=== PATIENT | female | born 1990 | race Caucasian/White ===

== ENCOUNTER 2017-11-18 16:22 | Outpatient (CLI) | payer BC, SELFPAY ==
[2017-11-20 18:32] LABS: Dilute Russell Viper Venom 36.9 secs (27.2-36.9); LA Cascade Summary SEE COMMENTS; Silica Clotting Time 39.4 sec (30.2-48.4)
[2017-11-21 10:46] LABS: IgA 283 mg/dL (85-499); Interpretation SEE COMMENTS; Tissue Transglutaminase IgA <1.2 U/mL (<4.0)
== END 2017-11-18 16:42 ==
PROVIDERS: PCP Family Medicine; Visit Provider Family Medicine
DX: N96 Recurrent pregnancy loss (principal); R10.9 Unspecified abdominal pain
CPT/HCPCS: 82784; 83516; 86147; 87116

== ENCOUNTER 2018-02-04 08:52 | Outpatient (CLI) | payer BC, SELFPAY ==
[2018-02-04 09:44] LABS: HCG Quant, Pregnancy 22 mIU/mL (1-3)
== END 2018-02-04 09:12 ==
PROVIDERS: PCP Family Medicine; Visit Provider Obstetrics & Gynecology Gynecology
DX: Z87.59 Personal history of other complications of pregnancy, childbirth and the puerperium (principal)
CPT/HCPCS: 36415; 84702

== ENCOUNTER 2018-02-07 09:05 | Outpatient (CLI) | payer BC, SELFPAY ==
[2018-02-07 10:20] LABS: HCG Quant, Pregnancy 53 mIU/mL (1-3)
== END 2018-02-07 09:25 ==
PROVIDERS: PCP Family Medicine; Visit Provider Obstetrics & Gynecology Gynecology
DX: Z87.59 Personal history of other complications of pregnancy, childbirth and the puerperium (principal); Z32.01 Encounter for pregnancy test, result positive
CPT/HCPCS: 36415; 84702

== ENCOUNTER 2018-02-09 01:33 | Outpatient (CLI) | payer BC, SELFPAY ==
[2018-02-09 08:06] LABS: HCG Quant, Pregnancy 64 mIU/mL (1-3)
== END 2018-02-09 01:53 ==
PROVIDERS: Obstetrics & Gynecology Gynecology; PCP Family Medicine; Visit Provider Nurse Practitioner
DX: Z32.01 Encounter for pregnancy test, result positive (principal); Z87.59 Personal history of other complications of pregnancy, childbirth and the puerperium
CPT/HCPCS: 36415; 84702

== ENCOUNTER 2018-02-11 07:03 | Outpatient (CLI) | payer BC, SELFPAY | END 2018-02-11 07:23 | PROVIDERS: PCP Family Medicine; Visit Provider Obstetrics & Gynecology Reproductive Endocrinology | DX: N96 Recurrent pregnancy loss (principal) | CPT/HCPCS: 36415; 88230; 88262 ==

== ENCOUNTER 2018-02-12 15:40 | Outpatient (CLI) | payer BC, SELFPAY ==
[2018-02-12 16:26] LABS: HCG Quant, Pregnancy 107 mIU/mL (1-3)
== END 2018-02-12 16:00 ==
PROVIDERS: PCP Family Medicine; Visit Provider Obstetrics & Gynecology Gynecology
DX: Z87.59 Personal history of other complications of pregnancy, childbirth and the puerperium (principal)
CPT/HCPCS: 36415; 84702

== ENCOUNTER 2018-02-13 09:13 | Outpatient (CLI) | payer BC, SELFPAY ==
--- NOTE | 2018-02-13 11:34 | DI.US_ITS ---
Many abnormalities cannot be diagnosed. A normal exam does not exclude a congenital anomaly. Radiology No. LMP: Exam Date: 02/13/18 [facility] wks days on EDC ([facility]) Confirmed: HISTORY: ABNL HCG, CRAMPING, ? ECTOPIC,INEVITABLE , 003.9 ---- PREDICTED GESTATIONAL AGE NUMBER 6.0 weeks with a range of week to weeks. 1 2 3 Multiple Determined by___1STUS__X_LMP___HISTORY Info. pertaining to fetus # PLACENTA PRESENTATION Grade Cephalic___ Anterior___Posterior___ Breech____ Right Left Transverse(head right___ Fundal___Low-lying___Previa___ Transverse(head left___ Varying BIOMETRY AMNIOTIC FLUID BPD: mm weeks Normal HC: mm weeks Oligo Polyhydramnios AC: mm weeks FL: mm weeks AMNIOTIC FLUID INDEX >26 WK CRL: mm weeks Cisterna Magna: mm CI: RUQ: LUQ Cerebellum: cm EFW: grams Percentile RLQ: LLQ Total: cms Composite AGE= wks EDC by US BIOPHYSICAL PROFILE ANATOMY IDENTIFIED SCORE 0/2 Heart: 4-Chamber___Rate:BPM LVOT: RVOT: Amniotic Fluid(>2cms)____ Stomach: Kidneys: Respirations (>30 secs) Bladder: Post. Fossa: Body Flex/Extension 3 vessel cord: Ventricles: cord insertion: Lips:____ Extremity Flex/Extension spinal morphology: Nose: Total Score= Palate: NS=not seen Routine examination was performed. The uterus measures 8.7 cm. long by 4.4 cm. AP by 6.1 cm. transverse. There is a small amount of fluid seen in the endometrial canal. No findings to represent an intrauterine gestational sac are seen. The endometrial stripe is homogeneous and measures 1.2 cm. No myometrial mass is seen. The right ovary measures 2.3 by 1.3 by 1.9 cm. There are small follicular cysts present. There is normal blood flow to the right ovary. No evidence of torsion is seen. There is a small amount of free fluid adjacent to the right ovary. The left ovary measures 3.1 by 2.2 by 2.5 cm. There is a 2.1 by 2.1 by 2.3 cm. avascular simple cyst arising from the left ovary. There is normal blood flow to the left ovary. No evidence of torsion is seen. No free fluid is seen in the cul-de-sac. No adnexal mass is appreciated. There is no hydronephrosis. IMPRESSION: 1. No evidence of an intrauterine gestational sac. 2. No evidence of a pelvic or adnexal mass. 3. 2.3 cm. simple cyst on the left ovary. 4. Trace amount of free fluid adjacent to the right ovary. The examination was performed with Dr Anne Cooper present.
== END 2018-02-13 09:33 ==
PROVIDERS: PCP Family Medicine; Visit Provider Obstetrics & Gynecology Gynecology
DX: N83.292 Other ovarian cyst, left side (principal); O03.9 Complete or unspecified spontaneous abortion without complication; N83.01 Follicular cyst of right ovary
CPT/HCPCS: 76817

== ENCOUNTER 2018-02-16 13:30 | Outpatient (CLI) | payer BC, SELFPAY ==
[2018-02-16 14:13] LABS: HCG Quant, Pregnancy 77 mIU/mL (1-3)
== END 2018-02-16 13:50 ==
PROVIDERS: PCP Family Medicine; Visit Provider Obstetrics & Gynecology Gynecology
DX: R79.9 Abnormal finding of blood chemistry, unspecified (principal)
CPT/HCPCS: 84702

== ENCOUNTER 2018-04-13 18:24 | Outpatient (REF) | payer BC, SELFPAY ==
--- NOTE | 2018-04-13 16:00 | PAPFT_PTH ---
PATIENT: Sirisha De La Cruz [id number] AGE/SX: 27/F ROOM: RE04/13/[address]: Martell Rosado : 1990 BED: DIS: 04/13/2018 SPEC #: [id number] RECD: 04/14/18 13:01 STATUS: VIN RECasey #: [id number] CINTHIA: 04/13/18 16:[address]: Martell Rosado DEPT: [facility] Cytology RECD BY: Lori Hewitt Tissues: 1 - CX/ENDOCX FOR PAP SMEARS Procedures: PAP THIN PREP/UVM Screening Comments: [id number]
== END 2018-04-13 18:44 ==
LOC: NCHCN 18:24
PROVIDERS: PCP Family Medicine; Visit Provider Family Medicine
DX: Z12.4 Encounter for screening for malignant neoplasm of cervix (principal)
CPT/HCPCS: 88142

== ENCOUNTER 2019-02-09 12:36 | Outpatient (CLI) | payer BC, SELFPAY ==
[2019-02-09 13:26] LABS: HCG Quant, Pregnancy < 1 mIU/mL (1-3)
== END 2019-02-09 12:56 ==
PROVIDERS: PCP Family Medicine; Visit Provider Obstetrics & Gynecology Reproductive Endocrinology
DX: Z32.01 Encounter for pregnancy test, result positive (principal)
CPT/HCPCS: 36415; 84702

== ENCOUNTER 2019-05-17 08:47 | Outpatient (CLI) | payer BC, SELFPAY ==
[2019-05-17 10:17] LABS: HCG Quant, Pregnancy 112 mIU/mL (1-3)
[2019-05-17 17:33] LABS: Progesterone 18.9 ng/mL (See Table)
== END 2019-05-17 09:07 ==
PROVIDERS: PCP Family Medicine; Visit Provider Obstetrics & Gynecology Reproductive Endocrinology
DX: Z32.00 Encounter for pregnancy test, result unknown (principal)
CPT/HCPCS: 36415; 84144; 84702

== ENCOUNTER 2019-05-19 12:31 | Outpatient (CLI) | payer BC, SELFPAY ==
[2019-05-19 14:38] LABS: HCG Quant, Pregnancy 291 mIU/mL (1-3)
== END 2019-05-19 12:51 ==
PROVIDERS: PCP Family Medicine; Visit Provider Obstetrics & Gynecology Reproductive Endocrinology
DX: Z34.90 Encounter for supervision of normal pregnancy, unspecified, unspecified trimester (principal)
CPT/HCPCS: 36415; 84702

== ENCOUNTER 2019-07-08 14:42 | Outpatient (CLI) | payer BC, SELFPAY ==
[2019-07-08 16:58] LABS: Abs Immature Grans 0.06 k/cumm (0.0-0.09); Absolute Basophil Count 0.03 k/cumm (0.0-0.2); Absolute Eosinophil Count 0.07 k/cumm (0.0-0.7); Absolute Lymphocyte Count 2.45 k/cumm (1.2-3.4); Absolute Neutrophil Count 13.12 k/cumm (1.2-6.7); Basophils % 0.2; Eosinophils % 0.4; HCT 40.3 % (36.0-46.0); HGB 14.3 g/dL (12.0-15.5); Immature Grans % 0.4 %; Lymphocytes % 14.6; Mean Corp. HGB Concentration 35.5 g/dL (32.0-36.0); Mean Corpuscular Hemoglobin 30.6 pg (27.0-33.0); Mean Corpuscular Volume 86.1 fL (80-95); Monocytes % 6.1; Neutrophils % 78.3; Platelet Count 339 x1000/uL (130-400); RBC 4.68 m/cumm (4.00-5.20); RBC Distribution Width 12.5 % (11.7-14.6); White Blood Cell Count 16.76 k/cumm (4.4-10.8)
[2019-07-08 17:28] LABS: Absolute Monocyte Count 1.02 k/cumm (0.11-0.7)
[2019-07-08 17:49] LABS: *AMPHETAMINES SCREEN URINE Negative (Negative); *BARBITURATES SCREEN URINE Negative (Negative); *BENZODIAZEPINES SCREEN URINE Negative (Negative); Cannabinoids THC Negative (Negative); Cocaine Screen,Urine Negative (Negative); METHADONE URINE SCREEN Negative (Negative); OPIATES URINE SCREEN Negative (Negative)
[2019-07-08 17:55] LABS: TSH (W/Ref FT4) 0.69 uIU/mL (0.36-3.74)
[2019-07-08 18:45] LABS: Tricyclic Antidepressants Negative (Negative)
[2019-07-10 15:41] LABS: Syphilis Total Ab w/Reflex Nonreactive (Nonreactive)
[2019-07-12 09:58] LABS: Hepatitis B Surface Ag Negative (Negative)
[2019-07-12 11:06] LABS: HIV-1/2 Ag & Ab Screen Negative (Negative); Hepatitis C Ab w Rflx HCV PCR Negative (Negative)
[2019-07-13 10:56] LABS: Varicella IgG Antibody Positive (See Note)
[2019-07-13 11:09] LABS: Rubella IgG Ab (UVM) Positive (See Note)
[2019-07-16 00:41] LABS: Buprenorphine Negative; Norbuprenorphine Negative
== END 2019-07-08 15:02 ==
PROVIDERS: PCP Family Medicine; Visit Provider Advanced Practice Midwife
DX: O26.21 Pregnancy care for patient with recurrent pregnancy loss, first trimester (principal)
CPT/HCPCS: 80307; 86787; 86803; 86850; 86900; 86901; 87340; 87389; 84443; 85025; 86762; 86780; 87086

== ENCOUNTER 2019-07-12 19:06 | Outpatient (REF) | payer BC, SELFPAY ==
[2019-07-14 14:41] LABS: Chlamydia Result Negative (Negative); GC Result Negative (Negative)
== END 2019-07-12 19:26 ==
LOC: LBN 19:06
PROVIDERS: PCP Family Medicine; Visit Provider Advanced Practice Midwife
DX: O26.21 Pregnancy care for patient with recurrent pregnancy loss, first trimester (principal); Z11.3 Encounter for screening for infections with a predominantly sexual mode of transmission
CPT/HCPCS: 87491; 87591

== ENCOUNTER 2019-09-03 03:23 | Outpatient (CLI) | payer BC, SELFPAY ==
--- NOTE | 2019-09-03 09:30 | DI.US_ITS ---
EXAM: US OB 2-3 TRIMESTER CLINICAL HISTORY: , anatomy Z34.90 SUPERVISION NORMAL TECHNIQUE: Ultrasound performed using standard protocol. COMPARISON: US US OB transvaginal from 02/13/2018 FINDINGS: Ob ultrasound was performed utilizing 2nd trimester protocol. biometry is consistent with a ge stational age of 20 weeks 2 days and EDC of January 19, 2020. There is a normal quantity of amniotic fluid. Placenta is posterior with no placenta previa. anomaly screen is within normal limits as per the attached checklist. heart rate is 152 BPM. IMPRESSION: DATA REPOSITORY:
== END 2019-09-03 03:43 ==
PROVIDERS: PCP Family Medicine; Visit Provider Obstetrics & Gynecology
DX: Z34.92 Encounter for supervision of normal pregnancy, unspecified, second trimester (principal); Z3A.20 20 weeks gestation of pregnancy
CPT/HCPCS: 76805

== ENCOUNTER 2019-09-06 03:12 | Outpatient (CLI) | payer BC, SELFPAY ==
[2019-09-08 12:02] LABS: AFP 67.7 ng/mL; Calculated age at EDD 31 years; Cigarette smoking status non-Smoker; GA used in risk estimate Scan estimate; IVF Pregnancy No; Initial or repeat testing Initial testing; Insulin dependent diabetes No; Maternal Weight 179 lbs; Number of Fetuses 1; Physician Phone Number 802-748-7300; Prev Pregnancy w/NTD No; RECOMMENDED FOLLOW UP None.; Results Summary Normal risk
[2019-09-13 17:17] LABS: Specimen WB Whole Blood
[2019-09-13 17:43] LABS: Result Summary NEGATIVE; Specimen WB Whole Blood
== END 2019-09-06 03:32 ==
PROVIDERS: Advanced Practice Midwife; PCP Family Medicine; Visit Provider Obstetrics & Gynecology
DX: Z34.92 Encounter for supervision of normal pregnancy, unspecified, second trimester (principal); Z36.89 Encounter for other specified antenatal screening; Z3A.19 19 weeks gestation of pregnancy
CPT/HCPCS: 36415; 81329; 81220; 82105

== ENCOUNTER 2019-09-28 13:11 | Outpatient (REF) | payer BC, SELFPAY | END 2019-09-28 13:31 | LOC: LBN 13:11 | PROVIDERS: PCP Family Medicine; Visit Provider Advanced Practice Midwife | DX: R10.9 Unspecified abdominal pain | CPT/HCPCS: 87086 ==

== ENCOUNTER 2019-09-30 01:24 | Emergency (ER) | payer BC, SELFPAY ==
[2019-09-30 01:39] VITALS: BP 124/68; PULSE 82; RESP 16; TEMP 36.7; O2SAT 100
[2019-09-30] MEDS: Lidocaine 5% Patch 1 PATCH TP (02:01)
[2019-09-30] MEDS: Acetaminophen 500 MG TAB 1000 MG PO (02:01)
--- NOTE | 2019-09-30 02:03 | W.ED.GENAD ---
Discharge Plan Disposition Patient Disposition: HOME Condition: Stable Discharge Details Chief Complaint: MIGRANT LEADER Clinical Impression: Acute right flank pain Primary Care Provider: Martell Rosado ED Provider: Tashi Kim Home Meds and New Rx's Prescriptions: Continued prenat.vits,lissa,blb-fldk-kzckp Tablet 1 tab PO DAILY RF: 0 cholecalciferol (vitamin D3) [Vitamin D3] 50 mcg (2,000 unit) tablet 50 mcg PO DAILY RF: 0 lactase 3,000 unit tablet,chewable 9,000 unit PO ONCE RF: 0 acetaminophen 500 mg capsule 500 mg PO Q6H PRNRF: 0 (DME) blood-glucose meter [FreeStyle Lite Meter] Kit See Rx Instructions .ROUTE .MEDSUPPLY Qty: 1 RF: 0 (DME) FreeStyle Lite Strips Strip See Rx Instructions .ROUTE .MEDSUPPLY Qty: 50 RF: 3 (DME) lancets [FreeStyle Lancets] 28 gauge misc See Rx Instructions .ROUTE .MEDSUPPLY Qty: 50 RF: 3 cyclobenzaprine 5 mg tablet 5 mg PO QHS Qty: 20 RF: 0 ugcosrlytv-xypqjotdrmvpi-qvgw [Fioricet] 50-300-40 mg capsule 1 cap PO Q8H PRN (Reason: pain) Qty: 20 RF: 0 Discharge Instructions Instructions: Flank Pain (ED) Additional Instructions: Currently your kidney function is normal, your urinalysis only shows a few red blood cells, but no evidence of infection. Your symptoms at this time are inconsistent appearing with appendicitis. You have an elevated white count on your labs which is notably atypical. Unfortunately we do not have ultrasound capabilities here at this hour, I will place an order for an ultrasound later today for prompt evaluation of your kidneys and your abdomen. Dr. Charlton of obstetrics was to follow-up with you closely later today. Please contact their office in the morning. If you notice any worsening of your symptoms, or any new symptoms such as vomiting, diarrhea, fever, chills, shortness of breath, chest pain, numbness, weakness, or fainting , please return immediately to the emergency department for reevaluation. Please follow up with your primary care provider as soon as possible for reassessment and reevaluation. As always, it was a pleasure participating in your medical care today. Referrals: Mendez Charlton MD [ [facility] STAFF PHYSICIAN] - Medical Decision Making 29-year-old female who is a G4, P0 currently 23 weeks who presents for right flank pain. Patient states that she has had this flank pain for the last 5 days, she has been taking Flexeril and Tylenol to help with it. Pain comes and goes, she describes it as aching and stabbing in nature. There seems to be no focal aggravating or relieving factors. She denies any urinary complaints, nausea, vomiting, or other abdominal pain. She denies any other modifying factors. She states that the Flexeril and Tylenol has not been helping currently. She is scheduled for an ultrasound of her kidneys tomorrow. She does state that some of her previous miscarriages have felt slightly similar to this but only to a small degree. No other complaints at this time. Exam demonstrates no pain or tenderness on exam, no pain at McBurney's point, negative Delaney sign, no flank or CVA tenderness. Minimal muscle spasm on the right. No obturator or psoas signs. Symptoms appearing inconsistent with acute appendicitis. Muscle spasm is on the differential. Previous urinalysis that she had done outpatient did show small amount of RBC. Kidney stone also is certainly on the differential. I did discuss imaging options for the patient in regards to a CT scan or x-rays and at this time through notable discussion, weighing the risks and benefits, and a shared decision making process the patient has refused imaging at this time. Patient is of an appropriate age to make decisions. The patient is of sound mind, appears clinically sober, and has capacity to make decisions by my clinical exam. Respecting the patient's wishes we will hold off on imaging. We will get basic labs to evaluate for kidney dysfunction, we will place Lidoderm patch for suspicion of muscle spasm. Will check urinalysis to note for infection or worsening blood. 3:17 AM Patient's laboratory work-up has returned, urinalysis just shows a few RBCs, renal function stable. No transaminitis. No evidence of infection whatsoever. Patient remains with normal vital signs, no fever or chills both now or historically. Concerning the though the patient does have an elevated white count of 19. She has mild left shift. No bandemia though. This is atypical and slightly concerning. Bedside limited ultrasound shows no evidence of significant cyst on ultrasound, or other abnormality. Repeat abdominal exam shows no signs of an acute surgical abdomen, no right upper quadrant or right lower quadrant tenderness. Symptoms appearing inconsistent with acute appendicitis. Inconsistent with pyelonephritis or perinephric abscess. The patient does have an ultrasound scheduled, but unfortunately it is later in the week. I do feel that this is more urgent. While she does not show indications for an emergent ultrasound tonight, I will schedule outpatient ultrasound for later today. I did contact Dr. Charlton and discussed the case with him. He agrees that the white count is slightly atypical, however in the absence of any signs of an acute surgical abdomen or significant infectious etiology there is no indication for emergent transfer management otherwise. He does request that you follows up closely with the patient this morning in the clinic. That being said I did offer to the patient the options of continued observation here in the ER until testing tomorrow versus discharge home with close follow-up. At this time through shared decision making process patient would like to go home. She remains without any pain at this time, and in no distress. No signs of acute life-threatening or infectious etiology. Bedside limited ultrasound shows good heart rate at 160. With no symptoms of vaginal discharge or other concerning symptomatology patient will be discharged home, with close follow-up with OB tomorrow, as well as outpatient. I did have access page the patient's director engineering, however we have not yet gotten a call back. Patient will be discharged. I have extensively reviewed the treatment plan and discharge instructions with the patient. I have addressed all patient concerns at this time. The patient was made aware of what symptoms to monitor for that would warrant a return to the emergency department. Discussed the plan with the patient, they demonstrate verbal understanding and agreement with our assessment and plan at this time. HPI General Date/Time Provider Initiated Documentation: 09/30/19 01:26. HPI Narrative: 29-year-old female who is a G4, P0 currently 23 weeks who presents for right flank pain. Patient states that she has had this flank pain for the last 5 days, she has been taking Flexeril and Tylenol to help with it. Pain comes and goes, she describes it as aching and stabbing in nature. There seems to be no focal aggravating or relieving factors. She denies any urinary complaints, nausea, vomiting, or other abdominal pain. She denies any other modifying factors. She states that the Flexeril and Tylenol has not been helping currently. She is scheduled for an ultrasound of her kidneys tomorrow. She does state that some of her previous miscarriages have felt slightly similar to this but only to a small degree. No other complaints at this time. Related Data Home Medications Medication Instructions Recorded Confirmed cholecalciferol (vitamin D3) 50 50 mcg PO DAILY 06/30/19 09/28/19 mcg (2,000 unit) tablet prenat.vits,lissa,yyz-waxc-kkpsy 1 tab PO DAILY 06/30/19 09/28/19 lactase 3,000 unit chewable tablet 9,000 unit PO ONCE tab 07/08/19 09/28/19 imvqxcxlpc-lujfqffsbhqys-mznvphyz 1 cap PO Q8H PRN #20 cap 07/20/19 09/28/19 50 mg-300 mg-40 mg capsule acetaminophen 500 mg capsule 500 mg PO Q6H PRN 09/06/19 09/28/19 blood sugar diagnostic #50 each 09/06/19 09/28/19 blood-glucose meter #1 each 09/06/19 09/28/19 lancets 28 gauge #50 each 09/06/19 09/28/19 cyclobenzaprine 5 mg tablet 5 mg PO QHS #20 tab 09/28/19 09/28/19 Previous Rx's Medication Instructions Recorded acrbelpsbo-qomgdnjmgvqzh-inyxmztk 1 cap PO Q8H PRN #20 cap 07/20/19 50 mg-300 mg-40 mg capsule blood sugar diagnostic #50 each 09/06/19 blood-glucose meter #1 each 09/06/19 lancets 28 gauge #50 each 09/06/19 cyclobenzaprine 5 mg tablet 5 mg PO QHS #20 tab 09/28/19 Allergies Allergy/AdvReac Type Severity Reaction Status Date / Time Sulfa (Sulfonamide Allergy Severe Verified 09/28/19 10:19 Antibiotics) citalopram hydrobromide AdvReac Intermediate Verified 09/28/19 10:19 [From Celexa] General Stated Complaint: MIGRANT LEADER ISMAEL: 3 Review of Systems All systems reviewed & are unremarkable except as noted in HPI and below PFSH Medical History History of miscarriage (Acute) 12/2016. Chemical . 07/2017 SAB @ 8w. s/p D&C. 02/2018 Chemical . History of recurrent UTIs (Acute) Knee dislocation (Acute) bilateral intermittent Migraine (Acute 09/17/12) Migraines Syncope, near unknown cause, chronic TMJ (dislocation of temporomandibular joint) (Acute) Surgical History H/O dilation and curettage (Resolved) 07/2017 SAB @ 8w. wisdom teeth Family History Mother Arthritis Heart disease Hyperthyroidism Hypothyroid Father Essential hypertension Hyperlipidemia Grandfather Alzheimer's dementia Atrial fibrillation Hypothyroid Neoplasm colon Grandfather Benign neoplasm of brain Myocardial infarction Neoplasm brain tumor Grandmother Diabetes Neoplasm bone cancer- breast cancer Kidney failure Parkinsons disease Grandmother Diabetes Dementia Hyperlipidemia S/P triple vessel bypass Social History Smoking/Tobacco Use Status: Never Alcohol Intake: current Details: w/o etoh since knowledge of Drug use: Never Substance use type: does not use Household members: spouse Number of Children: 0 Seatbelt use: always Do you feel safe at home: Yes Do you feel safe in your relationship?: Yes Female Reproductive History Menstrual control method: none History History 4 Para 0 Hx # Term Pregnancies 0 Multiple births 0 Hx # Pregnancies 0 Ectopic pregnancies 0 AB induced 0 Hx Number of Living Children 0 AB spontaneous 3 Exam Narrative Exam Narrative: 1.Const: Well-nourished, Well-developed, appearing stated age 2.Eyes: PERRL, no conjunctival injection, and symmetrical lids. 3.ENT: Atraumatic external nose and ears. Moist MM. Neck: Symmetric, trachea midline, No thyromegaly. 4.CVS: +S1/S2, No murmurs or gallops. Peripheral pulses 2+ and equal in all extremities. Brisk capillary refill in all extremities. 5.RESP: Unlabored respiratory effort. Clear to auscultation bilaterally. No wheezes rales or rhonchi 6.GI: Soft, Nontender/Nondistended, No hepatosplenomegaly. No guarding or rebound. No flank or CVA tenderness. Appropriately gravid abdomen. No pain at McBurney's point, negative Delaney sign. 7.MSK: Normocephalic/Atraumatic, Extremities w/o deformity or ttp No cyanosis or clubbing, Normal movement of all extremities 8.Skin: Warm, Dry. No rashes or lesions. 9.Neuro: microsoft developer II-XII grossly intact. Sensation grossly intact, no focal neurologic deficits. 10.Psych: (AAO) x3. Appropriate mood and affect Course Vital Signs Vital signs: Vital Signs Temperature 36.7 C 09/30/19 01:39 Pulse 82 09/30/19 01:39 Respiratory Rate 16 09/30/19 01:39 Blood Pressure 124/68 09/30/19 01:39 Pulse Oximetry 100 09/30/19 01:39 Temperature 36.7 C 09/30/19 01:39 Temperature Source Skin 09/30/19 01:39 Pulse 82 09/30/19 01:39 Respiratory Rate 16 09/30/19 01:39 Respiratory Effort Non-Labored 09/30/19 01:43 Blood Pressure 124/68 09/30/19 01:39 Pulse Oximetry 100 09/30/19 01:39 Pain Level 3 09/30/19 02:01
[2019-09-30 02:17] LABS: Absolute Basophil Count 0.04 k/cumm (0.0-0.2); Absolute Eosinophil Count 0.21 k/cumm (0.0-0.7); Absolute Neutrophil Count 13.24 k/cumm (1.2-6.7); Basophils % 0.2; Eosinophils % 1.1; HCT 35.9 % (36.0-46.0); HGB 12.2 g/dL (12.0-15.5); Immature Grans % 2.6 %; Lymphocytes % 17.9; Mean Corpuscular Hemoglobin 30.8 pg (27.0-33.0); Mean Corpuscular Volume 90.7 fL (80-95); Mean Platelet Volume 9.2 fL (8.0-11.0); Monocytes % 8.9; Neutrophils % 69.3; Platelet Count 341 x1000/uL (130-400); RBC 3.96 m/cumm (4.00-5.20); RBC Distribution Width 13.2 % (11.7-14.6)
[2019-09-30 02:19] LABS: Bilirubin Negative (Negative); Blood Trace-intact (Negative); Clarity Clear (Clear); Glucose Negative (Negative); Ketones Negative (Negative); Leukocyte Esterase Negative (Negative); Nitrite Negative (Negative); Specific Gravity 1.025 (1.005-1.025); Urobilinogen 0.2 EU/dL (Up TO 0.2)
[2019-09-30 02:24] LABS: Absolute Lymphocyte Count 3.42 k/cumm (1.2-3.4)
[2019-09-30 02:25] LABS: Bacteria Rare HPF (Negative); C & S Indicated? No; Casts Negative LPF (Negative); Crystals Negative HPF (Negative); Epithelial Cells Few HPF (Negative); Mucus Negative (Negative); WBC Negative HPF (0-5)
[2019-09-30 02:35] LABS: ALT 19 U/L (14-59); AST 15 U/L (15-37); Albumin 2.6 g/dL (3.4-5.0); Alkaline Phosphatase 64 U/L (46-116); Anion Gap 10.3 mmol/L (3-11); BUN 5 mg/dL (7-18); Bilirubin, Total 0.2 mg/dL (0.2-1.0); CO2 23.7 mmol/L (21.0-32.0); CREATININE 0.63 mg/dL (0.55-1.02); Calcium 8.6 mg/dL (8.5-10.1); Chloride 104 mmol/L (98-107); Glucose 84 mg/dL (74-106); Potassium 3.8 mmol/L (3.5-5.1); Sodium 138 mmol/L (136-145); Total Protein 6.6 g/dL (6.4-8.2)
[2019-09-30 02:48] LABS: Diff Comment Agrees w/ Instrument; RBC Morphology Normal
[2019-09-30 03:03] VITALS: BP 117/62; PULSE 78; RESP 16; O2SAT 99
--- NOTE | 2019-09-30 03:13 | NUR.NOTE ---
Nursing Note: Faxed Referral to [facility]
== END 2019-09-30 03:18 | disposition home or self-care (01) ==
PROVIDERS: Emergency Provider Student in an Organized Health Care Education/Training Program; PCP Family Medicine
DX: O99.89 Other specified diseases and conditions complicating pregnancy, childbirth and the puerperium (principal); O99.112 Other diseases of the blood and blood-forming organs and certain disorders involving the immune mechanism complicating pregnancy, second trimester; D72.829 Elevated white blood cell count, unspecified; O26.22 Pregnancy care for patient with recurrent pregnancy loss, second trimester; Z3A.23 23 weeks gestation of pregnancy
CPT/HCPCS: 36415; 80053; 99283; 81003; 81015; 85025

== ENCOUNTER 2019-09-30 08:13 | Outpatient (CLI) | payer BC, SELFPAY ==
--- NOTE | 2019-09-30 | DI.US_ITS ---
EXAM: US ABDOMEN PELVIS CLINICAL HISTORY: RT FLANK AND ABD PAIN IN , TECHNIQUE: Ultrasound abdomen performed using standard protocol. COMPARISON: US US OB 2-3 TRIMESTER from 09/03/2019 FINDINGS: ABDOMINAL AORTA AND IVC: Visualized portions normal caliber. PANCREAS: Normal where visualized. LIVER: Normal. Hepatopedal flow in the Portal Vein. GALLBLADDER: No evidence of cholelithiasis. No evidence of wall thickening. No pericholecystic fluid identified. BILIARY SYSTEM: Common bile duct measures 3.2 mm. No intrahepatic biliary ductal dilation. DOMINGO'S SIGN: Negative. KIDNEYS: Kidneys are symmetric in size. No evidence of renal calculi. No evidence of hydronephrosis. No renal mass or cyst identified. SPLEEN: Not enlarged. ASCITES: None seen. Right lower quadrant was evaluated: The appendix was not visualized sonographically. Note is made of an intrauterine which was not evaluated on this examination. IMPRESSION: Normal sonographic appearance of the upper abdomen. DATA REPOSITORY:
== END 2019-09-30 08:33 ==
PROVIDERS: PCP Family Medicine; Visit Provider Student in an Organized Health Care Education/Training Program
DX: R10.9 Unspecified abdominal pain (principal); O26.899 Other specified pregnancy related conditions, unspecified trimester
CPT/HCPCS: 76700; 76856

== ENCOUNTER 2019-10-04 21:29 | Outpatient (REF) | payer BC, SELFPAY | END 2019-10-04 21:49 | LOC: LBN 21:29 | PROVIDERS: PCP Family Medicine; Visit Provider Advanced Practice Midwife | DX: R10.9 Unspecified abdominal pain (principal) | CPT/HCPCS: 87086 ==

== ENCOUNTER 2019-10-31 17:42 | Observation (INO) | payer BC, SELFPAY ==
[2019-10-31 18:28] LABS: Bilirubin Negative (Negative); Blood Trace-intact (Negative); Clarity Clear (Clear); Glucose Negative (Negative); Ketones Negative (Negative); Leukocyte Esterase Negative (Negative); Nitrite Negative (Negative); Urobilinogen 0.2 EU/dL (Up TO 0.2)
[2019-10-31 18:40] LABS: Bacteria Negative HPF (Negative); C & S Indicated? No; Crystals Negative HPF (Negative); Epithelial Cells Negative HPF (Negative); Mucus Negative (Negative); RBC 0-2 HPF (0-2); WBC Negative HPF (0-5)
== END 2019-10-31 19:30 | disposition home or self-care (01) ==
LOC: OBS 18:16
PROVIDERS: Admitting Provider Advanced Practice Midwife; PCP Family Medicine; Visit Provider Advanced Practice Midwife
DX: O60.02 Preterm labor without delivery, second trimester (principal); Z3A.27 27 weeks gestation of pregnancy
CPT/HCPCS: 81003; 81015; 87086; G0378

== ENCOUNTER 2019-11-03 03:03 | Outpatient (CLI) | payer BC, SELFPAY ==
[2019-11-03 08:08] LABS: HCT 36.9 % (36.0-46.0); HGB 12.3 g/dL (11.2-15.7); MCH 30.8 pg (27.0-33.0); MCHC 33.3 % (32.0-36.0); MCV 92.3 fL (80-95); MPV 9.5 fL (8.0-11.0); Platelet Count 302 10^3/uL (130-400); RDW 12.8 % (11.7-14.6); RDW-SD 42.9 fL; WBC 19.68 10^3/uL (4.4-10.8)
[2019-11-03 08:10] LABS: Glucose,1 Hr (Glucola) 118 mg/dL (80-140)
== END 2019-11-03 03:23 ==
PROVIDERS: PCP Family Medicine; Visit Provider Advanced Practice Midwife
DX: Z34.90 Encounter for supervision of normal pregnancy, unspecified, unspecified trimester (principal)
CPT/HCPCS: 36415; 82950; 85027

== ENCOUNTER 2019-11-04 13:07 | Outpatient (REF) | payer BC, SELFPAY ==
[2019-11-08 08:20] LABS: SARS-CoV-2 RNA Undetected (Undetected)
== END 2019-11-04 13:27 ==
LOC: NCHCN 13:07
PROVIDERS: PCP Family Medicine; Visit Provider Nurse Practitioner Family
DX: Z20.828 Contact with and (suspected) exposure to other viral communicable diseases (principal)
CPT/HCPCS: U0003

== ENCOUNTER 2019-11-22 03:21 | Outpatient (CLI) | payer BC, SELFPAY ==
[2019-11-22 13:36] LABS: Absolute Monocyte Count 1.11 10^3/uL (0.1-0.8); Basophils % 0.8; Eosinophils % 0.9; HCT 36.7 % (36.0-46.0); HGB 12.2 g/dL (11.2-15.7); Immature Grans % 5.8; Lymphocytes % 14.2; MCH 30.4 pg (27.0-33.0); MCHC 33.2 % (32.0-36.0); MCV 91.5 fL (80-95); MPV 9.2 fL (8.0-11.0); Neutrophils % 73.3; Nucleated RBC 0 %; Platelet Count 295 10^3/uL (130-400); RBC 4.01 10^6/uL (3.93-5.22); RDW 12.7 % (11.7-14.6); RDW-SD 41.5 fL; WBC 22.24 10^3/uL (4.4-10.8)
[2019-11-22 13:39] LABS: Absolute Basophil Count 0.18 10^3/uL (0.0-0.2); Absolute Lymphocyte Count 3.16 10^3/uL (1.2-3.4)
[2019-11-22 13:49] LABS: Diff Comment Agrees w/ Instrument; RBC Morphology Normal
== END 2019-11-22 03:41 ==
PROVIDERS: PCP Family Medicine; Visit Provider Advanced Practice Midwife
DX: Z34.90 Encounter for supervision of normal pregnancy, unspecified, unspecified trimester (principal)
CPT/HCPCS: 36415; 85025

== ENCOUNTER 2019-12-21 20:59 | Outpatient (REF) | payer BC, SELFPAY | END 2019-12-21 21:19 | LOC: LBN 20:59 | PROVIDERS: PCP Family Medicine; Visit Provider Advanced Practice Midwife | DX: Z87.440 Personal history of urinary (tract) infections (principal) | CPT/HCPCS: 87086 ==

== ENCOUNTER 2019-12-28 01:20 | Outpatient (CLI) | payer BC, SELFPAY ==
[2019-12-28 09:19] LABS: HCT 38.2 % (36.0-46.0); MCH 31.1 pg (27.0-33.0); MCV 91.4 fL (80-95); MPV 9.6 fL (8.0-11.0); Platelet Count 270 10^3/uL (130-400); RBC 4.18 10^6/uL (3.93-5.22); RDW 13.1 % (11.7-14.6); RDW-SD 42.7 fL; WBC 17.33 10^3/uL (4.4-10.8)
== END 2019-12-28 01:40 ==
PROVIDERS: PCP Family Medicine; Visit Provider Advanced Practice Midwife
DX: D72.829 Elevated white blood cell count, unspecified (principal)
CPT/HCPCS: 36415; 85027

== ENCOUNTER 2019-12-28 13:02 | Outpatient (REF) | payer BC, SELFPAY ==
[2019-12-28 14:21] LABS: *AMPHETAMINES SCREEN URINE Negative (Negative); *BARBITURATES SCREEN URINE Negative (Negative); *BENZODIAZEPINES SCREEN URINE Negative (Negative); Cannabinoids THC Negative (Negative); Cocaine Screen,Urine Negative (Negative); METHADONE URINE SCREEN Negative (Negative); OPIATES URINE SCREEN Negative (Negative)
[2019-12-28 14:22] LABS: Tricyclic Antidepressants Negative (Negative)
[2020-01-04 09:10] LABS: Buprenorphine Negative
== END 2019-12-28 13:22 ==
LOC: LBN 13:02
PROVIDERS: PCP Family Medicine; Visit Provider Advanced Practice Midwife
DX: Z34.93 Encounter for supervision of normal pregnancy, unspecified, third trimester (principal)
CPT/HCPCS: 80307; 87081

== ENCOUNTER 2020-01-14 04:42 | Inpatient (IN) | payer BC, SELFPAY ==
[2020-01-14] VITALS (10 sets, daily range): BP systolic 114–148; BP diastolic 67–84; PULSE 75–101; RESP 16–18; TEMP 36.6–36.7; O2SAT 97–98
[2020-01-14 05:12] LABS: HCT 40.6 % (36.0-46.0); HGB 13.7 g/dL (11.2-15.7); MCH 30.5 pg (27.0-33.0); MCHC 33.7 % (32.0-36.0); MCV 90.4 fL (80-95); MPV 9.5 fL (8.0-11.0); Platelet Count 279 10^3/uL (130-400); RBC 4.49 10^6/uL (3.93-5.22); RDW 13.1 % (11.7-14.6); RDW-SD 42.7 fL; WBC 19.03 10^3/uL (4.4-10.8)
--- NOTE | 2020-01-14 05:14 | W.PM.OBHPL1 ---
Date of service: 01/14/20 Time of Service: 05:14 Assessment and Plan Assessment and plan (1) Spontaneous rupture of membranes: Status: Acute Assessment and plan: GBS prophylaxis (2) Term : Status: Acute Assessment and plan: SVE deferred. Having mild, but regular contractions. admit to center. Penicillin ordered for GBS prophylaxis. Assess labor pattern. Offered augmentation. Balaji prefers to await natural labor if possible. Risks and benefits discussed. Corinne is assuming care at 0800 and will examine Balaji when appropriate. Comfort measures discussed and Balaji prefers no epidural and to use the tub when it is available. (3) Elevated white blood cell count: Status: Acute OB-HPI Labor/Delivery History of Present Illness Reason for Visit: TERM LABOR Chief Complaint: Suspected Rupture of Membranes (mild contractions) , Associated Signs and Symptoms of Suspected ROM: mild contractions. CATALINA Calculator Estimated Delivery Date Method Current WG Current Estimate 01/26/20 Ultrasound #1 38w 2d Other Estimates 01/25/20 Ultrasound #2 38w 3d Comments: Balaji called at 0340 and reported SROM at home for clear fluid. She reported scant bloody show, mild cramping. She presented to the Center with gross ROM and is admitted in early labor with a history of pos. Group B strep. History of Present Expected Delivery Route/Plan - CNM FOB: Alban De La Cruz (his first child) BB yes to circ Alban would like to be involved as much as possible in the . Natural labor if possible. Would possibly like to use the tub. GBS POSITIVE: PCN prophylaxis in labor Specific Issues/Plan 1. Repetitive SAB x4, this maintained with vag prog 200 mg BID until 10 wks 2. Anxiety, not currently under tx, took celexa once in the past which made her feel worse 2a. At 37 wks revisited treatment for anxiety/depression; declines medication or therapy, is aware of high risk for PPD, may opt for meds if has PPD. 3. [place] drawn 07/15: low prob x3, male. 3a.@ 08/09/19 visit ask pt if she desires sma/cf/afp. al 3b. AFP single marker result is low risk for NTD 3c. CF & SMA carrier screen negative 4. Undecided re MD vs CNM care. 4a. Pt elects CNM care after discussion with 08/09/19 5. Severe right back/flank pain - evaluated 09/27 at [facility]- treated with flexeril and rest, kidney US scheduled. 5a. ED visit for right flank pain, sono done 09/29 completely nml 6. 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 [facility] consult offered and declined. 7. Elevated WBC of unknown etiology on CBC, discussed with MD, will repeat CBC at 36 wks 7a. WBC 17, will consult with MD: on 01/03, no need for further testing, no referral or treatment indicated Assessment: History Reviewed & [facility] Medical History (Updated 01/14/20 @ 05:29 by Prisca Healy CNM) Elevated white blood cell count History of miscarriage 12/2016. Chemical . 07/2017 SAB @ 8w. s/p D&C. 02/2018 Chemical . History of recurrent UTIs Knee dislocation bilateral intermittent Migraine (09/17/12) Migraines Syncope, near unknown cause, chronic TMJ (dislocation of temporomandibular joint) Surgical History H/O dilation and curettage 07/2017 SAB @ 8w. wisdom teeth Family History Mother Arthritis Heart disease Hyperthyroidism Hypothyroid Father Essential hypertension Hyperlipidemia Grandfather Alzheimer's dementia Atrial fibrillation Hypothyroid Neoplasm colon Grandfather Benign neoplasm of brain Myocardial infarction Neoplasm brain tumor Grandmother Diabetes Neoplasm bone cancer- breast cancer Kidney failure Parkinsons disease Grandmother Diabetes Dementia Hyperlipidemia S/P triple vessel bypass Social History Smoking/Tobacco Use Status: Never Smoking risk assessment performed?: Yes Alcohol Intake: current Details: w/o etoh since knowledge of Drug use: Never Substance use type: does not use Household members: spouse Number of Children: 0 Seatbelt use: always Do you feel safe at home: Yes Do you feel safe in your relationship?: Yes Female Reproductive History Menstrual control method: none History History 4 Para 0 Hx # Term Pregnancies 0 Multiple births 0 Hx # Pregnancies 0 Ectopic pregnancies 0 AB induced 0 Hx Number of Living Children 0 AB spontaneous 3 Meds Home Medications and Allergies Home Medications Medication Instructions Recorded Confirmed Type cholecalciferol (vitamin D3) 50 50 mcg PO DAILY 06/30/19 01/14/20 History mcg (2,000 unit) tablet prenat.vits,lissa,kal-lxlv-yvckz 1 tab PO DAILY 06/30/19 01/14/20 History acetaminophen 500 mg capsule 500 mg PO PRN PRN 09/06/19 01/14/20 History blood sugar diagnostic #50 each 09/06/19 01/04/20 Rx blood-glucose meter #1 each 09/06/19 01/04/20 Rx lancets 28 gauge #50 each 09/06/19 01/04/20 Rx lactase 3,000 unit chewable tablet 9,000 unit PO PRN PRN tab 10/04/19 01/14/20 History calcium carbonate 200 mg calcium 600 mg PO PRN PRN tab 12/07/19 01/14/20 History (500 mg) chewable tablet Allergies Allergy/AdvReac Type Severity Reaction Status Date / Time Sulfa (Sulfonamide Allergy Severe Verified 01/14/20 05:25 Antibiotics) citalopram hydrobromide AdvReac Intermediate Verified 01/14/20 05:25 [From Celexa] Exam Physical Exam Vital Signs Reviewed: Yes Constitutional Constitutional: no acute distress Detailed Labor and Delivery Exam Smith Score: Cervical Points Exam 0 1 2 3 Dilation Closed 1-2cm 3-4 cm 5-6cm Effacement 0-30% 40-50% 60-70% 80% Consistency Firm Medium Soft Station -3 -2 -1,0 +1,+2 Position Posterior Mid Anterior Amniotic Membrane Status: Ruptured Rupture Method: Spontaneous Amniotic Fluid: Clear Pooling: Positive Contraction Intensity: Mild Fetus A Heart Rate Baseline: 140 Monitor Accelerations: 15 X 15 Monitor Decelerations: None Variability: Moderate (6-25 BPM) Categories: Category I Est. Weight: 7 Date of Membrane Rupture: 01/14/20 Time of Membrane Rupture: 03:30 Results Results Group Beta Strep: Positive Blood Type: O+ Rubella Status: Immune Varicella Immunity: Immune Risk Assessment Risk for Shoulder Dystocia Historical/Initial OB: NEGATIVE FOR: Pelvic Abnormality, Pre- BMI>30, Previous Shoulder Dystocia or Previous Macrosomia Increased Risk?: No (@ iob of 07/08/19 al) Risk for Pre-Eclampsia Daily Dose ASA Indicated: No (as of iob 07/08/19 al) Date Initiated/Initials: 07/08/19 al Yes, if one or more: NEGATIVE FOR: Hx Pre-E/Gest HTN, Chronic HTN, Multiple Gestation, Pre-gestational DM, Renal Disease, Systemic Lupus or APA Syndrome Yes, if 2 or more: POSITIVE FOR: Nulliparity; NEGATIVE FOR: Age>= 35 yrs, >10yr btwn pregnancies, BMI>30, ethinicty, Mother/Sister w/ Pre-E or Previous IUGR Risk for Post- Hemorrhage Initial: NEGATIVE FOR: Multiple Gestation, Previous PPH, Known Clotting Deficiency, Grand Multiparity or Anticoagulation At Risk?: No (@ iob 07/08/19 al) Counseled re: Active Management: Yes (al 07/08/19) Date/Initials: 07/08/19 al Risks Reviewed Risks Reviewed Upon Admission: Yes
[2020-01-14] MEDS: Penicillin G POT. 5,000,000 UNITS in Normal Saline 100 ML 200 UNITS IVPB (06:00)
[2020-01-14] MEDS: Lactated Ringers 1,000 ML 125 ML IV (06:00)
--- NOTE | 2020-01-14 07:49 | HPE_ITS ---
OB-HPI Labor/Delivery History of Present Illness Reason for Visit: TERM LABOR [place] Calculator Estimated Delivery Date Method Current WG Current Estimate 01/26/20 Ultrasound #1 38w 2d Other Estimates 01/25/20 Ultrasound #2 38w 3d History of Present Expected Delivery Route/Plan - CNM FOB: Alban De La Cruz (his first child) BB yes to circ Alban would like to be involved as much as possible in the . Natural labor if possible. Would possibly like to use the tub. GBS POSITIVE: PCN prophylaxis in labor Specific Issues/Plan 1. Repetitive SAB x4, this maintained with vag prog 200 mg BID until 10 wks 2. Anxiety, not currently under tx, took celexa once in the past which made her feel worse 2a. At 37 wks revisited treatment for anxiety/depression; declines medication or therapy, is aware of high risk for PPD, may opt for meds if has PPD. 3. [place] drawn 07/15: low prob x3, male. 3a.@ 08/09/19 visit ask pt if she desires sma/cf/afp. al 3b. AFP single marker result is low risk for NTD 3c. CF & SMA carrier screen negative 4. Undecided re MD vs CNM care. 4a. Pt elects CNM care after discussion with MD 08/09/19 5. Severe right back/flank pain - evaluated 09/[address] [facility]- treated with flexeril and rest, kidney US scheduled. 5a. ED visit for right flank pain, sono done 09/29 completely nml 6. 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 [facility] [place] offered and declined. 7. Elevated WBC of unknown etiology on CBC, discussed with MD, will repeat CBC at 36 wks 7a. WBC 17, will consult with MD: on 01/03, no need for further testing, no referral or treatment indicated [facility] Medical History (Updated 01/14/20 @ 05:29 by Prisca Healy CNM) Elevated white blood cell count History of miscarriage 12/2016. Chemical . 07/2017 SAB @ 8w. s/p D&C. 02/2018 Chemical . History of recurrent UTIs Knee dislocation bilateral intermittent Migraine (09/17/12) Migraines Syncope, near unknown cause, chronic TMJ (dislocation of temporomandibular joint) Surgical History H/O dilation and curettage 07/2017 SAB @ 8w. wisdom teeth Family History Mother Arthritis Heart disease Hyperthyroidism Hypothyroid Father Essential hypertension Hyperlipidemia Grandfather Alzheimer's dementia Atrial fibrillation Hypothyroid Neoplasm colon Grandfather Benign neoplasm of brain Myocardial infarction Neoplasm brain tumor Grandmother Diabetes Neoplasm bone cancer- breast cancer Kidney failure Parkinsons disease Grandmother Diabetes Dementia Hyperlipidemia S/P triple vessel bypass Social History Smoking/Tobacco Use Status: Never Smoking risk assessment performed?: Yes Alcohol Intake: current Details: w/o etoh since knowledge of Drug use: Never Substance use type: does not use Household members: spouse Number of Children: 0 Seatbelt use: always Do you feel safe at home: Yes Do you feel safe in your relationship?: Yes Female Reproductive History Menstrual control method: none History History 4 Para 0 Hx # Term Pregnancies 0 Multiple births 0 Hx # Pregnancies 0 Ectopic pregnancies 0 AB induced 0 Hx Number of Living Children 0 AB spontaneous 3 Meds Home Medications and Allergies Home Medications Medication Instructions Recorded Confirmed Type cholecalciferol (vitamin D3) 50 50 mcg PO DAILY 06/30/19 01/14/20 History mcg (2,000 unit) tablet prenat.vits,lissa,[id number] 1 tab PO DAILY 06/30/19 01/14/20 History acetaminophen 500 mg capsule 500 mg PO PRN PRN 09/06/19 01/14/20 History blood sugar diagnostic #50 each 09/06/19 01/04/20 Rx blood-glucose meter #1 each 09/06/19 01/04/20 Rx lancets 28 gauge #50 each 09/06/19 01/04/20 Rx lactase 3,000 unit chewable tablet 9,000 unit PO PRN PRN tab 10/04/19 01/14/20 History calcium carbonate 200 mg calcium 600 mg PO PRN PRN tab 12/07/19 01/14/20 History (500 mg) chewable tablet Allergies Allergy/AdvReac Type Severity Reaction Status Date / Time Sulfa (Sulfonamide Allergy Severe Verified 01/14/20 05:25 Antibiotics) citalopram hydrobromide AdvReac Intermediate Verified 01/14/20 05:25 [facility] Exam Physical Exam Vital signs: Temp Pulse Resp BP Pulse Ox 97.9 F 75 16 125/71 98 01/14/20 07:45 01/14/20 07:45 01/14/20 07:45 01/14/20 07:45 01/14/20 07:45 Constitutional Constitutional: no acute distress Detailed Labor and Delivery Exam Smith Score: Cervical Points Exam 0 1 2 3 Dilation Closed 1-2cm 3-4 cm 5-6cm Effacement 0-30% 40-50% 60-70% 80% Consistency Firm Medium Soft Station -3 -2 -1,0 +1,+2 Position Posterior Mid Anterior Fetus A Date of Membrane Rupture: 01/14/20 Time of Membrane Rupture: 03:30 Results Results Group Beta Strep: Positive Blood Type: O+ Rubella Status: Immune Varicella Immunity: Immune Abnormal Lab Findings: Abnormal Labs 01/14/20 05:05 WBC 19.03 H Risk Assessment Risk for Shoulder Dystocia Historical/Initial OB: NEGATIVE FOR: Pelvic Abnormality, Pre- BMI>30, Previous Shoulder Dystocia or Previous Macrosomia Increased Risk?: No Risk for Pre-Eclampsia Daily Dose ASA Indicated: No (as of iob 07/08/19 al) Date Initiated/Initials: 07/08/19 al Yes, if one or more: NEGATIVE FOR: Hx Pre-E/Gest HTN, Chronic HTN, Multiple Gestation, Pre-gestational DM, Renal Disease, Systemic Lupus or APA Syndrome Yes, if 2 or more: POSITIVE FOR: Nulliparity; NEGATIVE FOR: Age>= 35 yrs, >10yr btwn pregnancies, BMI>30, ethinicty, Mother/Sister w/ Pre-E or Previous IUGR Risk for Post- Hemorrhage Initial: NEGATIVE FOR: Multiple Gestation, Previous PPH, Known Clotting Deficiency, Grand Multiparity or Anticoagulation At Risk?: No (@ iob 07/08/19 al) Counseled re: Active Management: Yes (al 07/08/19) Date/Initials: 07/08/19 al
--- NOTE | 2020-01-14 09:47 | W.PM.OBNL1 ---
Date of service: 01/14/20 Time of Service: 09:48 Informed Consent Informed Consent: Induction of Labor (Discussed with pt that she is in latent phase and may need cervical ripening if labor does not begin spontaneously) and Risk,Benefits,Alternatives Discussed Pelvic Exam Dilation: 2 Effacement (%): 80 station: -2 Cervix Position: posterior Consistency: medium Vaginal Exam Presentation: Cephalic Pooling: Positive Contractions Monitor Mode: External (intermittent auscultation) Contraction Frequency(min): irregular Intensity: Mild Fetus A Monitor: Doppler Heart Rate Baseline: 140 Presentation: Cephalic FHR Rhythm: Regular Amniotic Membrane Status: Ruptured (since 329) Rupture Method: Spontaneous Amniotic Fluid: Clear Assessment and Plan Assessment and plan (1) Full-term premature rupture of membranes: Status: Acute Assessment and plan: A: 29 yo G1 , PROM since 329, latent phase, GBS+ P: Continue GBS prophylaxis Expectant management, regular diet, intermittent auscultation per protocol Initiated discussion with pt advising cervical ripening this afternoon if no cervical change Dr. Cooper consulting Qualifiers: PROM onset of labor timing: unspecified duration between rupture of membranes and onset of labor Qualified Code(s): O42.92 - Full-term premature rupture of membranes, unspecified as to length of time between rupture and onset of labor Objective Vital Signs Reviewed: Yes Objective Narrative Objective Narrative: Assuming care at 0830 Previous tracing category 1, intermittent auscultation has been reassuring Afebrile, normotensive, coping well with discomforts, Currently resting in bed, appears relaxed, conversational Accompanied by FOB for support Has received loading dose of PCN for GBS prophylaxis Tolerating regular diet and PO fluid intake Clear fluid noted Cvx 1-2/80% posterior, vtx -2 Subjective Patient Reports: No new Complaints Interval history since last seen: Water broke at 0330, clear fluid continues to drain, contractions feel like menstrual cramps, discomfort is in the lower abd area. Is hoping her labor will become active without medication to induce. Results Hemoglobin/Hematocrit: Hgb 13.7 g/dL (11.2-15.7) 01/14/20 05:05 Hct 40.6 % (36.0-46.0) 01/14/20 05:05 Abnormal Lab Findings: Abnormal Labs 01/14/20 05:05 WBC 19.03 H
[2020-01-14] MEDS: Penicillin G POT. 3,000,000 UNITS in Normal Saline 50 ML 100 UNITS IVPB ×2 (10:17→14:10)
[2020-01-14] MEDS: Normal Saline Flush 10 ML SYR IVP (14:18)
--- NOTE | 2020-01-14 15:11 | W.PM.OBNL1 ---
Date of service: 01/14/20 Time of Service: 15:11 Pelvic Exam Dilation: 3 Effacement (%): 100 station: -2 Cervix Position: posterior Consistency: soft Vaginal Exam Presentation: Cephalic Contractions Monitor Mode: External Contraction Frequency(min): irregular Intensity: Mild/Moderate Fetus A Monitor: External (US) Heart Rate Baseline: 145 Presentation: Vertex Variability: Moderate (6-25 BPM) Categories: Category I FHR Rhythm: Regular Characteristics: Normal Accelerations: 15 X 15 Decelerations: None Amniotic Membrane Status: Ruptured Assessment and Plan Assessment and plan (1) Full-term premature rupture of membranes: Status: Acute Assessment and plan: A: primipara, PROM x12 hrs, early active labor P: Pt desires to avoid induction or augmentation Cvx changed to 3 cm and contractions are increasingly frequent Move to tub room when available Continue expectant management Qualifiers: PROM onset of labor timing: unspecified duration between rupture of membranes and onset of labor Qualified Code(s): O42.92 - Full-term premature rupture of membranes, unspecified as to length of time between rupture and onset of labor Objective Vital Signs Reviewed: Yes Objective Narrative Objective Narrative: Cvx 3/100% posterior, vtx -2 category 1 tracing Afebrile, normotesive Breathing hard with contractions, conversant between Has received 3 doses of prophylactic PCN Subjective Interval history since last seen: Pt reports increasing strong contractions but still irregular
[2020-01-14] MEDS: Oxytocin/Normal Saline 30 UNIT/500 ML BAG 95 UNITS IV (19:00)
[2020-01-14] MEDS: Hamamelis Leaf/Glycerin 100 EACH BOX PR (21:01)
[2020-01-14] MEDS: Ibuprofen 600 MG TAB PO (21:01)
[2020-01-15 03:55] VITALS: BP 130/78; PULSE 99; RESP 18; TEMP 36.7; O2SAT 100
[2020-01-15] MEDS: Ibuprofen 600 MG TAB PO ×2 (05:41→14:47)
[2020-01-15 08:25] VITALS: BP 123/83; PULSE 99; RESP 20; TEMP 36.6
[2020-01-15 08:54] LABS: HCT 36.7 % (36.0-46.0); HGB 12.7 g/dL (11.2-15.7); MCH 30.8 pg (27.0-33.0); MCHC 34.6 % (32.0-36.0); MCV 89.1 fL (80-95); MPV 9.5 fL (8.0-11.0); Platelet Count 270 10^3/uL (130-400); RBC 4.12 10^6/uL (3.93-5.22); RDW 13.1 % (11.7-14.6); RDW-SD 42.5 fL; WBC 23.83 10^3/uL (4.4-10.8)
--- NOTE | 2020-01-15 09:26 | OBVDS_ITS ---
Date of service: 01/14/20 Time of Service: 19:25 OB Labor/ Delivery Information Baby A Delivery Delivery Method: Spontaneaous Presentation: Cephalic Cephalic Position: Vertex Vertex Position: Left Occipital Anterior Breech Position: N/A Cord Description-Baby A: 3 Vessels Amniotic Fluid: Clear Estimated Blood Loss: 200 Delivery Outcome: Liveborn Transferred: Remains with Mother Providers Nurse [place] Consultant: Corinne Osman Lens Coating Technician: Martell Rosado Nurse: Latoya Arango Nurse: Austin Gunn Labor/Delivery Information Number of Babies in Womb: 1 Steroids Given: None Reason Steroids Not Administered: N/A Group Beta Strep: Positive Antibiotics Administered: Yes Number of Doses of Antibiotics: 3 Rubella Status: Immune Blood Type: O+ Varicella Immunity: Immune Medication in Delivery: Nitrous oxide Maternal Complications: None Shoulder Dystocia: No Note: Pt's labor progressed without intervention or augmentation, pt chose warm water immersion for pain management and soon was feeling urges to bear down, got out of the tub for RN exam, found to be 9 cm, began to use nitrous oxide, progressed quickly to 2nd stage in left lateral position. 2nd stage huddle was completed after anterior lip was manually reduced by CNM, of a vigorous male infant over intact perineum assisted by FOB, loose nuchal cord reduced overhead, nuchal hand noted (right hand), shoulders came easily, to mother's arms immediately. Cord ceased pulsations, clamped and cut by FOB, cord blood collected, pitocin infusion begun, Marie placenta intact with 3 VC. Perineal and vaginal inspection revealed superficial left labial lac with edges well approximated, not bleeding, not repaired. Excellent family bonding observed. Stages of Labor Onset of Labor Date: 01/14/20 Onset of Labor Time: 02:00 Complete Dilatation Date: 01/14/20 Complete Dilatation Time: 18:05 Labor - Stage 1 Duration: 0 minutes ROM Baby A: 01/14/20 ROM Baby A: 02:00 ROM Total Time- Baby A: [id number] Infant Delivery Date-Baby A: 01/14/20 Infant Delivery Time-Baby A: 18:27 Labor Stage 2 Duration: 22 minutes Placenta Delivery Date-Baby A: 01/14/20 Placenta Delivery Time-Baby A: 18:35 Labor-Stage 3 Duration: 8 minutes Total Length of Labor-Baby A: 16 hours and 27 minutes Placenta Cultured: No Placenta Status: Delivered Baby A Infant Gender: Male Gestational Status: Early Term (37-38.6 wks) Gestational Age in Weeks/Days: 38 Weeks and 2 Days weight: 7 lb 3.522 oz Weight Comment: 3275 gms Length-Baby A: 21.26 in Head Circumference-Baby A: 13.78 in Score-1 Minute Interval(Baby A) Heart Rate-1 minute: 100 BPM or Greater Respiratory Effort- 1 minute: Spontaneous/Strong Cry Muscle Tone-1 minute: Active Movement Reflex Response-1 minute: Prompt Response Color-1 minute: Pallor or Cyanosis Total Score-1 minute: 8 Score-5 Minute Interval(Baby A) Heart Rate- 5 minute: 100 BPM or Greater Respiratory Effort-5 minute: Spontaneous/Strong Cry Muscle Tone-5 minute: Active Movement Reflex Response-5 minute: Prompt Response Color-5 minute: Bluish Hands or Feet Total Score- 5 minute: 9 Procedure Procedures: Cord Blood Collection
--- NOTE | 2020-01-15 09:37 | OBPPV_ITS ---
Date of service: 01/15/20 Time of Service: 09:37 Assessment and Plan Assessment and plan (1) Term delivered: Status: Acute Assessment and plan: A: PPD#1, nml recovery, off to a slow start P: Support efforts, LC consult as needed Pt desires circumcision prior to discharge Plans NFP as BCM CBC nml today Will discharge when baby is released in 1-2 days per Peds Subjective Subjective Patient comments: Pain well controlled, Tolerating diet and Flatus present Patient's Mood: happy, tired, amazed [place] baby status: Doing well [place] feeding status: Exclusively breast feeding, Pipette Feeding and Cup Feeding Narrative: Baby is not latching well or nursing frequently enough, pt hand expressing, receiving support from RN service Exam Physical Exam Vital signs: Temp Pulse Resp BP Pulse Ox 98.1 F 99 H 18 130/78 100 01/15/20 03:55 01/15/20 03:55 01/15/20 03:55 01/15/20 03:55 01/15/20 03:55 Vital Signs Reviewed: Yes Constitutional Constitutional: no acute distress Neck Exam Neck Exam: Normal Breast Exam Bilateral: Breast Exam: Normal and Soft Nipple Exam: Normal Respiratory Exam Respiratory Exam: Normal Cardiovascular Exam Cardiovascular Exam: Normal Abdominal Exam Comments: soft, nontender Fundal Exam Fundus: Below Umbilicus and Firm Exam Perineum: Intact Extremities Exam Extremity Exam: Normal Back/Spine/Pelvis Exam Back Exam: Normal Skin Exam Skin Exam: Normal Results Hemoglobin/Hematocrit: Hgb 12.7 g/dL (11.2-15.7) 01/15/20 08:44 Hct 36.7 % (36.0-46.0) 01/15/20 08:44 Abnormal Lab Findings: Abnormal Labs 01/14/20 01/15/20 05:05 08:44 WBC 19.03 H 23.83 H
[2020-01-15 12:43] VITALS: BP 120/81; PULSE 88; RESP 20; TEMP 37
[2020-01-15 14:27] VITALS: BP 110/70; PULSE 101; RESP 16; TEMP 36.9
[2020-01-15] MEDS: Docusate Sodium 100 MG CAP PO (14:47)
[2020-01-15 21:51] VITALS: BP 116/70; PULSE 60; RESP 16; TEMP 36.7; O2SAT 99
[2020-01-16] MEDS: Ibuprofen 600 MG TAB PO ×3 (04:00→23:09)
[2020-01-16 08:50] VITALS: BP 110/72; PULSE 76; RESP 16; TEMP 36.7; O2SAT 98
[2020-01-16 09:19] LABS: SARS-CoV-2 RNA Not Detected (NotDetected); SARS-CoV-2 RNA Source Nasal/Nares
--- NOTE | 2020-01-16 11:16 | OBPPV_ITS ---
Date of service: 01/16/20 Time of Service: 11:16 Assessment and Plan Assessment and plan (1) Term delivered: Status: Acute Assessment and plan: A: PPD#2, nml recovery, issues continue P: LC consult this afternoon Circumcision delayed by Peds Plans NFP as BCM Plan discharge tomorrow Subjective Subjective Patient comments: Pain well controlled, Tolerating diet and Bowel Movement Patient's Mood: happy, tired [place] baby status: Doing well, Rooming in and Strong Bonding Observed [place] feeding status: Pumping and bottle feeding, Pipette Feeding and Cup Feeding Narrative: Nursing issues continue, circumcision delayed by Peds, LC consult planned for this afternoon Exam Physical Exam Vital signs: Temp Pulse Resp BP Pulse Ox 98.1 F 76 16 110/72 98 01/16/20 08:50 01/16/20 08:50 01/16/20 08:50 01/16/20 08:50 01/16/20 08:50 Constitutional Constitutional: no acute distress Neck Exam Neck Exam: Normal Breast Exam Bilateral: Breast Exam: Normal and Soft Respiratory Exam Respiratory Exam: Normal Cardiovascular Exam Cardiovascular Exam: Normal Fundal Exam Fundus: Below Umbilicus and Firm Exam Perineum: Intact Extremities Exam Extremity Exam: Normal Back/Spine/Pelvis Exam Back Exam: Normal Skin Exam Skin Exam: Normal
[2020-01-16] MEDS: Hamamelis Leaf/Glycerin 100 EACH BOX PR (13:43)
--- NOTE | 2020-01-16 14:17 | NUR.NOTE ---
Mother sleeping. Baby in pram at bedside.Nursing Note:
[2020-01-16] MEDS: Acetaminophen 325 MG TAB 650 MG PO ×3 (14:57→23:08)
[2020-01-16 15:10] VITALS: BP 118/75; PULSE 85; TEMP 37
[2020-01-16 19:36] VITALS: BP 118/71; PULSE 79; RESP 18; TEMP 36.8
[2020-01-17] MEDS: Ibuprofen 600 MG TAB PO (06:33)
--- NOTE | 2020-01-17 07:19 | W.PM.OBDISCH ---
Date of service: 01/17/20 Time of Service: 07:19 DS: Diagnosis Discharge Diagnosis (1) Term delivered: Status: Acute Discharge Plan Disposition Patient Disposition: HOME Condition: Good Discharge Details Reason For Visit: TERM LABOR Admit Date/Time: 01/14/20 04:42 Admit Provider: Prisca Healy Attending Provider: Prisca Healy Primary Care Provider: Martell Rosado [facility] Hospital Course: of healthy infant, nml PP recovery, some difficulties Home Meds and New Rx's Prescriptions: No Action prenat.vits,lissa,[id number] Tablet 1 tab PO DAILY RF: 0 cholecalciferol (vitamin D3) [Vitamin D3] 50 mcg (2,000 unit) tablet 50 mcg PO DAILY RF: 0 lactase 3,000 unit tablet,chewable 9,000 unit PO PRN PRNRF: 0 acetaminophen 500 mg capsule 500 mg PO PRN PRNRF: 0 (DME) blood-glucose meter [FreeStyle Lite Meter] Kit See Rx Instructions .ROUTE .MEDSUPPLY Qty: 1 RF: 0 (DME) FreeStyle Lite Strips Strip See Rx Instructions .ROUTE .MEDSUPPLY Qty: 50 RF: 3 (DME) lancets [FreeStyle Lancets] 28 gauge misc See Rx Instructions .ROUTE .MEDSUPPLY Qty: 50 RF: 3 calcium carbonate [Tums] 200 mg calcium (500 mg) tablet,chewable 600 mg PO PRN PRNRF: 0 Discharge Instructions Additional Instructions: Please make a 2 & 6 wk appt with your midwives Stand Alone Forms: BC Instructions, NB Instructions, BC Post Vaginal Deliver Activity:: Activity as Tolerated Equipment/Supplies:: No Equipment Needed Diet:: Normal Diet Discharge Orders Discharge Orders: Discharge Order (Routine); Ordered 01/17/20 Ordered By: Corinne Osman OB:DS Summary Summary Vaginal Delivery Method: Spontaneaous Episiotomy Description: None Laceration Description: Other Laceration Extension: N/A Contraception Discussed Contraception Discussed: Yes (plans NFP) Contraceptive Plan: Not planning to use, Gender-Baby A: Male weight: 7 lb 3.522 oz Status at Discharge Functional status at discharge: independent ambulation Overall status at discharge: patient is progressing back to baseline Mental Status: mental status grossly normal Speech and Movement: speech and movement normal and speech clear Mood: congruent mood Affect: normal affect Exam Physical Exam Vital signs: Temp Pulse Resp BP Pulse Ox 98.2 F 79 18 118/71 98 01/16/20 19:36 01/16/20 19:36 01/16/20 19:36 01/16/20 19:36 01/16/20 08:50 Constitutional Constitutional: no acute distress Neck Exam Neck Exam: Normal Breast Exam Bilateral: Breast Exam: Normal and Soft Respiratory Exam Respiratory Exam: Normal Cardiovascular Exam Cardiovascular Exam: Normal Fundal Exam Fundus: Below Umbilicus and Firm Exam Perineum: Intact Extremities Exam Extremity Exam: Normal Back/Spine/Pelvis Exam Back Exam: Normal Skin Exam Skin Exam: Normal [facility] Medical History (Updated 01/15/20 @ 09:39 by Corinne Osman) Elevated white blood cell count History of miscarriage 12/2016. Chemical . 07/2017 SAB @ 8w. s/p D&C. 02/2018 Chemical . History of recurrent UTIs Knee dislocation bilateral intermittent Migraine (09/17/12) Migraines Syncope, near unknown cause, chronic TMJ (dislocation of temporomandibular joint) Surgical History H/O dilation and curettage 07/2017 SAB @ 8w. wisdom teeth Family History Mother Arthritis Heart disease Hyperthyroidism Hypothyroid Father Essential hypertension Hyperlipidemia Grandfather Alzheimer's dementia Atrial fibrillation Hypothyroid Neoplasm colon Grandfather Benign neoplasm of brain Myocardial infarction Neoplasm brain tumor Grandmother Diabetes Neoplasm bone cancer- breast cancer Kidney failure Parkinsons disease Grandmother Diabetes Dementia Hyperlipidemia S/P triple vessel bypass Social History Smoking/Tobacco Use Status: Never Smoking risk assessment performed?: Yes Alcohol Intake: current Details: w/o etoh since knowledge of Drug use: Never Substance use type: does not use Household members: spouse Number of Children: 0 Seatbelt use: always Do you feel safe at home: Yes Do you feel safe in your relationship?: Yes Female Reproductive History Menstrual control method: none History History 4 Para 0 Hx # Term Pregnancies 0 Multiple births 0 Hx # Pregnancies 0 Ectopic pregnancies 0 AB induced 0 Hx Number of Living Children 0 AB spontaneous 3 DS: Data Vitals/I&O Vitals and I&O: Vital Signs Temperature 98.2 F 01/16/20 19:36 Pulse 79 01/16/20 19:36 Pulse Rhythm Regular 01/16/20 19:36 Respiratory Rate 18 01/16/20 19:36 Blood Pressure 118/71 01/16/20 19:36 Blood Pressure Mean 86 01/16/20 19:36 Pulse Oximetry 98 01/16/20 08:50 Pain Level 3 01/17/20 06:33 Intake & Output 01/16/20 01/16/20 01/17/20 11:59 23:59 11:59 Intake Total 15 15 Output Total 15 / 15 Balance 0 / 0 Intake: Oral 15 15 Output: Emesis Other: Urine Color Yellow Data Completed and Pending Labs on day of discharge: Labs from last 24 hours 01/14/20 05:10 SARS-CoV-2 Source Nasal/nares SARS-CoV-2 (PCR) Not detected
--- NOTE | 2020-01-17 07:21 | OBPPV_ITS ---
Date of service: 01/17/20 Time of Service: 07:22 Assessment and Plan Assessment and plan (1) Term delivered: Status: Acute Assessment and plan: A: PPD#3, nml recovery, working on issues and infant jaundice P: LC consult completed, ongoing nursing support offered Circumcision delayed until later today or tomorrow, or as outpt Plans NFP as BCM Plan discharge to boarder status today until infant is discharged. f/up @ 2 & 6 wks written instructions reviewed with pt and given. Reviewed with pt and FOB sx of PPD and when medication can be helpful Pt declines need for meds, denies depression, admits appropriate concern over infant feeding issues Subjective Subjective Interval history: Notes she has been having tailbone pain, reports s/p coccyx injury prior to , voiding and ambulating qs without trouble Has had to supplement with formula, feeding pumped milk via syringe, started using nipple shield this morning Patient comments: Pain well controlled, Tolerating diet, Flatus present and [place] el Movement Patient's Mood: concerned that baby learn to nurse, watching for jaundice [place] baby status: Supplemental feeding going well, Rooming in and Strong Bonding Observed feeding status: Breast and formula feeding, Pumping and bottle feeding and Pipette Feeding Exam Physical Exam Vital signs: Temp Pulse Resp BP Pulse Ox 98.2 F 79 18 118/71 98 01/16/20 19:36 01/16/20 19:36 01/16/20 19:36 01/16/20 19:36 01/16/20 08:50 Vital Signs Reviewed: Yes Constitutional Constitutional: no acute distress Neck Exam Neck Exam: Normal Breast Exam Bilateral: Breast Exam: Normal and Soft Respiratory Exam Respiratory Exam: Normal Cardiovascular Exam Cardiovascular Exam: Normal Fundal Exam Fundus: Below Umbilicus and Firm Exam Perineum: Intact Extremities Exam Extremity Exam: Normal Back/Spine/Pelvis Exam Back Exam: Normal Skin Exam Skin Exam: Normal
[2020-01-17 08:02] VITALS: BP 105/68; PULSE 76; RESP 18
== END 2020-01-17 08:00 | disposition home or self-care (01) | DRG 807 ==
PROVIDERS: Advanced Practice Midwife; Admitting Provider Advanced Practice Midwife; PCP Family Medicine; Visit Provider Advanced Practice Midwife
DX: O69.81X0 Labor and delivery complicated by cord around neck, without compression, not applicable or unspecified (principal); Z37.0 Single live birth; O99.824 Streptococcus B carrier state complicating childbirth; O42.02 Full-term premature rupture of membranes, onset of labor within 24 hours of rupture; Z11.59 Encounter for screening for other viral diseases; Z67.40 Type O blood, Rh positive; Z3A.38 38 weeks gestation of pregnancy; S39.82XD Other specified injuries of lower back, subsequent encounter; X58.XXXD Exposure to other specified factors, subsequent encounter
CPT/HCPCS: 36415; 85027; 86850; 86900; 86901; U0003; J2540

== ENCOUNTER 2020-03-01 14:02 | Outpatient (CLI) | payer BC, SELFPAY ==
[2020-03-01 15:43] LABS: FREE T4 0.89 ng/dL (0.76-1.46); TSH 1.94 uIU/mL (0.36-3.74)
[2020-03-02 18:48] LABS: T3,Free 3.3 pg/mL (2.8-5.3)
== END 2020-03-01 14:22 ==
PROVIDERS: PCP Family Medicine; Visit Provider Advanced Practice Midwife
DX: E04.9 Nontoxic goiter, unspecified (principal); N89.8 Other specified noninflammatory disorders of vagina
CPT/HCPCS: 36415; 84439; 84443; 84481; 87480; 87510; 87660

== ENCOUNTER 2020-09-29 18:59 | Outpatient (REF) | payer BC, SELFPAY ==
[2020-09-30 00:13] LABS: COVID-19 RT-PCR UVMMC Result Negative (Negative)
== END 2020-09-29 19:00 | disposition home or self-care (01) ==
LOC: LBN 18:59
PROVIDERS: PCP Family Medicine; Visit Provider Physician Assistant Medical
DX: Z20.822 Contact with and (suspected) exposure to COVID-19 (principal); J06.9 Acute upper respiratory infection, unspecified
CPT/HCPCS: U0003

== ENCOUNTER 2021-01-08 17:51 | Outpatient (REF) | payer BC, SELFPAY ==
[2021-01-09 22:21] LABS: COVID-19 RT-PCR UVMMC Result Negative (Negative)
== END 2021-01-08 17:52 | disposition home or self-care (01) ==
LOC: NCHCN 17:51
PROVIDERS: PCP Family Medicine; Visit Provider Family Medicine
DX: Z20.822 Contact with and (suspected) exposure to COVID-19 (principal)
CPT/HCPCS: U0003

== ENCOUNTER 2021-01-17 20:15 | Outpatient (REF) | payer BC, SELFPAY ==
[2021-01-17 21:30] LABS: Abs Immature Grans 0.04 10^3/uL (0.0-0.06); Absolute Basophil Count 0.08 10^3/uL (0.0-0.2); Absolute Eosinophil Count 0.17 10^3/uL (0.0-0.7); Absolute Lymphocyte Count 2.87 10^3/uL (1.2-3.4); Absolute Monocyte Count 1.09 10^3/uL (0.1-0.8); Absolute Neutrophil Count 7.23 10^3/uL (1.2-6.7); Basophils % 0.7; Eosinophils % 1.5; HCT 39.2 % (36.0-46.0); HGB 13.1 g/dL (11.2-15.7); Immature Grans % 0.3; MCH 29.7 pg (27.0-33.0); MCHC 33.4 % (32.0-36.0); MCV 88.9 fL (80-95); MPV 10.3 fL (8.0-11.0); Monocytes % 9.5; Nucleated RBC 0 %; Platelet Count 387 10^3/uL (130-400); RBC 4.41 10^6/uL (3.93-5.22); RDW-SD 39.5 fL; WBC 11.48 10^3/uL (4.4-10.8)
[2021-01-18 08:42] LABS: TSH (W/Ref FT4) 2.13 uIU/mL (0.36-3.74)
[2021-01-18 19:50] LABS: Prolactin 6.5 ng/mL (See Table)
== END 2021-01-17 20:16 | disposition home or self-care (01) ==
LOC: NCHCN 20:15
PROVIDERS: PCP Family Medicine; Visit Provider Family Medicine
DX: N91.5 Oligomenorrhea, unspecified (principal); D72.829 Elevated white blood cell count, unspecified
CPT/HCPCS: 84146; 84443; 85025

== ENCOUNTER 2021-01-25 16:36 | Outpatient (REF) | payer BC, SELFPAY ==
[2021-01-25 17:14] LABS: C-Reactive Protein 0.37 mg/dL (0.0-0.3)
== END 2021-01-25 16:37 | disposition home or self-care (01) ==
LOC: NCHCN 16:36
PROVIDERS: PCP Family Medicine; Visit Provider Family Medicine
DX: D72.829 Elevated white blood cell count, unspecified (principal)
CPT/HCPCS: 86140

== ENCOUNTER 2021-02-01 12:00 | Outpatient (REF) | payer BC, SELFPAY ==
[2021-02-05 15:56] LABS: Calprotectin <15.6 mcg/g
== END 2021-02-01 12:01 | disposition home or self-care (01) ==
LOC: NCHCN 12:00
PROVIDERS: PCP Family Medicine; Visit Provider Family Medicine
DX: D72.829 Elevated white blood cell count, unspecified (principal)
CPT/HCPCS: 83993

== ENCOUNTER 2021-02-09 08:13 | Outpatient (REF) | payer BC, SELFPAY ==
[2021-02-10 02:17] LABS: COVID-19 RT-PCR UVMMC Result Negative (Negative)
== END 2021-02-09 08:14 | disposition home or self-care (01) ==
LOC: NCHCN 08:13
PROVIDERS: PCP Family Medicine; Visit Provider Family Medicine
DX: Z20.822 Contact with and (suspected) exposure to COVID-19 (principal)
CPT/HCPCS: U0003

== ENCOUNTER 2021-03-21 15:17 | Outpatient (REF) | payer BC, SELFPAY ==
[2021-03-21 14:32] LABS: HCG Quant, Pregnancy 48 mIU/mL (1-3)
== END 2021-03-21 15:18 | disposition home or self-care (01) ==
LOC: LBN 15:17
PROVIDERS: PCP Family Medicine; Visit Provider Obstetrics & Gynecology Gynecology
DX: Z32.01 Encounter for pregnancy test, result positive (principal)
CPT/HCPCS: 84702

== ENCOUNTER 2021-03-23 09:21 | Outpatient (REF) | payer BC, SELFPAY ==
[2021-03-23 12:48] LABS: HCG Quant, Pregnancy 155 mIU/mL (1-3)
[2021-03-23 17:22] LABS: Progesterone 28.7 ng/mL (See Table)
== END 2021-03-23 09:22 | disposition home or self-care (01) ==
LOC: LBN 09:21
PROVIDERS: PCP Family Medicine; Visit Provider Obstetrics & Gynecology Gynecology
DX: Z32.01 Encounter for pregnancy test, result positive (principal); Z87.42 Personal history of other diseases of the female genital tract
CPT/HCPCS: 84144; 84702

== ENCOUNTER 2021-03-26 07:46 | Outpatient (REF) | payer BC, SELFPAY ==
[2021-03-26 12:29] LABS: HCG Quant, Pregnancy 591 mIU/mL (1-3)
== END 2021-03-26 07:47 | disposition home or self-care (01) ==
LOC: LBN 07:46
PROVIDERS: PCP Family Medicine; Visit Provider Obstetrics & Gynecology Gynecology
DX: Z32.01 Encounter for pregnancy test, result positive (principal)
CPT/HCPCS: 84702

== ENCOUNTER 2021-05-02 15:59 | Outpatient (REF) | payer BC, SELFPAY ==
[2021-05-02 15:16] LABS: Source Nasal/Nares
[2021-05-02 23:52] LABS: COVID-19 PCR Negative (Negative)
--- NOTE | 2021-05-04 08:26 | HPE_ITS ---
Date of service: 05/04/21 Time of Service: 08:26 Assessment and Plan Assessment and plan (1) Spontaneous : Status: Acute Assessment and plan: Informed consent was obtained. Patient was counseled regarding the risk of puncture of uterus with subsequent bleeding and need for possible laparotomy;the risk of infection and injury to surrounding structures including bowel, bladder, and blood vessels. Her questions were answered. She was instructed to be n.p.o. after midnight. History of Present Illness Narrative: Patient patient is a 30-year-old G5, P1 female who [facility] and was diagnosed with an embryonic demise at approximately 10 weeks estimated stational age on 05/02/2021. There is no evidence of heartbeat confirmed with 2 ultrasound measurements. Prior to that visit there was a heartbeat noted increase in concordant growth on 04/23/2021. Patient was counseled and has agreed to undergo a D&C. She is Rh+ Review of Systems All systems reviewed & are unremarkable except as noted in HPI and below (No cramping no uterine bleedin) PFSH All Active Problems (Updated 05/04/21 @ 08:30 by Anne Cooper MD) Spontaneous (Acute) with uncertain viability (Acute) Early stage of (Acute) test positive (Acute) Amenorrhea, secondary (Acute) Irregular heart beat (Acute) noted at post visit, thyroid labs drawn Enlarged thyroid gland (Acute) Low back pain (Acute) Knee dislocation (Acute) bilateral intermittent TMJ (dislocation of temporomandibular joint) (Acute) History of recurrent UTIs (Acute) Anxiety disorder (Acute) Migraine (Acute 09/17/12) Medical History (Updated 05/04/21 @ 08:30 by Anne Cooper MD) History of miscarriage 12/2016. Chemical . 07/2017 SAB @ 8w. s/p D&C. 02/2018 Chemical . Migraines Syncope, near unknown cause, chronic Surgical History H/O dilation and curettage 07/2017 SAB @ 8w. wisdom teeth Family History Mother Arthritis Heart disease Hyperthyroidism Hypothyroid Father Essential hypertension Hyperlipidemia Grandfather Alzheimer's dementia Atrial fibrillation Hypothyroid Neoplasm colon Grandfather Benign neoplasm of brain Myocardial infarction Neoplasm brain tumor Grandmother Diabetes Neoplasm bone cancer- breast cancer Kidney failure Parkinsons disease Grandmother Diabetes Dementia Hyperlipidemia S/P triple vessel bypass Social History (Updated 08/23/20 @ 10:14 by Anne Cooper MD) Smoking/Tobacco Use Status: Never Smoking risk assessment performed?: Yes Alcohol Intake: never Details: w/o etoh since knowledge of Drug use: Never Substance use type: does not use Household members: spouse, children and other Details: H-Per. S-Vidal Number of Children: 1 Seatbelt use: always Do you feel safe at home: Yes Do you feel safe in your relationship?: Yes Female Reproductive History Menstrual control method: none History History 5 Para 1 Hx # Term Pregnancies 1 Multiple births 0 Hx # Pregnancies 0 Ectopic pregnancies 0 AB induced 0 Hx Number of Living Children 1 AB spontaneous 3 Past Pregnancies Del. Date GA/Weeks # Outcome Route Wgt Sex Labor Lgth Anesthes ia Location Prov Complic 01/14/20 38 No Successful vaginal 7 lb 3.5 oz Male 16 hrs 27 min ANNA Brito Delivery Date: 01/14/20 Last Updated by: Ashley Leon LPN Nitrous oxide in labor; Vidal Ball Allergies and Home Medications Allergies Allergy/AdvReac Type Severity Reaction Status Date / Time Sulfa (Sulfonamide Allergy Severe Verified 05/04/21 06:40 Antibiotics) citalopram hydrobromide AdvReac Intermediate Verified 05/04/21 06:40 [From Celexa] lorazepam [From Ativan] AdvReac Intermediate Other (See Unverified 05/04/21 06:40 Comment) Home Medications Medication Instructions Recorded Confirmed Type prenat.vits,lissa,hkf-oncm-[id number] 1 tab PO DAILY 06/30/19 05/04/21 History acetaminophen 500 mg capsule 500 mg PO PRN PRN 09/06/19 05/03/21 History lactase 3,000 unit chewable tablet 9,000 unit PO PRN PRN tab 10/04/19 05/03/21 History calcium carbonate 200 mg calcium 600 mg PO PRN PRN tab 12/07/19 05/04/21 History (500 mg) chewable tablet (Tums) progesterone micronized 200 mg 200 mg VAGINAL QHS 90 Days #90 cap 03/21/21 05/04/21 Rx capsule (Prometrium) ondansetron 4 mg disintegrating 4 mg PO Q6H #90 tab 04/26/21 05/03/21 Rx tablet Exam Const General: cooperative and no acute distress Resp Effort & Inspection: normal respiratory effort Auscultation: clear to auscultation bilaterally Cardio Rate: regular rate Rhythm: regular rhythm Other: Bedside transvaginal ultrasound performed. Nonviable IUP with crown rump length consistent with 8 weeks 4 days estimated stational age. Skin General skin exam: no rashes or lesions noted Extrem General: normal to inspection Psych Appearance: grossly normal Mental Status: mental status grossly normal Speech and Movement: speech and movement normal Mood: congruent mood Affect: sad Attitude: cooperative Thought Process: normal Thought Content: normal Insight: insight good Judgment: judgment good
== END 2021-05-02 16:00 | disposition home or self-care (01) ==
LOC: LBN 15:59
PROVIDERS: PCP Family Medicine; Visit Provider Advanced Practice Midwife
DX: Z20.822 Contact with and (suspected) exposure to COVID-19 (principal)
CPT/HCPCS: 87635

== ENCOUNTER 2021-05-04 06:03 | Day surgery (SDC) | payer BC, SELFPAY ==
--- NOTE | 2021-05-03 13:34 | ANES.PREOP_ITS ---
General Info Date of Service Date Performed: 05/04/21 Height: 5 ft 5 in Weight: 80.853 kg Body Mass Index (BMI): 29.6 Surgical Procedure: Operation Date: 05/04/21 07:40 Proposed Procedure Side Surgeon p Suction Completion D&C Anne Cooper MD Meds Allergies and Home Medications Allergies Allergy/AdvReac Type Severity Reaction Status Date / Time Sulfa (Sulfonamide Allergy Severe Verified 05/04/21 06:40 Antibiotics) citalopram hydrobromide AdvReac Intermediate Verified 05/04/21 06:40 [From Celexa] lorazepam [From Ativan] AdvReac Intermediate Other (See Unverified 05/04/21 06:40 Comment) Home Medication Medication Instructions Recorded prenat.vits,lissa,bud-rekz-[id number] 1 tab PO DAILY 06/30/19 acetaminophen 500 mg capsule 500 mg PO PRN PRN 09/06/19 lactase 3,000 unit chewable tablet 9,000 unit PO PRN PRN tab 10/04/19 calcium carbonate 200 mg calcium 600 mg PO PRN PRN tab 12/07/19 (500 mg) chewable tablet (Tums) progesterone micronized 200 mg 200 mg VAGINAL QHS 90 Days #90 cap 03/21/21 capsule (Prometrium) ondansetron 4 mg disintegrating 4 mg PO Q6H #90 tab 04/26/21 tablet Current Visit Medications: Current Medications Generic Name Dose Route Start Last Admin Trade Name Freq PRN Reason Stop Dose Admin Ringer's Solution 1,000 mls @ 125 mls/hr 05/04/21 06:00 IV 06/02/21 23:59 INFUSION DEBBIE Doxycycline Hyclate 100 mg/ 100 mls @ 100 mls/hr 05/04/21 06:00 Sodium Chloride IVPB 05/04/21 16:00 PREOP DEBBIE IV Miscellaneous Supplies 1 each 05/04/21 06:00 Iv Access IV 06/02/21 23:59 DIRECTED DEBBIE Sodium Chloride 0 ml 05/04/21 06:00 Normal Saline Flush 10 Ml Syr IV 06/02/21 23:59 PRN PRN Sodium Chloride 0 ml 05/04/21 06:00 Normal Saline 10 Ml Vial IJ 06/02/21 23:59 DIRECTED PRN Sterile Water 0 ml 05/04/21 06:00 Water,Injection,Sterile 10 Ml Vial IJ 06/02/21 23:59 DIRECTED PRN PFSH Active Problems Active Problems: Problem Status Onset Code with uncertain viability O36.80X0 Early stage of Z34.90 test positive Z32.01 Hx of infertility Z87.42 Amenorrhea, secondary N91.1 Irregular heart beat I49.9 Enlarged thyroid gland E04.9 Low back pain M54.5 Knee dislocation S83.106A TMJ (dislocation of temporomandibular joint) S03.00XA History of recurrent UTIs Z87.440 Anxiety disorder F41.9 Migraine 09/17/12 G43.909 Medical History Medical History History of miscarriage 12/2016. Chemical . 07/2017 SAB @ 8w. s/p D&C. 02/2018 Chemical . Migraines Syncope, near unknown cause, chronic Surgical History Surgical History H/O dilation and curettage 07/2017 SAB @ 8w. wisdom teeth Tobacco Smoking/Tobacco Use Status: Never Alcohol Alcohol Intake: never Details: w/o etoh since knowledge of Substance Use Substance use: Never Substance use type: does not use Prental History History 5 Para 1 Hx # Term Pregnancies 1 Multiple births 0 Hx # Pregnancies 0 Ectopic pregnancies 0 AB induced 0 Hx Number of Living Children 1 AB spontaneous 3 Past Pregnancies Del. Date GA/Weeks # Outcome Route Wgt Sex Labor Lgth Anesthes ia Location [facility] 01/14/20 38 No Successful vaginal 3274.37 g Male 16 hrs 27 min ANNA Brito Delivery Date: 01/14/20 Last Updated by: Ashley Leon LPN Nitrous oxide in labor; Vidal Mcknight Vital Signs and Lab Results Vital Signs Most Recent Vital Signs in EMR: Temp Pulse Resp BP Pulse Ox 36.5 C 71 16 121/75 100 05/04/21 06:42 05/04/21 06:42 05/04/21 06:42 05/04/21 06:42 05/04/21 06:42 Lab Results Result Diagrams: 05/04/21 06:44 Blood Type / Crossmatch: No Data to Display Complete Blood Count: White Blood Count 11.25 10^3/uL (4.4-10.8) H 05/04/21 06:44 05/04/21 Red Blood Count 4.27 10^6/uL (3.93-5.22) 05/04/21 06:44 05/04/21 Hemoglobin 12.6 g/dL (11.2-15.7) 05/04/21 06:44 05/04/21 Hematocrit 37.4 % (36.0-46.0) 05/04/21 06:44 05/04/21 Platelet Count 323 10^3/uL (130-400) 05/04/21 06:44 05/04/21 Complete Metabolic Panel: No Data to Display Liver Function Panel: No Data to Display Coagulation Panel: No Data to Display Cardiac Panel: No Data to Display Arterial Blood Gas: No Data to Display Venous Blood Gas: No Data to Display Pancreas Panel: No Data to Display Thyroid Panel: No Data to Display Infectious Disease: Coronavirus (COVID-19)(PCR) Negative (Negative) 05/02/21 13:50 05/02/21 Coronavirus 2019 Source Nasal/Nares 05/02/21 13:50 05/02/21 Blood Cultures: No Data to Display Toxicology Panel: No Data to Display Panel: No Data to Display Anesthesia Assessment and Plan Anesthesia History Personal History: No History of Anesthesia Complications Family History: No Family History of Anesthesia Complications Exercise Tolerance Exercise Tolerance: Metabolic Equivalents>4 Cardiac & Pulmonary Exam Cardiac Exam: Normal S1/S2 Heart Sounds Pulmonary Exam: Clear Bilateral Breath Sounds Implantable Cardiac Device Does patient have a Pacemaker or an ICD?: No Airway Exam Known Difficult Airway: No Mallampati Class: 3 Mouth Opening: Narrow (< 3cm) Thyromental Distance: Greater than 3 cm Neck Range of Motion: Full ROM Neck Circumference: Normal Teeth Condition: Normal Dentition ASA Classification ASA Score: ASA 2 Emergency Case?: No NPO Status NPO Status: NPO Clears >2 hours, Solids >8 hours Status Status: Not Relevant due to Medical History Anesthesia Plan Resuscitation Status: Full Code Anesthesia Technique: General Anesthesia Airway Planned: Natural Airway Monitors Used: Standard Monitors Preoperative Comments:: 30 yo female with MAB ~10 weeks for d/c Sig PMHx: anxiety, never smoker. Previous Anes: sedation in preop, prop no airway intraop without issues.
[2021-05-04 06:42] VITALS: BP 121/75; PULSE 71; RESP 16; TEMP 36.5; O2SAT 100
[2021-05-04 06:56] LABS: HCT 37.4 % (36.0-46.0); HGB 12.6 g/dL (11.2-15.7); MCH 29.5 pg (27.0-33.0); MCHC 33.7 % (32.0-36.0); MCV 87.6 fL (80-95); MPV 9.1 fL (8.0-11.0); Platelet Count 323 10^3/uL (130-400); RBC 4.27 10^6/uL (3.93-5.22); RDW 12.4 % (11.7-14.6); RDW-SD 39.5 fL; WBC 11.25 10^3/uL (4.4-10.8)
[2021-05-04] MEDS: Lactated Ringers 1,000 ML 125 ML IV (07:00)
[2021-05-04 07:13] VITALS: BMI 29.6
[2021-05-04] MEDS: DOXYCYCLINE 100 MG in Normal Saline 100 ML IVPB (07:31)
[2021-05-04] MEDS: Bupivacaine 0.25% Pres-Free 30 ML VIAL (08:51)
[2021-05-04] MEDS: Silver Nitrate Stick 1 EACH (08:58)
--- NOTE | 2021-05-04 09:09 | W.PM.DSUDISC ---
Discharge Plan Disposition Patient Disposition: HOME Condition: Fair Discharge Details Reason For Visit: demise 10wks Attending Provider: Anne Cooper Primary Care Provider: Martell Rosado Home Meds and New Rx's Prescriptions: No Action prenat.vits,lissa,[id number] Tablet 1 tab PO DAILY 0RF lactase 3,000 unit tablet,chewable 9,000 unit PO PRN PRN0RF Rx Instructions: administer with meals and/or snacks (if eating dairy) acetaminophen 500 mg capsule 500 mg PO PRN PRN0RF calcium carbonate [Tums] 200 mg calcium (500 mg) tablet,chewable 600 mg PO PRN PRN0RF progesterone micronized [Prometrium] 200 mg capsule 200 mg vaginal QHS 90 Days Qty: 90 0RF ondansetron 4 mg tablet,disintegrating 4 mg PO Q6H Qty: 90 0RF Discharge Instructions Additional Instructions: Make an appointment to see Dr. Cooper and 2 weeks for postop check. No tampons, or intercourse . You can experience small amount of bleeding similar to a period after the procedure. You may take a bath. Stand Alone Forms: DSU Post Gynecology Surgery Activity:: Activity as Tolerated Diet:: As Tolerated Discharge Orders Discharge Orders: Discharge Order (Routine); Ordered 05/04/21 Ordered By: Anne Cooper DS: Diagnosis Discharge Diagnosis (1) Spontaneous : Status: Acute (2) History of recurrent , antepartum: Status: Acute (3) History of dilation and curettage: Status: Acute Asessment and Plan: Patient was admitted for a D&C with of anesthesia care. A repeat bedside ultrasound showed a nonviable IUP with a 2 cm crown-rump length consistent with 8 weeks 4 days EGA. She received doxycycline 100 mg IV prior to the procedure. A transabdominal pelvic ultrasound was performed showing a empty uterine cavity at the completion of the procedure.
[2021-05-04 09:10] VITALS: BP 119/67; PULSE 70; RESP 18; TEMP 36; O2SAT 100
[2021-05-04 09:30] VITALS: BP 122/70; PULSE 54; RESP 18; TEMP 36.2; O2SAT 100
--- NOTE | 2021-05-04 10:24 | W.ANESPOSTOP ---
Postoperative Evaluation Date, Time and Location Date Performed: 05/04/21 Time Performed: 09:30 Patient Location: Day Surgery Unit Vital Signs Most Recent Imported Vital Signs: Most Recent Vital Signs Temp Pulse Resp BP Pulse Ox 36.2 C L 54 L 18 122/70 100 05/04/21 09:30 05/04/21 09:30 05/04/21 09:30 05/04/21 09:30 05/04/21 09:30 Pain Score Most Recent Pain Score: Most Recent Pain Score Pain Level 1 05/04/21 09:30 Assessment Mental Status: Awake (Alert & Oriented to Patient Baseline) Airway and Respiratory Function: Patent airway with normal (patient baseline) respiratory exam Cardiovascular Function: Hemodynamically Stable Hydration Status: Adequately Hydrated Nausea & Vomiting: No Nausea or Vomiting Pain: Pain is tolerable per patient Peripheral Nerve Block: Patient did not receive a nerve block
--- NOTE | 2021-05-04 14:42 | ROE_ITS ---
Date of service: 05/04/21 Time of Service: 14:42 Operative Note Operative Note DATE OF PROCEDURE: 05/04/21 PRE-OP DIAGNOSIS: Embryonic demise at 10 weeks 2 days estimated gestational age PROCEDURE: Suction D&C SURGEON: Anne Cooper ANESTHESIA TYPE: General:No Airway Refer to Anesthesia Record ESTIMATED BLOOD LOSS: 5 PATHOLOGY: none sent (Patient requested the products of conception be given to her and her ) COMPLICATIONS: None Patient was transported to: same day Patient's condition: stable Indications: 30-year-old G5, P1 female who [facility] and was diagnosed with an embryonic demise at approximately 10 weeks estimated stational age on 05/02/2021. There is no evidence of heartbeat confirmed with 2 ultrasound measurements.? Findings: ED uterus measured approximately 9 weeks estimated gestational age on bimanual exam. Moderate products of conception were obtained using suction curettage. No tissue returned with banjo curetting. The tenaculum site was treated with silver nitrate and was hemostatic at the completion of the procedure Procedure Description: Patient was taken to the operating room where she was placed in the dorsal supine position and general anesthesia was administered without difficulty. IV Doxycycline was administered upon arrival in the OR. She was then placed in the dorsal lithotomy position in yellowfin stirrups in a neurologically neutral position. She was then prepped, and draped in the usual sterile fashion. Surgical timeout was performed. [place] speculum was placed into the vagina and the anterior lip of the cervix was infiltrated with 2 cc of 0.25% Marcaine without epinephrine. A single-tooth tenaculum was then used to grasp and hold the anterior lip of the cervix. A paracervical block was performed with 4 cc of quarter percent Marcaine injected into the 4 and 8:00 paracervical spaces respectively. The cervix was then sequentially dilated to a maximum of 16 [place]arg[place] and a 8 mm curved suction cannula was attached to suction and the level of suction tested. The cannula was inserted into the uterine cavity attached to suction and sequentially all 4 quadrants of the uterine cavity were suction curetted until minimal tissue returned. The suction cannula was then removed a banjo curette was used to perform a gentle curetting of all 4 quadrants of the uterine cavity. Minimal tissue was returned. A final insertion of the suction cannula and suction curetting of all 4 quadrants was performed with minimal tissue returned. All instruments were removed from the vagina and the tenaculum site was treated with application with Silver Nitrate for excellent hemostatisis. Patient was awakened and transported to recovery area in stable condition. All sponge lap needle counts correct x2
== END 2021-05-04 10:30 | disposition home or self-care (01) ==
PROVIDERS: PCP Family Medicine; Visit Provider Obstetrics & Gynecology Gynecology
PROC: (CPT 59841; principal; 2021-05-04 07:30)
DX: O02.1 Missed abortion (principal); O26.20 Pregnancy care for patient with recurrent pregnancy loss, unspecified trimester; Z3A.10 10 weeks gestation of pregnancy
CPT/HCPCS: 59820; 85027; 86850; 86900; 86901; J1100; J1885; J2250; J2405; J2704

== ENCOUNTER 2021-05-07 21:46 | Observation (INO) | payer BC, SELFPAY ==
[2021-05-07 21:44] VITALS: BP 147/75; PULSE 80; RESP 16; TEMP 36.6; O2SAT 100
[2021-05-07 22:17] LABS: Abs Immature Grans 0.08 10^3/uL (0.0-0.06); Absolute Basophil Count 0.08 10^3/uL (0.0-0.2); Absolute Eosinophil Count 0.28 10^3/uL (0.0-0.7); Absolute Lymphocyte Count 3.73 10^3/uL (1.2-3.4); Absolute Monocyte Count 1.44 10^3/uL (0.1-0.8); Absolute Neutrophil Count 7.62 10^3/uL (1.2-6.7); Basophils % 0.6; Eosinophils % 2.1; HCT 37.2 % (36.0-46.0); Immature Grans % 0.6; Lymphocytes % 28.2; MCHC 32.3 % (32.0-36.0); MPV 9.1 fL (8.0-11.0); Monocytes % 10.9; Neutrophils % 57.6; Nucleated RBC 0 %; Platelet Count 317 10^3/uL (130-400); RDW 12.5 % (11.7-14.6); RDW-SD 42.9 fL; WBC 13.23 10^3/uL (4.4-10.8)
[2021-05-07] MEDS: Normal Saline 1,000 ML 1000 ML IV (22:17)
[2021-05-07 22:30] LABS: ALT 8 U/L (14-59); AST 14 U/L (15-37); Albumin 3.4 g/dL (3.4-5.0); Alkaline Phosphatase 69 U/L (46-116); BUN 7 mg/dL (7-18); Bilirubin, Total 0.2 mg/dL (0.2-1.0); CREATININE 0.7 mg/dL (0.55-1.02); Calcium 8.4 mg/dL (8.5-10.1); Chloride 106 mmol/L (98-107); Glucose 93 mg/dL (74-106); Potassium 3.7 mmol/L (3.5-5.1); Sodium 140 mmol/L (136-145); Total Protein 7.6 g/dL (6.4-8.2)
--- NOTE | 2021-05-07 22:57 | HPE_ITS ---
Date of service: 05/07/21 Time of Service: 22:58 Assessment and Plan Assessment and plan (1) History of dilation and curettage: Status: Acute Assessment and plan: Increased uterine bleeding after D&C for embryonic demise. Patient ate approximately 4 hours ago. She has stable vital signs and stable H&H and I would rather admit her overnight for observation keep her n.p.o. and repeat a pelvic ultrasound in the a.m. If she does have retained products of conception repeat D&C would be advised. I will hold any antibiotic therapy at this time results of the pelvic ultrasound in the morning. She will be given Methergine p.o. along with Toradol. (2) Spontaneous : Status: Acute (3) Abnormal uterine bleeding (AUB): Status: Acute (4) Pelvic pain: Status: Acute History of Present Illness History of Present Illness Chief Complaint: Passage of large clots with pelvic pain earlier this evening. Narrative: Patient is a 30-year-old G5, P1 female who underwent a cervical dilation and suction evacuation of uterine contents on 05/04/2021. [facility] in [facility] trimester with a reliable dating ultrasound and evidence of a viable IUP prior to being diagnosed with an embryonic demise at approximately 10 weeks EGA on 05/02/2021. Bimanual exam at the time of the D&E showed a uterus measuring 9 weeks EGA. Moderate products of conception were obtained using suction curettage.? No tissue returned with banjo curetting.? A transabdominal ultrasound performed after the procedure showed no evidence of a gestational sac and essentially unremarkable uterine cavity. Patient was discharged home with minimal bleeding and no discomfort until earlier today when she experienced sharp pelvic pain and began to pass clots while at home. She called an ambulance and on presentation to the emergency department a bedside ultrasound showed a thickened heterogeneous lining is unclear if it is result of retained clots or retained products of conception. Review of Systems All systems reviewed & are unremarkable except as noted in HPI and below Constitutional Constitutional: Denies chills and Denies night sweats Gastrointestinal Gastrointestinal: Reports abdominal pain, Denies constipation, Denies nausea and Denies vomiting Genitourinary Genitourinary: Reports as per HPI PFSH All Active Problems (Updated 05/07/21 @ 23:14 by Anne Cooper MD) Pelvic pain (Acute) Abnormal uterine bleeding (AUB) (Acute) History of dilation and curettage (Acute) History of recurrent , antepartum (Acute) Spontaneous (Acute) with uncertain viability (Acute) Early stage of (Acute) test positive (Acute) Amenorrhea, secondary (Acute) Irregular heart beat (Acute) noted at post visit, thyroid labs drawn Enlarged thyroid gland (Acute) Low back pain (Acute) Knee dislocation (Acute) bilateral intermittent TMJ (dislocation of temporomandibular joint) (Acute) History of recurrent UTIs (Acute) Anxiety disorder (Acute) Migraine (Acute 09/17/12) Medical History (Updated 05/07/21 @ 23:14 by Anne Cooper MD) History of miscarriage 12/2016. Chemical . 07/2017 SAB @ 8w. s/p D&C. 02/2018 Chemical . Migraines Syncope, near unknown cause, chronic Surgical History (Updated 05/04/21 @ 09:10 by Anne Cooper MD) H/O dilation and curettage 07/2017 SAB @ 8w. wisdom teeth Family History Mother Arthritis Heart disease Hyperthyroidism Hypothyroid Father Essential hypertension Hyperlipidemia Grandfather Alzheimer's dementia Atrial fibrillation Hypothyroid Neoplasm colon Grandfather Benign neoplasm of brain Myocardial infarction Neoplasm brain tumor Grandmother Diabetes Neoplasm bone cancer- breast cancer Kidney failure Parkinsons disease Grandmother Diabetes Dementia Hyperlipidemia S/P triple vessel bypass Social History (Updated 08/23/20 @ 10:14 by Anne Cooper MD) Smoking/Tobacco Use Status: Never Smoking risk assessment performed?: Yes Alcohol Intake: never Details: w/o etoh since knowledge of Drug use: Never Substance use type: does not use Household members: spouse, children and other Details: [place]-Per. S-Vidal Number of Children: 1 Seatbelt use: always Do you feel safe at home: Yes Do you feel safe in your relationship?: Yes Female Reproductive History Menstrual control method: none History History 5 Para 1 Hx # Term Pregnancies 1 Multiple births 0 Hx # Pregnancies 0 Ectopic pregnancies 0 AB induced 0 Hx Number of Living Children 1 AB spontaneous 3 Past Pregnancies Del. Date GA/Weeks # Outcome Route Wgt Sex Labor Lgth Anesthes ia Location Prov Complic 01/14/20 38 No Successful vaginal 7 lb 3.5 oz Male 16 hrs 27 min ANNA Brito Delivery Date: 01/14/20 Last Updated by: Ashley Leon LPN Nitrous oxide in labor; Vidal Ball Allergies and Home Medications Allergies Allergy/AdvReac Type Severity Reaction Status Date / Time Sulfa (Sulfonamide Allergy Severe Verified 05/07/21 23:07 Antibiotics) citalopram hydrobromide AdvReac Intermediate Verified 05/07/21 23:07 [From Celexa] lorazepam [From Ativan] AdvReac Intermediate Other (See Unverified 05/07/21 23:07 Comment) Home Medications Medication Instructions Recorded Confirmed Type prenat.vits,lissa,atz-svfj-eilcv 1 tab PO DAILY 06/30/19 05/04/21 History acetaminophen 500 mg capsule 500 mg PO PRN PRN 09/06/19 05/03/21 History lactase 3,000 unit chewable tablet 9,000 unit PO PRN PRN tab 10/04/19 05/03/21 History calcium carbonate 200 mg calcium 600 mg PO PRN PRN tab 12/07/19 05/04/21 History (500 mg) chewable tablet (Tums) progesterone micronized 200 mg 200 mg VAGINAL QHS 90 Days #90 cap 03/21/21 05/04/21 Rx capsule (Prometrium) ondansetron 4 mg disintegrating 4 mg PO Q6H #90 tab 04/26/21 05/03/21 Rx tablet Exam Const General: in distress and anxious Nutritional Appearance: obese Orientation: alert, awake and oriented x3 Resp Effort & Inspection: normal respiratory effort Auscultation: clear to auscultation bilaterally General: bimanual renal exam normal bilaterally External Female Exam: normal external appearance Speculum Exam - Cervix: normal appearance of the cervix, cervical os open (Fingertip. Admits a narrow polyp forceps. Blood in vagina) and other (No tissue at os, no tissue returned from forceps probing uterine cavity) Bimanual Exam- Vagina & Uterus: uterine size normal (Globular, non-tender, c/w 9w EGA), normal palpation, boggy and enlarged Bimanual Exam- Adnexa, other: normal adnexae and No cul-de-sac fullness OB/External & Speculum: cervical os open (Fingertip. Admits a narrow polyp forceps. Blood in vagina) Skin General skin exam: no rashes or lesions noted Extrem General: normal to inspection Psych Appearance: grossly normal Mental Status: mental status grossly normal Speech and Movement: speech and movement normal Mood: anxious mood Affect: normal affect Attitude: cooperative Thought Process: normal Thought Content: normal Insight: insight good Judgment: judgment good Results Labs Result diagrams: 05/07/21 22:10 05/07/21 22:10 Labs: Laboratory Results - last 24 hr 05/07/21 05/07/21 22:10 22:10 WBC 13.23 H RBC 4.00 Hgb 12.0 Hct 37.2 MCV 93.0 MCH 30.0 MCHC 32.3 RDW 12.5 Plt Count 317 MPV 9.1 Immature Gran % 0.6 Neutrophils % 57.6 Lymphocytes % 28.2 Monocytes % 10.9 Eosinophils % 2.1 Basophils % 0.6 Nucleated RBC % 0 Absolute Neutrophils 7.62 H Absolute Lymphocytes 3.73 H Absolute Monocytes 1.44 H Absolute Eosinophils 0.28 Absolute Basophils 0.08 Sodium 140 Potassium 3.7 Chloride 106 Carbon Dioxide 24.0 Anion Gap 10.0 BUN 7 Creatinine 0.7 Estimated GFR/1.73 m2 >= 60.00 Glucose 93 Calcium 8.4 L Total Bilirubin 0.2 AST 14 L ALT 8 L Alkaline Phosphatase 69 Total Protein 7.6 Albumin 3.4 Last Vital Signs Temp 97.9 F 05/07/21 21:44 Pulse 80 05/07/21 21:44 Resp 16 05/07/21 21:44 BP 147/75 H 05/07/21 21:44 Pulse Ox 100 05/07/21 21:44 PAWSS Pt Consumed Any Amount of Alcohol Within the Last 30 days OR had positive LUCIEN Upon Admission: No
--- NOTE | 2021-05-07 23:02 | W.ED.GENAD ---
Discharge Plan Disposition Patient Disposition: [facility] INPATIENT Condition: Improving Discharge Details Chief Complaint: STAFF TRAINER Clinical Impression: Abnormal vaginal bleeding Primary Care Provider: Martell Rosado ED Provider: Tashi Kim Home Meds and New Rx's Prescriptions: No Action prenat.vits,lissa,[id number] Tablet 1 tab PO DAILY 0RF lactase 3,000 unit tablet,chewable 9,000 unit PO PRN PRN0RF Rx Instructions: administer with meals and/or snacks (if eating dairy) acetaminophen 500 mg capsule 500 mg PO PRN PRN0RF calcium carbonate [Tums] 200 mg calcium (500 mg) tablet,chewable 600 mg PO PRN PRN0RF progesterone micronized [Prometrium] 200 mg capsule 200 mg vaginal QHS 90 Days Qty: 90 0RF ondansetron 4 mg tablet,disintegrating 4 mg PO Q6H Qty: 90 0RF Medical Decision Making 30-year-old female with a past medical history of a recent demise at 10 weeks, and subsequent D&C 3 to [address] Cooper. She had been doing well until today when she began having spotting and cramps, as the day and night went on she did notable clots, the size of a potato and bigger. EMS was called, and she was brought to the ER for further eval duration. She admits to mild pelvic pain, she denies any vomiting. She does admit to nausea. She denies any diarrhea. She denies chest pain or shortness of breath. She is not on any blood thinners. No other complaints at this time. No other modifying factors. Physical exam demonstrates mild pelvic pain. Bedside FAST exam demonstrates no free fluid in the abdomen. Uterus does appear enlarged. Blood pressure stable, heart rate stable. Labs demonstrate hemoglobin of 12, minimal white count. Electrolytes stable. No fever. Symptoms appear inconsistent with endometritis at this time. However with persistent bleed she may require repeat D&C. Discussed the case with Dr. Stover. She came and evaluated the patient. Patient will be admitted for further monitoring and reassessment for need for potential surgical management if indicated later. I have extensively reviewed the treatment plan with the patient. I have addressed all patient concerns at this time. I have also discussed the plan with the admitting physician and they agree with the current assessment and plan and have agreed to assume responsibility for the patient. All parties demonstrate verbal understanding and agreement with our assessment and plan at this time. The documentation in this chart was dictated using [employer] dictation software. Please excuse any dictation errors. HPI General Date/Time Provider Initiated Documentation: 05/07/21 21:55. HPI Narrative: 30-year-old female with a past medical history of a recent demise at 10 weeks, and subsequent D&C 3 to [address] Cooper. She had been doing well until today when she began having spotting and cramps, as the day and night went on she did notable clots, the size of a potato and bigger. EMS was called, and she was brought to the ER for further eval duration. She admits to mild pelvic pain, she denies any vomiting. She does admit to nausea. She denies any diarrhea. She denies chest pain or shortness of breath. She is not on any blood thinners. No other complaints at this time. No other modifying factors Related Data Home Medications Medication Instructions Recorded Confirmed prenat.vits,lissa,[id number] 1 tab PO DAILY 06/30/19 05/04/21 acetaminophen 500 mg capsule 500 mg PO PRN PRN 09/06/19 05/03/21 lactase 3,000 unit chewable tablet 9,000 unit PO PRN PRN tab 10/04/19 05/03/21 calcium carbonate 200 mg calcium 600 mg PO PRN PRN tab 12/07/19 05/04/21 (500 mg) chewable tablet (Tums) progesterone micronized 200 mg 200 mg VAGINAL QHS 90 Days #90 cap 03/21/21 05/04/21 capsule (Prometrium) ondansetron 4 mg disintegrating 4 mg PO Q6H #90 tab 04/26/21 05/03/21 tablet Previous Rx's Medication Instructions Recorded progesterone micronized 200 mg 200 mg VAGINAL QHS 90 Days #90 cap 03/21/21 capsule (Prometrium) ondansetron 4 mg disintegrating 4 mg PO Q6H #90 tab 04/26/21 tablet Allergies Allergy/AdvReac Type Severity Reaction Status Date / Time Sulfa (Sulfonamide Allergy Severe Verified 05/07/21 23:07 Antibiotics) citalopram hydrobromide AdvReac Intermediate Verified 05/07/21 23:07 [From Celexa] lorazepam [From Ativan] AdvReac Intermediate Other (See Unverified 05/07/21 23:07 Comment) General Stated Complaint: STAFF TRAINER ISMAEL: 3 Review of Systems All systems reviewed & are unremarkable except as noted in HPI and below PFSH All Active Problems (Updated 05/07/21 @ 23:14 by Anne Cooper MD) Pelvic pain (Acute) Abnormal uterine bleeding (AUB) (Acute) History of dilation and curettage (Acute) History of recurrent , antepartum (Acute) Spontaneous (Acute) with uncertain viability (Acute) Early stage of (Acute) test positive (Acute) Amenorrhea, secondary (Acute) Irregular heart beat (Acute) noted at post visit, thyroid labs drawn Enlarged thyroid gland (Acute) Low back pain (Acute) Knee dislocation (Acute) bilateral intermittent TMJ (dislocation of temporomandibular joint) (Acute) History of recurrent UTIs (Acute) Anxiety disorder (Acute) Migraine (Acute 09/17/12) Medical History (Updated 05/07/21 @ 23:14 by Anne Cooper MD) History of miscarriage 12/2016. Chemical . 07/2017 SAB @ 8w. s/p D&C. 02/2018 Chemical . Migraines Syncope, near unknown cause, chronic Surgical History (Updated 05/04/21 @ 09:10 by Anne Cooper MD) H/O dilation and curettage 07/2017 SAB @ 8w. wisdom teeth Family History Mother Arthritis Heart disease Hyperthyroidism Hypothyroid Father Essential hypertension Hyperlipidemia Grandfather Alzheimer's dementia Atrial fibrillation Hypothyroid Neoplasm colon Grandfather Benign neoplasm of brain Myocardial infarction Neoplasm brain tumor Grandmother Diabetes Neoplasm bone cancer- breast cancer Kidney failure Parkinsons disease Grandmother Diabetes Dementia Hyperlipidemia S/P triple vessel bypass Social History (Updated 08/23/20 @ 10:14 by Anne Cooper MD) Smoking/Tobacco Use Status: Never Smoking risk assessment performed?: Yes Alcohol Intake: never Details: w/o etoh since knowledge of Drug use: Never Substance use type: does not use Household members: spouse, children and other Details: FlakitoHenrry. S-Vidal Number of Children: 1 Seatbelt use: always Do you feel safe at home: Yes Do you feel safe in your relationship?: Yes Female Reproductive History Menstrual control method: none History History 5 Para 1 Hx # Term Pregnancies 1 Multiple births 0 Hx # Pregnancies 0 Ectopic pregnancies 0 AB induced 0 Hx Number of Living Children 1 AB spontaneous 3 Past Pregnancies Del. Date GA/Weeks # Outcome Route Wgt Sex Labor Lgth Anesthesia Location Prov Complic 01/14/20 38 No Successful vaginal 3274.37 g Male 16 hrs 27 min ANNA Brito Delivery Date: 01/14/20 Last Updated by: Ashley Leon LPN Nitrous oxide in labor; Vidal Mcknight Exam Narrative Exam Narrative: 1.Const: Well-nourished, Well-developed, appearing stated age 2.Eyes: PERRL, no conjunctival injection, and symmetrical lids. 3.ENT: Atraumatic external nose and ears. Moist MM. Neck: Symmetric, trachea midline, No thyromegaly. 4.CVS: +S1/S2, No murmurs or gallops. Peripheral pulses 2+ and equal in all extremities. Brisk capillary refill in all extremities. 5.RESP: Unlabored respiratory effort. Clear to auscultation bilaterally. No wheezes rales or rhonchi 6.GI: Soft, Nontender/Nondistended, No hepatosplenomegaly. No guarding or rebound. Mild pelvic and suprapubic tenderness. Mild gentle active bleeding from the vaginal region. 7.MSK: Normocephalic/Atraumatic, Extremities w/o deformity or ttp No cyanosis or clubbing, Normal movement of all extremities 8.Skin: Warm, Dry. No rashes or lesions. 9.Neuro: crossbow maker II-XII grossly intact. Sensation grossly intact, no focal neurologic deficits. 10.Psych: (AAO) x3. Appropriate mood and affect Course Vital Signs Vital signs: Vital Signs Temperature 36.6 C 05/07/21 21:44 Pulse 80 05/07/21 21:44 Respiratory Rate 16 05/07/21 21:44 Blood Pressure 147/75 H 05/07/21 21:44 Pulse Oximetry 100 05/07/21 21:44 Temperature 36.6 C 05/07/21 21:44 Pulse 80 05/07/21 21:44 Respiratory Rate 16 05/07/21 21:44 Respiratory Effort Non-Labored 05/07/21 21:51 Blood Pressure 147/75 H 05/07/21 21:44 Pulse Oximetry 100 05/07/21 21:44 Pain Level 15 05/07/21 21:51 Lab/Test Results Lab/Test Results: Laboratory Tests Range/Units 05/07/21 05/07/21 22:10 22:10 WBC (4.4-10.8) 10^3/uL 13.23 H RBC (3.93-5.22) 10^6/uL 4.00 Hgb (11.2-15.7) g/dL 12.0 Hct (36.0-46.0) % 37.2 MCV (80-95) fL 93.0 MCH (27.0-33.0) pg 30.0 MCHC (32.0-36.0) % 32.3 RDW (11.7-14.6) % 12.5 Plt Count (130-400) 10^3/uL 317 MPV (8.0-11.0) fL 9.1 Immature Gran % 0.6 Neutrophils % 57.6 Lymphocytes % 28.2 Monocytes % 10.9 Eosinophils % 2.1 Basophils % 0.6 Nucleated RBC % % 0 Absolute Neutrophils (1.2-6.7) 10^3/uL 7.62 H Absolute Lymphocytes (1.2-3.4) 10^3/uL 3.73 H Absolute Monocytes (0.1-0.8) 10^3/uL 1.44 H Absolute Eosinophils (0.0-0.7) 10^3/uL 0.28 Absolute Basophils (0.0-0.2) 10^3/uL 0.08 Sodium (136-145) mmol/L 140 Potassium (3.5-5.1) mmol/L 3.7 Chloride (98-107) mmol/L 106 Carbon Dioxide (21.0-32.0) mmol/L 24.0 Anion Gap (3-11) mmol/L 10.0 BUN (7-18) mg/dL 7 Creatinine (0.55-1.02) mg/dL 0.7 Estimated GFR/1.73 m2 (mL/min/1.73m2) >= 60.00 Glucose (74-106) mg/dL 93 Calcium (8.5-10.1) mg/dL 8.4 L Total Bilirubin (0.2-1.0) mg/dL 0.2 AST (15-37) U/L 14 L ALT (14-59) U/L 8 L Alkaline Phosphatase (46-116) U/L 69 Total Protein (6.4-8.2) g/dL 7.6 Albumin (3.4-5.0) g/dL 3.4
[2021-05-07 23:39] VITALS: BP 119/72; PULSE 79; RESP 16; O2SAT 100
[2021-05-07] MEDS: Methylergonovine 0.2 MG TAB PO (23:58)
[2021-05-08] VITALS: BP 116/69; PULSE 76; TEMP 36.9
--- NOTE | 2021-05-08 | DI.US_ITS ---
Exam(s) US PELVIS TRANSVAGINAL EXAM: US PELVIS TRANSVAGINAL CLINICAL HISTORY: need to determine if retained POC vs blood clots. TECHNIQUE: Transabdominal and transvaginal pelvic ultrasound was performed using standard protocol. COMPARISON: US US OB 1ST TRIMESTER from 05/02/2021 FINDINGS: KIDNEYS: Kidneys are symmetric in size. No evidence of renal calculi. No evidence of hydronephrosis. No renal mass or cyst identified. UTERUS: Position: Anteverted. Size: 10 long by 5.6 AP by 8.2 transverse cm Endometrium: 1.0 cm. The endometrial stripe is homogeneous and shows normal echogenicity. No signifi cant abnormal blood flow is seen. There is a trace amount of free fluid in the endometrial canal. Myometrium: Unremarkable. Cervix: Unremarkable. OVARIES: Right: 3.5 x 2 x 1.2 cm Cyst or mass: No suspicious cystic or solid masses. Left: 3.3 x 2.4 x 1.2 cm Cyst or mass: No suspicious cystic or solid masses. DOPPLER: Color: Symmetric and uniform flow to both ovaries. No hyperemia. Duplex: Normal ovarian arterial waveforms visualized. CUL-DE-SAC: Free fluid: None. Other: None. IMPRESSION: 1. Normal sonographic appearance of the kidneys. 2. Normal-appearing uterus with endometrial stripe within normal limits. No definite evidence to sug gest retained products of conception. 3. Trace amount of free fluid within the endometrial canal. This may be hemorrhage. 4. Unremarkable bilateral ovaries. DATA REPOSITORY:
[2021-05-08] MEDS: Lactated Ringers 1,000 ML 125 ML IV ×2 (00:08→08:09)
[2021-05-08 00:26] LABS: Source Nasal/Nares
[2021-05-08 01:03] LABS: COVID-19 PCR Negative (Negative)
[2021-05-08 07:40] VITALS: BP 120/70; PULSE 84; RESP 16; TEMP 36.8; O2SAT 100
[2021-05-08] MEDS: Methylergonovine 0.2 MG TAB PO (07:45)
[2021-05-08] MEDS: Prenatal Multivitamin w/CA,FE TAB 1 TAB PO (07:45)
--- NOTE | 2021-05-08 09:50 | W.PM.PROGNOT ---
Date of Service Date of service: 05/08/21 Time of Service: 09:50 Assessment and Plan Assessment and plan (1) History of dilation and curettage: Status: Acute Assessment and plan: Patient is 4 days status post dilation and curettage for miscarriage. She had an episode of significantly heavy bleeding during the evening yesterday. She passed a significant number of clots. This morning, her vital signs are stable, bleeding is minimal, ultrasound confirmed a 1.1 cm endometrial stripe with no significant portion of retained products. She will be discharged home on oral Methergine with instructions given (2) Postoperative vaginal bleeding: Status: Acute Assessment and plan: Post D&C bleeding Subjective Subjective Patient reports: no new complaints and feels better Interval history since last seen: Patient seen this morning. Ultrasound results reviewed. 1.1 cm endometrium. Minimal current bleeding. Otherwise feels okay. Will be discharged home with Methergine orally for the next 3 to 4 days. Precautions were given. Exam Narrative Exam Narrative: Alert and oriented, no acute distress Const General: cooperative, healthy appearing, comfortable, no acute distress, well developed and well groomed Eyes General: appearance normal, both eyes and all related structures Neck Neck: normal visual inspection Resp Effort & Inspection: normal respiratory effort Cardio Rate: regular rate Skin General skin exam: no rashes or lesions noted Objective Last Vital Signs Temp 98.2 F 05/08/21 07:40 Pulse 84 05/08/21 07:40 Resp 16 05/08/21 07:40 BP 120/70 05/08/21 07:40 Pulse Ox 100 05/08/21 07:40 Laboratory Results - last 24 hr 05/07/21 05/07/21 05/08/21 22:10 22:10 00:00 WBC 13.23 H RBC 4.00 Hgb 12.0 Hct 37.2 MCV 93.0 MCH 30.0 MCHC 32.3 RDW 12.5 Plt Count 317 MPV 9.1 Immature Gran % 0.6 Neutrophils % 57.6 Lymphocytes % 28.2 Monocytes % 10.9 Eosinophils % 2.1 Basophils % 0.6 Nucleated RBC % 0 Absolute Neutrophils 7.62 H Absolute Lymphocytes 3.73 H Absolute Monocytes 1.44 H Absolute Eosinophils 0.28 Absolute Basophils 0.08 Sodium 140 Potassium 3.7 Chloride 106 Carbon Dioxide 24.0 Anion Gap 10.0 BUN 7 Creatinine 0.7 Estimated GFR/1.73 m2 >= 60.00 Glucose 93 Calcium 8.4 L Total Bilirubin 0.2 AST 14 L ALT 8 L Alkaline Phosphatase 69 Total Protein 7.6 Albumin 3.4 COVID-19 Source Nasal/Nares SARS-CoV-2 (PCR) Negative PAWSS Pt Consumed Any Amount of Alcohol Within the Last 30 days OR had positive LUCIEN Upon Admission: No
== END 2021-05-08 10:15 | disposition home or self-care (01) ==
LOC: ER 23:17 → OBS 05-08 09:28
PROVIDERS: Admitting Provider Obstetrics & Gynecology Gynecology; Emergency Provider Student in an Organized Health Care Education/Training Program; PCP Family Medicine; Visit Provider Obstetrics & Gynecology Gynecology
DX: O03.6 Delayed or excessive hemorrhage following complete or unspecified spontaneous abortion (principal); Z20.822 Contact with and (suspected) exposure to COVID-19; R10.2 Pelvic and perineal pain; G43.909 Migraine, unspecified, not intractable, without status migrainosus; F41.9 Anxiety disorder, unspecified; M54.50 Low back pain, unspecified
CPT/HCPCS: 80053; 87635; 96360; 99285; 76830; 76856; 85025; G0378

== ENCOUNTER 2021-05-16 04:22 | Outpatient (CLI) | payer BC, SELFPAY ==
[2021-05-16 14:52] LABS: HCG Quant, Pregnancy 112 mIU/mL (1-3)
[2021-05-16 22:43] LABS: Thyroglobulin Antibody 409 U/mL (<=60); Thyroperoxidase Antibody 79 U/mL (<=60)
[2021-05-17 13:07] LABS: TSH (W/Ref FT4) 1.51 uIU/mL (0.36-3.74)
[2021-05-17 21:48] LABS: T3,Free 3.2 pg/mL (2.8-5.3)
== END 2021-05-16 04:23 | disposition home or self-care (01) ==
LOC: LBO 04:22
PROVIDERS: Obstetrics & Gynecology Gynecology; PCP Family Medicine; Visit Provider Advanced Practice Midwife
DX: Z87.59 Personal history of other complications of pregnancy, childbirth and the puerperium; E04.9 Nontoxic goiter, unspecified; Z87.42 Personal history of other diseases of the female genital tract
CPT/HCPCS: 36415; 84443; 84481; 84702; 86376; 86800

== ENCOUNTER 2021-05-31 08:54 | Outpatient (REF) | payer BC, SELFPAY ==
[2021-05-31 13:57] LABS: HCG Quant, Pregnancy 9 mIU/mL (1-3)
== END 2021-05-31 08:55 | disposition home or self-care (01) ==
LOC: LBN 08:54
PROVIDERS: PCP Family Medicine; Visit Provider Obstetrics & Gynecology Gynecology
DX: Z32.01 Encounter for pregnancy test, result positive (principal); Z87.59 Personal history of other complications of pregnancy, childbirth and the puerperium
CPT/HCPCS: 84702

== ENCOUNTER 2021-06-26 14:38 | Outpatient (REF) | payer BC, SELFPAY ==
[2021-06-27 16:01] LABS: COVID-19 RT-PCR UVMMC Result Negative (Negative)
== END 2021-06-26 14:39 | disposition home or self-care (01) ==
LOC: NCHCN 14:38
PROVIDERS: PCP Family Medicine; Visit Provider Family Medicine
DX: Z20.822 Contact with and (suspected) exposure to COVID-19 (principal); J02.9 Acute pharyngitis, unspecified
CPT/HCPCS: U0003

== ENCOUNTER 2022-03-05 18:38 | Outpatient (REF) | payer BC, SELFPAY ==
[2022-03-05 18:37] LABS: Abs Immature Grans 0.02 10^3/uL (0.0-0.06); Absolute Basophil Count 0.08 10^3/uL (0.0-0.2); Absolute Eosinophil Count 0.22 10^3/uL (0.0-0.7); Absolute Lymphocyte Count 3.38 10^3/uL (1.2-3.4); Absolute Monocyte Count 0.94 10^3/uL (0.1-0.8); Absolute Neutrophil Count 4.98 10^3/uL (1.2-6.7); Basophils % 0.8; Eosinophils % 2.3; HCT 41.2 % (36.0-46.0); HGB 13.6 g/dL (11.2-15.7); Immature Grans % 0.2; Lymphocytes % 35.1; MCH 29.7 pg (27.0-33.0); MCV 90 fL (80-95); MPV 9.2 fL (8.0-11.0); Monocytes % 9.8; Neutrophils % 51.8; Platelet Count 391 10^3/uL (130-400); RBC 4.58 10^6/uL (3.93-5.22); RDW 12.2 % (11.7-14.6); RDW-SD 40.3 fL; WBC 9.62 10^3/uL (4.4-10.8)
[2022-03-05 18:56] LABS: TSH (W/Ref FT4) 2.11 uIU/mL (0.36-3.74)
== END 2022-03-05 18:39 | disposition home or self-care (01) ==
LOC: NCHCN 18:38
PROVIDERS: PCP Family Medicine; Visit Provider Family Medicine
DX: E06.3 Autoimmune thyroiditis (principal); D72.829 Elevated white blood cell count, unspecified; R53.83 Other fatigue
CPT/HCPCS: 84443; 85025

== ENCOUNTER 2022-04-13 14:10 | Outpatient (REF) | payer BC, SELFPAY ==
[2022-04-16 12:00] LABS: COVID-19 RT-PCR UVMMC Result Positive (Negative)
== END 2022-04-13 14:11 | disposition home or self-care (01) ==
LOC: LBN 14:10
PROVIDERS: PCP Family Medicine; Visit Provider Nurse Practitioner Family
DX: Z20.822 Contact with and (suspected) exposure to COVID-19 (principal); R05.8 Other specified cough
CPT/HCPCS: U0003

== ENCOUNTER 2022-04-19 12:59 | Outpatient (REF) | payer BC, SELFPAY ==
[2022-04-19 14:26] LABS: Abs Immature Grans 0.02 10^3/uL (0.0-0.06); Absolute Basophil Count 0.07 10^3/uL (0.0-0.2); Absolute Eosinophil Count 0.15 10^3/uL (0.0-0.7); Absolute Monocyte Count 0.71 10^3/uL (0.1-0.8); Absolute Neutrophil Count 4.41 10^3/uL (1.2-6.7); Basophils % 0.8; Eosinophils % 1.8; HCT 41.1 % (36.0-46.0); HGB 13.8 g/dL (11.2-15.7); Immature Grans % 0.2; Lymphocytes % 35.9; MCH 29.4 pg (27.0-33.0); MCHC 33.6 % (32.0-36.0); MCV 88 fL (80-95); MPV 9.8 fL (8.0-11.0); Monocytes % 8.5; Neutrophils % 52.8; Platelet Count 368 10^3/uL (130-400); RBC 4.69 10^6/uL (3.93-5.22); RDW-SD 38.5 fL; WBC 8.36 10^3/uL (4.4-10.8)
[2022-04-19 14:47] LABS: Anion Gap 8.5 mmol/L (3-11); BUN 5 mg/dL (7-18); CO2 28.5 mmol/L (21.0-32.0); CREATININE 0.7 mg/dL (0.55-1.02); Calcium 9.4 mg/dL (8.5-10.1); Chloride 103 mmol/L (98-107); Estimated GFR 117.04 (mL/min/1.73m2); Glucose 87 mg/dL (74-106); Magnesium 2.3 mg/dL (1.8-2.4); Potassium 4.3 mmol/L (3.5-5.1); Sodium 140 mmol/L (136-145)
[2022-04-19 15:14] LABS: FREE T4 0.83 ng/dL (0.76-1.46)
== END 2022-04-19 13:00 | disposition home or self-care (01) ==
LOC: LBN 12:59
PROVIDERS: PCP Family Medicine; Visit Provider Physician Assistant Medical
DX: U07.1 COVID-19 (principal)
CPT/HCPCS: 80048; 83735; 84439; 84443; 85025

== ENCOUNTER 2022-04-24 12:38 | Outpatient (REF) | payer BC, SELFPAY ==
--- NOTE | 2022-04-24 11:45 | PAPFT_PTH ---
PATIENT: Sirisha De La Cruz LOC: [facility]#:[id number] AGE/SX: 31/F ROOM: RE04/24/[address]: Martell Rosado : 1990 BED: DIS: 04/24/2022 SPEC #: [id number] RECD: 04/24/22 17:26 STATUS: VIN RECasey #: [id number] CINTHIA: 04/24/22 11:[address]: Martell Rosado DEPT: [facility] Cytology RECD BY: Lori Hewitt Tissues: 1 - CX/ENDOCX FOR PAP SMEARS Procedures: PAP THIN PREP/UVM Screening HPV DNA PROBE Comments: [id number]
[2022-04-25 09:35] LABS: Lyme Ab w Rflx to Lyme Confirm Negative (Negative)
== END 2022-04-24 12:39 | disposition home or self-care (01) ==
LOC: NCHCN 12:38
PROVIDERS: PCP Family Medicine; Visit Provider Family Medicine
DX: Z12.4 Encounter for screening for malignant neoplasm of cervix (principal); Z11.8 Encounter for screening for other infectious and parasitic diseases; I44.0 Atrioventricular block, first degree; Z11.51 Encounter for screening for human papillomavirus (HPV)
CPT/HCPCS: 88142; 86618; 87624

== ENCOUNTER 2022-07-22 15:51 | Outpatient (REF) | payer BC, SELFPAY | END 2022-07-22 15:52 | disposition home or self-care (01) | LOC: LBN 15:51 | PROVIDERS: PCP Family Medicine; Visit Provider Nurse Practitioner Family | DX: J02.0 Streptococcal pharyngitis (principal) | CPT/HCPCS: 87070 ==

== ENCOUNTER 2022-09-24 05:06 | Emergency (ER) | payer BC, SELFPAY ==
[2022-09-24 05:09] VITALS: BP 127/77; PULSE 72; RESP 16; TEMP 36.4; O2SAT 100
[2022-09-24 05:50] LABS: Bilirubin Negative (Negative); Blood Small (Negative); Clarity Clear (Clear); Glucose Negative (Negative); Ketones Negative (Negative); Leukocyte Esterase Negative (Negative); Nitrite Negative (Negative); Specific Gravity 1.015 (1.005-1.025); Urobilinogen 0.2 mg/dL (Up to 0.2)
--- NOTE | 2022-09-24 06:00 | DI.CT_ITS ---
Exam(s) CT ABDOMEN PELVIS W EXAM: CT ABDOMEN PELVIS W CLINICAL HISTORY: abdominal pain, ttp rlq, n/v/d TECHNIQUE: Imaging Protocol: Axial computed tomography images with coronal and sagittal reformatted images were created and reviewed CONTRAST MATERIAL: Intravenous: Omnipaque 350 Contrast volume:100 mL Oral: No COMPARISON: No exams were available for comparison FINDINGS: ABDOMEN: Lung Bases: There is a 4 mm noncalcified pulmonary nodule in the right lower lobe. Liver: Normal density. No measurable mass. Portal, Superior Mesenteric, and Splenic Veins: Unremarkable. Gallbladder and Biliary Tract: No radiodense calculus or dilation. Pancreas: Normal density, no abnormal calcifications or inflammatory process. Spleen: Normal. Adrenals: No masses seen. Kidneys: Normal size, contour and axis. There is a 2 mm nonobstructing stone in the midpole of the le ft kidney and a 2 mm nonobstructing stone in the lower pole of the left kidney. No masses seen. Abdominal Aorta: Abdominal portion non-dilated. Bowel: There is no evidence of bowel obstruction. There is wall thickening seen in the transverse, d escending and sigmoid colon. While this may be in part due to underdistention an infectious or infla mmatory process is seen. No diverticula are seen. There is no evidence of appendicitis. Peritoneal Cavity: There is a trace amount of free fluid in the cul-de-sac. No free air. Lymph Nodes: Within normal limits. Bones: Within normal limits for the patient's age. Soft Tissues: Unremarkable. PELVIS: Bladder: Symmetric distention, no gross wall thickening. Reproductive Organs: Unremarkable as visualized. Lymph Nodes: Within normal limits. Bones: Within normal limits for the patient's age. IMPRESSION: 1. Bowel wall thickening involving the transverse, descending and sigmoid colon suspicious for an inf ectious/inflammatory colitis. 2. Findings were discussed with Dr. Mireles at 8:48 a.m. on 09/24/2022. RADIATION DOSE DELIVERED: 1,032.23mGy.cm Total DLP DATA REPOSITORY: All CT scans at this facility are submitted to the National Radiology Data Registry (NRDR) Dose Index Registry (DIR) with the [employer] ([employer]). RADIATION OPTIMIZATION: All CT scans at this facility use at least one of these dose optimization te chniques: automated exposure control; mA and/or kV adjustment per patient size (includes targeted exa ms where dose is matched to clinical indication); or iterative reconstruction.
[2022-09-24 06:03] LABS: Abs Immature Grans 0.08 10^3/uL (0.0-0.06); Absolute Lymphocyte Count 2.12 10^3/uL (1.2-3.4); Absolute Neutrophil Count 12.94 10^3/uL (1.2-6.7); Basophils % 0.5; Eosinophils % 0.2; HCT 40.5 % (36.0-46.0); HGB 13.8 g/dL (11.2-15.7); Immature Grans % 0.5; Lymphocytes % 12.8; MCH 29.4 pg (27.0-33.0); MCHC 34.1 % (32.0-36.0); MCV 86 fL (80-95); MPV 9.3 fL (8.0-11.0); Platelet Count 359 10^3/uL (130-400); RBC 4.69 10^6/uL (3.93-5.22); RDW 12.2 % (11.7-14.6); RDW-SD 38.5 fL; WBC 16.59 10^3/uL (4.4-10.8)
[2022-09-24 06:04] LABS: Absolute Basophil Count 0.08 10^3/uL (0.0-0.2); Absolute Eosinophil Count 0.03 10^3/uL (0.0-0.7); Absolute Monocyte Count 1.33 10^3/uL (0.1-0.8)
[2022-09-24] MEDS: Ondansetron 4 MG/2 ML VIAL IVP (06:07)
[2022-09-24] MEDS: Lactated Ringers 1,000 ML 1000 ML IV (06:07)
[2022-09-24 06:13] LABS: WBC 0-2 HPF (0-5)
[2022-09-24 06:14] LABS: Bacteria Rare HPF (Negative); C & S Indicated? No; Crystals Negative HPF (Negative); Epithelial Cells Rare HPF (Negative); Mucus Negative (Negative)
[2022-09-24] MEDS: Omnipaque 350 MG/ML 50 ML BTL PO (06:22)
[2022-09-24 06:23] LABS: ALT 16 U/L (14-59); AST 14 U/L (15-37); Albumin 4.3 g/dL (3.4-5.0); Alkaline Phosphatase 75 U/L (46-116); Anion Gap 5.8 mmol/L (3-11); BUN 9 mg/dL (7-18); Bilirubin, Total 0.5 mg/dL (0.2-1.0); CO2 30.2 mmol/L (21.0-32.0); CREATININE 0.9 mg/dL (0.55-1.02); Calcium 9.3 mg/dL (8.5-10.1); Chloride 104 mmol/L (98-107); Estimated GFR 86.03 (mL/min/1.73m2); Glucose 104 mg/dL (74-106); Lipase 35 U/L (16-77); Potassium 3.8 mmol/L (3.5-5.1); Sodium 140 mmol/L (136-145); Total Protein 8.3 g/dL (6.4-8.2)
[2022-09-24 06:47] VITALS: BP 118/69; PULSE 60; RESP 14; O2SAT 100
--- NOTE | 2022-09-24 07:00 | ED.GENADUL_ITS ---
Discharge Plan Discharge Details Chief Complaint: Abd Prob Primary Care Provider: Martell Rosado ED Provider: Amilcar Noriega Home Meds and New Rx's Prescriptions: No Action prenat.vits,lissa,[id number] Tablet 1 tab PO DAILY Patient Comments: Pt states she is no longer taking this med. lactase 3,000 unit tablet,chewable 9,000 unit PO PRN PRN Rx Instructions: administer with meals and/or snacks (if eating dairy) acetaminophen 500 mg capsule 500 mg PO PRN PRN calcium carbonate [Tums] 200 mg calcium (500 mg) tablet,chewable 600 mg PO PRN PRN ondansetron 4 mg tablet,disintegrating 4 mg PO Q6H Qty: 90 0RF Patient Comments: Pt states she is no longer taking this med. escitalopram oxalate 5 mg tablet 5 mg PO DAILY hydroxyzine HCl 25 mg Tablet 25 mg PO QHS PRN Medical Decision Making 715 --32-year-old female here with nausea, vomiting and diarrhea with lower abdominal crampy pain that started last night around 9 PM. Patient had some blood-tinged mucus stool this morning. Patient is focally tender in her right lower quadrant. Labs reviewed and significant leukocytosis noted. WBC 16. LFTs and lipase normal. Suspect enteritis but consider acute appendicitis or other surgical pathology. Plan to obtain CT of the abdomen pelvis. -- Patient provided stool sample for cdiff and bacterial pathogens. Lab Data Lab results reviewed: Yes I reviewed the patient's lab results. Labs: Laboratory Tests Range/Units 09/24/22 09/24/22 09/24/22 05:00 05:25 05:25 WBC (4.4-10.8) 10^3/uL 16.59 H RBC (3.93-5.22) 10^6/uL 4.69 Hgb (11.2-15.7) g/dL 13.8 Hct (36.0-46.0) % 40.5 MCV (80-95) fL 86 MCH (27.0-33.0) pg 29.4 MCHC (32.0-36.0) % 34.1 RDW (11.7-14.6) % 12.2 Plt Count (130-400) 10^3/uL 359 MPV (8.0-11.0) fL 9.3 Immature Gran % 0.5 Neutrophils % 78.0 Lymphocytes % 12.8 Monocytes % 8.0 Eosinophils % 0.2 Basophils % 0.5 Nucleated RBC % (0.0-0.3) % 0.0 Absolute Neutrophils (1.2-6.7) 10^3/uL 12.94 H Absolute Lymphocytes (1.2-3.4) 10^3/uL 2.12 Absolute Monocytes (0.1-0.8) 10^3/uL 1.33 H Absolute Eosinophils (0.0-0.7) 10^3/uL 0.03 Absolute Basophils (0.0-0.2) 10^3/uL 0.08 Sodium (136-145) mmol/L 140 Potassium (3.5-5.1) mmol/L 3.8 Chloride (98-107) mmol/L 104 Carbon Dioxide (21.0-32.0) mmol/L 30.2 Anion Gap (3-11) mmol/L 5.8 BUN (7-18) mg/dL 9 Creatinine (0.55-1.02) mg/dL 0.9 Est GFR (CKD-EPI 2020) (mL/min/1.73m2) 86.03 Glucose (74-106) mg/dL 104 Calcium (8.5-10.1) mg/dL 9.3 Total Bilirubin (0.2-1.0) mg/dL 0.5 AST (15-37) U/L 14 L ALT (14-59) U/L 16 Alkaline Phosphatase (46-116) U/L 75 Total Protein (6.4-8.2) g/dL 8.3 H Albumin (3.4-5.0) g/dL 4.3 Lipase (16-77) U/L 35 Urine Color (Yellow) Yellow Urine Clarity (Clear) Clear Urine pH (5-8) 7.0 Ur Specific [place] (1.005-1.025) 1.015 Urine Protein (Negative) mg/dL Negative Urine Ketones (Negative) mg/dL Negative Urine Blood (Negative) Small H Urine Nitrite (Negative) Negative Urine Bilirubin (Negative) Negative Urine Urobilinogen (Up to 0.2) mg/dL 0.2 Ur Leukocyte Esterase (Negative) Negative Urine RBC (0-2) HPF 3-5 H Urine WBC (0-5) HPF 0-2 Ur Epithelial Cells (Negative) HPF Rare Urine Crystals (Negative) HPF Negative Urine Bacteria (Negative) HPF Rare Urine Mucus (Negative) Negative Ur Culture Indicated? No Urine Glucose (Negative) mg/dL Negative HPI General Mode of arrival: ambulatory . Date/Time Provider Initiated Documentation: 09/24/22 05:22 . Limitations to Documentation: no limitations . Information obtained by: patient . HPI Narrative: 32-year-old female presents with chief complaint of abdominal pain. Patient notes she started develop nausea vomiting and diarrhea around 9 PM last night. She then developed bilateral lower abdominal cramping. Patient states she experienced chills. Symptoms continued coming in waves through the night. Patient notes she had some blood tinged, mucousy loose stool this morning. Patient states she has had chronic gastrointestinal issues and there is question of potential IBS. She notes she has never had colonoscopy. Related Data Home Medications Medication Instructions Recorded Confirmed prenat.vits,lissa,[id number] 1 tab PO DAILY 06/30/19 09/24/22 acetaminophen 500 mg capsule 500 mg PO PRN PRN 09/06/19 09/24/22 lactase 3,000 unit chewable tablet 9,000 unit PO PRN PRN 10/04/19 09/24/22 calcium carbonate 200 mg calcium 600 mg PO PRN PRN 12/07/19 09/24/22 (500 mg) chewable tablet (Tums) ondansetron 4 mg disintegrating 4 mg PO Q6H #90 tabs 04/26/21 09/24/22 tablet escitalopram oxalate 5 mg tablet 5 mg PO DAILY 09/24/22 09/24/22 hydroxyzine HCl 25 mg tablet 25 mg PO QHS PRN 09/24/22 09/24/22 Previous Rx's Medication Instructions Recorded ondansetron 4 mg disintegrating 4 mg PO Q6H #90 tabs 04/26/21 tablet Allergies Allergy/AdvReac Type Severity Reaction Status Date / Time Sulfa (Sulfonamide Allergy Severe Verified 09/24/22 05:15 Antibiotics) citalopram hydrobromide AdvReac Intermediate Verified 09/24/22 05:15 [From Celexa] lorazepam [From Ativan] AdvReac Intermediate Other (See Unverified 09/24/22 05:15 Comment) General Stated Complaint: Abd Prob ISMAEL: 3 Review of Systems All systems reviewed & are unremarkable except as noted in HPI and below Constitutional Constitutional: Reports chills and Denies fever(s) Gastrointestinal Gastrointestinal: Reports as per HPI PFSH All Active Problems Thyroid nodule (Acute) History of dilation and curettage (Acute) Amenorrhea, secondary (Acute) Irregular heart beat (Acute) noted at post visit, thyroid labs drawn Enlarged thyroid gland (Acute) Low back pain (Acute) Knee dislocation (Acute) bilateral intermittent TMJ (dislocation of temporomandibular joint) (Acute) History of recurrent UTIs (Acute) Anxiety disorder (Acute) Migraine (Acute 09/17/12) Medical History Early stage of History of miscarriage 12/2016. Chemical . 07/2017 SAB @ 8w. s/p D&C. 02/2018 Chemical . History of recurrent , antepartum Migraines Postoperative vaginal bleeding test positive with uncertain viability Syncope, near unknown cause, chronic Surgical History H/O dilation and curettage 07/2017 SAB @ 8w. wisdom teeth Family History Mother Arthritis Heart disease Hyperthyroidism Hypothyroid Father Essential hypertension Hyperlipidemia Grandfather Alzheimer's dementia Atrial fibrillation Hypothyroid Neoplasm colon Grandfather Benign neoplasm of brain Myocardial infarction Neoplasm brain tumor Grandmother Diabetes Neoplasm bone cancer- breast cancer Kidney failure Parkinsons disease Grandmother Diabetes Dementia Hyperlipidemia S/P triple vessel bypass Social History Smoking/Tobacco Use Status: Never Smoking risk assessment performed?: Yes Alcohol Intake: never Details: w/o etoh since knowledge of Drug use: Never Substance use type: does not use Household members: spouse, children and other Details: Chris Cortez Number of Children: 1 Seatbelt use: always Do you feel safe at home: Yes Do you feel safe in your relationship?: Yes Female Reproductive History Menstrual control method: none History History 5 Para 1 Hx # Term Pregnancies 1 Multiple births 0 Hx # Pregnancies 0 Ectopic pregnancies 0 AB induced 0 Hx Number of Living Children 1 AB spontaneous 4 Past Pregnancies Del. Date GA/Weeks # Preg Succ Route Wgt Sex Labor Lgth Anesth esia Location Prov Complic 01/14/20 38 No vaginal 3274.37 g Male 16 hrs 27 min ANNA Brito 05/04/21 10 No Delivery Date: 01/14/20 Last Updated by: Ashley Leon LPN Nitrous oxide in labor; Vidal Mcknight Delivery Date: 05/04/21 Last Updated by: Ashley Leon LPN Embryonic demise; D&C 05/04/21, Medardo Cooper MD Exam Const General: cooperative and no acute distress HENMT Mouth: moist mucous membranes Eyes Conjunctivae: normal conjunctivae Sclera: normal sclerae Resp Auscultation: clear to auscultation bilaterally, no rales, no rhonchi and no wheezes Cardio Rate: regular rate and not tachycardic Rhythm: regular rhythm GI Palpation: soft, not firm, no guarding, no masses, not rigid and tender in the RLQ Auscultation: normal bowel sounds Skin General skin exam: no rashes or lesions noted Neuro General: patient alert, patient awake and tone normal Extrem General: no edema Psych Appearance: grossly normal Mental Status: mental status grossly normal Course Vital Signs Vital signs: Vital Signs Temperature 36.4 C 09/24/22 05:09 Pulse 72 09/24/22 05:09 Respiratory Rate 16 09/24/22 05:09 Blood Pressure 127/77 09/24/22 05:09 Pulse Oximetry 100 09/24/22 05:09 Temperature 36.4 C 09/24/22 05:09 Temperature Source Temporal Artery Scan 09/24/22 05:09 Pulse 60 09/24/22 06:47 Respiratory Rate 14 09/24/22 06:47 Respiratory Effort Normal 09/24/22 05:11 Blood Pressure 118/69 09/24/22 06:47 Pulse Oximetry 100 09/24/22 06:47 Oxygen Delivery Method Room Air 09/24/22 06:47 Oxygen Flow Rate 0 09/24/22 06:47 Pain Level 0 09/24/22 05:09 Lab/Test Results Lab/Test Results: Laboratory Tests Range/Units 09/24/22 09/24/22 09/24/22 05:00 05:25 05:25 WBC (4.4-10.8) 10^3/uL 16.59 H RBC (3.93-5.22) 10^6/uL 4.69 Hgb (11.2-15.7) g/dL 13.8 Hct (36.0-46.0) % 40.5 MCV (80-95) fL 86 MCH (27.0-33.0) pg 29.4 MCHC (32.0-36.0) % 34.1 RDW (11.7-14.6) % 12.2 Plt Count (130-400) 10^3/uL 359 MPV (8.0-11.0) fL 9.3 Immature Gran % 0.5 Neutrophils % 78.0 Lymphocytes % 12.8 Monocytes % 8.0 Eosinophils % 0.2 Basophils % 0.5 Nucleated RBC % (0.0-0.3) % 0.0 Absolute Neutrophils (1.2-6.7) 10^3/uL 12.94 H Absolute Lymphocytes (1.2-3.4) 10^3/uL 2.12 Absolute Monocytes (0.1-0.8) 10^3/uL 1.33 H Absolute Eosinophils (0.0-0.7) 10^3/uL 0.03 Absolute Basophils (0.0-0.2) 10^3/uL 0.08 Sodium (136-145) mmol/L 140 Potassium (3.5-5.1) mmol/L 3.8 Chloride (98-107) mmol/L 104 Carbon Dioxide (21.0-32.0) mmol/L 30.2 Anion Gap (3-11) mmol/L 5.8 BUN (7-18) mg/dL 9 Creatinine (0.55-1.02) mg/dL 0.9 Est GFR (CKD-EPI 2020) (mL/min/1.73m2) 86.03 Glucose (74-106) mg/dL 104 Calcium (8.5-10.1) mg/dL 9.3 Total Bilirubin (0.2-1.0) mg/dL 0.5 AST (15-37) U/L 14 L ALT (14-59) U/L 16 Alkaline Phosphatase (46-116) U/L 75 Total Protein (6.4-8.2) g/dL 8.3 H Albumin (3.4-5.0) g/dL 4.3 Lipase (16-77) U/L 35 Urine Color (Yellow) Yellow Urine Clarity (Clear) Clear Urine pH (5-8) 7.0 Ur Specific [place] (1.005-1.025) 1.015 Urine Protein (Negative) mg/dL Negative Urine Ketones (Negative) mg/dL Negative Urine Blood (Negative) Small H Urine Nitrite (Negative) Negative Urine Bilirubin (Negative) Negative Urine Urobilinogen (Up to 0.2) mg/dL 0.2 Ur Leukocyte Esterase (Negative) Negative Urine RBC (0-2) HPF 3-5 H Urine WBC (0-5) HPF 0-2 Ur Epithelial Cells (Negative) HPF Rare Urine Crystals (Negative) HPF Negative Urine Bacteria (Negative) HPF Rare Urine Mucus (Negative) Negative Ur Culture Indicated? No Urine Glucose (Negative) mg/dL Negative POC- Test(urine) Negative
[2022-09-24 07:40] VITALS: BP 120/75; PULSE 74; RESP 18; TEMP 36.6; O2SAT 100
[2022-09-24] MEDS: Normal Saline - Diluent 50 ML VIAL IJ (08:10)
[2022-09-24] MEDS: Normal Saline Flush 10 ML SYR IVP (08:11)
[2022-09-24] MEDS: Omnipaque 350 MG/ML 500 ML BTL-Imaging package IJ (08:12)
[2022-09-24 09:09] LABS: C Diff PCR Negative (Negative)
--- NOTE | 2022-09-24 09:17 | W.EDPROG ---
Date of service: 09/24/22 Time of Service: 09:17 Medical Decision Making PAtient's labs show wbc of 16, c diff negative, does have colitis on CT. PT stable, discussed results with her and given her elevated white count and colitis on CT will treat with augmentin, advised to f/u with pcp if symptoms continue and return precautions given. Differential Diagnosis Differential Diagnosis: colitis, c diff Imaging Data Radiologic Study: Attestation: I personally reviewed and interpreted this imaging study as follows: Imaging: CT Scan Radiologist's impression: IMPRESSION: 1. Bowel wall thickening involving the transverse, descending and sigmoid colon suspicious for an infectious/inflammatory colitis. 2. Findings were discussed with Dr. Mireles at 8:48 a.m. on 09/24/2022. Sign Out Sign Out Data: Sign Out Comment: Here with lower abdominal cramping, nausea and vomiting with loose stool since list night. Follow-up CT abd/pelvis and cdiff. Stool cx pending. Reassess patient for disposition. Last updated by Amilcar Noriega MD at 09/24/22 07:48 Discharge Plan Disposition Patient Disposition: Home Condition: Stable Discharge Details Clinical Impression: Colitis Primary Care Provider: Martell Rosado ED Provider: Adrian Mireles Home Meds and New Rx's Prescriptions: New amoxicillin-pot clavulanate 875-125 mg tablet 1 tab PO BID Qty: 14 0RF ondansetron 4 mg tablet,disintegrating 4 mg PO Q8H PRN (Reason: nausea and vomiting) Qty: 30 0RF Continued prenat.vits,lissa,[id number] Tablet 1 tab PO DAILY Patient Comments: Pt states she is no longer taking this med. lactase 3,000 unit tablet,chewable 9,000 unit PO PRN PRN Rx Instructions: administer with meals and/or snacks (if eating dairy) acetaminophen 500 mg capsule 500 mg PO PRN PRN calcium carbonate [Tums] 200 mg calcium (500 mg) tablet,chewable 600 mg PO PRN PRN ondansetron 4 mg tablet,disintegrating 4 mg PO Q6H Qty: 90 0RF Patient Comments: Pt states she is no longer taking this med. escitalopram oxalate 5 mg tablet 5 mg PO DAILY hydroxyzine HCl 25 mg Tablet 25 mg PO QHS PRN Discharge Instructions Additional Instructions: Your cat scan showed evidence of colitis on cat scan which will likely improve in the next few days IF not better within 5 days follow up with your primary care provider If you feel more ill, have severe worsening pain or persistent vomiting return to the emergency department Stand Alone Forms: Work Release
[2022-09-24 09:44] VITALS: BP 126/76; PULSE 70; RESP 20; TEMP 37; O2SAT 98
== END 2022-09-24 09:46 | disposition home or self-care (01) ==
PROVIDERS: Student in an Organized Health Care Education/Training Program; Emergency Provider Emergency Medicine; PCP Family Medicine
DX: R10.32 Left lower quadrant pain (principal); D72.829 Elevated white blood cell count, unspecified; R91.1 Solitary pulmonary nodule; K52.9 Noninfective gastroenteritis and colitis, unspecified
CPT/HCPCS: 36415; 80053; 83690; 86850; 86900; 86901; 87493; 87505; 96361; 96374; 99285; 74177; 81003; 81015; 85025; 99284; J2405; Q9967

== ENCOUNTER 2022-11-05 08:53 | Outpatient (REF) | payer BC, SELFPAY ==
[2022-11-05 16:06] LABS: Abs Immature Grans 0.04 10^3/uL (0.0-0.06); Absolute Basophil Count 0.06 10^3/uL (0.0-0.2); Absolute Eosinophil Count 0.24 10^3/uL (0.0-0.7); Absolute Lymphocyte Count 2.63 10^3/uL (1.2-3.4); Absolute Monocyte Count 0.85 10^3/uL (0.1-0.8); Absolute Neutrophil Count 5.14 10^3/uL (1.2-6.7); Basophils % 0.7; Eosinophils % 2.7; HCT 38.6 % (36.0-46.0); HGB 12.9 g/dL (11.2-15.7); Immature Grans % 0.4; Lymphocytes % 29.4; MCH 29.3 pg (27.0-33.0); MCHC 33.4 % (32.0-36.0); MCV 88 fL (80-95); Monocytes % 9.5; Neutrophils % 57.3; Platelet Count 342 10^3/uL (130-400); RBC 4.41 10^6/uL (3.93-5.22); RDW 12.5 % (11.7-14.6); RDW-SD 39.9 fL; WBC 8.96 10^3/uL (4.4-10.8)
[2022-11-05 16:58] LABS: C-Reactive Protein 0.82 mg/dL (0.0-0.3); TSH (W/Ref FT4) 2.91 uIU/mL (0.36-3.74)
[2022-11-06 07:38] LABS: Anion Gap 12.6 mmol/L (3-11); BUN 13 mg/dL (7-18); CO2 24.4 mmol/L (21.0-32.0); CREATININE 0.9 mg/dL (0.55-1.02); Calcium 8.9 mg/dL (8.5-10.1); Chloride 101 mmol/L (98-107); Estimated GFR 86.03 (mL/min/1.73m2); Glucose 87 mg/dL (74-106); Sodium 138 mmol/L (136-145)
[2022-11-07 23:16] LABS: 17-Hydroxyprogesterone 330 ng/dL
[2022-11-09 00:52] LABS: Testosterone, Total 27 ng/dL (8-60)
[2022-11-12 19:23] LABS: Calprotectin <50.0 mcg/g
== END 2022-11-05 08:54 | disposition home or self-care (01) ==
LOC: NCHCN 08:53
PROVIDERS: PCP Family Medicine; Visit Provider Family Medicine
DX: N91.5 Oligomenorrhea, unspecified (principal); D72.829 Elevated white blood cell count, unspecified; E06.3 Autoimmune thyroiditis; R10.9 Unspecified abdominal pain
CPT/HCPCS: 80048; 83498; 84403; 83993; 84443; 85025; 86140

== ENCOUNTER 2022-12-18 01:35 | Outpatient (RCR) | payer BC, SELFPAY ==
[2022-12-18] MEDS: Cosyntropin 0.25 MG VIAL IM (07:17)
== END 2023-01-07 23:59 | disposition home or self-care (01) ==
LOC: INF 01:35
PROVIDERS: PCP Family Medicine; Visit Provider Family Medicine
DX: L68.0 Hirsutism (principal)
CPT/HCPCS: 36415; 82533; 87206; 96372; J0834

== ENCOUNTER 2022-12-23 04:52 | Outpatient (CLI) | payer BC, SELFPAY ==
[2022-12-26 16:36] LABS: Amoxicillin, IgE <0.10 kU/L (<0.70); Clam IgE <0.10 kU/L (<0.70); Crab IgE <0.10 kU/L (<0.70); Lobster IgE <0.10 kU/L (<0.70); Scallop IgE <0.10 kU/L (<0.70); Shrimp IgE <0.10 kU/L (<0.70)
[2022-12-26 18:00] LABS: Oyster IgE <0.10 kU/L (<0.70)
== END 2022-12-23 04:53 | disposition home or self-care (01) ==
LOC: LBO 04:52
PROVIDERS: PCP Family Medicine; Visit Provider Physician Assistant
DX: L50.9 Urticaria, unspecified (principal); T78.3XXA Angioneurotic edema, initial encounter; Z88.9 Allergy status to unspecified drugs, medicaments and biological substances; Z91.018 Allergy to other foods
CPT/HCPCS: 36415; 86003

== ENCOUNTER 2023-04-06 10:03 | Emergency (ER) | payer BC, SELFPAY ==
[2023-04-06 10:11] VITALS: BP 131/91; PULSE 84; RESP 17; TEMP 36.2; O2SAT 100
[2023-04-06] MEDS: diazePAM 5 MG TAB PO (10:30)
[2023-04-06] MEDS: Acetaminophen 500 MG TAB 1000 MG PO (10:30)
[2023-04-06] MEDS: Lidocaine 5% Patch 1 PATCH TP (10:31)
[2023-04-06] MEDS: Ketorolac 10 MG TAB PO ×2 (10:31→12:06)
--- NOTE | 2023-04-06 10:35 | ED.GENADUL_ITS ---
HPI General Date/Time Provider Initiated Documentation: 04/06/23 10:17 . Limitations to Documentation: no limitations . Information obtained by: patient . HPI Narrative: 32-year-old female with past medical history of low back pain, migraines presents for evaluation of acute worsening of low back pain. She reports that she had some symptoms last week and was evaluated at urgent care. She had been taking Robaxin and using a TENS unit with some improvement. Yesterday she put together a piece of furniture and this seemed to worsen her pain. This morning she woke up with significant pain she has not taken any medications today. She reports pain worse with walking, no bowel or bladder changes. No numbness or weakness. She has not had any trauma. No history of fever, IVDU, malignancy. Related Data Home Medications Medication Instructions Recorded Confirmed prenat.vits,lissa,[id number] 1 tab PO DAILY 06/30/19 04/06/23 acetaminophen 500 mg capsule 500 mg PO PRN PRN 09/06/19 04/06/23 lactase 3,000 unit chewable tablet 9,000 unit PO PRN PRN 10/04/19 04/06/23 calcium carbonate 200 mg calcium 600 mg PO PRN PRN 12/07/19 04/06/23 (500 mg) chewable tablet (Tums) ondansetron 4 mg disintegrating 4 mg PO Q6H #90 tabs 04/26/21 04/06/23 tablet escitalopram oxalate 5 mg tablet 5 mg PO DAILY 09/24/22 04/06/23 hydroxyzine HCl 25 mg tablet 25 mg PO QHS PRN 09/24/22 04/06/23 ondansetron 4 mg disintegrating 4 mg PO Q8H PRN nausea and 09/24/22 04/06/23 tablet vomiting #30 tabs cholecalciferol (vitamin D3) 50 50 mcg PO DAILY 10/11/22 04/06/23 mcg (2,000 unit) capsule ibuprofen 200 mg tablet 200 mg PO Q6H PRN 10/11/22 04/06/23 magnesium oxide 1 tab PO DAILY 10/11/22 04/06/23 diazepam 5 mg tablet (Valium) 5 mg PO TID PRN spasms #7 tabs 04/06/23 lidocaine 5 % topical patch 1 patch topical DAILY #15 ea 04/06/23 (Lidoderm) meloxicam 15 mg tablet 15 mg PO DAILY #30 tabs 04/06/23 methocarbamol 500 mg tablet 1,000 mg (2 x 500 mg) PO TID #90 04/06/23 tabs methocarbamol 500 mg tablet 500 mg PO TID PRN PRN 04/06/23 04/06/23 Previous Rx's Medication Instructions Recorded ondansetron 4 mg disintegrating 4 mg PO Q6H #90 tabs 04/26/21 tablet ondansetron 4 mg disintegrating 4 mg PO Q8H PRN nausea and 09/24/22 tablet vomiting #30 tabs diazepam 5 mg tablet (Valium) 5 mg PO TID PRN spasms #7 tabs 04/06/23 lidocaine 5 % topical patch 1 patch topical DAILY #15 ea 04/06/23 (Lidoderm) meloxicam 15 mg tablet 15 mg PO DAILY #30 tabs 04/06/23 methocarbamol 500 mg tablet 1,000 mg (2 x 500 mg) PO TID #90 04/06/23 tabs Allergies Allergy/AdvReac Type Severity Reaction Status Date / Time Sulfa (Sulfonamide Allergy Severe Skin Rash Verified 04/06/23 10:20 Antibiotics) lorazepam [From Ativan] AdvReac Intermediate Agitation Unverified 04/06/23 10:20 sertraline AdvReac Intermediate Other (See Verified 04/06/23 10:20 Comment) General Stated Complaint: Nk/Back Pain ISMAEL: 3 Exam Narrative Exam Narrative: Review of Systems: All systems reviewed & are unremarkable except as noted in HPI and below Well-developed, mild acute distress NCAT PERRL, normal conjunctiva RRR Unlabored respiratory effort Nondistended abdomen Extremities w/o deformity, no cyanosis, no edema No rashes or lesions. no focal neurologic deficits, normal strength in bilateral lower extremities No midline back tenderness, step-off or deformity + Straight leg +Antalgic gait Appropriate mood and affect Course Vital Signs Vital signs: Vital Signs Temperature 36.2 C L 04/06/23 10:11 Pulse 84 04/06/23 10:11 Respiratory Rate 17 04/06/23 10:11 Blood Pressure 131/91 H 04/06/23 10:11 Pulse Oximetry 100 04/06/23 10:11 Temperature 36.2 C L 04/06/23 10:11 Temperature Source Temporal Artery Scan 04/06/23 10:11 Pulse 84 04/06/23 10:11 Respiratory Rate 17 04/06/23 10:11 Respiratory Effort Normal, Non-Labored 04/06/23 10:18 Blood Pressure 131/91 H 04/06/23 10:11 Blood Pressure Position Sitting 04/06/23 10:11 Pulse Oximetry 100 04/06/23 10:11 Oxygen Delivery Method Room Air 04/06/23 10:11 Oxygen Flow Rate 0 04/06/23 10:11 Pain Level 9 04/06/23 10:31 Medical Decision Making Emergent evaluation of acute on chronic lumbar back pain most consistent with musculoskeletal strain vs sciatica. Patient was given Valium, Toradol, Tylenol, lidocaine patch for pain. At this time I do not feel that imaging is indicated Low suspicion for acute cord compression or cauda equina at this time, given presentation and symptoms, including epidural abscess or hematoma. Patient has no history of malignancy, active or distant history. Patient has no unexplained weight loss. No recent fevers, rigors, malaise, or recent infection. No history of IVDU or skin-popping. Patient does not have any history concerning for saddle anesthesia/perianal sensory loss or complaining of decreased rectal tone. Patient does not have urinary retention or inability to control urine from overflow. Patient has no tenderness overlying spinous process. Patient has no focal weakness on examination. Given exam and history, low suspicion for cord compression, cauda equina, epidural abscess/hematoma. Distally neurovascuarly intact. Query likely musculoskeletal component versus sciatica. 1145: On reevaluation of the patient, she is able to sit up and make transitions from laying to sitting to standing without as much difficulty. She is able to stand independently. Her symptoms are not completely resolved but are definitely improving and she feels that. Again I have a very low suspicion for acute cauda equina I do not feel emergent neurologic evaluation is indicated. I do recommend she follow-up with her PCP to get an outpatient MRI with this recurrent severe lumbar back pain. Discussed pain control, physical therapy and follow up with PMD. Cautious return precautions discussed w/ full understanding Medical Records Medical records reviewed: Yes I reviewed the patient's medical records. Lab Data Lab results reviewed: Yes I reviewed the patient's lab results. Quality:SDOH Health Related Social Needs: 2 No Data to Display PFSH All Active Problems (Updated 04/06/23 @ 11:50 by Laquita Rinaldi MD) Drug allergy (Acute) Food allergy (Acute) Angioedema (Acute) Urticaria (Acute) Thyroid nodule (Acute) History of dilation and curettage (Acute) Amenorrhea, secondary (Acute) Irregular heart beat (Acute) noted at post visit, thyroid labs drawn Enlarged thyroid gland (Acute) Low back pain (Acute) Knee dislocation (Acute) bilateral intermittent TMJ (dislocation of temporomandibular joint) (Acute) History of recurrent UTIs (Acute) Anxiety disorder (Acute) Migraine (Acute 09/17/12) Medical History (Updated 04/06/23 @ 11:50 by Laquita Rinaldi MD) Sleep disorder Major depression, recurrent History of recurrent miscarriages Chronic abdominal pain Leukocytosis Oligomenorrhea Autoimmune thyroiditis Back pain Unspecified disturbances of skin sensation Fatigue Carpal tunnel syndrome of right wrist AV block, 1st degree Strep pharyngitis Family history of malignant melanoma Sore throat Colitis, acute Pruritic rash Mouth swelling Postoperative vaginal bleeding History of recurrent , antepartum with uncertain viability Early stage of test positive History of miscarriage 12/2016. Chemical . 07/2017 SAB @ 8w. s/p D&C. 02/2018 Chemical . Syncope, near unknown cause, chronic Migraines Surgical History H/O dilation and curettage 07/2017 SAB @ 8w. wisdom teeth Family History Mother Arthritis Heart disease Hyperthyroidism Hypothyroid Father Essential hypertension Hyperlipidemia Grandfather Alzheimer's dementia Atrial fibrillation Hypothyroid Neoplasm colon Grandfather Benign neoplasm of brain Myocardial infarction Neoplasm brain tumor Grandmother Diabetes Neoplasm bone cancer- breast cancer Kidney failure Parkinsons disease Grandmother Diabetes Dementia Hyperlipidemia S/P triple vessel bypass Social History Smoking/Tobacco Use Status: Never Smoking risk assessment performed?: Yes Alcohol Intake: never Details: w/o etoh since knowledge of Drug use: Never Substance use type: does not use Household members: spouse, children and other Details: Chris Cortez Number of Children: 1 Seatbelt use: always Do you feel safe at home: Yes Do you feel safe in your relationship?: Yes Female Reproductive History Menstrual control method: none History History 5 Para 1 Hx # Term Pregnancies 1 Multiple births 0 Hx # Pregnancies 0 Ectopic pregnancies 0 AB induced 0 Hx Number of Living Children 1 AB spontaneous 4 Past Pregnancies Del. Date GA/Weeks # Preg Succ Route Wgt Sex Labor Lgth Anesth esia Location Prov [facility] 01/14/20 38 No vaginal 3274.37 g Male 16 hrs 27 min ANNA Brito 05/04/21 10 No Delivery Date: 01/14/20 Last Updated by: Ashley Leon LPN Nitrous oxide in labor; Vidal Mcknight Delivery Date: 05/04/21 Last Updated by: Ashley Leon LPN Embryonic demise; D&C 05/04/21, Medardo Cooper MD PAWSS Have you Been Recently Intoxicated or Drunk Within the Last 30 days?: No Have you Ever Experienced Previous Episodes of Alcohol Withdrawal?: No Have you ever Experienced Withdrawal Seizures?: No Have you ever Experienced Delirium Tremens(DT)s?: No Have you ever undergone Alcohol Rehabilitation Treatment (i.e, inpt ot outpatient treatment programs)?: No Have you ever Experienced Blackouts?: No Have you ever Combined Alcohol with other Downers within the last 90 days?: No Have you ever Combined Alcohol with any other Substance of Abuse during the last 90 days?: No Positive Blood Alcohol level on Presentation? [PCS.BAL]: No Evidence of Increased Autonomic Activity (i.e. HR>120, tremor, sweating, agitation, nausea)?: No Result: 0 Discharge Plan Disposition Patient Disposition: Home Condition: Stable Discharge Details Clinical Impression: Low back pain Primary Care Provider: Martell Rosado ED Provider: Laquita Rinaldi Home Meds and New Rx's Prescriptions: New methocarbamol 500 mg tablet 1,000 mg PO TID Qty: 90 0RF lidocaine [Lidoderm] 5 % adhesive patch,medicated 1 patch topical DAILY Qty: 15 0RF Rx Instructions: leave on most painful area for up to 12 hrs meloxicam 15 mg tablet 15 mg PO DAILY Qty: 30 0RF Rx Instructions: with food, do not combine with other nsaids diazepam [Valium] 5 mg tablet 5 mg PO TID PRN (Reason: spasms) Qty: 7 0RF No Action prenat.vits,lissa,[id number] Tablet 1 tab PO DAILY Patient Comments: Pt states she is no longer taking this med. lactase 3,000 unit tablet,chewable 9,000 unit PO PRN PRN Rx Instructions: administer with meals and/or snacks (if eating dairy) acetaminophen 500 mg capsule 500 mg PO PRN PRN calcium carbonate [Tums] 200 mg calcium (500 mg) tablet,chewable 600 mg PO PRN PRN ondansetron 4 mg tablet,disintegrating 4 mg PO Q6H Qty: 90 0RF Patient Comments: Pt states she is no longer taking this med. magnesium oxide 1 tab PO DAILY ibuprofen 200 mg tablet 200 mg PO Q6H PRN cholecalciferol (vitamin D3) 50 mcg (2,000 unit) capsule 50 mcg PO DAILY escitalopram oxalate 5 mg tablet 5 mg PO DAILY hydroxyzine HCl 25 mg Tablet 25 mg PO QHS PRN ondansetron 4 mg tablet,disintegrating 4 mg PO Q8H PRN (Reason: nausea and vomiting) Qty: 30 0RF methocarbamol 500 mg tablet 500 mg PO TID PRN PRN Patient Comments: TAKE ONE TABLET BY MOUTH THREE TIMES A DAY FOR 5 DAYS Discharge Instructions Instructions: Low Back Strain (ED) Additional Instructions: you have been given a few doses of toradol and valium for use today continue home care with TENS, heat, stretching start meloxicam tomorrow . don't use additional NSAIDS, but take tylenol every 4 hours follow up with PCP Discharge Data Discharge Date/Time-TO BE ENTERED AT DEPARTURE: 04/06/23 12:12
[2023-04-06] MEDS: diazePAM 5 MG TAB 10 MG PO (12:06)
[2023-04-06] MEDS: Ketorolac 10 MG TAB 20 MG PO (12:07)
[2023-04-06 12:08] VITALS: BP 113/69; PULSE 67; RESP 18; O2SAT 100
--- NOTE | 2023-04-07 09:23 | NUR.NOTE ---
Accessed Pt chart to identify prescribing doctor for pharmacy
== END 2023-04-06 12:12 | disposition home or self-care (01) ==
PROVIDERS: Emergency Provider Emergency Medicine; PCP Family Medicine
DX: M54.50 Low back pain, unspecified (principal)
CPT/HCPCS: 81025; 99283

== ENCOUNTER 2023-04-08 07:14 | Outpatient (CLI) | payer SELFPAY ==
[2023-04-09 09:59] LABS: Varicella IgG Antibody Positive (See Note)
[2023-04-10 11:50] LABS: TB Interpretation Negative (Negative); TB2 Ag minus Nil 0.01 IU/mL
== END 2023-04-08 07:15 | disposition home or self-care (01) ==
LOC: LBO 07:16
PROVIDERS: PCP Family Medicine; Visit Provider Family Medicine
DX: Z02.1 Encounter for pre-employment examination (principal)
CPT/HCPCS: 36415; 86787; 86480

== ENCOUNTER 2023-04-30 01:34 | Outpatient (CLI) | payer BC, SELFPAY ==
[2023-05-01 20:12] LABS: Adrenocorticotropic Hormone, P 15 pg/mL
[2023-05-02 15:53] LABS: DHEA Sulfate 141 ug/dL (96-512)
[2023-05-03 00:21] LABS: 17-Hydroxyprogesterone <40 ng/dL; Androstenedione 144 ng/dL (30-200)
== END 2023-04-30 01:35 | disposition home or self-care (01) ==
PROVIDERS: PCP Family Medicine; Visit Provider Internal Medicine
DX: E28.8 Other ovarian dysfunction (principal)
CPT/HCPCS: 36415; 82627; 83498; 82024; 82157

== ENCOUNTER 2023-09-07 16:33 | Emergency (ER) | payer BC, SELFPAY ==
--- NOTE | 2023-09-07 16:30 | RT.EKG_ITS ---
APPROVED REPORT Exam: Resting ECG Reason for Exam: Rapid Heartrate Patient Location: E HR:83 bpm ECG Measurements Heart Rate 83 AXIS SC 192 P 72 QRSd 82 QRS 56 QT 354 T 34 QTc 416 Conclusion Sinus rhythm...normal P axis, V-rate 60- 99
[2023-09-07 16:38] VITALS: BP 149/81; PULSE 88; RESP 21; TEMP 36.8; O2SAT 100
[2023-09-07 17:33] VITALS: PULSE 69
[2023-09-07 17:45] LABS: Abs Immature Grans 0.08 10^3/uL (0.0-0.06); Absolute Basophil Count 0.07 10^3/uL (0.0-0.2); Absolute Eosinophil Count 0.17 10^3/uL (0.0-0.7); Absolute Lymphocyte Count 3.42 10^3/uL (1.2-3.4); Basophils % 0.5 %; Eosinophils % 1.2 %; HCT 37.7 % (36.0-46.0); HGB 12.5 g/dL (11.2-15.7); Immature Grans % 0.5 %; Lymphocytes % 23.5 %; MCH 29.1 pg (27.0-33.0); MCHC 33.2 % (32.0-36.0); MCV 88 fL (80-95); MPV 8.9 fL (8.0-11.0); Monocytes % 7.4 %; Neutrophils % 66.9 %; Platelet Count 367 10^3/uL (130-400); RDW 12.5 % (11.7-14.6); RDW-SD 40.3 fL; WBC 14.55 10^3/uL (4.4-10.8)
[2023-09-07 17:46] LABS: Bilirubin Negative (Negative); Blood Trace-intact (Negative); Clarity Cloudy (Clear); Glucose Negative (Negative); Ketones Negative (Negative); Leukocyte Esterase Moderate (Negative); Nitrite Negative (Negative); Specific Gravity 1.015 (1.005-1.025); Urobilinogen 0.2 mg/dL (Up to 0.2)
[2023-09-07 17:47] LABS: Absolute Monocyte Count 1.08 10^3/uL (0.1-0.8); Absolute Neutrophil Count 9.73 10^3/uL (1.2-6.7)
[2023-09-07 18:09] LABS: Bacteria Moderate HPF (Negative); C & S Indicated? No/Sq. Contamination; Crystals Negative HPF (Negative); Epithelial Cells Many HPF (Negative); Mucus Negative (Negative); RBC 0-2 HPF (0-2); WBC 20-50 HPF (0-5)
[2023-09-07 18:21] LABS: ALT 18 U/L (14-59); AST 13 U/L (15-37); Albumin 3.7 g/dL (3.4-5.0); Alkaline Phosphatase 68 U/L (46-116); Anion Gap 8.8 mmol/L (3-11); BUN 9 mg/dL (7-18); Bilirubin, Total 0.22 mg/dL (0.2-1.0); CO2 28.2 mmol/L (21.0-32.0); CREATININE 0.8 mg/dL (0.55-1.02); Calcium 8.7 mg/dL (8.5-10.1); Chloride 104 mmol/L (98-107); Estimated GFR 98.48 (mL/min/1.73m2); Glucose 90 mg/dL (74-106); Potassium 4.3 mmol/L (3.5-5.1); Sodium 141 mmol/L (136-145); TSH (W/Ref FT4) 1.86 uIU/mL (0.36-3.74); Total Protein 7.7 g/dL (6.4-8.2); Troponin I < 50 ng/L (< or =60)
--- NOTE | 2023-09-07 22:32 | ED.GENADUL_ITS ---
Discharge Plan Disposition Patient Disposition: Home Condition: Stable Discharge Details Clinical Impression: Heart palpitations Primary Care Provider: Martell Rosado ED Provider: Lori hWarton Home Meds and New Rx's Prescriptions: Continued lactase 3,000 unit tablet,chewable 9,000 unit PO PRN PRN Rx Instructions: administer with meals and/or snacks (if eating dairy) acetaminophen 500 mg capsule 500 mg PO PRN PRN calcium carbonate [Tums] 200 mg calcium (500 mg) tablet,chewable 600 mg PO PRN PRN ibuprofen 200 mg tablet 200 mg PO Q6H PRN cholecalciferol (vitamin D3) 50 mcg (2,000 unit) capsule 50 mcg PO DAILY escitalopram oxalate 5 mg tablet 10 mg PO DAILY hydroxyzine HCl 25 mg Tablet 25 mg PO QHS PRN lidocaine [Lidoderm] 5 % adhesive patch,medicated 1 patch topical DAILY Qty: 15 0RF Rx Instructions: leave on most painful area for up to 12 hrs Discharge Instructions Instructions: Palpitations Additional Instructions: Follow-up with your doctor for Zio patch at your doctor's discretion. Try to check your pulse when you are having the episodes Try to stay away from caffeine is much as possible At least eight 8 ounce glasses of water daily Referrals: Martell Rosado [Primary Care Provider] - Discharge Data Discharge Date/Time-TO BE ENTERED AT DEPARTURE: 09/07/23 18:59 HPI General Date/Time Provider Initiated Documentation: 09/07/23 16:35 . HPI Narrative: 33-year-old female presenting with history of heart block and syncope presenting with dizziness and lightheadedness that started today. She was cooking when the symptoms began. She denies any chest pain but folic her heart may beat out of her chest. She denies any calf pain or swelling, recent flights, surgeries, long drives, history of coagulopathy. Denies any chance of . States she has had intermittent episodes such as these in the past she has had 3 episodes this month. She thinks her pulse was about 100 but states it is normally in the 60s was unusual for her. She denies any new medications. Related Data Home Medications Medication Instructions Recorded Confirmed acetaminophen 500 mg capsule 500 mg PO PRN PRN 09/06/19 09/07/23 lactase 3,000 unit chewable tablet 9,000 unit PO PRN PRN 10/04/19 09/07/23 calcium carbonate (Tums) 600 mg PO PRN PRN 12/07/19 09/07/23 escitalopram oxalate 5 mg tablet 10 mg PO DAILY 09/24/22 09/07/23 hydroxyzine HCl 25 mg tablet 25 mg PO QHS PRN 09/24/22 09/07/23 cholecalciferol (vitamin D3) 50 50 mcg PO DAILY 10/11/22 09/07/23 mcg (2,000 unit) capsule ibuprofen 200 mg tablet 200 mg PO Q6H PRN 10/11/22 09/07/23 lidocaine 5 % topical patch 1 patch topical DAILY #15 ea 04/06/23 09/07/23 (Lidoderm) Previous Rx's Medication Instructions Recorded lidocaine 5 % topical patch 1 patch topical DAILY #15 ea 04/06/23 (Lidoderm) Allergies Allergy/AdvReac Type Severity Reaction Status Date / Time Sulfa (Sulfonamide Allergy Severe Skin Rash Verified 09/07/23 16:41 Antibiotics) lorazepam [From Ativan] AdvReac Intermediate Agitation Unverified 09/07/23 16:41 sertraline AdvReac Intermediate Other (See Verified 09/07/23 16:41 Comment) General Stated Complaint: Dizzy/Sync ISMAEL: 3 Exam Narrative Exam Narrative: , Will 33-year-old female alert and oriented, pupils equal round reactive to light and accommodation, no respiratory distress, cardiac rate rhythm regular, no abdominal tenderness, no calf swelling or tenderness, alert and oriented x 4, no peripheral edema, distal pulses intact Course Vital Signs Vital signs: Vital Signs Temperature 36.8 C 09/07/23 16:38 Pulse 88 09/07/23 16:38 Respiratory Rate 21 09/07/23 16:38 Blood Pressure 149/81 H 09/07/23 16:38 Pulse Oximetry 100 09/07/23 16:38 Temperature 36.8 C 09/07/23 16:38 Pulse 69 09/07/23 17:33 Respiratory Rate 21 09/07/23 16:38 Respiratory Effort Normal 09/07/23 16:42 Respiratory Depth Normal 09/07/23 16:42 Respiratory Pattern Normal 09/07/23 16:42 Blood Pressure 149/81 H 09/07/23 16:38 Pulse Oximetry 100 09/07/23 16:38 Oxygen Delivery Method Room Air 09/07/23 16:38 Oxygen Flow Rate 0 09/07/23 16:38 Pain Level 0 09/07/23 16:38 Lab/Test Results Lab/Test Results: Laboratory Tests Range/Units 09/07/23 09/07/23 17:24 20:04 WBC (4.4-10.8) 10^3/uL 14.55 H RBC (3.93-5.22) 10^6/uL 4.30 Hgb (11.2-15.7) g/dL 12.5 Hct (36.0-46.0) % 37.7 MCV (80-95) fL 88 MCH (27.0-33.0) pg 29.1 MCHC (32.0-36.0) % 33.2 RDW (11.7-14.6) % 12.5 Plt Count (130-400) 10^3/uL 367 MPV (8.0-11.0) fL 8.9 Immature Gran % % 0.5 Neutrophils % % 66.9 Lymphocytes % % 23.5 Monocytes % % 7.4 Eosinophils % % 1.2 Basophils % % 0.5 Nucleated RBC % (0.0-0.3) % 0.0 Absolute Neutrophils (1.2-6.7) 10^3/uL 9.73 H Absolute Lymphocytes (1.2-3.4) 10^3/uL 3.42 H Absolute Monocytes (0.1-0.8) 10^3/uL 1.08 H Absolute Eosinophils (0.0-0.7) 10^3/uL 0.17 Absolute Basophils (0.0-0.2) 10^3/uL 0.07 Sodium (136-145) mmol/L 141 Potassium (3.5-5.1) mmol/L 4.3 Chloride (98-107) mmol/L 104 Carbon Dioxide (21.0-32.0) mmol/L 28.2 Anion Gap (3-11) mmol/L 8.8 BUN (7-18) mg/dL 9 Creatinine (0.55-1.02) mg/dL 0.8 Est GFR (CKD-EPI 2020) (mL/min/1.73m2) 98.48 Glucose (74-106) mg/dL 90 Calcium (8.5-10.1) mg/dL 8.7 Magnesium (1.8-2.4) mg/dL 2.0 Total Bilirubin (0.2-1.0) mg/dL 0.22 AST (15-37) U/L 13 L ALT (14-59) U/L 18 Alkaline Phosphatase (46-116) U/L 68 Troponin I (< or =60) ng/L < 50 Cancelled Total Protein (6.4-8.2) g/dL 7.7 Albumin (3.4-5.0) g/dL 3.7 TSH (0.36-3.74) uIU/mL 1.86 Urine Color (Yellow) Yellow Urine Clarity (Clear) Cloudy Urine pH (5-8) 7.0 Ur Specific [place] (1.005-1.025) 1.015 Urine Protein (Neg-Trace) mg/dL Negative Urine Ketones (Negative) mg/dL Negative Urine Blood (Negative) Trace-intact H Urine Nitrite (Negative) Negative Urine Bilirubin (Negative) Negative Urine Urobilinogen (Up to 0.2) mg/dL 0.2 Ur Leukocyte Esterase (Negative) Moderate H Urine RBC (0-2) HPF 0-2 Urine WBC (0-5) HPF 20-50 H Ur Epithelial Cells (Negative) HPF Many Urine Crystals (Negative) HPF Negative Urine Bacteria (Negative) HPF Moderate Urine Mucus (Negative) Negative Ur Culture Indicated? No/Sq. Contamination Urine Glucose (Negative) mg/dL Negative POC- Test(urine) Negative Medical Decision Making Quality:SDOH Health Related Social Needs: No Data to Display PFSH All Active Problems (Updated 09/07/23 @ 18:45 by NAZANIN Peoples) Heart palpitations (Acute) Encounter for pre-employment health screening examination (Acute) Drug allergy (Acute) Food allergy (Acute) Angioedema (Acute) Urticaria (Acute) Thyroid nodule (Acute) History of dilation and curettage (Acute) Amenorrhea, secondary (Acute) Irregular heart beat (Acute) noted at post visit, thyroid labs drawn Enlarged thyroid gland (Acute) Low back pain (Acute) Knee dislocation (Acute) bilateral intermittent TMJ (dislocation of temporomandibular joint) (Acute) History of recurrent UTIs (Acute) Anxiety disorder (Acute) Migraine (Acute 09/17/12) Medical History (Updated 09/07/23 @ 18:45 by NAZANIN Peoples) Sleep disorder Major depression, recurrent History of recurrent miscarriages Chronic abdominal pain Leukocytosis Oligomenorrhea Autoimmune thyroiditis Back pain Unspecified disturbances of skin sensation Fatigue Carpal tunnel syndrome of right wrist AV block, 1st degree Strep pharyngitis Family history of malignant melanoma Sore throat Colitis, acute Pruritic rash Mouth swelling Postoperative vaginal bleeding History of recurrent , antepartum with uncertain viability Early stage of test positive History of miscarriage 12/2016. Chemical . 07/2017 SAB @ 8w. s/p D&C. 02/2018 Chemical . Syncope, near unknown cause, chronic Migraines Surgical History H/O dilation and curettage 07/2017 SAB @ 8w. wisdom teeth Family History Mother Arthritis Heart disease Hyperthyroidism Hypothyroid Father Essential hypertension Hyperlipidemia Grandfather Alzheimer's dementia Atrial fibrillation Hypothyroid Neoplasm colon Grandfather Benign neoplasm of brain Myocardial infarction Neoplasm brain tumor Grandmother Diabetes Neoplasm bone cancer- breast cancer Kidney failure Parkinsons disease Grandmother Diabetes Dementia Hyperlipidemia S/P triple vessel bypass Social History Smoking/Tobacco Use Status: Never Smoking risk assessment performed?: Yes Alcohol Intake: never Details: w/o etoh since knowledge of Drug use: Never Substance use type: does not use Household members: spouse, children and other Details: H-Per. S-Vidal Number of Children: 1 Seatbelt use: always Do you feel safe at home: Yes Do you feel safe in your relationship?: Yes Female Reproductive History Menstrual control method: none History History 5 Para 1 Hx # Term Pregnancies 1 Multiple births 0 Hx # Pregnancies 0 Ectopic pregnancies 0 AB induced 0 Hx Number of Living Children 1 AB spontaneous 4 Past Pregnancies Del. Date GA/Weeks # Preg Succ Route Wgt Sex Labor Lgth Anesth esia Location Prov [facility] 01/14/20 38 No vaginal 3274.37 g Male 16 hrs 27 min ANNA Brito 05/04/21 10 No Delivery Date: 01/14/20 Last Updated by: Ashley Leon LPN Nitrous oxide in labor; Vidalroseanna Mcknight Delivery Date: 05/04/21 Last Updated by: Ashley Leon LPN Embryonic demise; D&C 05/04/21, Medardo Cooper MD
== END 2023-09-07 18:59 | disposition home or self-care (01) ==
LOC: ER 18:54
PROVIDERS: Emergency Provider Physician Assistant; PCP Family Medicine
DX: R00.2 Palpitations (principal); R42 Dizziness and giddiness
CPT/HCPCS: 80053; 81025; 93005; 99284; 81003; 81015; 83735; 84443; 84484; 85025; 93010; 99283

== ENCOUNTER 2023-10-17 07:48 | Outpatient (CLI) | payer BC, SELFPAY | END 2023-10-17 07:49 | disposition home or self-care (01) | PROVIDERS: PCP Student in an Organized Health Care Education/Training Program; Visit Provider Student in an Organized Health Care Education/Training Program | DX: R55 Syncope and collapse (principal) | CPT/HCPCS: 93246 ==

== ENCOUNTER 2023-11-03 18:33 | Outpatient (REF) | payer BC, SELFPAY ==
[2023-11-03 15:30] LABS: Source Nasal/Nares
[2023-11-03 16:41] LABS: COVID-19 PCR POSITIVE (Negative)
--- OUTSIDE RECORDS SUMMARY | 2023-11-03 18:39 | XMS_ITS | Encounter Summary ---
Author Organization [facility] [place] [address] Care Team Providers Care Title Abstractor Name Role Phone Unknown Primary Care Provider Unavailabl e Encounter Details Date Type Department Care Team (Late st Contact Info) Description 10/05/2015 Orders Only Radiology and Cardiology Results [address] [place] [address] [id number] Apd Conversion, Results Provider, Social History Tobacco Use Types Packs/Day Years Used Date Smoking Tobacco: Never Sex and Gender Information Value Date Recorded Sex Assigned at Female 09/17/2021 9:25 PM EDT Gender Identity Not on file Sexual Orientation Straight 09/17/2021 9: 25 PM EDT documented as of this encounter Plan of Treatment Not on file documented as of this encounter Procedures Procedure Name Priority Date/Time Associated Diagnosis Comments TSH Routine 10/05/2015 4:54 PM EDT IRON Routine 10/05/2015 4:54 PM EDT FERRITIN Routine 10/05/2015 4:54 PM EDT documented in this encounter Results * (ABNORMAL) Ferritin (10/05/2015 4:54 PM EDT) Ferritin 28(Externa l Lab) 8 - 388 ng/mL NADEEM CONVERSION 10/05/2015 4:54 PM EDT Results Provider Apd Conversion MD HENRY MCHUGH ORDERABLES CONVERSION * (ABNORMAL) TSH (10/05/2015 4:54 PM EDT) Thyroid Stimulating Hormone 1.563(Ext ernal Lab) 0.358 - 3.740 uIU/mL CONVERSION 10/05/2015 4:54 PM EDT Results Provider Apd Conversion MD HENRY RAMIREZABLES Performing Organization Address [facility] Co de Phone Number CONVERSION * (ABNORMAL) Iron (10/05/2015 4:54 PM EDT) Iron 78(Externa l Lab) 50 - 170 ug/dL CONVERSION 10/05/2015 4:54 PM EDT Results Provider Apd Conversion MD HENRY MCHUGH ORDERABLES CONVERSION documented in this encounter Visit Diagnoses Not on filedocumented in this encounter Care Teams Title Abstractor Relationship Specialty Start Date End Date Unknown None PCP - General 05/06/16 06/04/21 documented as of this encounter
--- OUTSIDE RECORDS SUMMARY | 2023-11-03 18:39 | XMS_ITS | Encounter Summary ---
Author Organization [facility] Address [address] [place] [address] Care Team Providers Care Ocean Fishing Guide Name Role Phone Martell Rosado MD Primary Care Provider Encounter Details Date Type Department Care Team (Late st Contact Info) Description 06/26/2021 Lab Requisition [facility] Pathology & Laboratory Medicine - [facility] [address] [place] [address] Outr Resulting Lab, Provider Social History Tobacco Use Types Packs/Day Years Used Date Smoking Tobacco: Never Smokeless Tobacco: Never Alcohol Use Standard Drinks/Week Comments No 0 (1 standard drink = 0.6 oz pur e alcohol) Interpersonal Safety Answer Date Record ed Physically Hurt Never 10/10/2019 Verbally Threaten Not on file 10/10/2019 Sex and Gender Information Value Date Recorded Sex Assigned at Not on file Gender Identity Not on file Sexual Orientation Not on file documented as of this encounter Functional Status Functional Status Response Date of Assess ment Because of a physical, menta l, or emotional condition, does this person have difficulty doing errands alone such as visiting a doctor's office or shopping? No 12/29/2017 Cognitive Status Response Date of Assessm ent Because of a physical, menta l, or emotional condition, does this person have serious difficulty concentrating, remembering, or making decisions? Yes 12/29/2017 documented as of this encounter Plan of Treatment Not on file documented as of this encounter Procedures Procedure Name Priority Date/Time Associated Diagnosis Comments ZZCOVID-19 TEST [facility] PCR Today 06/26/2021 7:50 EDT COVID-19 TESTING Routine 06/26/2021 7:50 EDT documented in this encounter Results * COVID-19 TEST [facility] PCR (06/26/2021 7:50 EDT) Swab 06/26/2021 7:50 EDT 06/26/2021 21:27 EDT Provider Outr Resulting Lab MICROBIOLOGY - GENERAL ORDERABLES [facility] [address] [place] [address] * COVID-19 TESTING (06/26/2021 7:50 EDT) COVID-19 rt-PCR Result Negative Negative 06/27/2021 15:56 EDT [facility] Comment: This test has not been FDA cleared or approved. This test has been authorized by FDA under an EUA for use by authorized laboratories. This test has been authorized only for detection of nucleic acid from 2019-nCoV, not for any other viruses or pathogens. This test is only authorized for the duration of the declaration that circumstances exist justifying the authorization of emergency use of in vitro diagnostic tests for detection and/or diagnosis of 2019-nCoV under section 564(b)(1) of Act, 21 U.S.C ?? 360bbb-3(b) (1), unless the authorization is terminated or revoked sooner. Negative results do not preclude 2019-nCoV infection and should not be used as the sole basis for treatment or other patient management decisions. Negative results must be combined with clinical observations, patient history, and epidemiological information. Testing was performed using the leigha SARS-CoV-2 assay ([employer] on the Leigha 6800 System Performing Lab Leigha 6800 [facility] 06/27/2021 15:56 EDT [facility] Swab 06/26/2021 7:50 EDT 06/26/2021 21:27 EDT Provider Outr Resulting Lab MICROBIOLOGY - GENERAL ORDERABLES [facility] [address] [place] [address] documented in this encounter Visit Diagnoses Not on filedocumented in this encounter Additional Health Concerns Infection Onset Date Last Indicated Resolved Time COVID-19 04/13/2022 04/13/2022 05/03/2022 22:1 5 EST documented as of this encounter Care Teams Ocean Fishing Guide Relationship Specialty Start Date End Date Martell Rosado [place] [address] [place] [address] PCP - General 08/06/17 documented as of this encounter
--- OUTSIDE RECORDS SUMMARY | 2023-11-03 18:39 | XMS_ITS | Encounter Summary ---
Author Organization [facility] Address [address] [place] [address] Care Team Providers Care Analytics Manager Name Role Phone Martell Rosado MD Primary Care Provider [phone] Encounter Details Date Type Department Care Team (Late st Contact Info) Description 03/23/2021 Lab Requisition [facility] Pathology & Laboratory Medicine - [facility] [address] [place] [address] Outr Resulting Lab, Provider Social History Tobacco [...] Procedure Name Priority Date/Time Associated Diagnosis Comments PROGESTERONE Routine 03/23/2021 9:00 EST documented in this encounter Results * PROGESTERONE (03/23/2021 9:00 EST) Progesterone 28.7 See Table ng/mL 03/23/2021 17:17 EST [facility] Comment: Female Reference Ranges: PHYSIOLOGICAL STATUS ?EXPECTED RANGE ? >= 18 Yrs Menstruating: (Non-) Follicular Phase: ? <= 1.4 ng/mL Luteal Phase: ? 3.3 - 25.6 ng/mL Mid-luteal Phase: ? 4.4 - 28.0 ng/mL Postmenopausal: ? <= 0.7 ng/mL : -------- First Trimester: ?11.2 - 90.0 ng/mL Second Trimester: ? 25.6 - 89.4 ng/mL Third Trimester: ?48.4 - 422.5ng/mL For ectopic , consult a pathologist Reference Ranges for female patients <18 years old have not been established. Blood VENOUS BLOOD / Unknown 03/23/2021 9:00 EST 03/23/2021 16:28 EST Provider Outr Resulting Lab CHEMISTRY & BLOOD GAS ORDERABLES [facility] [address] [place] [address] documented in this encounter Visit Diagnoses Not on filedocumented in this encounter Additional Health Concerns Infection Onset Date Last Indicated Resolved Time COVID-19 04/13/2022 04/13/2022 05/03/2022 22:1 5 EST documented as of this encounter Care Teams Analytics Manager Relationship Specialty Start Date End Date Martell Rosado MD [address] [place] [address] PCP - General 08/06/17 documented as of this encounter
--- OUTSIDE RECORDS SUMMARY | 2023-11-03 18:39 | XMS_ITS | Encounter Summary ---
Author Organization [facility] [place] [place] [address] Care Team Providers Care Telephone Assembler Name Role Phone Martell Rosado MD Primary Care Provider [phone] Reason for Visit * Consultation (Routine) - Closed Specialty Diagnoses / Procedures Referred By Aura suárez Referred To Contact Endocrinology Diagnoses Oligomenorrhea, unspecified type Hirsutism Martell Rosado MD [address] [place] [address] [address] [place] [place] [address] [facility] Endocrinology [address] [place] [phone] Referral ID Status Reason Start Date Expiration Date V isits Requested Visits Authorized [id number] Closed Consult, Test & Treat PCP Updated and/or Approved 12/27/2022 12/27/2023 6 6 Encounter Details Date Type Department Care Team (Late st Contact Info) Description 04/16/2023 4:00 PM EST Office [place] [address] Nicolas Denis, [facility] [address] Hyperandrogenism Social History Tobacco Use Types Packs/Day Years Used Date Smoking Tobacco: Never Smokeless Tobacco: Never Alcohol Use Standard Drinks/Week Comments Yes 0 (1 standard drink = 0.6 oz pur e alcohol) rare Sex and Gender Information Value Date Recorded Sex Assigned at Female 09/17/2021 9:25 PM EDT Gender Identity Not on file Sexual Orientation Straight 09/17/2021 9: 25 PM EDT documented as of this encounter Last Filed Vital Signs Vital Sign Reading Time Taken Comments Blood Pressure 107/68 04/16/2023 3:52 PM EST Pulse 68 04/16/2023 3:52 PM EST Temperature 36.1 ??C (97 ??F) 04/16/2023 3:52 PM EST Respiratory Rate - - Oxygen Saturation 100% 04/16/2023 3:52 PM EST Inhaled Oxygen Concentration - - Weight 89.4 kg (197 lb) 04/16/2023 3:52 PM EST Height 165.1 cm (5' 5) 04/16/2023 3:52 PM EST Body Mass Index 32.78 04/16/2023 3:52 PM EST documented in this encounter Patient Instructions * Patient Instructions* Nicolas Denis DO - 04/16/2023 4:00 PM EST Plan - check 17-OH progesterone, DHEA-S, androstenedione, and ACTH levels - if equivocal will obtain cosyntropin stimulation of 17-OH - if c/w CAH will plan on steroids if desiring fertility, if not will consider Polly - if c/w PCOS will consider retrial of OCP with Polly documented in this encounter Progress Notes * Nicolas Denis DO - 04/16/2023 4:00 PM EST Endocrinology Outpatient Visit Name: Sirisha De La Cruz : 1990 Date of visit: 04/16/23 Referred by: Reason for referral: oligomenorrhea, hirsutism HPI: Ms. De La Cruz is a 32 y/o F with a PMH significant for recurrent miscarriages (x4), oligomenorrhea andhirsutism is here for further evaluation and management of hirsutism and oligomenorrhea. Previous labs and chart have been reviewed. She states that she originally had abnormal menstrual periods starting at age 12-13. Her cycles would last anywhere between 25-100 days, she would have heavy and long periods ~ 7 days. She was placedon OCPs in the past which did help regulate her cycle better but she had significant mood swings onOCPs and therefore she had to stop taking them. In regards to her hirsutism, she notes that she hashad hair growth primarily of the upper lip but also some on her chest which has worsened over the past 5 years. She plucks / waxes a few times a week for hair removal. In regards to fertility, patient unfortunately has had 4 spontaneous miscarriages, two right before the 1st trimester and two earlier in the . She is possibly interested in having children in the future. ROS: 12 Point ROS negative except for what has been documented above Physical Exam: Patient Vitals for the past 24 hrs: Temp Pulse BP SpO2 04/16/23 1552 36.1 ??C (97 ??F) 68 107/68 100 % General appearance: WDWN F in NAD HEENT: NC/AT, EOMI Neuro: AAOx3 Psych: normal mood and affect Social History: Social History Socioeconomic History Marital status: Spouse name: Not on file Number of children: Not on file Years of education: Not on file Highest education level: Not on file Occupational History Not on file Tobacco Use Smoking status: Never Smokeless tobacco: Never Substance and Sexual Activity Alcohol use: Yes Comment: rare Drug use: Not on file Sexual activity: Not on file Other Topics Concern Do You live alone? Not Asked Tobacco in Home Not Asked Social History Narrative Not on file Social Determinants of Health Financial Resource Strain: Not on file Food Insecurity: Not on file Transportation Needs: Not on file Physical Activity: Not on file Intimate Partner Violence: Not on file Housing Stability: Not on file Family History: Family History Problem Relation Age of Onset Thyroid Disease Mother PMH: Past Medical History: Diagnosis Date Depression Jaw dislocation recurrent Migraine Current Medications: escitalopram oxalate (Lexapro) 5 mg tablet ondansetron ODT (Zofran-ODT) 4 mg disintegrating tablet hydrOXYzine (Atarax) 25 mg Tablet Sodium Fluoride-Pot Nitrate (Fluoridex Sensitivity Relief) 1.1-5 % Paste naproxen sodium (ALEVE) 220 mg Capsule Recent Imaging and Labs: Testosterone: 27 DHEA-S: n/a 17-OH progesterone (obtained in luteal phase prior to patient getting period): 330 Assessment and Plan: Ms. De La Cruz is a y/o F with a PMH significant for recurrent miscarriages, oligomenorrhea, and hirsutism is here for further evaluation and management of hyperandrogenism #Hyperandrogenism Patient has clinical evidence of hyperandrogenism. Most common cause of this condition associated with oligomenorrhea in a women of reproductive age is PCOS. That being said PCOS is a diagnosis of exclusion, and patient does have an elevated 17-OH progesterone level (though this was obtained in theluteal phase and therefore not reliable). She has no real s/s c/w natalie disease. At this point, Ithink we need to obtain additional laboratory evaluation to evaluate for possible non-classical CAH, and if positive can consider low-dose steroids if patient is interested in fertility. If labs mostc/w PCOS, we have discussed possibility of spironolactone for control of hyperandrogenism however patient has had issues with presyncopal events and therefore this is likely not a great idea. We could always retrial control with Polly and see if patient tolerates it better this time. Plan - check 17-OH progesterone, DHEA-S, androstenedione, and ACTH levels - if equivocal will obtain cosyntropin stimulation of 17-OH - if c/w CAH will plan on steroids if desiring fertility, if not will consider Polly - if c/w PCOS will consider retrial of OCP with Polly Thank you for modein cash to participate in the care of your patient. D/W Dr. Lily Denis PGY5, Endocrinology Fellow Pager: [phone] * Juanito Bautista MD - 04/16/2023 4:00 PM EST I have seen the patient, reviewed patient's chart and Dr. Nicolas Denis's note and I agree with the details as written. The assessment and plan were formulated in discussion with me and I agree with them as documented. Fortunately she kept log of all her periods and we verified the date of lab in Oct 2022 which showed high 17OH-Progesterone 330 was in mid luteal phase (9 days before having the period). Most recent LMP was on 03/14/23 and she is expecting another period soon so we will need to waituntil 5-7 days after the start of her next menstrual cycle to recheck lab in follicular phase of the cycle for 17OH-P, DHEAS, Androstenedione, ACTH, etc to r/o late-onset CAH and likely PCOS for her. She could not tolerate BCPs due to mood swing prior and already has a borderline low BP, unable to use spironolactone, so we may consider low dose estrogen with anti-androgen non-progestin component e.g Polly (ETHINYL ESTRADIOL 0.02 MG/DROSPIRENONE 3 MG) to help regulate periods and facial hair growth. We may also consider metforminER to reduce insulin resistance, metabolic and weight issues for her probable PCOS. Thanks for the consult. Juanito Bautista MD, PhD, FACP, FACE documented in this encounter Plan of Treatment Scheduled Orders Name Type Priority Associated Diagnoses Orde r Schedule DHEA-sulfate Lab Routine Hyperandrogenism Expected: 04/16/2023, Expires: 10/16/2023 Androstenedione Lab Routine Hyperandrogenism Expected: 04/16/2023, Expires: 10/16/2023 ACTH Lab Routine Hyperandrogenism Expected: 04/16/2023, Expires: 10/16/2023 17-Hydroxyprogesterone Lab Routine Hyperandrogenism Expected: 04/16/2023, Expires: 10/16/2023 documented as of this encounter Visit Diagnoses Diagnosis Hyperandrogenism Other ovarian hyperfunction documented in this encounter Care Teams Telephone Assembler Relationship Specialty Start Date End Date Martell Rosado MD [address] [place], [place] [address] [address] PCP - General Family Medicine 06/05/21 documented as of this encounter
--- OUTSIDE RECORDS SUMMARY | 2023-11-03 18:39 | XMS_ITS | Encounter Summary ---
Author Organization [facility] Address [address] [place] [address] Care Team Providers Care Health Administration Teacher Name Role Phone Martell Rosado MD Primary Care Provider [phone] Encounter Details Date Type Department Care Team (Late st Contact Info) Description 05/16/2021 Lab Requisition [facility] Pathology & Laboratory Medicine - [facility] [address] [place] [address] Outr Resulting Lab, Provider Social History Tobacco [...] Procedure Name Priority Date/Time Associated Diagnosis Comments THYROPEROXIDASE ANTIBODY Routine 05/16/2021 14:16 EST ANTI THYROGLOBULIN Routine 05/16/2021 14 :16 EST documented in this encounter Results * (ABNORMAL) THYROPEROXIDASE ANTIBODY (05/16/2021 14:16 EST) Thyroperoxidase Ab 79(H) <=60 U/mL 2021 22:38 EST [facility] Blood VENOUS BLOOD / Unknown 05/16/2021 14:16 EST 05/16/2021 21:29 EST Provider Outr Resulting Lab CHEMISTRY & BLOOD GAS ORDERABLES Performing Organization Address City/[facility] Co de Phone Number [facility] [address] [place] [address] * (ABNORMAL) ANTI THYROGLOBULIN (05/16/2021 14:16 EST) Anti-Thyroglob ulin 409(H) <=60 U/mL 05/16/2021 22:39 EST [facility] Blood VENOUS BLOOD / Unknown 05/16/2021 14:16 EST 05/16/2021 21:29 EST Provider Outr Resulting Lab CHEMISTRY & BLOOD GAS ORDERABLES Performing Organization Address [facility] Co de Phone Number [facility] [address] [place] [address] documented in this encounter Visit Diagnoses Not on filedocumented in this encounter Additional Health Concerns Infection Onset Date Last Indicated Resolved Time COVID-19 04/13/2022 04/13/2022 05/03/2022 22:1 5 EST documented as of this encounter Care Teams Health Administration Teacher Relationship Specialty Start Date End Date Martell Rosaod MD [facility] [place] [address] PCP - General 08/06/17 documented as of this encounter
--- OUTSIDE RECORDS SUMMARY | 2023-11-03 18:39 | XMS_ITS | Encounter Summary ---
[place] [address] Care Team Providers Care Neurology Physician Assistant Name Role Phone Martell Rosado MD Primary Care Provider [phone] Reason for Referral * Consultation (Routine) - Closed Specialty Diagnoses / Procedures Referred By Aura suárez Referred To Contact Endocrinology Diagnoses Hx of infertility Enlarged thyroid gland Anne Cooper MD [address] [place] [address] [facility] Endocrinology [address] [place] [phone] Referral ID Status Reason Start Date Expiration Date V isits Requested Visits Authorized [id number] Closed Consult, Test & Treat PCP Updated and/or Approved 06/05/2021 06/05/2022 6 6 Encounter Details Date Type Department Care Team (Latest Contact Info) Description 06/05/2021 Transcribe Orders eDH Incoming Referrals [phone] Anne Cooper MD [address] [place] [address] Hx of infertility; Enlarged thyroid gland Social History Tobacco Use Types Packs/Day Years Used Date Smoking Tobacco: Never Sex and Gender Information Value Date Recorded Sex Assigned at Female 09/17/2021 9:25 PM EDT Gender Identity Not on file Sexual Orientation Straight 09/17/2021 9: 25 PM EDT documented as of this encounter Plan of Treatment Scheduled Referrals Name Type Priority Associated Diagnoses Order Schedule Referral to Endocrinology Outpatient Referral Routine Hx of infertility Enlarged thyroid gland Ordered: 06/05/2021 documented as of this encounter Visit Diagnoses Diagnosis Hx of infertility Personal history of other genital system and obstetric disorders Enlarged thyroid gland Goiter, unspecified documented in this encounter Care Teams Neurology Physician Assistant Relationship Specialty Start Date End Date Martell Rosado MD [address] [place] [address] PCP - General Family Medicine 06/05/21 documented as of this encounter
--- OUTSIDE RECORDS SUMMARY | 2023-11-03 18:39 | XMS_ITS | Encounter Summary ---
Author Organization [facility] [address] Care Team Providers Care Shoe Repairer Apprentice Name Role Phone Unknown Primary Care Provider Unavailabl e Encounter Details Date Type Department Care Team (Late st Contact Info) Description 05/17/2015 Orders Only Radiology and Cardiology Results [address] [place] [phone] Apd Conversion, Results Provider, Social History Tobacco [...] Procedure Name Priority Date/Time Associated Diagnosis Comments HEPATITIS C ANTIBODY Routine 05/17/2015 12:25 PM EST VITAMIN D, 25-HYDROXY Routine 05/17/2015 12:25 PM EST RHEUMATOID FACTOR, QUANT Routine 05/17/2015 12:25 PM EST VITAMIN B12 Routine 05/17/2015 12:25 PM EST documented in this encounter Results * (ABNORMAL) Vitamin B12 (05/17/2015 12:25 PM EST) Vitamin B12 570(Marketing Operations Associate al Lab) 211 - 946 pg/mL CONVERSION 05/17/2015 12:2 5 PM EST Results Provider Apd Conversion MD HENRY RAMIREZABLES Performing Organization Address City/[facility] Co de Phone Number CONVERSION * (ABNORMAL) Rheumatoid factor, quant (05/17/2015 12:25 PM EST) Rheumatoid Factor 3.0(Marketing Operations Associate al Lab) 0.0 - 13.9 IU/mL CONVERSION 05/17/2015 12:2 5 PM EST Results Provider Apd Conversion MD HENRY MCHUGH ORDERABLES Performing Organization Address [facility] Co de Phone Number CONVERSION * (ABNORMAL) Vitamin D, 25-Hydroxy (05/17/2015 12:25 PM EST) Vitamin D Total 25 OH 22.4(ExtL) 30.0 - 100.0 ng/mL CONVERSION 05/17/2015 12:2 5 PM EST Results Provider Apd Conversion MD HENRY MCHUGH ORDERABLES Performing Organization Address [facility] Co de Phone Number CONVERSION * (ABNORMAL) Hepatitis C Antibody (05/17/2015 12:25 PM EST) Hepatitis C Antibody 0.1(Marketing Operations Associate al Lab) 0.0 - 0.9 CONVERSION 05/17/2015 12:2 5 PM EST Results Provider Apd Conversion MD HENRY RAMIREZABLES CONVERSION documented in this encounter Visit Diagnoses Not on filedocumented in this encounter Care Teams Shoe Repairer Apprentice Relationship Specialty Start Date End Date Unknown None PCP - General 05/06/16 06/04/21 documented as of this encounter
--- OUTSIDE RECORDS SUMMARY | 2023-11-03 18:39 | XMS_ITS | Encounter Summary ---
Author Organization [facility] Address [facility] [place] [address] Care Team Providers Care Coding Director Name Role Phone Unknown Primary Care Provider Unavailabl e Encounter Details Date Type Department Care Team (Late st Contact Info) Description 05/17/2015 Orders Only Radiology and Cardiology Results [address] [place] [phone] Apd Conversion, Results Provider, Social History Tobacco [...] Procedure Name Priority Date/Time Associated Diagnosis Comments T3, FREE Routine 05/17/2015 12:25 PM EST TSH Routine 05/17/2015 12:25 PM EST T4, FREE Routine 05/17/2015 12:25 PM EST IRON Routine 05/17/2015 12:25 PM EST FERRITIN Routine 05/17/2015 12:25 PM EST documented in this encounter Results * (ABNORMAL) T3, free (05/17/2015 12:25 PM EST) Free T3 3.44(Exter nal Lab) 2.18 - 3.98 pg/mL NADEEM CONSTANTINO CONVERSION 05/17/2015 12:2 5 PM EST Results Provider Apd Conversion CHEMMariya MCHUGH ORDERABLES NADEEM CONSTANTINO CONVERSION * (ABNORMAL) Ferritin (05/17/2015 12:25 PM EST) Ferritin 23(Externa l Lab) 8 - 388 ng/mL NADEEM CONSTANTINO CONVERSION 05/17/2015 12:2 5 PM EST Results Provider Apd Conversion MD HENRY MCHUGH ORDERABLES Performing Organization Address [facility] Co de Phone Number NADEEM CONSTANTINO CONVERSION * (ABNORMAL) TSH (05/17/2015 12:25 PM EST) Thyroid Stimulating Hormone 1.540(Ext ernal Lab) 0.358 - 3.740 uIU/mL NADEEM CONSTANTINO CONVERSION 05/17/2015 12:2 5 PM EST Results Provider Apd Conversion HelloNatureMariya MCHUGH ORDERABLES Performing Organization Address [facility] Co de Phone Number NADEEM CONSTANTINO CONVERSION * (ABNORMAL) T4, free (05/17/2015 12:25 PM EST) Free T4 1.03(Exter nal Lab) 0.76 - 1.46 ng/dL NADEEM CONSTANTINO CONVERSION 05/17/2015 12:2 5 PM EST Results Provider Apd Conversion CHEMMariya MCHUGH ORDERABLES NADEEM CONSTANTINO CONVERSION * (ABNORMAL) Iron (05/17/2015 12:25 PM EST) Iron 145(Drapery And Upholstery Estimator al Lab) 50 - 170 ug/dL NADEEM CONSTANTINO CONVERSION 05/17/2015 12:2 5 PM EST Results Provider Apd Conversion MD HENRY MCHUGH ORDERABLES Performing Organization Address City/State/[facility] Co de Phone Number NADEEM CONSTANTINO DAY CONVERSION documented in this encounter Visit Diagnoses Not on filedocumented in this encounter Care Teams Coding Director Relationship Specialty Start Date End Date Unknown None PCP - General 05/06/16 06/04/21 documented as of this encounter
--- OUTSIDE RECORDS SUMMARY | 2023-11-03 18:39 | XMS_ITS | Encounter Summary ---
[place] [address] Care Team Providers Care Vat Operator Name Role Phone Martell Rosado MD Primary Care Provider [phone] Encounter Details Date Type Department Care Team (Latest Contact Info) Description 10/12/2022 Travel Social History Tobacco Use Types Packs/Day Years [...] on file documented as of this encounter Visit Diagnoses Not on filedocumented in this encounter Care Teams Vat Operator Relationship Specialty Start Date End Date Martell Rosado MD [address] [place] [address] PCP - General Family Medicine 06/05/21 documented as of this encounter
--- OUTSIDE RECORDS SUMMARY | 2023-11-03 18:39 | XMS_ITS | Encounter Summary ---
[place] [address] Care Team Providers Care Life Insurance Salesperson Name Role Phone Unknown Primary Care Provider Unavailabl e Encounter Details Date Type Department Care Team (Late st Contact Info) Description 10/05/2015 Orders Only Radiology and Cardiology Results [address] [place] [id number] Apd Conversion, Results Provider, Social History Tobacco [...] Procedure Name Priority Date/Time Associated Diagnosis Comments VITAMIN D, 25-HYDROXY Routine 10/05/2015 4:54 PM EDT VITAMIN B12 Routine 10/05/2015 4:54 PM EDT documented in this encounter Results * (ABNORMAL) Vitamin B12 (10/05/2015 4:54 PM EDT) Vitamin B12 509(Pr Specialist al Lab) 211 - 946 pg/mL NADEEM LIU CONVERSION 10/05/2015 4:54 PM EDT Results Provider Apd Conversion MD HENRY MCHUGH ORDERABLES NADEEM CONSTANTINO CONVERSION * (ABNORMAL) Vitamin D, 25-Hydroxy (10/05/2015 4:54 PM EDT) Vitamin D Total 25 OH 36.7(Exter nal Lab) 30.0 - 100.0 ng/mL CONVERSION 10/05/2015 4:54 PM EDT Results Provider Apd Conversion MD HENRY MCHUGH ORDERABLES CONVERSION documented in this encounter Visit Diagnoses Not on filedocumented in this encounter Care Teams Life Insurance Salesperson Relationship Specialty Start Date End Date Unknown None PCP - General 05/06/16 06/04/21 documented as of this encounter
--- OUTSIDE RECORDS SUMMARY | 2023-11-03 18:39 | XMS_ITS | Encounter Summary ---
Author Organization [facility] Address [address] [place] [address] Care Team Providers Care Tugboat Dispatcher Name Role Phone Martell Rosado MD Primary Care Provider [phone] Encounter Details Date Type Department Care Team (Late st Contact Info) Description 12/18/2022 Lab Requisition [facility] Pathology & Laboratory Medicine - [facility] [address] [place] [address] Outr Resulting Lab, Provider Social History Tobacco [...] Procedure Name Priority Date/Time Associated Diagnosis Comments CORTISOL, STIMULATION 30 MINUTE Routine 12/18/2022 7:50 EDT documented in this encounter Results * CORTISOL, STIMULATION 30 MINUTE (12/18/2022 7:50 EDT) Cortisol Stimulation, 30 min. 26 See Note ug/dL 12/18/2022 18:05 EDT [facility] Comment: NOTE: Expected Ranges for ACTH (Cortisol) Stimulation Test: Peak Concentrations at 30 - 60 minutes Minimal response: ??A cortisol value of >=18 ug/dL at the Baseline, 30 min, or 60 min sample is consistent with normal adrenal function. The results of this assay can be falsley elevated due to the consumption of Biotin. Blood VENOUS BLOOD / Unknown 12/18/2022 7:50 EDT 12/18/2022 17:06 EDT Provider Outr Resulting Lab CHEMISTRY & BLOOD GAS ORDERABLES [facility] [address] [place] [address] documented in this encounter Visit Diagnoses Not on filedocumented in this encounter Care Teams Tugboat Dispatcher Relationship Specialty Start Date End Date Martell Rosado MD [place] [place] [address] PCP - General 08/06/17 documented as of this encounter
--- OUTSIDE RECORDS SUMMARY | 2023-11-03 18:39 | XMS_ITS | Encounter Summary ---
Author Organization [facility] Address [facility] [place] [address] Care Team Providers Care Hair Salon Manager Name Role Phone Martell Rosado MD Primary Care Provider [phone] Reason for Visit * Consultation (Routine) - Closed Specialty Diagnoses / Procedures Referred By Aura suárez Referred To Contact Endocrinology Diagnoses Hx of infertility Enlarged thyroid gland Anne Cooper MD [address] [place] [address] [facility] [address] [place] [id number] Referral ID Status Reason Start Date Expiration Date V isits Requested Visits Authorized [id number] Closed Consult, Test & Treat PCP Updated and/or Approved 06/05/2021 06/05/2022 6 6 Encounter Details Date Type Department Care Team (Late st Contact Info) Description 09/24/2021 1:00 PM EDT Office Visit [place] [address] Jr East MD [facility] [place] [address] Goiter Social History Tobacco Use Types Packs/Day Years [...] Sign Reading Time Taken Comments Blood Pressure 123/78 09/24/2021 12:46 PM EDT Pulse 67 09/24/2021 12:46 PM EDT Temperature 36.1 ??C (96.9 ??F) 09/24/2021 12:46 PM E DT Respiratory Rate - - Oxygen Saturation 100% 09/24/2021 12:46 PM EDT Inhaled Oxygen Concentration - - Weight - - Height 165.1 cm (5' 5) 09/24/2021 12:46 PM EDT Body Mass Index - - documented in this encounter Progress Notes * Jr East MD - 09/24/2021 1:00 PM EDT Images from the original note were not included. Ms. Sirisha De La Cruz is an 31 y.o. female who presents in consultation for chief complaint of enlarged thyroid Referred by: Anne Cooper MD HPI: Patient presents with her today. She tells me that she is interested in a consultation regarding possibility of an enlarged thyroid/thyroid cyst as well as positive thyroid peroxidase antibodies. Patient does not notice any neck pain or difficulty swallowing but it was noted in the referralthat there was possible thyroid enlargement. Reportedly [facility] which demonstrated a thyroid cyst. Unfortunately do not have a copy of this report. Patient has had her TSH checked regularly since about 2013 and it is always normal. Most recently in May 2021 it was 1.51. She did notably have elevated thyroglobulin and thyroid peroxidase antibodies around that time also. 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 She has required to D&C procedures dueto these miscarriages. She tells me that she is unable to tolerate any form of control due toadverse reactions to multiple different types. She does have 1 child that is 20 months old. She hasbeen working with her TR[employer] provider to try to evaluate why she is having these recurrent miscarriages and as part of this work-up of the thyroid autoantibodies ordered. Notable family medical history: Mother has thyroid disease (alternates between Graves' disease/Parish's thyroiditis) Past Medical History: Diagnosis Date ??? Depression ??? Jaw dislocation recurrent ??? Migraine History reviewed. No pertinent surgical history. Social History Socioeconomic History ??? Marital status: Spouse name: Not on file ??? Number of children: Not on file ??? Years of education: Not on file ??? Highest education level: Not on file Occupational History ??? Not on file Tobacco Use ??? Smoking status: Never Smoker ??? Smokeless tobacco: Not on file Substance and Sexual Activity ??? Alcohol use: Not on file ??? Drug use: Not on file ??? Sexual activity: Not on file Other Topics Concern ??? Do You live alone? Not Asked ??? Tobacco in Home Not Asked Social History Narrative ??? Not on file Social Determinants of Health Financial Resource Strain: Not on file Food Insecurity: Not on file Transportation Needs: Not on file Physical Activity: Not on file Housing Stability: Not on file Occupation: She works as a nurse for [employer]. Review of Systems: As described above, otherwise is negative Current Outpatient Medications: ??? naproxen sodium (ALEVE) 220 mg Capsule, Take by mouth., Disp: , Rfl: Allergies Allergen Reactions ??? Celexa [Citalopram] ??? Sulfa (Sulfonamide Antibiotics) Physical Exam: Patient Vitals for the past 24 hrs: Temp Pulse BP SpO2 09/24/21 1246 36.1 ??C (96.9 ??F) 67 123/78 100 % General: No acute distress, pleasant, sitting comfortably Face: not round or red Eyes: no lid lag; normal eye movements Nose/mouth: Wearing mask Neck: no supraclavicular fat pads; no thyroid enlargement or palpable masses Lymphatic: no palpable cervical lymph nodes Respiratory: symmetrical chest expansion, breathing comfortably on room air without audible wheeze or stridor Cardiovascular: 2+ radial pulse, RRR Musculoskeletal: moving all 4 extremities normally. normal female musculature Skin: normal temperature/texture, no jaundice or pallor, no lower extremity edema Neurological: no tremors, normal gait Psychological: alert/oriented to person, place, time; normal affect; memory intact; normal judgement/insight Radiology Studies: Brief bedside ultrasound today: Right thyroid lobe measured 34 x 17 x 14 mm with homogeneous echotexture. Left lobe measures 32 x 15 x 13 mm with homogeneous echotexture. I did not see any thyroid nodules or cysts. Laboratory Data: Ref Range & Units 2 yr ago TSH 0.47 - 4.68 uIU/ml 1.80 Comment: TSH cascade is not recommended for patients in which pituitary or hypothalamic disorders are suspected. The results of this assay can be falsely lowered due to the consumption of Biotin. Resulting Agency [facility] Specimen Collected: 01/13/19 14:27 Last Resulted: 01/13/19 16:18 Received From: [facility] Result Received: 06/05/21 11:53 Assessment / Plan: 1) elevated thyroid peroxidase antibodies: We discussed the fact that elevations in at these autoantibody levels do mean that she is at increased risk for developing overt hypothyroidism in the future. About 3 to 5% of patients with her biochemical profile progress to overt hypothyroidism every year so it does make sense for her to have herthyroid blood test rechecked about every 2 years or sooner if she develops overt hypothyroid symptoms. We discussed the fact that there is some conflicting data about possible benefit of starting levothyroxine replacement for women who want to conceive and have elevated thyroid peroxidase antibodies and a high normal TSH. Not aware of any data supporting the use of levothyroxine and euthyroid women attempting to achieve we have a TSH in the lower part of the normal range. 2) history of enlarged thyroid: Her thyroid was normal on exam and had normal size on ultrasound. Idid not see any cysts or nodules. No further surveillance ultrasounds are warranted unless new symptoms develop A note will be sent to the referring provider Return to clinic as needed It was a pleasure to be involved in the care of Sirisha De La Cruz. If you have any questions about the management and treatment plan as outlined above, or if I can be of further assistance, please do not hesitate to contact me. Sincerely, Jr East MD [employer] Principalpaint roller assembler Endocrinology Section [facility] documented in this encounter Plan of Treatment Not on file documented as of this encounter Visit Diagnoses Diagnosis Goiter Goiter, unspecified documented in this encounter Care Teams Hair Salon Manager Relationship Specialty Start Date End Date Martell Rosado MD [address] [place] [address] PCP - General Family Medicine 06/05/21 documented as of this encounter
--- OUTSIDE RECORDS SUMMARY | 2023-11-03 18:39 | XMS_ITS | Clinical Summary ---
Author Organization [facility] Address [facility] [place] [address] Care Team Providers Care Ic Designer Standard Cells Name Role Phone Martell Rosado MD Primary Care Provider [phone] Allergies Active Allergy Reactions Criticality Noted Date Comments Citalopram Medium 03/11/2015 Other Reaction(s): Other (See Comments) Worsening of mental health Sertraline 10/14/2022 Sulfa (Sulfonamide Antibiotics) Rash Medium 03/11/2015 Pt reports reaction happened in infancy Medications Medication Sig Dispensed Refills Start Date End Date Status naproxen sodium (ALEVE) 220 mg Capsule Take by mouth. Active hydrOXYzine (Atarax) 25 mg Tablet Take 25 mg by mouth 2 times daily as needed. 07/03/2021 Active Sodium Fluoride-Pot Nitrate (Fluoridex Sensitivity Relief) 1.1-5 % Paste BRUSH YOUR TOOTH ONCE A DAY USE 2 MINUTES AT BEDTIME 07/03/2021 Active escitalopram oxalate (Lexapro) 5 mg tablet Take 5 mg by mouth daily. 08/16/2022 Active ondansetron ODT (Zofran-ODT) 4 mg disintegrating tablet DISSOLVE ONE TABLET ON THE TONGUE EVERY 8 HOURS NEEDED FOR NAUSEA AND VOMITING 09/24/2022 Active lidocaine (Lidoderm) 5% Adhesive Patch, Medicated APPLY 1 PATCH TOPICALLY DAILY, LEAVE ON MOST PAINFUL AREA FOR UP TO 12 HOURS 04/06/2023 Active meloxicam (Mobic) 15 mg tablet TAKE ONE TABLET BY MOUTH EVERY DAY WITH FOOD , DO NOT COMBINE WITH OTHER NSAIDS 04/06/2023 Active Active Problems Problem Noted Date Diagnosed Date Family history of Parsih thyroiditis 04/16/19 24 Hirsutism 01/13/2019 Irregular menses 01/13/2019 Recurrent loss ([id number]) 12/29/2017 Family history of congenital heart disease 08/08 Family History Medical History Relation Comments Thyroid Disease Mother Relation Status Comments Mother Social History Tobacco Use Types Packs/Day Years Used Date Smoking Tobacco: Never Smokeless Tobacco: Never Alcohol Use Standard Drinks/Week Comments Yes 0 (1 standard drink = 0.6 oz pur e alcohol) rare Sex and Gender Information Value Date Recorded Sex Assigned at Female 09/17/2021 9:25 PM EDT Gender Identity Not on file Sexual Orientation Straight 09/17/2021 9: 25 PM EDT Last Filed Vital Signs Vital Sign Reading Time Taken Comments Blood Pressure 107/68 04/16/2023 3:52 PM EST Pulse 68 04/16/2023 3:52 PM EST Temperature 36.1 ??C (97 ??F) 04/16/2023 3:52 PM EST Respiratory Rate 20 03/11/2015 1:36 PM EST Oxygen Saturation 100% 04/16/2023 3:52 PM EST Inhaled Oxygen Concentration - - Weight 89.4 kg (197 lb) 04/16/2023 3:52 PM EST Height 165.1 cm (5' 5) 04/16/2023 3:52 PM EST Body Mass Index 32.78 04/16/2023 3:52 PM EST Plan of Treatment Health Maintenance Due Date Last Done Comments HIV screen 2006 Lipid Screening 2006 Hepatitis B vaccine (0-59 yrs) (1) 09/04/2007 Tdap adult 09/04/2007 Tetanus vaccine 09/04/2007 HPV test 2018 PAP Smear 2018 Covid-19 Vaccine (1 - 2022-24 season) 2022 Influenza (Flu) vaccine (1 o f 1 - Influenza standard series) 11/09/2023 Hepatitis C Screening Completed 05/17/2015 Procedures Procedure Name Priority Date/Time Associated Diagnosis Comments HEPATITIS C ANTIBODY Routine 05/17/2015 12:25 PM EST from Last 3 Months or Most Recently Relevant to Health Maintenance Results * (ABNORMAL) Hepatitis C Antibody (05/17/2015 12:25 PM EST) Hepatitis C Antibody 0.1(Photo Finish Photographer al Lab) 0.0 - 0.9 NADEEM LIU CONVERSION 05/17/2015 12:2 5 PM EST Results Provider Apd Conversion MD HENRY MCHUGH ORDERABLES NADEEM LIU CONVERSION from Last 3 Months or Most Recently Relevant to Health Maintenance Care Teams Ic Designer Standard Cells Relationship Specialty Start Date End Date Martell Rosado MD [address] [place] [address] [place] [id number] PCP - General Family Medicine 06/05/21
--- OUTSIDE RECORDS SUMMARY | 2023-11-03 18:39 | XMS_ITS | Encounter Summary ---
Author Organization [facility] Address [address] [place] [address] Care Team Providers Care Warehouse Attendant Name Role Phone Martell Rosado MD Primary Care Provider [phone] Encounter Details Date Type Department Care Team (Late st Contact Info) Description 05/17/[address] [facility] Pathology & Laboratory Medicine - [facility] [address] [place] [address] Outr Resulting Lab, Provider Social History Tobacco [...] Procedure Name Priority Date/Time Associated Diagnosis Comments T3 FREE Routine 05/15/2021 14:16 EST documented in this encounter Results * T3 FREE (05/15/2021 14:16 EST) T3, Free 3.2 2.8 - 5.3 pg/mL 05/17/2021 21:43 EST [facility] Blood VENOUS BLOOD / Unknown 05/15/2021 14:16 EST 05/17/2021 21:13 EST Provider Outr Resulting Lab CHEMISTRY & BLOOD GAS ORDERABLES [facility] [address] [place] [address] documented in this encounter Visit Diagnoses Not on filedocumented in this encounter Additional Health Concerns Infection Onset Date Last Indicated Resolved Time COVID-19 04/13/2022 04/13/2022 05/03/2022 22:1 5 EST documented as of this encounter Care Teams Warehouse Attendant Relationship Specialty Start Date End Date Martell [place] [place] [address] PCP - General 08/06/17 documented as of this encounter
--- OUTSIDE RECORDS SUMMARY | 2023-11-03 18:39 | XMS_ITS | Encounter Summary ---
Author Organization [facility] [place] [address] Care Team Providers Care Java Project Manager Name Role Phone Unknown Primary Care Provider Unavailabl e Encounter Details Date Type Department Care Team (Late st Contact Info) Description 10/05/2015 Orders Only Radiology and Cardiology Results [address] [place] [phone] Apd Conversion, Results Provider, Social History Tobacco [...] Procedure Name Priority Date/Time Associated Diagnosis Comments IRON AND TIBC Routine 10/05/2015 4:54 PM EDT documented in this encounter Results * (ABNORMAL) Iron and TIBC (10/05/2015 4:54 PM EDT) TIBC 356(Salesperson Stereo Equipment al Lab) 250 - 450 ug/dL NADEEM LIU CONVERSION 10/05/2015 4:54 PM EDT Results Provider Apd Conversion MD HENRY MCHUGH ORDERABLES NADEEM LIU CONVERSION documented in this encounter Visit Diagnoses Not on filedocumented in this encounter Care Teams Java Project Manager Relationship Specialty Start Date End Date Unknown None PCP - General 05/06/16 06/04/21 documented as of this encounter
--- OUTSIDE RECORDS SUMMARY | 2023-11-03 18:39 | XMS_ITS | Encounter Summary ---
Author Organization [facility] [place] [address] Care Team Providers Care Real Estate Legal Assistant Name Role Phone Unknown Primary Care Provider Unavailabl e Encounter Details Date Type Department Care Team (Late st Contact Info) Description 05/17/2015 Orders Only Radiology and Cardiology Results [address] [place] [phone] Apd Conversion, Results Provider, Social History Tobacco [...] Associated Diagnosis Comments IRON AND TIBC Routine 05/17/2015 12:25 PM EST documented in this encounter Results * (ABNORMAL) Iron and TIBC (05/17/2015 12:25 PM EST) TIBC 368(Cash Posting Representative al Lab) 250 - 450 ug/dL NADEEM LIU CONVERSION 05/17/2015 12:2 5 PM EST Results Provider Apd Conversion MD HENRY MCHUGH ORDERABLES NADEEM LIU CONVERSION documented in this encounter Visit Diagnoses Not on filedocumented in this encounter Care Teams Real Estate Legal Assistant Relationship Specialty Start Date End Date Unknown None PCP - General 05/06/16 06/04/21 documented as of this encounter
--- OUTSIDE RECORDS SUMMARY | 2023-11-03 18:39 | XMS_ITS | Encounter Summary ---
Author Organization [facility] Address [address] [place] [address] Care Team Providers Care Manager Rn Name Role Phone Martell Rosado MD Primary Care Provider [phone] Encounter Details Date Type Department Care Team (Late st Contact Info) Description 12/18/2022 Lab Requisition [facility] Pathology & Laboratory Medicine - [facility] [address] [place] [address] Outr Resulting Lab, Provider Social History Tobacco [...] Priority Date/Time Associated Diagnosis Comments CORTISOL, STIMULATION 60 MINUTES Routine 12/18/2022 8:31 EDT documented in this encounter Results * CORTISOL, STIMULATION 60 MINUTES (12/18/2022 8:31 EDT) Cortisol Stimulation, 60 min. 30 See Note ug/dL 12/18/2022 18:07 EDT [facility] Comment: NOTE: Expected Ranges for ACTH (Cortisol) Stimulation Test: Peak Concentrations at 30 - 60 minutes Minimal response: ??A cortisol value of >=18 ug/dL at the Baseline, 30 min, or 60 min sample is consistent with normal adrenal function. The results of this assay can be falsley elevated due to the consumption of Biotin. Blood VENOUS BLOOD / Unknown 12/18/2022 8:31 EDT 12/18/2022 17:06 EDT Provider Outr Resulting Lab CHEMISTRY & BLOOD GAS ORDERABLES [facility] [address] [place] [address] documented in this encounter Visit Diagnoses Not on filedocumented in this encounter Care Teams Manager Rn Relationship Specialty Start Date End Date Martell [place] [address] [address] [place] [address] PCP - General 08/06/17 documented as of this encounter
--- OUTSIDE RECORDS SUMMARY | 2023-11-03 18:39 | XMS_ITS | Referral Summary ---
Author Organization [facility] Address [address] [place] [address] Care Team Providers Care Medical Oncologist Name Role Phone Martell Rosado MD Primary Care Provider [phone] Allergies Active Allergy Reactions Criticality Noted Date Comments Citalopram Other (See Comments) Medium 12/29/2017 Worsening of mental health Sulfa (Sulfonamide Antibiotics) Rash Medium 12/29/2017 Pt reports reaction happened in infancy Medications Medication Sig Dispensed Refills Start Date End Date Status no122/iron/folic acid ( MULTI ORAL) Take 1 Tab by mouth daily. Active docosahexanoic acid (DHA ORAL) Take 2 Tabs by mouth daily. Active ascorbic acid, vitamin C, (VITAMIN C) 100 mg tablet Take 100 mg by mouth daily. Active Cholecalciferol, Vitamin D3, (VITAMIN D3) 2,000 unit capsule Take by mouth daily. Active acetaminophen (TYLENOL 8 HOUR ORAL) Take by mouth as needed. Active progesterone (PROMETRIUM) [address] 1 cap in vagina twice a day. 90 Cap 05/14/2019 Active Active Problems Problem Noted Date Diagnosed Date Irregular menses 01/13/2019 Hirsutism 01/13/2019 Recurrent loss 12/29/2017 Family history of congenital heart disease 08/08 Encounter for procreative genetic counseling 03/2017 Social History Tobacco Use Types Packs/Day Years Used Date Smoking Tobacco: Never Smokeless Tobacco: Never Tobacco Cessation:Counseling Given: No Alcohol Use Standard Drinks/Week Comments No 0 (1 standard drink = 0.6 oz pur e alcohol) Interpersonal Safety Answer Date Record ed Physically Hurt Never 10/10/2019 Verbally Threaten Not on file 10/10/2019 Sex and Gender Information Value Date Recorded Sex Assigned at Not on file Gender Identity Not on file Sexual Orientation Not on file Last Filed Vital Signs Vital Sign Reading Time Taken Comments Blood Pressure 108/72 01/13/2019 1343 EST Pulse - - Temperature - - Respiratory Rate - - Oxygen Saturation - - Inhaled Oxygen Concentration - - Weight 83.1 kg (183 lb 3.2 oz) 01/13/[address] Height 166.4 cm (5' 5.51) 01/13/2019 1343 EST Body Mass Index 30.01 01/13/2019 1343 EST Functional Status Functional Status Response Date of [...] concentrating, remembering, or making decisions? Yes 12/29/2017 Plan of Treatment Not on file Procedures Procedure Name Priority Date/Time Associated Diagnosis Comments HEPATITIS C AB W REFLEX TO HCV RNA BY PCR Routine 07/08/2019 16:05 EDT from Last 3 Months or Most Recently Relevant to Health Maintenance Results * HEPATITIS C AB W REFLEX TO HCV RNA BY PCR (07/08/2019 16:05 EDT) Hep C Antibody Negative Negative 07/12/2019 10:59 EDT [facility] Blood VENOUS BLOOD / Unknown 07/08/2019 16:05 EDT 07/09/2019 15:56 EDT Provider Outr Resulting Lab CHEMISTRY & BLOOD GAS ORDERABLES [facility] [address] [place] [address] from Last 3 Months or Most Recently Relevant to Health Maintenance Care Teams Medical Oncologist Relationship Specialty Start Date End Date Martell Rosado MD [address] [place] [address] PCP - General 08/06/17
--- OUTSIDE RECORDS SUMMARY | 2023-11-03 18:39 | XMS_ITS | Encounter Summary ---
Author Organization [facility] [place] [address] Care Team Providers Care Senior Policy Advisor Name Role Phone Unknown Primary Care Provider Unavailabl e Encounter Details Date Type Department Care Team (Late st Contact Info) Description 05/17/2015 Orders Only Radiology and Cardiology Results [address] [place] [id number] Apd Conversion, Results Provider, Social History Tobacco [...] Procedure Name Priority Date/Time Associated Diagnosis Comments SEDIMENTATION RATE Routine 05/17/2015 12 :25 PM EST documented in this encounter Results * (ABNORMAL) Sedimentation rate (05/17/2015 12:25 PM EST) Sedimentation Rate Automated 8(Externa l Lab) 0 - 20 mm/hr NADEEM LIU CONVERSION 05/17/2015 12:2 5 PM EST Results Provider Apd Conversion HEMAT OLOGY ORDERABLES NADEEM LIU CONVERSION documented in this encounter Visit Diagnoses Not on filedocumented in this encounter Care Teams Senior Policy Advisor Relationship Specialty Start Date End Date Unknown None PCP - General 05/06/16 06/04/21 documented as of this encounter
--- OUTSIDE RECORDS SUMMARY | 2023-11-03 18:39 | XMS_ITS | Encounter Summary ---
Author Organization [facility] Address [address] [place] [address] Care Team Providers Care Process Control Tech Name Role Phone Martell Rosado MD Primary Care Provider [phone] Encounter Details Date Type Department Care Team (Late st Contact Info) Description 04/09/2023 Lab Requisition [facility] Pathology & Laboratory Medicine - [facility] [address] [place] [address] Outr Resulting Lab, Provider Social History Tobacco [...] Procedure Name Priority Date/Time Associated Diagnosis Comments QUANTIFERON MITOGEN (PERFORMABLE) Today 04/08/2023 7:20 EST QUANTIFERON TB2 (PERFORMABLE) Today 04/08/2023 7:20 EST QUANTIFERON TB1 (PERFORMABLE) Today 04/08/2023 7:20 EST QUANTIFERON NIL (PERFORMABLE) Today 04/08/2023 7:20 EST QUANTIFERON INTERPRETATION (PERFORMABLE) Today 04/08/2023 7:20 EST QUANTIFERON TB GOLD PLUS Routine 04/08/2023 7:20 EST documented in this encounter Results * QUANTIFERON INTERPRETATION (PERFORMABLE) (04/08/2023 7:20 EST) Quantiferon Interpretation Negative Negative 04/10/2023 11:45 EST [facility] Comment:No interferon-gamma response to M. tuberculosis antigens was detected. ??Infection with M. tuberculosis is unlikely. A single negative result does not exclude infection with M. tuberculosis. ??In patients at high risk for M. tuberculosis infection, a second test should be considered. TB1 Ag minus Nil 0.00 IU/ml 04/10/19 11:45 EST [facility] TB2 Ag minus Nil 0.01 IU/mL 04/10/19 24 11:45 EST [facility] Blood VENOUS BLOOD / Unknown 04/08/2023 7:20 EST 04/10/2023 11:45 EST Provider Outr Resulting Lab IMMUNOLOGY A ND SEROLOGY ORDERABLES Performing Organization Address City/[facility]/ZIP Co de Phone Number [facility] [address] [place] [address] * QUANTIFERON MITOGEN (PERFORMABLE) (04/08/2023 7:20 EST) Blood VENOUS BLOOD / Unknown 04/08/2023 7:20 EST 04/09/2023 16:42 EST Provider Outr Resulting Lab IMMUNOLOGY A ND SEROLOGY ORDERABLES Performing Organization Address City/[facility]/ZIP Co de Phone Number [facility] [address] [place] [address] * QUANTIFERON TB2 (PERFORMABLE) (04/08/2023 7:20 EST) Blood VENOUS BLOOD / Unknown 04/08/2023 7:20 EST 04/09/2023 16:42 EST Provider Outr Resulting Lab IMMUNOLOGY A ND SEROLOGY ORDERABLES Performing Organization Address [facility] Co de Phone Number [facility] [address] [place] [address] * QUANTIFERON TB1 (PERFORMABLE) (04/08/2023 7:20 EST) Blood VENOUS BLOOD / Unknown 04/08/2023 7:20 EST 04/09/2023 16:42 EST Provider Outr Resulting Lab IMMUNOLOGY A ND SEROLOGY ORDERABLES Performing Organization Address [facility] Co de Phone Number [facility] [address] [place] [address] * QUANTIFERON NIL (PERFORMABLE) (04/08/2023 7:20 EST) Blood VENOUS BLOOD / Unknown 04/08/2023 7:20 EST 04/09/2023 16:41 EST Provider Outr Resulting Lab IMMUNOLOGY A ND SEROLOGY ORDERABLES Performing Organization Address [facility] de Phone Number [facility] [address] [place] [address] documented in this encounter Visit Diagnoses Not on filedocumented in this encounter Care Teams Process Control Tech Relationship Specialty Start Date End Date Martell Rosado MD [facility] [place] [address] [address] PCP - General 08/06/17 documented as of this encounter
--- OUTSIDE RECORDS SUMMARY | 2023-11-03 18:39 | XMS_ITS | Encounter Summary ---
Author Organization [facility] [place] [address] Care Team Providers Care Export Sales Manager Name Role Phone Martell Rosado MD Primary Care Provider [phone] Reason for Visit * Reason Comments Skin Check * Consultation (Routine) - Closed Specialty Diagnoses / Procedures Referred By Contac t Referred To Contact Dermatology Diagnoses Family history of malignant neoplasm of other organs or systems Martell Rosado MD [address] [place] [address] [place] [address] Alex Morris MD [address] [place] [address], [facility] [address] Referral ID Status Reason Start Date Expiration Date V isits Requested Visits Authorized [id number] Closed Consult, Test & Treat 07/02/2022 07/02/2023 1 1 Encounter Details Date Type Department Care Team (Late st Contact Info) Description 10/14/2022 8:30 AM EDT Office Visit Dermatology at [address] [address] Alex Morris MD [address] [place] [address], [facility] [address] Nevus of back; Family history of malignant melanoma Social History Tobacco Use Types Packs/Day Years [...] PM EDT documented as of this encounter Progress Notes * Alex Morris MD - 10/14/2022 8:30 AM EDT Problem: 1. Skin checkup 2. History of malignant melanoma in 2 maternal aunts Sirisha presents today for a skin checkup. I last saw her in 2005. She has noticed new moles and changes in her existing moles during her last . Physical examination reveals a pleasant 32-year-old woman who has brown eyes and dark hair and typeII-3 Prather pigmentation. She has primarily junctional but also number of compound versus intradermal nevi present on her back her arms and legs. There is no evidence of any atypical or premalignant lesions on careful examination of the scalp of the face the neck the chest the back the hands arms forearms thighs and calves. Assessment and plan: Benign skin examination 1. Discussed the normal changes of moles during 2. Reassured about her benign examination today 3. Continue sun avoidance precautions which the patient is following 4. Return to clinic as needed for new lesion/concerns. 5. Informational [employer] brochure on skin cancer given. Recognition of melanoma discussed. cc: Martell Rosado MD documented in this encounter Plan of Treatment Not on file documented as of this encounter Visit Diagnoses Diagnosis Nevus of back Benign neoplasm of skin of trunk, except scrotum Family history of malignant melanoma Family history of other specified malignant neoplasm documented in this encounter Care Teams Export Sales Manager Relationship Specialty Start Date End Date Martell Rosado MD [address] [place] [address] [place] [address] PCP - General Family Medicine 06/05/21 documented as of this encounter
--- OUTSIDE RECORDS SUMMARY | 2023-11-03 18:39 | XMS_ITS | Encounter Summary ---
Author Organization [facility] Address [address] [place] [address] Care Team Providers Care Fisher Sponge Hooking Name Role Phone Martell Rosado MD Primary Care Provider [phone] Encounter Details Date Type Department Care Team (Late st Contact Info) Description 04/25/2022 Lab Requisition [facility] Pathology & Laboratory Medicine - [facility] [address] [place] [address] Martell Rosado MD [address] [place] [address] Encounter for other general examination Social History Tobacco Use Types Packs/Day Years [...] Procedure Name Priority Date/Time Associated Diagnosis Comments PAP TEST Today 04/24/2022 11:45 EST Encounter for other general examination HPV DNA DETECTION WITH GENOTYPING, PCR Today 04/24/2022 11:45 EST Encounter for other general examination documented in this encounter Results * HUMAN PAPILLOMAVIRUS (HPV) DETECTION-HIGH RISK TYPES (04/24/2022 11:45 EST) HPV other High Risk types, PCR Negative Negative 05/08/2022 15:14 [facility] Comment:No E6 or E7 mRNA is detected from HPV types 16,18,31,33,35,39,45,51,52,56,58,59,66, and 68 by data integrity consultant mediated amplification. Papanicolaou smear specimen (specimen) CERVIX UTERI STRUCTURE / Unknown 04/24/2022 11:45 EST 05/07/2022 12:50 EST Martell Rosado MD MICROBIOLOGY - GENER AL ORDERABLES [facility] [address] [place] [address] * PAP TEST (04/24/2022 11:45 EST) Specimens A. Cervix and/or Endocervix , ThinPrep Imaging System with Manual Evaluation 05/08/2022 15:14 [facility] Specimen Adequacy Satisfactory for Evaluation - transformation zone component present 05/08/2022 15:14 [facility] General Categorization Negative for intraepithelial lesion or malignancy 05/08/2022 15:14 [facility] Attestation . 05/08/2022 15:14 [facility] at 1513 Clinical History See below 05/09/19 23 15:14 [facility] HPV The result for the Human Papillomavirus (HPV) Detection-High Risk Types is Negative. No E6 or E7 mRNA is detected from HPV types 16,18,31,33,35,39 ,45,51,52,56,58,5 9,66, and 68 by data integrity consultant mediated amplification.Lisbet ting was performed on specimen [id number] and was resulted on 05/08/2022 1513 EST by [facility], LAB INSTRUMENT RESULTS IN 05/08/2022 15:14 EST [facility] Performing Lab [facility] 05/08/2022 15:14 EST [facility] Scanned Images 05/08/2022 15:14 EST [facility] Papanicolaou smear specimen (specimen) CERVIX UTERI STRUCTURE / Unknown 04/24/2022 11:45 EST 04/25/2022 11:46 EST Martell Rosado MD PATHOLOGY ORDERABLES [facility] [address] [place] [address] documented in this encounter Visit Diagnoses Diagnosis Encounter for other general examination documented in this encounter Additional Health Concerns Infection Onset Date Last Indicated Resolved Time COVID-19 04/13/2022 04/13/2022 05/03/2022 22:1 5 EST documented as of this encounter Care Teams Fisher Sponge Hooking Relationship Specialty Start Date End Date Martell Rosado MD [address] [place] [address] PCP - General 08/06/17 documented as of this encounter
--- OUTSIDE RECORDS SUMMARY | 2023-11-03 18:39 | XMS_ITS | Encounter Summary ---
[place] [address] Care Team Providers Care Factory Clerk Name Role Phone Martell Rosado MD Primary Care Provider [phone] Reason for Referral * Consultation (Routine) - Closed Specialty Diagnoses / Procedures Referred By Aura suárez Referred To Contact Endocrinology Diagnoses Oligomenorrhea, unspecified type Hirsutism Martell Rosado MD [address] [facility] [address] [facility] Endocrinology [address] [place] [phone] Referral ID Status Reason Start Date Expiration Date V isits Requested Visits Authorized [id number] Closed Consult, Test & Treat PCP Updated and/or Approved 12/27/2022 12/27/2023 6 6 Encounter Details Date Type Department Care Team (Latest Contact Info) Description 12/27/2022 Transcribe Orders eDH Incoming Referrals [phone] Martell Rosado MD [address] [place] [address] Oligomenorrhea, unspecified type; Hirsutism Social History Tobacco Use Types Packs/Day Years [...] Schedule Referral to Endocrinology Outpatient Referral Routine Oligomenorrhea, unspecified type Hirsutism Ordered: 12/27/2022 documented as of this encounter Visit Diagnoses Diagnosis Oligomenorrhea, unspecified type Hirsutism documented in this encounter Care Teams Factory Clerk Relationship Specialty Start Date End Date Martell Rosado MD [address] [place] [address] PCP - General Family Medicine 06/05/21 documented as of this encounter
--- OUTSIDE RECORDS SUMMARY | 2023-11-03 18:39 | XMS_ITS | Encounter Summary ---
Author Organization [facility] Address [address] [place] [address] Care Team Providers Care Photographic Hand Developer Name Role Phone Martell Rosado MD Primary Care Provider [phone] Encounter Details Date Type Department Care Team (Late st Contact Info) Description 02/09/2021 Lab Requisition [facility] Pathology & Laboratory Medicine - [facility] [address] [place] [address] Outr Resulting Lab, Provider Social History Tobacco [...] Priority Date/Time Associated Diagnosis Comments ZZCOVID-19 TEST [facility] PCR Today 02/09/2021 7:35 EST COVID-19 TESTING Routine 02/09/2021 7:35 EST documented in this encounter Results * COVID-19 TEST [facility] PCR (02/09/2021 7:35 EST) Swab 02/09/2021 7:35 EST 02/09/2021 21:31 EST Provider Outr Resulting Lab MICROBIOLOGY - GENERAL ORDERABLES Performing Organization Address City/[facility]/ZIP Co de Phone Number [facility] [address] [place] [address] * COVID-19 TESTING (02/09/2021 7:35 EST) COVID-19 rt-PCR Result Negative Negative 02/10/2021 2:12 EST [facility] Comment: This test has not [...] clinical observations, patient history, and epidemiological information. Performed on the [employer] Fusion instrument Performing Lab [facility] 02/10/2021 2:12 EST [facility] Swab 02/09/2021 7:35 EST 02/09/2021 21:31 EST Provider Outr Resulting Lab MICROBIOLOGY - GENERAL ORDERABLES Performing Organization Address City/[facility]/ZIP Co de Phone Number [facility] [address] [place] [phone] documented in this encounter Visit Diagnoses Not on filedocumented in this encounter Additional Health Concerns Infection Onset Date Last Indicated Resolved Time COVID-19 04/13/2022 04/13/2022 05/03/2022 22:1 5 EST documented as of this encounter Care Teams Photographic Hand Developer Relationship Specialty Start Date End Date Martell Rosado MD [address] [place] [address] PCP - General 08/06/17 documented as of this encounter
--- OUTSIDE RECORDS SUMMARY | 2023-11-03 18:39 | XMS_ITS | Encounter Summary ---
Author Organization [facility] Address [address] [place] [address] Care Team Providers Care Neuropsychiatric Aide Name Role Phone Martell Rosado MD Primary Care Provider [phone] Encounter Details Date Type Department Care Team (Late st Contact Info) Description 04/08/2023 Lab Requisition [facility] Pathology & Laboratory Medicine - [facility] [address] [place] [address] Outr Resulting Lab, Provider Social History Tobacco [...] Procedure Name Priority Date/Time Associated Diagnosis Comments VARICELLA IGG ANTIBODY Routine 04/08/2023 7:20 EST documented in this encounter Results * VARICELLA IGG ANTIBODY (04/08/2023 7:20 EST) Varicella IgG Ab Positive See Note 04/09/2023 9:55 EST [facility] Comment:Presence of detectab le Varicella Zoster virus IgG antibodies. Blood VENOUS BLOOD / Unknown 04/08/2023 7:20 EST 04/08/2023 16:58 EST Provider Outr Resulting Lab IMMUNOLOGY A ND SEROLOGY ORDERABLES Performing Organization Address City/State/[facility] Co de Phone Number [facility] [address] [place] [address] documented in this encounter Visit Diagnoses Not on filedocumented in this encounter Care Teams Neuropsychiatric Aide Relationship Specialty Start Date End Date Martell Rosado MD [address] [place] [address] PCP - General 08/06/17 documented as of this encounter
--- OUTSIDE RECORDS SUMMARY | 2023-11-03 18:39 | XMS_ITS | Encounter Summary ---
Author Organization [facility] Address [address] [place] [address] Care Team Providers Care Zoology Technical Officer Name Role Phone Martell Rosado MD Primary Care Provider [phone] Encounter Details Date Type Department Care Team (Late st Contact Info) Description 04/24/2022 Lab Requisition [facility] Pathology & Laboratory Medicine - [facility] [address] [place] [address] Outr Resulting Lab, Provider Social History Tobacco [...] Procedure Name Priority Date/Time Associated Diagnosis Comments LYME AB Routine 04/24/2022 11:45 EST documented in this encounter Results * LYME AB (04/24/2022 11:45 EST) Lyme Ab Negative Negative 04/25/2022 9:[address] [facility] Blood VENOUS BLOOD / Unknown 04/24/2022 11:45 EST 04/24/2022 21:45 EST Provider Outr Resulting Lab IMMUNOLOGY A ND SEROLOGY ORDERABLES [facility] [address] [place] [address] documented in this encounter Visit Diagnoses Not on filedocumented in this encounter Additional Health Concerns Infection Onset Date Last Indicated Resolved Time COVID-19 04/13/2022 04/13/2022 05/03/2022 22:1 5 EST documented as of this encounter Care Teams Zoology Technical Officer Relationship Specialty Start Date End Date Martell Rosado [place] [address] [place] [address] PCP - General 08/06/17 documented as of this encounter
--- OUTSIDE RECORDS SUMMARY | 2023-11-03 18:39 | XMS_ITS | Encounter Summary ---
Author Organization [facility] Address [address] [place] [address] Care Team Providers Care Corporate Associate Name Role Phone Martell Rosado MD Primary Care Provider [phone] Encounter Details Date Type Department Care Team (Late st Contact Info) Description 04/30/2023 Lab Requisition [facility] Pathology & Laboratory Medicine - [facility] [address] [place] [address] Outr Resulting Lab, Provider Social History Tobacco [...] Procedure Name Priority Date/Time Associated Diagnosis Comments DHEA SULFATE Routine 04/30/2023 12:22 EST documented in this encounter Results * DHEA SULFATE (04/30/2023 12:22 EST) DHEA Sulfate 141 96 - 512 ug/dL 05/02/2023 15:47 EST [facility] Blood VENOUS BLOOD / Unknown 04/30/2023 12:22 EST 04/30/2023 21:33 EST Provider Outr Resulting Lab CHEMISTRY & BLOOD GAS ORDERABLES [facility] [address] [place] [address] documented in this encounter Visit Diagnoses Not on filedocumented in this encounter Care Teams Corporate Associate Relationship Specialty Start Date End Date Martell Rosado MD [address] [place] [address] PCP - General 08/06/17 documented as of this encounter
--- OUTSIDE RECORDS SUMMARY | 2023-11-03 18:39 | XMS_ITS | Encounter Summary ---
Author Organization [facility] [place] [address] Care Team Providers Care Electric Sealing Machine Operator Name Role Phone Brandi Boyer APRN Primary Care Provider [phone] Reason for Visit * Reason Comments Dislocation Jaw Pain Encounter Details Date Type Department Care Team (Late st Contact Info) Description 03/11/2015 10:41 AM EST - 03/11/2015 2:20 PM EST [place] [address] Geoff Conti MD [facility] [place] [address] Dislocation of mandible, initial encounter Discharge Disposition: Home Social History Tobacco Use Types Packs/Day Years Used Date Smoking Tobacco: Never Sex and Gender Information Value Date Recorded Sex Assigned at Female 09/17/2021 9:25 PM EDT Gender Identity Not on file Sexual Orientation Straight 09/17/2021 9: 25 PM EDT documented as of this encounter Last Filed Vital Signs Vital Sign Reading Time Taken Comments Blood Pressure 129/72 03/11/2015 1:36 PM EST Pulse 64 03/11/2015 1:36 PM EST Temperature 36.4 ??C (97.5 ??F) 03/11/2015 1:36 PM ES T Respiratory Rate 20 03/11/2015 1:36 PM EST Oxygen Saturation 100% 03/11/2015 1:36 PM EST Inhaled Oxygen Concentration - - Weight 77.1 kg (170 lb) 03/11/2015 10:46 AM EST Height 165.1 cm (5' 5) 03/11/2015 10:46 AM EST Body Mass Index 28.29 03/11/2015 10:46 AM EST documented in this encounter Discharge Instructions * Discharge Instructions* Jesus Marshall MD - 03/11/2015 1:48 PM EST Please eat a soft food diet for the next 7 days. Avoid yawning and sneezing as much as he can. If you feel like he needed to yawn or sneeze please push your jaw up and try to avoid opening your mouth You should take Ibuprofen 400-600mg every 6 hours as needed for pain relief. If you have recurrent symptoms or anything else concerning please return to the emergency department or seek medical care with her primary care doctor * Attachments The following attachments cannot be sent through Care Everywhere. * DISLOCATION: JAW ([place]) documented in this encounter Medications at Time of Discharge Medication Sig Dispensed Refills Start Date End Date naproxen sodium (ALEVE) 220 mg Capsule Take by mouth. documented as of this encounter ED Notes * Willie Siddiqi RN - 03/11/2015 1:40 PM EST Pt in room, we were getting getting set up for coincious sedation when Pt stated Its back in. It appears that her jaw went back into place after the non- rebreather mask was put into place. called to BS to evaluate. * Willie Siddiqi RN - 03/11/2015 1:05 PM EST and Attending attempting to put jaw back into place * Geoff Conti MD - 03/11/2015 12:00 PM EST Sirisha L Katie 24 y.o. Chief Complaint Patient presents with ??? Dislocation ??? Jaw Pain 03/11/2015 HPI 24 y.o. female with a history of migraines and recurrent jaw dislocations who presents to the Emergency Department from outside hospital with left mandibular dislocation. Patient states this happens multiple times per month and usually pops back into place. She has never had to go to the hospital to get her jaw back in place. It happened earlier today when she was yawning. She cannot close her mouth all the way, only complains of mild jaw pain. At the outside hospital manual reduction was attempted in addition to using a syringe for the patient to manipulate and try to put her jaw back into place herself. Pain since onset. Getting slightly worse. 3/10 and burning. Nothing has improved but has refused medications. Review of Systems: Review of Systems Constitutional: Negative for fever and chills. HENT: Negative for dental problem, drooling, ear pain, hearing loss and trouble swallowing. Respiratory: Negative for shortness of breath. Gastrointestinal: Negative for nausea and vomiting. Endocrine: Negative for polyuria. Genitourinary: Negative for difficulty urinating. Musculoskeletal: Negative for neck pain and neck stiffness. Skin: Negative for pallor. Neurological: Negative for dizziness, light-headedness and headaches. Hematological: Does not bruise/bleed easily. Psychiatric/Behavioral: Negative for agitation. Physical Exam: Patient Vitals for the past 24 hrs: BP Temp Temp src Pulse Resp SpO2 Height Weight 03/11/15 1046 127/73 mmHg 36.4 ??C (97.5 ??F) Oral 66 16 100 % 165.1 cm (5' 5) 77.111 kg (170 lb) Physical Exam Constitutional: She is oriented to person, place, and time. She appears well- developed and well-nourished. No distress. HENT: Jaw open and slightly deviated to the right. Oropharynx clear. Very mild tenderness to palpation atright TMJ Eyes: EOM are normal. Pupils are equal, round, and reactive to light. Neck: Trachea normal, normal range of motion and full passive range of motion without pain. Neck supple. No tracheal deviation present. Cardiovascular: Normal rate, regular rhythm and normal heart sounds. Pulmonary/Chest: Effort normal and breath sounds normal. No stridor. No respiratory distress. She has no wheezes. She has no rales. Abdominal: Soft. Neurological: She is alert and oriented to person, place, and time. No cranial nerve deficit. Skin: Skin is warm and dry. No rash noted. She is not diaphoretic. Psychiatric: She has a normal mood and affect. Her behavior is normal. Nursing note and vitals reviewed. ED Course/ MDM Patient was evaluated and discussed with attending physician I reviewed medications, allergies and past medical history: Per HPI Medications and fluids administered: Ativan 0.5 mg Sirisha Wilson is a 24 y.o. female presenting with left jaw dislocation. Patient was evaluated and manual reduction attempted, however this was unsuccessful. Multiple tongue depressors were placed in her mouth to open her jaw and tire/relax masseter muscles for 15 minutes. Reduction after this was again not successful. We tried gagging and stretching/yawning in addition to another manual attempt. We consented the patient and prepared for procedural sedation, however while preparing the patient she was found to have reduction of the mandible. She was reevaluated and found to have normal alignment of her teeth, normal range of motion of her mandible. I gave the patient instructions to stick to a soft liquid diet and avoid sneezing and yawning. She will follow- up with her primary care doctor Return precautions were verbally discussed with Sirisha Wilson and written in discharge instructions. The patient expressed understanding that they could come back to the ED at any time and agreed to the follow-up plan. # Mandible dislocation - discharge home - follow up with PCP Condition at Discharge: Jesus Alvarado MD Resident 03/11/15 9116 ED ATTENDING ADDENDUM: The patient was seen in conjunction with Dr. Marshall, the resident physician. I have independently performed the morton portions of the history and physical exam. I have reviewed all diagnostic studies personally including labs, imaging studies and EKG's. I have reviewed the patient's chart where indicated. I have also reviewed/obtained the allergies, medication, past medical history, and socialhistory as documented in other parts of the chart. I have discussed the details of the case with the resident and agree with the all morton portions of the H&P and plan as described in the resident note above. ED ATTENDING PROCEDURE NOTE ADDENDUM: - jaw dislocation reduction. The patient was seen in conjunction with Dr. Marshall, the resident physician. I have independently performed the morton portions of the history and physical exam that pertain to the above procedure.I have reviewed all diagnostic studies personally including labs, imaging studies and EKG's that might pertain to the procedure. I have reviewed the patient's chart where indicated. I have also reviewed/obtained the allergies, medication, past medical history,that may influence the choice or performance of the procedure. I was present for and both assisting and supervising the entire procedure asdescribed in the resident note above. IV ativan was given. MDM Number of Diagnoses or Management Options Dislocation of mandible, initial encounter: new, needed workup Risk of Complications, Morbidity, and/or Mortality Presenting problems: low Diagnostic procedures: minimal Management options: moderate Patient Progress Patient progress: improved Geoff Conti MD 03/26/15 0910 * Willie Siddiqi RN - 03/11/2015 11:55 AM EST at for evaluation * Willie Siddiqi RN - 03/11/2015 11:40 AM EST Pt was provided with warm compress to apply to jaw/face. Pt awake, awaiting provider documented in this encounter Miscellaneous Notes * ED Triage - Willie Siddiqi RN - 03/11/2015 10:52 AM EST Pt present to Ed after she went to [facility] ED. Pt stated that she yawning and her jaw locked open, this happened around 0730 this AM. Pt states that this is happened before, but it usually goes back into place. At [facility] they spent about 2 hours to put it back into place. Pt is A&O x4. Denies chest pain or SOB. Pt is able to swallow with some difficulty, airway is patent. Pt is talking with diffi culty. Pain 7/10. Feeling a little nauseated. RR even and regular. Skin PWD. documented in this encounter Plan of Treatment Not on file documented as of this encounter Visit Diagnoses Diagnosis Dislocation of mandible, initial encounter documented in this encounter Administered Medications Inactive Administered Medications - up to 3 most recent administrations Medication Order MAR Action Action Date Dose Rate Site LORazepam (ATIVAN) injection 0.5 mg 0.5 mg, Intravenous, ONCE, 1 dose, On 03/11/15 at 1233, STAT Given 03/11/2015 12:47 PM EST 0.5 mg documented in this encounter Active and Recently Administered Medications Times are shown in EST. Scheduled Medication Order 03/09/2015 03/10/2015 03/11/2015 LORazepam (ATIVAN) injection 0.5 mg (COMPLETED) 0.5 mg, Intravenous, ONCE, 1 dose, On 03/11/15 at 1233, STAT 1247 (Given - Provid er: Xiomara Coleman RN) documented in this encounter Care Teams Electric Sealing Machine Operator Relationship Specialty Start Date End Date Brandi Boyer APRN PCP - General Family Medicine 03/11/15 05/05/16 documented as of this encounter
--- OUTSIDE RECORDS SUMMARY | 2023-11-03 18:39 | XMS_ITS | Encounter Summary ---
[place] [address] Care Team Providers Care Foreclosure Specialist Name Role Phone Martell Rosado MD Primary Care Provider [phone] Encounter Details Date Type Department Care Team (Latest Contact Info) Description 10/14/2022 Travel Social History Tobacco Use Types Packs/Day [...] on filedocumented in this encounter Care Teams Foreclosure Specialist Relationship Specialty Start Date End Date Martell Rosado MD [address] [place] [address] PCP - General Family Medicine 06/05/21 documented as of this encounter
--- OUTSIDE RECORDS SUMMARY | 2023-11-03 18:39 | XMS_ITS | Encounter Summary ---
Author Organization [facility] Address [address] [place] [address] Care Team Providers Care Asic Design Engineer Name Role Phone Martell Rosado MD Primary Care Provider [phone] Encounter Details Date Type Department Care Team (Late st Contact Info) Description 12/18/2022 Lab Requisition [facility] Pathology & Laboratory Medicine - [facility] [address] [place] [address] Outr Resulting Lab, Provider Social History Tobacco [...] Procedure Name Priority Date/Time Associated Diagnosis Comments CORTISOL Routine 12/18/2022 7:05 EDT documented in this encounter Results * CORTISOL (12/18/2022 7:05 EDT) Cortisol 11 See Note ug/dL 12/18/2022 18:08 EDT [facility] Comment: NOTE: Reference Ranges (from OCD IFU): Collected Before 10:00 AM: ??4 - 23 ug/dL Collected After 5:00 PM: ?2 - 14 ug/dL The results of this assay can be falsely elevated due to the consumption of Biotin. Blood VENOUS BLOOD / Unknown 12/18/2022 7:05 EDT 12/18/2022 17:06 EDT Provider Outr Resulting Lab CHEMISTRY & BLOOD GAS ORDERABLES Performing Organization Address City/State/[facility] Co de Phone Number [facility] [address] [place] [address] documented in this encounter Visit Diagnoses Not on filedocumented in this encounter Care Teams Asic Design Engineer Relationship Specialty Start Date End Date Martell Rosado MD [address] [place] [address] PCP - General 08/06/17 documented as of this encounter
--- OUTSIDE RECORDS SUMMARY | 2023-11-03 18:39 | XMS_ITS | Clinical Summary ---
Author Organization [facility] Address [address] [place] [address] Care Team Providers Care Analytical Chemist Name Role Phone Martell Rosado MD Primary Care Provider [phone] Allergies Active Allergy Reactions Criticality Noted Date [...] 08/08 Encounter for procreative genetic counseling 03/2017 Surgical History Surgery Date Site/Laterality Comments DILATION AND CURETTAGE OF UTERUS 08/01/2017 N/A Family History Medical History Relation Comments No Known Brother 1 No Known Brother 2 No Known Brother 3 No Known Brother 4 High Cholesterol Father Hypertension Father Colon Cancer Maternal Grandfather Cancer Maternal Grandmother Bone cancer Heart Defect Mother SVT Thyroid Disease Mother Hypothyroidism *Other(comment) Paternal Grandfather Benign brai n tumor Relation Status Comments Brother 1 Alive Brother 2 Alive Brother 3 Alive Brother 4 Alive Father Alive Maternal Grandfather Alive Maternal Grandmother Mother Alive Paternal Grandfather Social History Tobacco Use Types Packs/Day Years [...] on file Sexual Orientation Not on file Obstetrics History Para Term AB IAB SAB Ectopic Multiple Livin g Live Births 4 0 0 0 4 0 4 0 0 0 0 Date Outcome GA Total Labor Labor//3rd Weight Sex Type Anes PTL Keesha A1 A5 Name Clin 12/2016 SAB SAB Comments:biochemical t hat resulted in a SAB 8 SAB 11w 0d SAB Comments:D&C, pregnanc y stopped growing at 8 weeks 8 SAB SAB Comments:biochemical 8 SAB Last Filed Vital Signs Vital Sign Reading Time Taken Comments Blood Pressure 108/72 01/13/2019 1343 EST Pulse - - Temperature - - Respiratory Rate - - Oxygen Saturation - - Inhaled Oxygen Concentration - - Weight 83.1 kg (183 lb 3.2 oz) 01/13/[address] Height 166.4 cm (5' 5.51) 01/13/2019 1343 EST Body Mass Index 30.01 01/13/2019 1343 EST Plan of Treatment Health Maintenance Due Date Last Done Comments Hepatitis B Vaccine (1 of 3 - 19+ 3-dose series) 09/03 COVID-19 Vaccine (2022- season) 2022 Hepatitis C Screen Completed 07/08/2019 Procedures Procedure Name Priority Date/Time Associated Diagnosis Comments HEPATITIS C AB W REFLEX TO HCV RNA BY PCR Routine 07/08/2019 16:05 EDT from Last 3 Months or Most Recently Relevant to Health Maintenance Results * HEPATITIS C AB W REFLEX TO HCV RNA BY PCR (07/08/2019 16:05 EDT) Hep C Antibody Negative Negative 07/12/2019 10:59 EDT [facility] Blood VENOUS BLOOD / Unknown 07/08/2019 16:05 EDT 07/09/2019 15:56 EDT Provider Outr Resulting Lab CHEMISTRY & BLOOD GAS ORDERABLES [facility] [address] [place] [address] from Last 3 Months or Most Recently Relevant to Health Maintenance Care Teams Analytical Chemist Relationship Specialty Start Date End Date Martell Rosado MD [facility] [address] [place], [place] [address] PCP - General 08/06/17
--- OUTSIDE RECORDS SUMMARY | 2023-11-03 18:39 | XMS_ITS | Encounter Summary ---
[place] [address] Care Team Providers Care Student Affairs Dean Name Role Phone Martell Rosado MD Primary Care Provider [phone] Encounter Details Date Type Department Care Team (Latest Contact Info) Description 04/15/2023 Travel Social History Tobacco Use Types Packs/Day [...] on filedocumented in this encounter Care Teams Student Affairs Dean Relationship Specialty Start Date End Date Martell Rosado MD [address] [place] [address] PCP - General Family Medicine 06/05/21 documented as of this encounter
--- OUTSIDE RECORDS SUMMARY | 2023-11-03 18:39 | XMS_ITS | Encounter Summary ---
[place] [address] Care Team Providers Care Internet And E Business Project Manager Name Role Phone Unknown Primary Care Provider Unavailabl e Encounter Details Date Type Department Care Team (Latest Contact Info) Description 01/14/2020 5:09 PM EST - 01/14/2020 11:59 PM EST [place] [address] Discharge Disposition: Home Social History Tobacco Use Types Packs/Day Years Used Date Smoking Tobacco: Never Sex and Gender Information Value Date Recorded Sex Assigned at Female 09/17/2021 9:25 PM EDT Gender Identity Not on file Sexual Orientation Straight 09/17/2021 9: 25 PM EDT documented as of this encounter Medications at Time of Discharge Medication Sig Dispensed Refills Start Date End Date naproxen sodium (ALEVE) 220 mg Capsule Take by mouth. documented as of this encounter Plan of Treatment Not on file documented as of this encounter Procedures Procedure Name Priority Date/Time Associated Diagnosis Comments COVID-19 PCR Routine 01/14/2020 4:42 AM EST documented in this encounter Results * COVID-19 PCR (01/14/2020 4:42 AM EST) SARS-CoV-2 RNA Not Detected Not Detected [facility] Comment: This result should be interpreted in combination with the clinical observations, patient history and epidemiological information in making a final diagnosis. For testing of asymptomatic individuals, assay performance characteristics and clinical utility have not been evaluated. Testing for SARS-CoV-2 (Severe acute respiratory syndrome coronavirus 2, formerly known as 2019 novel coronavirus or 2019-nCoV) to aid in the diagnosis of COVID-19 is performed using the [employer] RealTime SARS-CoV-2 Assay as authorized by the FDA Emergency Use Authorization (EUA). This EUA assay is intended for In-vitro Diagnostic (IVD) use with respiratory specimens such as nasopharyngeal swabs collected from individuals during the acute phase of infection. This assay is performed based on the instructions for use provided by [employer] and additional guidance provided by CDC and FDA. Testing is performed in the [facility] within the Department of Pathology and Laboratory Medicine at [facility], certified under the Clinical Laboratory Improvement Amendments of 1988 (CLIA), 42 U.S.C. 263a, to perform high complexity tests. Assay performance has been verified according to clinical laboratory regulatory requirements for use with specimens collected from individuals suspected of COVID-19. Test results are provided above. A result of ? Not Detected? indicates that the viral RNA target is not present above the limit of detection, but does not preclude SARS-CoV-2 infection. False negative results may occur if a specimen is improperly collected, transported or handled; if amplification inhibitors are present; or if inadequate numbers of viral particles are present in the specimen. When a diagnostic test is negative, the possibility of a false negative result should be considered in the context of a patient? s recent exposures and the presence of clinical signs and symptoms consistent with COVID-19. A result of ? Detected? indicates that RNA from SARS-CoV-2 was detected and the patient is infected. As required or requested by public health authorities, positive specimens may be sent for additional testing. Positive and negative predictive values for this test are highly dependent on disease prevalence. A result of ? Invalid? indicates that neither the viral RNA targets nor the internal control target was detected. An invalid result suggests the presence of inhibitors. Recollection and re-testing is recommended in the case of an invalid result. CDC COVID-19 criteria for testing on human specimens and clinical management guidance information are available at the CDC Coronavirus Disease 2019 (COVID-19) webpage under ? Information for Healthcare Professionals? (https://www.cdc.gov/coronavirus/2019-ncov/hcp/index.html) Additional information about this and other EUA tests can be found in provider and patient fact sheets at the following FDA website: https://www.fda.gov/medical-devices/ciitvdqnobg-gturhma-3767-glzlw-39-lpqzmmsua- use-a zlezinezqzsus-hqiydin-jvejuhu/ujpjg-fififrfhbwn-aalf SARS-CoV-2 RNA Source CARTON FORMING MACHINE ADJUSTER Swab [facility] Nasopharyngeal swab (specimen) Other / Unknown 01/14/2020 4:42 AM EST 01/15/2020 5:01 AM EST Narrative Resulting Agency Comment Spec In Lab Prisca Healy CNM MOLECULAR ORDERABLE S Performing Organization Address City/State/[facility] Co de Phone Number [facility] [place] [address] documented in this encounter Visit Diagnoses Not on filedocumented in this encounter Care Teams Internet And E Business Project Manager Relationship Specialty Start Date End Date Unknown None PCP - General 05/06/16 06/04/21 documented as of this encounter
--- OUTSIDE RECORDS SUMMARY | 2023-11-03 18:39 | XMS_ITS | Encounter Summary ---
Author Organization [facility] [place] [address] Care Team Providers Care Roller Mill Operator Name Role Phone Unknown Primary Care Provider Unavailabl e Encounter Details Date Type Department Care Team (Late st Contact Info) Description 05/17/2015 Orders Only Radiology and Cardiology Results [address] [place] [id number] Apd Conversion, Results Provider, Social History Tobacco [...] Procedure Name Priority Date/Time Associated Diagnosis Comments RPR Routine 05/17/2015 12:25 PM EST documented in this encounter Results * (ABNORMAL) RPR (05/17/2015 12:25 PM EST) RPR (ARU) NON REACTIVE(E xternal Lab) NONREACTIVE NADEEM CONSTANTINO CONVERSION 05/17/2015 12:2 5 PM EST Results Provider Apd Conversion MD IMMUN OLOGY ORDERABLES NADEEM CONVERSION documented in this encounter Visit Diagnoses Not on filedocumented in this encounter Care Teams Roller Mill Operator Relationship Specialty Start Date End Date Unknown None PCP - General 05/06/16 06/04/21 documented as of this encounter
--- OUTSIDE RECORDS SUMMARY | 2023-11-03 18:39 | XMS_ITS | Encounter Summary ---
Author Organization [facility] Address [address] [place] [address] Care Team Providers Care Locomotive Engineer Diesel Name Role Phone Martell Rosado MD Primary Care Provider [phone] Encounter Details Date Type Department Care Team (Late st Contact Info) Description 04/14/[address] [facility] Pathology & Laboratory Medicine - [facility] [address] [place] [address] Outr Resulting Lab, Provider Social History Tobacco [...] Priority Date/Time Associated Diagnosis Comments ZZCOVID-19 TEST [facility] PCR Today 04/13/2022 13:20 EST COVID-19 TESTING Routine 04/13/2022 13:2 0 EST documented in this encounter Results * COVID-19 TEST [facility] PCR (04/13/2022 13:20 EST) Swab 04/13/2022 13:2 0 EST 04/15/2022 17:14 EST Provider Outr Resulting Lab MICROBIOLOGY - GENERAL ORDERABLES Performing Organization Address [facility] Co de Phone Number [facility] [address] [place] [address] * (ABNORMAL) COVID-19 TESTING (04/13/2022 13:20 EST) COVID-19 rt-PCR Result Positive( AA) Negative 04/16/2022 11:55 EST [facility] Comment: This test has not [...] the authorization is terminated or revoked sooner. Testing was performed using the leigha SARS-CoV-2 assay ([employer] on the Leigha 6800 System Performing Lab Leigha [address] [facility] 04/16/2022 11:55 EST [facility] Swab 04/13/2022 13:2 0 EST 04/15/2022 17:14 EST Provider Outr Resulting Lab MICROBIOLOGY - GENERAL ORDERABLES Performing Organization Address City/[facility]/ZIP Co de Phone Number [facility] [address] [place] [address] documented in this encounter Visit Diagnoses Not on filedocumented in this encounter Additional Health Concerns Infection Onset Date Last Indicated Resolved Time COVID-19 04/13/2022 04/13/2022 05/03/2022 22:1 5 EST documented as of this encounter Care Teams Locomotive Engineer Diesel Relationship Specialty Start Date End Date Martell Rosado MD [address] [place] [address] PCP - General 08/06/17 documented as of this encounter
--- OUTSIDE RECORDS SUMMARY | 2023-11-03 18:40 | XMS_ITS | Encounter Summary ---
Author Organization [facility] Address [address] [place] [address] Care Team Providers Care Planer Setter Name Role Phone Martell Rosado MD Primary Care Provider [phone] Encounter Details Date Type Department Care Team (Late st Contact Info) Description 07/09/2019 Lab Requisition [facility] Pathology & Laboratory Medicine - [facility] [address] [place] [address] Outr Resulting Lab, Provider Social History Tobacco Use Types Packs/Day Years Used Date Smoking Tobacco: Never Smokeless Tobacco: Never Alcohol Use Standard Drinks/Week Comments No 0 (1 standard drink = 0.6 oz pur e alcohol) Sex and Gender Information Value Date Recorded [...] Procedure Name Priority Date/Time Associated Diagnosis Comments HOLD SST Today 07/08/2019 16:05 EDT HIV 1/2 ANTIGEN AND ANTIBODY, 4TH GENERATION Today 07/08/2019 16:05 EDT documented in this encounter Results * HOLD SST (07/08/2019 16:05 EDT) Hold Hold 07/09/2019 17:01 EDT [facility] Blood VENOUS BLOOD / Unknown 07/08/2019 16:05 EDT 07/09/2019 15:50 EDT Provider Outr Resulting Lab LAB INFO SER VICE AND SUPPORT & PHONE RESULT Performing Organization Address [facility] Co de Phone Number [facility] [address] [place] [address] * HIV 1/2 ANTIGEN AND ANTIBODY, 4TH GENERATION (07/08/2019 16:05 EDT) HIV 1 and 2 Antibody/p24 Antigen, 4th Generation Negative Negative 07/12/2019 10:59 EDT [facility] Comment: If acute HIV-1 infection is suspected in a high risk ??patient, submit plasma specimen for HIV-1 RNA quantitation test. Fourth Generation assay performed on the Siemens Centaur. Blood VENOUS BLOOD / Unknown 07/08/2019 16:05 EDT 07/09/2019 15:50 EDT Provider Outr Resulting Lab IMMUNOLOGY A ND SEROLOGY ORDERABLES Performing Organization Address [facility] Co de Phone Number [facility] [address] [place] [address] documented in this encounter Visit Diagnoses Not on filedocumented in this encounter Additional Health Concerns Infection Onset Date Last Indicated Resolved Time COVID-19 04/13/2022 04/13/2022 05/03/2022 22:1 5 EST documented as of this encounter Care Teams Planer Setter Relationship Specialty Start Date End Date Martell Rosado MD [facility] [place] [address] PCP - General 08/06/17 documented as of this encounter
--- OUTSIDE RECORDS SUMMARY | 2023-11-03 18:40 | XMS_ITS | Encounter Summary ---
Author Organization [facility] Address [address] [place] [address] Care Team Providers Care Agricultural Production Engineer Name Role Phone Martell Rosado MD Primary Care Provider [phone] Encounter Details Date Type Department Care Team (Late st Contact Info) Description 01/09/2021 Lab Requisition [facility] Pathology & Laboratory Medicine - [facility] [address] [place] [address] Outr Resulting Lab, Provider Social History Tobacco [...] Priority Date/Time Associated Diagnosis Comments ZZCOVID-19 TEST [facility] PCR Today 01/08/2021 16:55 EDT COVID-19 TESTING Routine 01/08/2021 16:5 5 EDT documented in this encounter Results * COVID-19 TEST [facility] PCR (01/08/2021 16:55 EDT) Swab ENTIRE NASOPHARYNX / Unknown 01/08/2021 16:55 EDT 01/09/2021 17:39 EDT Provider Outr Resulting Lab MICROBIOLOGY - GENERAL ORDERABLES [facility] [address] [place] [address] * COVID-19 TESTING (01/08/2021 16:55 EDT) COVID-19 rt-PCR Result Negative Negative 01/09/2021 22:17 EDT [facility] Comment: This test [...] history, and epidemiological information. Performed on the [employer] Fusion instrument Performing Lab [place] [facility] Lab 01/09/2021 22:17 EDT [facility] Swab 01/08/2021 16:5 5 EDT 01/09/2021 17:39 EDT Provider Outr Resulting Lab MICROBIOLOGY - GENERAL ORDERABLES [facility] [address] [place] [address] documented in this encounter Visit Diagnoses Not on filedocumented in this encounter Additional Health Concerns Infection Onset Date Last Indicated Resolved Time COVID-19 04/13/2022 04/13/2022 05/03/2022 22:1 5 EST documented as of this encounter Care Teams Agricultural Production Engineer Relationship Specialty Start Date End Date Martell Rosado MD [facility] [place] [place] [address] PCP - General 08/06/17 documented as of this encounter
--- OUTSIDE RECORDS SUMMARY | 2023-11-03 18:40 | XMS_ITS | Encounter Summary ---
Author Organization [facility] Address [address] [place] [address] Care Team Providers Care Cisco Unified Communications Engineer Name Role Phone Martell Rosado MD Primary Care Provider [phone] Encounter Details Date Type Department Care Team (Late Contact Info) Description 01/18/2019 Orders Only [facility] [address] [place] [address] Alma Rosa Seaman, TAYLOR [address] [place] [address] Abnormal uterine bleeding (AUB); Irregular menses Social History Tobacco Use Types Packs/Day Years [...] Yes 12/29/2017 documented as of this encounter Ordered Prescriptions Prescription Sig Dispensed Refills Start Date End Da te ethinyl estradiol-etonogestrel (NUVARING) 0.12-0.015 mg/24 hr vaginal ringIndications:Abnorma l uterine bleeding (AUB),Irregular menses Wear continuously for 3 weeks; remove for 1 week; repeat with new ring, as directed. 3 Each 5 01/18/2019 03/01/2019 documented in this encounter Progress Notes * Alma Rosa Seaman RN - 01/18/2019 0945 EST Reordered Nuva Ring. Pharmacy unable to fill prescriptions written by Dr Hurst at this time. documented in this encounter Plan of Treatment Not on file documented as of this encounter Visit Diagnoses Diagnosis Abnormal uterine bleeding (AUB) Irregular menses Irregular menstrual cycle documented in this encounter Discontinued Medications Medication Sig Discontinue Reason Start Date End Da te ethinyl estradiol-etonogestre l (NUVARING) 0.12-0.015 mg/24 hr vaginal ringIndications:Abnor mal uterine bleeding (AUB),Irregular menses Wear continuously for 3 weeks; remove for 1 week; repeat with new ring, as directed. Reorder 01/13/2019 01/18/2019 documented as of this encounter Care Teams Cisco Unified Communications Engineer Relationship Specialty Start Date End Date Martell Rosado MD [address] [place] [address] PCP - General 08/06/17 documented as of this encounter
--- OUTSIDE RECORDS SUMMARY | 2023-11-03 18:40 | XMS_ITS | Encounter Summary ---
Author Organization [facility] Address [address] [place] [address] Care Team Providers Care Nursery School Teacher Name Role Phone Martell Rosado MD Primary Care Provider [phone] Encounter Details Date Type Department Care Team (Late Contact Info) Description 04/05/2019 Orders Only [facility] [address] [place] [address] Renaat Bhatia RN Social History Tobacco Use Types Packs/Day Years [...] Dispensed Refills Start Date End Da te progesterone (PROMETRIUM) [address] 1 cap in vagina twice a day. 30 Cap 1 04/05/2019 05/14/2019 documented in this encounter Progress Notes * Renata Bhatia, TAYLOR - 04/05/2019 0850 EST Call from Sirisha requesting luteal phase progesterone. Wrote to her in [employer] that refill had beensent to preferred pharmacy. documented in this encounter Plan of Treatment Not on file documented as of this encounter Visit Diagnoses Not on filedocumented in this encounter Discontinued Medications Medication Sig Discontinue Reason Start Date End Da te progesterone (PROMETRIUM) [address] 1 cap in vagina twice a day. Reorder 03/01/2019 04/05/2019 documented as of this encounter Care Teams Nursery School Teacher Relationship Specialty Start Date End Date Martell Rosado MD [address] [place] [address] PCP - General 08/06/17 documented as of this encounter
--- OUTSIDE RECORDS SUMMARY | 2023-11-03 18:40 | XMS_ITS | Encounter Summary ---
Author Organization [facility] Address [address] [place] [address] Care Team Providers Care Computer Assembler Name Role Phone Martell Rosado MD Primary Care Provider [phone] Reason for Visit * Reason Onset Date Comments Results 01/20/2019 Encounter Details Date Type Department Care Team (Late st Contact Info) Description 01/20/2019 Telephone [facility] - [address] [address] Renata Bhatia RN Results Social History Tobacco Use Types Packs/Day Years [...] Yes 12/29/2017 documented as of this encounter Miscellaneous Notes * Telephone Encounter - Renata Bhatia RN - 01/20/2019 1109 EST Call from Sirisha to ask about recent lab results. Component Latest Ref Rng & Units 01/13/2019 Testosterone ng/dl 37 Sex Hormone Bnd Glob nmol/L 41.3 Free Testosterone 0.1 - 1.1 ng/dl 0.6 Hemoglobin A1C % 5.1 Est Avg Glucose mg/dl 100 TSH 0.47 - 4.68 uIU/ml 1.80 Prolactin ng/ml 7.9 DHEA Sulfate 96 - 512 ug/dl 344 25OH Vitamin D Tot 30 - 100 ng/ml 43.[address] Hurst regarding clinical significance. documented in this encounter Plan of Treatment Not on file documented as of this encounter Visit Diagnoses Not on filedocumented in this encounter Care Teams Computer Assembler Relationship Specialty Start Date End Date Martell Rosado MD [address] [place] [address] PCP - General 08/06/17 documented as of this encounter
--- OUTSIDE RECORDS SUMMARY | 2023-11-03 18:40 | XMS_ITS | Encounter Summary ---
Author Organization [facility] Address [address] [place] [address] Care Team Providers Care Motor Vehicle Operator Road Supervisor Name Role Phone Martell Rosado MD Primary Care Provider [phone] Encounter Details Date Type Department Care Team (Late st Contact Info) Description 09/29/2020 Lab Requisition [facility] Pathology & Laboratory Medicine - [facility] [address] [place] [address] Outr Resulting Lab, Provider Social History Tobacco [...] Priority Date/Time Associated Diagnosis Comments ZZCOVID-19 TEST [facility] PCR Today 09/29/2020 9:47 EDT COVID-19 TESTING Routine 09/29/2020 9:47 EDT documented in this encounter Results * COVID-19 TEST [facility] PCR (09/29/2020 9:47 EDT) Swab ENTIRE NASOPHARYNX / Unknown 09/29/2020 9:47 EDT 09/29/2020 20:55 EDT Provider Outr Resulting Lab MICROBIOLOGY - GENERAL ORDERABLES [facility] [address] [place] [address] * COVID-19 TESTING (09/29/2020 9:47 EDT) COVID-19 rt-PCR Result Negative Negative 09/30/2020 0:08 EDT [facility] Comment: This test has not [...] history, and epidemiological information. Performed on the [employer] Fusion instrument Performing Lab [place] [facility] 09/30/2020 0:08 EDT [facility] Swab 09/29/2020 9:47 EDT 09/29/2020 20:55 EDT Provider Outr Resulting Lab MICROBIOLOGY - GENERAL ORDERABLES [facility] [address] [place] [address] documented in this encounter Visit Diagnoses Not on filedocumented in this encounter Additional Health Concerns Infection Onset Date Last Indicated Resolved Time COVID-19 04/13/2022 04/13/2022 05/03/2022 22:1 5 EST documented as of this encounter Care Teams Motor Vehicle Operator Road Supervisor Relationship Specialty Start Date End Date Martell [place]ado [place] [address] [place] [address] PCP - General 08/06/17 documented as of this encounter
--- OUTSIDE RECORDS SUMMARY | 2023-11-03 18:40 | XMS_ITS | Encounter Summary ---
Author Organization [facility] Address [address] [place] [address] Care Team Providers Care Tire Beader Maker Name Role Phone Martell Rosado MD Primary Care Provider [phone] Encounter Details Date Type Department Care Team (Late st Contact Info) Description 03/02/2020 Lab Requisition [facility] Pathology & Laboratory Medicine - [facility] [address] [place] [address] Outr Resulting Lab, Provider Social History Tobacco [...] Date/Time Associated Diagnosis Comments T3 FREE Routine 03/01/2020 14:12 EST documented in this encounter Results * T3 FREE (03/01/2020 14:12 EST) T3, Free 3.3 2.8 - 5.3 pg/mL 03/02/2020 18:44 EST [facility] Blood VENOUS BLOOD / Unknown 03/01/2020 14:12 EST 03/02/2020 18:07 EST Provider Outr Resulting Lab CHEMISTRY & BLOOD GAS ORDERABLES [facility] [address] [place] [address] documented in this encounter Visit Diagnoses Not on filedocumented in this encounter Additional Health Concerns Infection Onset Date Last Indicated Resolved Time COVID-19 04/13/2022 04/13/2022 05/03/2022 22:1 5 EST documented as of this encounter Care Teams Tire Beader Maker Relationship Specialty Start Date End Date Martell Rosado MD [address] [place] [address] PCP - General 08/06/17 documented as of this encounter
--- OUTSIDE RECORDS SUMMARY | 2023-11-03 18:40 | XMS_ITS | Encounter Summary ---
Author Organization [facility] Address [address] [place] [address] Care Team Providers Care Manager Information Name Role Phone Martell Rosado MD Primary Care Provider [phone] Encounter Details Date Type Department Care Team (Late st Contact Info) Description 07/09/2019 Lab Re[address] [facility] Pathology & Laboratory Medicine - [facility] [address] [place] [address] Outr Resulting Lab, Provider Social History Tobacco [...] Procedure Name Priority Date/Time Associated Diagnosis Comments RUBELLA IGG ANTIBODY Routine 07/08/2019 16:05 EDT VARICELLA IGG ANTIBODY Routine 07/08/2019 16:05 EDT documented in this encounter Results * VARICELLA IGG ANTIBODY (07/08/2019 16:05 EDT) Varicella IgG Ab Positive See Note 07/13/2019 10:51 EDT [facility] Comment:Presence of detectab le Varicella Zoster virus IgG antibodies. Blood VENOUS BLOOD / Unknown 07/08/2019 16:05 EDT 07/09/2019 15:56 EDT Provider Outr Resulting Lab IMMUNOLOGY A ND SEROLOGY ORDERABLES Performing Organization Address City/[facility] Co de Phone Number [facility] [address] [place] [address] * RUBELLA IGG ANTIBODY (07/08/2019 16:05 EDT) Rubella IgG Ab Positive See Note 07/13/2019 11:04 EDT [facility] Comment:Positive for IgG ant ibodies to Rubella virus. Blood VENOUS BLOOD / Unknown 07/08/2019 16:05 EDT 07/09/2019 15:56 EDT Provider Outr Resulting Lab CHEMISTRY & BLOOD GAS ORDERABLES Performing Organization Address City/[facility] Co de Phone Number [facility] [address] [place] [address] documented in this encounter Visit Diagnoses Not on filedocumented in this encounter Additional Health Concerns Infection Onset Date Last Indicated Resolved Time COVID-19 04/13/2022 04/13/2022 05/03/2022 22:1 5 EST documented as of this encounter Care Teams Manager Information Relationship Specialty Start Date End Date Martell Rosado MD [address] [place] [address] PCP - General 08/06/17 documented as of this encounter
--- OUTSIDE RECORDS SUMMARY | 2023-11-03 18:40 | XMS_ITS | Encounter Summary ---
Author Organization [facility] Address [address] [place] [address] Care Team Providers Care Butcher Or Smallgoods Maker Name Role Phone Martell Rosado MD Primary Care Provider [phone] Encounter Details Date Type Department Care Team (Late st Contact Info) Description 11/25/2019 Lab Requisition [facility] Pathology & Laboratory Medicine - [facility] [address] [place] [address] Outr Resulting Lab, Provider Social History Tobacco [...] Procedure Name Priority Date/Time Associated Diagnosis Comments DO NOT ORDER STANDALONE - BROAD COVID TEST Today 11/25/2019 8:25 EDT COVID-19 TESTING Routine 11/25/2019 8:25 EDT documented in this encounter Results * DO NOT ORDER STANDALONE - BROAD COVID TEST (11/25/2019 8:25 EDT) COVID-19 rt-PCR Result NEGATIVE Negative 11/26/2019 12:18 EDT [facility] Comment: 2019-novel Coronavirus (2019-nCoV) not detected by the qRT-PCR assay. Consider testing for other respiratory viruses or re-collecting for 2019-nCoV testing. Note: Optimum timing for peak viral levels during infections caused by 2019-nCoV have not been determined. Collection of multiple specimens from the same patient may be necessary to detect the virus. Limitations Positive results are indicative of active infection with SARS-CoV-2 but do not rule out bacterial infection or co-infection with other viruses. The agent detected may not be the definite cause of disease. In addition, detection of viral RNA may not indicate the presence of infectious virus or that SARS-CoV-2 is the causative agent for clinical symptoms. Negative results do not preclude SARS-CoV-2 infection and should not be used as the sole basis for patient management decisions. Negative results must be combined with clinical observations, patient history, and epidemiological information. False negative results may also occur if amplification inhibitors are present in the specimen or if inadequate numbers of organisms are present in the specimen. Optimum specimen types and timing for peak viral levels during infections caused by SARS-CoV-2 have not been fully determined. Collection of multiple specimens (types and time points) from the same patient may be necessary to detect the virus. The test was validated for use with upper respiratory specimens obtained via nasopharyngeal or oropharyngeal swabs in VTM, UTM, M4, M5, M6, saline, and MTM media. The performance of this test has not been established for other specimens. Specimens collected using other FDA recommended Specimen Collection Materials listed in the FDA COVID-19 [employer] communication (June 03, 2019) are processed with the caveat that they were not all validated for use with this test and the result must be interpreted in this context. Furthermore, a false negative results may occur if a specimen is improperly collected, transported or handled. If the virus mutates in the RT-PCR target region, SARS-CoV-2 may not be detected or may be detected less predictably. Inhibitors or other types of interference may produce a false negative result. An interference study evaluating the effect of common cold medications was not performed. This test is not FDA-cleared but its performance characteristics were established by our CLIA-certified, CAP-accredited, high complexity laboratory in accordance with CLIA regulations, [employer] (CAP) guidelines (May 27, 2019), and FDA guidance (May 08, 2019). This test is only for use under the Food and Drug Administration's Emergency Use Authorization. Swab ENTIRE NASOPHARYNX / Unknown 11/25/2019 8:25 EDT 11/25/2019 18:23 EDT Provider Outr Resulting Lab MICROBIOLOGY - GENERAL ORDERABLES [facility] [place], [place] * COVID-19 TESTING (11/25/2019 8:25 EDT) COVID-19 rt-PCR Result NEGATIVE Negative 11/26/2019 14:23 EDT [facility] Comment: 2019-novel Coronavirus (2019-nCoV) not detected by the qRT-PCR assay. Consider testing for other respiratory viruses or re-collecting for 2019-nCoV testing. Note: Optimum timing for peak viral levels during infections caused by 2019-nCoV have not been determined. Collection of multiple specimens from the same patient may be necessary to detect the virus. Limitations Positive results are indicative of active infection with SARS-CoV-2 but do not rule out bacterial infection or co-infection with other viruses. The agent detected may not be the definite cause of disease. In addition, detection of viral RNA may not indicate the presence of infectious virus or that SARS-CoV-2 is the causative agent for clinical symptoms. Negative results do not preclude SARS-CoV-2 infection and should not be used as the sole basis for patient management decisions. Negative results must be combined with clinical observations, patient history, and epidemiological information. False negative results may also occur if amplification inhibitors are present in the specimen or if inadequate numbers of organisms are present in the specimen. Optimum specimen types and timing for peak viral levels during infections caused by SARS-CoV-2 have not been fully determined. Collection of multiple specimens (types and time points) from the same patient may be necessary to detect the virus. The test was validated for use with upper respiratory specimens obtained via nasopharyngeal or oropharyngeal swabs in VTM, UTM, M4, M5, M6, saline, and MTM media. The performance of this test has not been established for other specimens. Specimens collected using other FDA recommended Specimen Collection Materials listed in the FDA COVID-19 [employer] communication (June 03, 2019) are processed with the caveat that they were not all validated for use with this test and the result must be interpreted in this context. Furthermore, a false negative results may occur if a specimen is improperly collected, transported or handled. If the virus mutates in the RT-PCR target region, SARS-CoV-2 may not be detected or may be detected less predictably. Inhibitors or other types of interference may produce a false negative result. An interference study evaluating the effect of common cold medications was not performed. This test is not FDA-cleared but its performance characteristics were established by our CLIA-certified, CAP-accredited, high complexity laboratory in accordance with CLIA regulations, [employer] (CAP) guidelines (May 27, 2019), and FDA guidance (May 08, 2019). This test is only for use under the Food and Drug Administration's Emergency Use Authorization. Performing Lab [facility] 11/26/2019 14:23 EDT [facility] Swab 11/25/2019 8:25 EDT 11/25/2019 18:23 EDT Provider Outr Resulting Lab MICROBIOLOGY - GENERAL ORDERABLES [facility] [address] [place] [address] [facility] [place] documented in this encounter Visit Diagnoses Not on filedocumented in this encounter Additional Health Concerns Infection Onset Date Last Indicated Resolved Time COVID-19 04/13/2022 04/13/2022 05/03/2022 22:1 5 EST documented as of this encounter Care Teams Butcher Or Smallgoods Maker Relationship Specialty Start Date End Date Martell Rosado MD [facility] [place] [place] [address] PCP - General 08/06/17 documented as of this encounter
--- OUTSIDE RECORDS SUMMARY | 2023-11-03 18:40 | XMS_ITS | Encounter Summary ---
Author Organization [facility] Address [address] [place] [address] Care Team Providers Care Community Service Officer Name Role Phone Martell Rosado MD Primary Care Provider [phone] Reason for Visit * Reason Onset Date Comments Follow-up 04/16/2019 Encounter Details Date Type Department Care Team (Late st Contact Info) Description 04/16/2019 Telephone [facility] Reproductive Medicine & Infertility Center - [facility] [address] [place] [address] Alma Rosa Seaman RN [address] [place] [address] Follow-up Social History Tobacco Use Types Packs/Day Years [...] encounter Miscellaneous Notes * Telephone Encounter - Alma Rosa Seaman RN - 04/16/2019 1359 EST Mirna called to report that today is 14 days after ovulation and she had a negative UPT. She askedif she needs to follow up, or get any additional lab testing. She reports that she has not had a since February 2018. Has been using luteal progesterone for about 3 cycles. Advised that she continue OPK/TI with luteal progesterone for up to 3 more cycles, then could consider full infertility workup. She would like to follow up sooner. Scheduled for 05/[address] Arvizu. documented in this encounter Plan of Treatment Not on file documented as of this encounter Visit Diagnoses Not on filedocumented in this encounter Care Teams Community Service Officer Relationship Specialty Start Date End Date Martell Rosado MD [address] [place] [address] PCP - General 08/06/17 documented as of this encounter
--- OUTSIDE RECORDS SUMMARY | 2023-11-03 18:40 | XMS_ITS | Encounter Summary ---
Author Organization [facility] Address [address] [place] [address] Care Team Providers Care Drain Cleaner Name Role Phone Martell Rosado MD Primary Care Provider [phone] Encounter Details Date Type Department Care Team (Late st Contact Info) Description 07/13/2019 Lab Requisition [facility] Pathology & Laboratory Medicine - [facility] [address] [place] [address] Outr Resulting Lab, Provider Social History Tobacco [...] Procedure Name Priority Date/Time Associated Diagnosis Comments CHLAMYDIA/N. GONORRHOEAE AMPLIFIED NUCLEIC ACID Routine 07/12/2019 10:00 EDT documented in this encounter Results * CHLAMYDIA/N. GONORRHOEAE AMPLIFIED RNA (07/12/2019 10:00 EDT) Neisseria gonorrhoeae Result Negative Negative 07/14/2019 14:35 EDT [facility] Chlamydia trachomatis Result Negative Negative 07/14/2019 14:35 EDT [facility] Urine URINE / Unknown 07/12/2019 1 0:00 EDT 07/13/2019 16:35 EDT Narrative [facility] - 07/14/2019 14:35 EDT A first catch urine specimen is acceptable for detection of Gonorrhea and Chlamydia, but might detect up to 10% fewer infections when compared with vaginal and endocervical swab samples. Provider Outr Resulting Lab MICROBIOLOGY - GENERAL ORDERABLES [facility] [address] [place] [address] documented in this encounter Visit Diagnoses Not on filedocumented in this encounter Additional Health Concerns Infection Onset Date Last Indicated Resolved Time COVID-19 04/13/2022 04/13/2022 05/03/2022 22:1 5 EST documented as of this encounter Care Teams Drain Cleaner Relationship Specialty Start Date End Date Martell Rosado MD [address] [place] [address] PCP - General 08/06/17 documented as of this encounter
--- OUTSIDE RECORDS SUMMARY | 2023-11-03 18:40 | XMS_ITS | Encounter Summary ---
Author Organization [facility] Address [address] [place] [address] Care Team Providers Care Bioinformatics Technician Name Role Phone Unknown, Provider Primary Care Provider [phone] Encounter Details Date Type Department Care Team (Late st Contact Info) Description 08/01/2017 Results Only [facility] [phone] Ita Hu MD [address] [place] [phone] Social History Tobacco Use Types Packs/Day Years Used Date Smoking Tobacco: Never Assessed Sex and Gender Information Value Date Recorded Sex Assigned at Not on file Gender Identity Not on file Sexual Orientation Not on file documented as of this encounter Plan of Treatment Not on file documented as of this encounter Procedures Procedure Name Priority Date/Time Associated Diagnosis Comments SURGICAL PATHOLOGY Routine 08/01/2017 8:38 EDT documented in this encounter Results * SURGICAL PATHOLOGY (08/01/2017 8:38 EDT) Pathology Report: SURGICAL PATHOLOGY REPORT Reports generated via electronic interface contain original data; however they are lacking the format of the original report. Caution should be taken when reading/interpret ing unformatted reports. Name: ? JOYTHISIRISHA ? Accession #: ? [id number] ? : ? 1990 (Age: 26) ??F ? Collect Date: ? 08/01/2017 ? Location: ? [facility] ? Receive Date: ? 08/01/2017 ? Provider: ITA HU MD Copy to: EMIGDIO RAHMAN MD ? Final Pathologic Diagnosis: INTRAUTERINE CONTENTS, REMOVAL: - Chorionic villi. Document reviewed and electronically signed by: JESS SARAH MD Report ??Date: 08/06/2017 11:56 By the signature above, the attending physician certifies that he/she has personally conducted a gross and/or microscopic examination of the described specimens and rendered or confirmed the above diagnosis. Specimen(s) Received: Products of conception Clinical History: Missed AB Gross Description: ? Received in formalin labelled with proper patient identification (initials D, J) and products of conception are irregular, membranous, and papilliferous tissues aggregating 9.0 x 7.0 x 2.0 cm. structures are not identified. Commission Clerk sections are submitted in 1 through 3. NAZANIN Galan (ASCP) 08/05/2017 11:43 AM End of Report [facility] 08/01/2017 8:38 EDT 08/01/2017 8:38 EDT Ita Hu MD PATHOLOGY ORDERABLES [facility] [address] [place] [address] documented in this encounter Visit Diagnoses Not on filedocumented in this encounter Care Teams Bioinformatics Technician Relationship Specialty Start Date End Date Unknown, Provider, PCP - General 01/12/15 08/05/17 documented as of this encounter
--- OUTSIDE RECORDS SUMMARY | 2023-11-03 18:40 | XMS_ITS | Encounter Summary ---
Author Organization [facility] Address [address] [place] [address] Care Team Providers Care Rn Tele Name Role Phone Martell Rosado MD Primary Care Provider [phone] Reason for Visit * Reason Onset Date Comments Coordination Of Care 11/16/2018 Encounter Details Date Type Department Care Team (Late st Contact Info) Description 11/16/2018 Telephone [facility] Reproductive Medicine & Infertility Center - [facility] [address] [place] [address] Renata Bhatia, RN Coordination Of Care Social History Tobacco Use Types Packs/Day Years [...] Telephone Encounter - Renata Bhatia RN - 11/16/2018 0900 EDT Call from Sirisha to report +UPT 7 days post +body temp reading. Sirisha asked if she could have labssent to [facility]. Labs faxed. Pt also asked if she could start supportive progesterone. Called back andleft message on identified VM that supportive progesterone needs to be started on day of +OPK to beeffective, but that labs would be sent. Advised to call back with questions. documented in this encounter Plan of Treatment Not on file documented as of this encounter Visit Diagnoses Diagnosis test positive- Primary examination or test, positive result documented in this encounter Care Teams Rn Tele Relationship Specialty Start Date End Date Martell Rosado [place] [address] [place] [address] PCP - General 08/06/17 documented as of this encounter
--- OUTSIDE RECORDS SUMMARY | 2023-11-03 18:40 | XMS_ITS | Encounter Summary ---
Author Organization [facility] Address [address] [place] [address] Care Team Providers Care Communication Manager Name Role Phone Martell Rosado MD Primary Care Provider [phone] Reason for Visit * Reason Comments Recurrent Miscarriage Encounter Details Date Type Department Care Team ([facility] Contact Info) Description 03/12/2018 9:00 EST Office Visit [facility] - [address] [phone] Claudia Arvizu MD [address] [place] [address], [facility] [address] [place] [address] Pre-conception counseling (Primary Dx); Recurrent loss Discharge Disposition: Auto Discharge Social History Tobacco Use Types Packs/Day Years Used Date Smoking Tobacco: Never Smokeless Tobacco: Never Alcohol Use Standard Drinks/Week Comments No 0 (1 standard drink = 0.6 oz pur e alcohol) Sex and Gender Information Value Date Recorded Sex Assigned at Not on file Gender Identity Not on file Sexual Orientation Not on file documented as of this encounter Last Filed Vital Signs Vital Sign Reading Time Taken Comments Blood Pressure 114/72 03/12/2018 0907 EST Pulse - - Temperature - - Respiratory Rate - - Oxygen Saturation - - Inhaled Oxygen Concentration - - Weight 78.9 kg (174 lb) 03/12/2018 0907 EST Height 166.4 cm (5' 5.51) 03/12/2018 0907 EST Body Mass Index 28.5 03/12/2018 0907 EST documented in this encounter Functional Status Functional Status Response [...] Yes 12/29/2017 documented as of this encounter Discharge Diagnoses Diagnosis Z31.69 Encounter for other general counseling and advice on procreation-Z31.69[ICD-10-CM] N96 Recurrent loss-N96[ICD-10-CM] documented in this encounter Discharge Disposition Disposition Code Departure Means Destination Auto Discharge documented in this encounter Progress Notes * Claudia Arvizu MD - 03/12/2018 0900 EST S: Balaji is a 27 yo here w Alban to follow up after completing workup for RPL. Firstseen in consult 12/29/17. Since then, had another miscarriage 02/18 at [facility]. Was 5+ weeks GA by LMP. G4: Late January had +UPT (conceived in the cycle when was taking , followed hCG to max 107, dropped to 77 on 02/16. Had TVUS that did not show an ectopic, had blood products in uterus and a few days later her hCG started to decline. Passed spontaneously, moderate amount of tissue. O: She and Alban had karyotypes done, both normal. Component Latest Ref Rng & Units 12/29/2017 Hemoglobin A1C % 4.9 Est Avg Glucose mg/dl 94 Beta 2 GP1 Ab IgG <15.0 (Negative) U/mL <9.4 Beta 2 GP1 Ab IgM <15.0 (Negative) U/mL <9.4 Prolactin ng/ml 10.2 TSH 1.53 Remainder of APLS labs checked by her PMD and were all negative. SHG 01/12/18 showed normal uterine cavity with a 2 mm calcification near the right tubal ostia, AFC of 19. OB Hx OB History Para Term AB Living 3 0 0 0 3 0 SAB TAB Ectopic Multiple Live Births 3 0 0 0 0 ?? # Outcome Date GA Lbr Be/2nd Weight Sex Delivery Anes PTL Lv 3 SAB 11/18/17 ? SAB ? Comments: biochemical 2 SAB 08/01/17 11w0d ? SAB ? Comments: D&C, stopped growing at 8 weeks 1 SAB 12/2016 ? SAB ? Comments: biochemical that resulted in a SAB ? 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 Discussed that ~50% of couples with RPL do not have a cause identified after full testing. 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 Even still, the most likely outcome of her next conception is a live (>60% chance of this). The only intervention which has been shown to have a slight favorable impact on future success in women with otherwise unexplained RPL is luteal progesterone supplementation. This has only been shown to be beneficial after 4 or more losses, which she has now experienced. To do this, she should call the office when starts menses in the cycle she wants to conceive. Will check OPK, and start vaginal micronized progesterone 200 mg bid starting the day after OPK+ and continue until 2 weekslater, then check UPT. If positive, can continue through 9 week gestation. If UPT negative, will stop progesterone and allow menses. We discussed that IVF with PGT-A is not currently recommended for recurrent loss; has notbeen shown to improve live rates and adds significant cost to care. She is already taking a PNV with 800 mcg folic acid in it, so no need to increase. Reviewed that Vitamin D deficiency has been associated with slight increase in risk of SAB; will check Vit D level today and replete as necessary. I spent a total of 30 minutes in face to face time with this patient today and 25 minutes of that time was spent in counseling and coordination of care as described in the progress note. Claudia Arvizu MD * Rachel Hopkins - 03/12/2018 0900 EST Blood drawn via antecubital fossa using a butterfly needle. Pt tolerated procedure sucessfully. Pressure and 2x2 applied, secured with paper tape. 1 sst tube(s) sent to the lab per order. Rachel Hopkins 03/12/2018 10:25 documented in this encounter Plan of Treatment Not on file documented as of this encounter Procedures Procedure Name Priority Date/Time Associated Diagnosis Comments VITAMIN D (25,OH) Routine 03/12/2018 10: 00 EST Pre-conception counseling Recurrent loss documented in this encounter Results * (ABNORMAL) VITAMIN D (25,OH) (03/12/2018 10:00 EST) 25OH Vitamin D Tot 20.9(L) 30 - 100 ng/ml 03/12/2018 13:11 EST [facility] Comment: Reference Range: Deficient = <10 ng/ml Insufficient = 10-30 ng/ml Sufficient = 30-100 ng/ml Toxic = >100 ng/ml Blood specimen (specimen) BLOOD SPECIMEN / Unknown 03/12/2018 10:00 EST 03/12/2018 10:12 EST Claudia Arvizu MD CHEMISTRY & BLOOD GAS ORDERABLES [facility] [address] [place] [id number] documented in this encounter Visit Diagnoses Diagnosis Pre-conception counseling- Primary Other procreative management counseling and advice Recurrent loss documented in this encounter Care Teams Communication Manager Relationship Specialty Start Date End Date Martell Rosado MD [address] [place] [address] PCP - General 08/06/17 documented as of this encounter
--- OUTSIDE RECORDS SUMMARY | 2023-11-03 18:40 | XMS_ITS | Encounter Summary ---
Author Organization [facility] Address [address] [place] [address] Care Team Providers Care Occup Therapist Name Role Phone Martell Rosado MD Primary Care Provider [phone] Encounter Details Date Type Department Care Team (Late Contact Info) Description 12/29/2017 Phlebotomy Only [facility] [address] [place] [address] Slubber Machine Operator, Outpatient Recurrent loss (Primary Dx) Social History Tobacco Use Types Packs/Day Years [...] Procedure Name Priority Date/Time Associated Diagnosis Comments BETA 2 GLYCOPROTEIN ANTIBODY PANEL Routine 12/29/2017 11:04 EDT Recurrent loss PROLACTIN Routine 12/29/2017 11:04 EDT Recurrent loss QUANT BETA HCG, Routine 12/29/2017 11:04 EDT Recurrent loss HEMOGLOBIN A1C Routine 12/29/2017 11:04 EDT Recurrent loss documented in this encounter Results * QUANT BETA HCG, (12/29/2017 11:04 EDT) Pathologist [facility] Quant Beta HCG, Preg <5 <5 mIU/ml 12/29/2017 12:23 EDT [facility] Comment: Reference Range: Negative = <5 Indeterminate = 5-25 recommend repeat in 48 hours. Positive = >25 The results of this assay can be falsely lowered due to the consumption of Biotin. Blood specimen (specimen) BLOOD SPECIMEN / Unknown 12/29/2017 11:04 EDT 12/29/2017 11:33 EDT Claudia Arvizu MD CHEMISTRY & BLOOD GAS ORDERABLES Performing Organization Address City/[facility]/ZIP Co de Phone Number [facility] [address] [place] [address] * BETA 2 GLYCOPROTEIN ANTIBODY PANEL (12/29/2017 11:04 EDT) Pathologist [facility] Beta 2 GP1 Ab IgG <9.4 <15.0 (Negative) U/mL 01/01/2018 7:45 EDT [facility] Beta 2 GP1 Ab IgM <9.4 <15.0 (Negative) U/mL 01/01/2018 7:45 EDT [facility] Comment: Performed or Referred by: [facility], [address] [place] [address] Blood specimen (specimen) BLOOD SPECIMEN / Unknown 12/29/2017 11:04 EDT 12/29/2017 11:33 EDT Claudia Arvizu MD IMMUNOLOGY AND SE ROLOGY ORDERABLES Performing Organization Address City/[facility]/ZIP Co de Phone Number [facility] [address] [place] [address] * PROLACTIN (12/29/2017 11:04 EDT) Prolactin 10.2 ng/ml 12/29/2017 13:24 EDT [facility] Comment: Non-: 2.8-29.2 : 9.7-208.5 Post Menopausal: 1.8-20.3 Blood specimen (specimen) BLOOD SPECIMEN / Unknown 12/29/2017 11:04 EDT 12/29/2017 11:33 EDT Claudia Arvizu MD CHEMISTRY & BLOOD GAS ORDERABLES Performing Organization Address City/[facility] Co de Phone Number [facility] [address] [place] [address] * HEMOGLOBIN A1C (12/29/2017 11:04 EDT) Hemoglobin A1C 4.9 % 12/29/2017 14:47 EDT [facility] Comment: Reference Range: <5.7% Normal 5.7-6.4% Prediabetes =>6.5% Diagnostic for diabetes (if confirmed) Goals for glycemic control in diabetes ADA 2017 For non adults with diabetes: ?? Target <7.0% For children and adolescents with type 1 diabetes: ?? Target <7.5% More or less stringent targets may be appropriate for individual patients. Est Avg Glucose 94 mg/dl 8 14:47 EDT [facility] Comment: eAG represents the A1c result expressed as average glucose in mg/dl. Blood specimen (specimen) BLOOD SPECIMEN / Unknown 12/29/2017 11:04 EDT 12/29/2017 11:33 EDT Claudia Arvizu MD CHEMISTRY & BLOOD GAS ORDERABLES Performing Organization Address [facility] Co de Phone Number [facility] [address] [place] [address] documented in this encounter Visit Diagnoses Diagnosis Recurrent loss- Primary documented in this encounter Care Teams Occup Therapist Relationship Specialty Start Date End Date Martell [place] [address] PCP - General 08/06/17 documented as of this encounter
--- OUTSIDE RECORDS SUMMARY | 2023-11-03 18:40 | XMS_ITS | Encounter Summary ---
Author Organization [facility] Address [address] [place] [address] Care Team Providers Care Caterpillar Mechanic Name Role Phone Unavailable Primary Care Provider Unavailabl e Encounter Details Date Type Department Care Team (Late st Contact Info) Description 07/11/2006 Results Only [facility] [address] [place] [address] Jet Carrera, [address] [place] [id number] Social History Tobacco Use Types Packs/Day Years Used Date Smoking Tobacco: Never Assessed Sex and Gender Information Value Date Recorded Sex Assigned at Not on file Gender Identity Not on file Sexual Orientation Not on file documented as of this encounter Plan of Treatment Not on file documented as of this encounter Procedures Procedure Name Priority Date/Time Associated Diagnosis Comments CYTOPATHOLOGY Routine 07/11/2006 0:00 EDT documented in this encounter Results * CYTOPATHOLOGY (07/11/2006 0:00 EDT) Pathology Report: CYTOPATHOLOGY REPORT Reports generated via electronic interface contain original data; however they are lacking the format of the original report. Caution should be taken when reading/interpreti ng unformatted reports. Name: ? SIRISHA PENA ? Accession #: ? [id number] : ? 1990 (Age: 15) ??F ?Collect Date: ? 07/11/2006 Location: ? [facility] ? Receive Date: ? 07/14/2006 Provider: ?JET CARRERA ASSURANCE OFFICER Copy to: ? Specimen/Source: ?ThinPrep Pap Test, Cervix/Endocervix, processed on [facility] ThinPrep Imaging System, with manual evaluation Last Menstrual Period: ? Hormonal/Contracep tive Status: ? Depo-Provera Other: ? HPVA - HPV testing requested if ASC-US on the current ThinPrep Pap test. Additional clinical information: 1st pap smear ? SPECIMEN ADEQUACY ? Satisfactory for Evaluation - transformation zone component present GENERAL CATEGORIZATION ? Negative for Intraepithelial Lesion or Malignancy ? Document reviewed and electronically signed by: ? EMMANUEL Wray(ASCP) ? Report Date: ??07/16/2006 11:30 End of Report MANI MOORE 07/11/2006 07/14/2006 Jet Carrera ASSURANCE OFFICER PATHOLOGY ORDERABLES MANI MOORE [address] [place] [address] documented in this encounter Visit Diagnoses Not on filedocumented in this encounter
--- OUTSIDE RECORDS SUMMARY | 2023-11-03 18:40 | XMS_ITS | Encounter Summary ---
Author Organization [facility] Address [address] [place] [address] Care Team Providers Care Bingo Floater Name Role Phone Martell Rosado MD Primary Care Provider [phone] Reason for Visit * Reason Onset Date Comments Coordination Of Care 01/28/2019 Encounter Details Date Type Department Care Team (Late Contact Info) Description 01/28/2019 Telephone [facility] - [address] [address] Renata Bhatia RN Coordination Of Care Social History Tobacco [...] vagina twice a day. 30 Cap 1 01/28/2019 03/01/2019 documented in this encounter Miscellaneous Notes * Telephone Encounter - Renata Bhatia RN - 01/28/2019 0823 EST Call from Sirisha to report +OPK yesterday, asking a luteal progesterone supplementation. Per Dr Gao's note, would begin vaginal progesterone suppositories 200 mg BID the day after OPK and continue until UPT 2 weeks later. Call back to Sirisha to review instructions. She has no questions at this time, progesterone suppositories ordered to preferred pharmacy. documented in this encounter Plan of Treatment Not on file documented as of this encounter Visit Diagnoses Not on filedocumented in this encounter Care Teams Bingo Floater Relationship Specialty Start Date End Date Martell Rosado MD [address] [place] [address] PCP - General 08/06/17 documented as of this encounter
--- OUTSIDE RECORDS SUMMARY | 2023-11-03 18:40 | XMS_ITS | Encounter Summary ---
Author Organization [facility] Address [address] [place] [address] Care Team Providers Care Dry Transfer Man Name Role Phone Martell Rosado MD Primary Care Provider [phone] Reason for Referral * GALLEY HAND (Routine) - New Request Specialty Diagnoses / Procedures Referred By Aura suárez Referred To Contact Diagnoses Recurrent loss Procedures JIG BORE OPERATOR US HYSTEROSONOGRAPHY Claudia Arvizu MD [address] [place] [phone] Referral ID Status Reason Start Date Expiration Date V isits Requested Visits Authorized [id number] New Request 12/29/2017 1 1 Reason for Visit * Reason Comments Recurrent Miscarriage Other reports she had two faint positive tests at home in PM of 12/28/17; but test was negative AM 12/29/17 - pt concerned about another chemcial Encounter Details Date Type Department Care Team (Late st Contact Info) Description 12/29/2017 9:45 EDT Office Visit [facility] Center Rep[facility] - [address] [id number] Claudia Arvizu MD [address] [place] [phone] Recurrent loss (Primary Dx) Discharge Disposition: Auto Discharge Social History Tobacco [...] Sign Reading Time Taken Comments Blood Pressure 110/70 12/29/2017938 EDT Pulse - - Temperature - - Respiratory Rate - - Oxygen Saturation - - Inhaled Oxygen Concentration - - Weight 76.5 kg (168 lb 9.6 oz) 12/29/2017938 E DT Height 166.4 cm (5' 5.5) 12/29/2017938 EDT Body Mass Index 27.63 12/29/2017938 EDT documented in this encounter Functional Status Functional [...] as of this encounter Discharge Diagnoses Diagnosis N96 Recurrent loss-N96[ICD-10-CM] documented in this encounter Discharge Disposition Disposition Code Departure Means Destination Auto Discharge documented in this encounter Progress Notes * Jeevan Robertson MD - 12/29/2017 0945 EDT Images from the original note were not included. REPRODUCTIVE ENDOCRINOLOGY & INFERTILITY NEW PATIENT CONSULT Subjective: Patient ID: Sirisha De La Cruz is an 27 y.o. female. Chief Complaint Patient presents with ??? Recurrent Miscarriage ??? Other reports she had two faint positive tests at home in PM of 12/28/17; but test was negativeAM 12/29/17 - pt concerned about another chemcial HPI 27 y.o. (?possibly ) female who presents for recurrent loss counseling. TTC since a couple months prior to the in 10/17. The patient presents with her for counseling regarding her previous losses. A summarized obstetric history has been entered into [employer] and her medical, surgical, medication, and allergy history have been verified and are up-to-date in the chart. Patient reports her initial was in December 2016 and she had been trying to conceive for approximately 2-3 months before this. The patient reports having serum hCG confirmed levelsbut prior to viability ultrasonography she underwent spontaneous without complication. Shedid not require any medical or surgical treatment to help resolve the spontaneous . Subsequently the patient next conceived in July 2017 and this was a clinically documented by ultrasound. Unfortunately, the patient had a nonviable intrauterine without cardiac activity which was seen on an 11-week scan. She subsequently underwent uncomplicated D&C for treatment of this missed . Since then she has experienced 2 positive home urine tests without serologic or ultrasonographic confirmation of her . The first was in November 2017. Now the patient reports again experiencing positive home tests as recent as last night; however, this morning's urine test resulted negative. Previous records were reviewed and copied below. The patient denies any cavity evaluation or genetic studies. The patient has completed a genetic counseling appointment with Dr. 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 Previous records: MAB in July, path from D&C 08/01/17 confirmed chorionic villi. Followed hCG until negative on 08/25/17 H/H 12.7/ 36.8Labs 07/11/17 [facility] Rubella immune RPR NR Hep B sAg neg HIV neg TSH 1.53 UDS neg JIG BORE OPERATOR Hx: Menarche: early teens Menses: irregular--cycles vary from 28-45 day cycles; 7 days of bleeding--reported as very heavy for 3 days; reports an occasional episode of flooding; mild dysmenorrhea Last Pap: unknown but patient reports being up to date at [facility]; no prior abnormals Hx of cysts: no Hx of fibroids: no Contraception: previous use of Liletta IUD which spontaneously expulsed into the lower uterine segment/cervix; previous history to OCP use Hx of STI: no Patient Active Problem List Diagnosis Date Noted ??? Family history of congenital heart disease 08/08/2017 Priority: Medium ??? Encounter for procreative genetic counseling 08/08/2017 Priority: Medium PMH PSH History reviewed. No pertinent past medical history. Past Surgical History: Procedure Laterality Date ??? DILATION AND CURETTAGE OF UTERUS N/A 08/01/2017 OB Hx OB History Para Term AB Living 3 0 0 0 3 0 SAB TAB Ectopic Multiple Live Births 3 0 0 0 0 # Outcome Date GA Lbr Be/2nd Weight Sex Delivery Anes PTL Lv 3 SAB 11/18/17 SAB Comments: biochemical 2 SAB 08/01/17 11w0d SAB Comments: D&C, stopped growing at 8 weeks 1 SAB 12/2016 SAB Comments: biochemical that resulted in a SAB Social History Family history Social History Social History ??? Marital status: Single Spouse name: N/A ??? Number of children: N/A ??? Years of education: N/A Occupational History ??? Not on file. Social History Main Topics ??? Smoking status: Never Smoker ??? Smokeless tobacco: Never Used ??? Alcohol use No ??? Drug use: No ??? Sexual activity: Yes Partners: Male Other Topics Concern ??? Not on file Social History Narrative ??? No narrative on file Family History Problem Relation Age of Onset ??? Heart Defect Mother SVT ??? Thyroid Disease Mother Hypothyroidism ??? Hypertension Father ??? High Cholesterol Father ??? No Known Brother ??? Cancer Maternal Grandmother Bone cancer ??? Colon Cancer Maternal Grandfather ??? *Other(comment) Paternal Grandfather Benign brain tumor ??? No Known Brother ??? No Known Brother ??? No Known Brother Medications No current outpatient prescriptions on file prior to visit. No current facility-administered medications on file prior to visit. Allergies Allergies Allergen Reactions ??? Citalopram Other (See Comments) Worsening of mental health ??? Sulfa (Sulfonamide Antibiotics) Rash Pt reports reaction happened in infancy Communicable Disease: None Review of Systems JIG BORE OPERATOR ROS: negative Game Moderator Review of Systems - See HPI Objective: BP 110/70 Ht 166.4 cm (65.5) Wt 76.5 kg (168 lb 9.6 oz) LMP 11/18/2017 (Exact Date) BMI 27.63 kg/m2 Physical Exam Vitals reviewed. Constitutional: She is oriented to person, place, and time. She appears well- developed and well-nourished. Neurological: She is alert and oriented to person, place, and time. Skin: Skin is warm and dry. Psychiatric: She has a normal mood and affect. Thought content normal. Appropriately saddened during discussion of losses. Assessment: 27 y.o. female who presents with recurrent loss. Plan: Sirisha was seen today for recurrent miscarriage and other. Diagnoses and all orders for this visit: Recurrent loss - Hemoglobin A1c; Future - Prolactin; Future - Beta 2 Glycoprotein Antibody Panel; Future - JIG BORE OPERATOR US HYSTEROSONOGRAPHY - Quant Beta HCG, ; Future Other orders - no122/iron/folic acid ( MULTI ORAL); Take 1 Tab by mouth daily. - docosahexanoic acid (DHA ORAL); Take 2 Tabs by mouth daily. Counseling: The evaluation for recurrent loss includes evaluation for diabetes with HgbA1c, antiphospholipid syndrome, and TSH for thyroid disease. We reviewed how each of these things may affect and lead to miscarriage and how we may proceed going forward if abnormalities are found. We also discussed a saline ultrasound with next menses for evaluation of cavity abnormalities that could cause recurrent loss which she has agreed to. Lastly, we also discussed checking a prolactin level given the patient's irregular cycle lengths. Of note, the patient's PCP ordered 2 out of 3 antiphospholipid antibody syndrome tests so we will complete this workup today with beta2 glycoprotein. In light of her 2 positive UPTs last night, we are ordering a confirmatory serum quantitative hCG for today. If everything is found to be normal we could also consider checking parental karyotypes. At this time we elected to defer testing until precertification has been performed. We emphasized that ~50% ofcouples with RPL are not found to have a specific cause after complete workup. The patient inquired about progesterone supplementation as a means of preventing miscarriage. We discussed that there is no evidence that this can improve chance of live unless a woman has had 3 documented clinical losses (meaning an embryo was seen on ultrasound). Furthermore, withthe patient's long cycles sometimes up to 40-45 days in a month, this would be very difficult to time as it is administered in the luteal phase, starting the day after a positive OPK. We therefore recommended the patient against luteal phase progesterone at this time. She was encouraged to continue her vitamin in the meantime. We discussed routine follow-upafter all results of come back and the patient was agreeable to seeing us for further therapies should she desire. It was stressed to the patient and her however that she does not meet clinical criteria for infertility as she has been able to conceive multiple times over the past year without treatment. The patient was also given reassurance that even after 3 clinical miscarriages she hasa 60-80% chance of conceiving spontaneously and carrying a normal in her next episode without any intervention. Patient's plan of care with directly discussed and developed with attending [facility] physician Dr. Arvizu. Electronically signed by: Jeevan Robertson MD, PGY5 Fellow Reproductive Endocrinology & Infertility 12/29/2017 / 11:07 I spent a total of 45 minutes in face to face time with this patient today and 30 minutes of that time was spent in counseling and coordination of care as described in the progress note. Attestation statement: I saw and examined the patient with the fellow at the time of the visit. I agree with the findings and the plan of care documented in the fellow's note. Claudia Arvizu MD * Claudia Arvizu MD - 12/29/2017 0945 EDT MAB in July, path from D&C 08/01/17 confirmed chorionic villi. Followed hCG until negative on 08/25/17 H/H 12.7/ 36.8Labs 07/11/17 [facility] Rubella immune RPR NR Hep B sAg neg HIV neg TSH 1.53 UDS neg Claudia Arvizu MD documented in this encounter Plan of Treatment Not on file documented as of this encounter Procedures Procedure Name Priority Date/Time Associated Diagnosis Comments JIG BORE OPERATOR US HYSTEROSONOGRAPHY Routine 018 8:32 EST Recurrent loss documented in this encounter Results * JIG BORE OPERATOR US HYSTEROSONOGRAPHY (01/12/2018 8:32 EST) Anatomical Region Laterality Modality Other 01/12/2018 8:32 EST 01/12/2018 8:37 EST Narrative 01/12/2018 8:37 EST Indication fertility testing. Assessment LMP on 01/02/2018. Day of cycle: 11. Uterus ======= Uterus: ?Visualized Uterus position: ?? Anteverted Endometrium: ?Trilaminar endometrium Uterus long ?8.1 cm Uterus ap ??3.3 cm Endometrial thickness, total ?? 6.9 mm Fibroids: ??Fibroids identified Procedure SIS procedure: risks,benefits and procedure reviewed with the patient. Consent signed. Speculum exam, cervix washed X 3 with betadine. Catheter placed and saline instilled under US observation. Patient tolerated procedure. HyCoSy shows a small calcification versus polyp near the right tubal ostia measuring 2.5 x 1.8 mm. The uterine cavity is otherwise normal in appearance. There is bilateral flow of air bubbles out the tubal ostia and free fluid in cul de sac afterward consistent with bilateral tubal patency. Right Ovary Rt ovary: ??Visualized, normal appearance Rt ovary D1 ?1.7 cm Rt ovary D2 ?2.0 cm Rt ovary D3 ?1.8 cm Rt ovary mean ??1.8 cm Rt ovary vol ?? 3.2 cm cubed Rt ovary other findings: ?? AFC = 7 Left Ovary Lt ovary: ??Visualized, normal appearance Lt ovary D1 ?2.9 cm Lt ovary D2 ?2.2 cm Lt ovary D3 ?2.4 cm Lt ovary mean ??2.5 cm Lt ovary vol ?? 7.8 cm cubed Lt ovary other findings: ?? AFC = 12 Cul de Sac Normal. No free fluid visualized. Impression Transvaginal sonohysterogram-[id number] Anteverted uterus with a trilaminar endometrium as described above. The ovaries are normal in appearance bilaterally, combined AFC = 12. HyCoSy shows a small calcification versus polyp near the right tubal ostia measuring 2.5 x 1.8 mm. The uterine cavity is otherwise normal in appearance. There is bilateral flow of air bubbles out the tubal ostia and free fluid in cul de sac afterward consistent with bilateral tubal patency. Follow-up with [facility] team. Comment ========= Ultrasound findings discussed w/patient. DATE OF SERVICE: 01/12/2018 Procedure Note Errol Prado MD - 01/12/2018 Indication fertility testing. Assessment LMP on 01/02/2018. Day of cycle: 11. Uterus ======= Uterus: Visualized Uterus position: Anteverted Endometrium: Trilaminar endometrium Uterus long 8.1 cm Uterus ap 3.3 cm Endometrial thickness, total 6.9 mm Fibroids: Fibroids identified Procedure SIS procedure: risks,benefits and procedure reviewed with the patient. Consent signed. Speculum exam, cervix washed X 3 with betadine. Catheter placed and saline instilled under US observation. Patient tolerated procedure. HyCoSy shows a small calcification versus polyp near the right tubal ostia measuring 2.5 x 1.8 mm. The uterine cavity is otherwise normal in appearance. There is bilateral flow of air bubbles out the tubal ostia and free fluid in cul de sac afterward consistent with bilateral tubal patency. Right Ovary Rt ovary: Visualized, normal appearance Rt ovary D1 1.7 cm Rt ovary D2 2.0 cm Rt ovary D3 1.8 cm Rt ovary mean 1.8 cm Rt ovary vol 3.2 cm cubed Rt ovary other findings: AFC = 7 Left Ovary Lt ovary: Visualized, normal appearance Lt ovary D1 2.9 cm Lt ovary D2 2.2 cm Lt ovary D3 2.4 cm Lt ovary mean 2.5 cm Lt ovary vol 7.8 cm cubed Lt ovary other findings: AFC = 12 Cul de Sac Normal. No free fluid visualized. Impression Transvaginal sonohysterogram-[id number] +[id number] Anteverted uterus with a trilaminar endometrium as described above. The ovaries are normal in appearance bilaterally, combined AFC = 12. HyCoSy shows a small calcification versus polyp near the right tubal ostia measuring 2.5 x 1.8 mm. The uterine cavity is otherwise normal in appearance. There is bilateral flow of air bubbles out the tubal ostia and free fluid in cul de sac afterward consistent with bilateral tubal patency. Follow-up with [facility] team. Comment ========= Ultrasound findings discussed w/patient. DATE OF SERVICE: 01/12/2018 Claudia Arvizu MD IMG US JIG BORE OPERATOR ORDERA BLES * QUANT BETA HCG, (12/29/2017 11:04 EDT) Quant Beta HCG, Preg <5 <5 mIU/ml 12/29/2017 12:23 EDT [facility] Comment: Reference Range: Negative = <5 Indeterminate = 5-25 recommend repeat in 48 hours. Positive = >25 The results of this assay can be falsely lowered due to the consumption of Biotin. Blood specimen (specimen) BLOOD SPECIMEN / Unknown 12/29/2017 11:04 EDT 12/29/2017 11:33 EDT Claudia Arvizu MD CHEMISTRY & BLOOD GAS ORDERABLES [facility] [address] [place] [id number] * BETA 2 GLYCOPROTEIN ANTIBODY PANEL (12/29/2017 11:04 EDT) Beta 2 GP1 Ab IgG <9.4 <15.0 (Negative) U/mL 01/01/2018 7:45 EDT [facility] Beta 2 GP1 Ab IgM <9.4 <15.0 (Negative) U/mL 01/01/2018 7:45 EDT [facility] Comment: Performed or Referred by: [facility], [address] [place] [phone] Blood specimen (specimen) BLOOD SPECIMEN / Unknown 12/29/2017 11:04 EDT 12/29/2017 11:33 EDT Claudia Arvizu MD IMMUNOLOGY AND SE ROLOGY ORDERABLES Performing Organization Address [facility] Co de Phone Number [facility] [address] [place] [address] * PROLACTIN (12/29/2017 11:04 EDT) Prolactin 10.2 ng/ml 12/29/2017 13:24 EDT [facility] Comment: Non-: 2.8-29.2 : 9.7-208.5 Post Menopausal: 1.8-20.3 Blood specimen (specimen) BLOOD SPECIMEN / Unknown 12/29/2017 11:04 EDT 12/29/2017 11:33 EDT Claudia Arvizu MD CHEMISTRY & BLOOD GAS ORDERABLES Performing Organization Address [facility] Co de Phone Number [facility] [address] [place] [address] * HEMOGLOBIN A1C (12/29/2017 11:04 EDT) [facility] Hemoglobin A1C 4.9 % 12/29/2017 14:47 EDT [facility] Comment: Reference Range: <5.7% Normal 5.7-6.4% Prediabetes =>6.5% Diagnostic for diabetes (if confirmed) Goals for glycemic control in diabetes ADA 2017 For non adults with diabetes: ?? Target <7.0% For children and adolescents with type 1 diabetes: ?? Target <7.5% More or less stringent targets may be appropriate for individual patients. Est Avg Glucose 94 mg/dl 8 14:47 EDT [facility] Comment: eAG represents the A1c result expressed as average glucose in mg/dl. Blood specimen (specimen) BLOOD SPECIMEN / Unknown 12/29/2017 11:04 EDT 12/29/2017 11:33 EDT Claudia Arvizu MD CHEMISTRY & BLOOD GAS ORDERABLES [facility] [address] [place] [address] documented in this encounter Visit Diagnoses Diagnosis Recurrent loss- Primary documented in this encounter Historical Medications * This list may reflect changes made after this encounter. Medication Sig Dispensed Refills Start Date End Date docosahexanoic acid (DHA ORAL) Take 2 Tabs by mouth daily. no122/iron/folic acid ( MULTI ORAL) Take 1 Tab by mouth daily. added in this encounter Care Teams Dry Transfer Man Relationship Specialty Start Date End Date Martell Rosado [place] [address] [place] [address] PCP - General 08/06/17 documented as of this encounter
--- OUTSIDE RECORDS SUMMARY | 2023-11-03 18:40 | XMS_ITS | Encounter Summary ---
Author Organization [facility] Address [address] [place] [address] Care Team Providers Care Business Systems Analyst Name Role Phone Unavailable Primary Care Provider Unavailabl e Encounter Details Date Type Department Care Team (Late st Contact Info) Description 09/04/2011 Results Only [facility] - [facility] [address] [place], [place] [id number] Mi Ball NP [address] [place] [address] Social History Tobacco Use Types Packs/Day Years Used Date Smoking Tobacco: Never Assessed Sex and Gender Information Value Date Recorded Sex Assigned at Not on file Gender Identity Not on file Sexual Orientation Not on file documented as of this encounter Plan of Treatment Not on file documented as of this encounter Procedures Procedure Name Priority Date/Time Associated Diagnosis Comments PAP TEST- RESULT ONLY Routine 09/04/2011 0:00 EDT documented in this encounter Results * PAP TEST- RESULT ONLY (09/04/2011 0:00 EDT) Pathology Report: CYTOPATHOLOGY REPORT Reports generated via electronic interface contain original data; however they are lacking the format of the original report. Caution should be taken when reading/interpreti ng unformatted reports. Name: ? SIRISHA PENA ? Accession #: ? [id number] : ? 1990 (Age: 21) ??F ?Collect Date: ? 09/04/2011 Location: ? [facility] ? Receive Date: ? 09/06/2011 Provider: ?MI BALL RN MANAGER Copy to: ? Specimen/Source: ?Pap Test, Cervix/Endocervix, ThinPrep Imaging System with manual evaluation Last Menstrual Period: ? SPECIMEN ADEQUACY ? Satisfactory for Evaluation - transformation zone component present - scant squamous epithelial component secondary to excessive blood GENERAL CATEGORIZATION ? Negative for Intraepithelial Lesion or Malignancy ? Document reviewed and electronically signed by: ? EMMANUEL Wray(ASCP) ? Report Date: ??09/12/2011 16:09 End of Report MANI MOORE 09/04/2011 09/06/2011 Mi Ball NP PATHOLOGY ORDERABLES MANI MOORE [address] [place] [address] documented in this encounter Visit Diagnoses Not on filedocumented in this encounter
--- OUTSIDE RECORDS SUMMARY | 2023-11-03 18:40 | XMS_ITS | Encounter Summary ---
Author Organization [facility] Address [address] [place] [address] Care Team Providers Care Channel Marketing Specialist Name Role Phone Unknown, Provider Primary Care Provider Reason for Visit * Reason Onset Date Comments Appointment Related 07/16/2017 Encounter Details Date Type Department Care Team (Late st Contact Info) Description 07/16/2017 Telephone [facility] Obstetrics & Midwifery - [facility] [address] [place] [address] Enedelia Messer Appointment Related Social History Tobacco Use Types Packs/Day Years Used Date Smoking Tobacco: Never Assessed Sex and Gender Information Value Date Recorded Sex Assigned at Not on file Gender Identity Not on file Sexual Orientation Not on file documented as of this encounter Miscellaneous Notes * Telephone Encounter - Enedelia Messer - 07/16/2017 0859 EDT Spoke to providers office to verify that patient Sirisha De La Cruz is AKA Sirisha Webber. Called back and informed Clau of appointment for patient scheduled on 08/08@ 3PM. documented in this encounter Plan of Treatment Not on file documented as of this encounter Visit Diagnoses Not on filedocumented in this encounter Care Teams Channel Marketing Specialist Relationship Specialty Start Date End Date Unknown, Provider, PCP - General 01/12/15 08/05/17 documented as of this encounter
--- OUTSIDE RECORDS SUMMARY | 2023-11-03 18:40 | XMS_ITS | Encounter Summary ---
Author Organization [facility] Address [address] [place] [address] Care Team Providers Care Network Services Project Manager Name Role Phone Martell Rosado MD Primary Care Provider [phone] Reason for Visit * Reason Onset Date Comments Results 01/19/2018 Encounter Details Date Type Department Care Team (Late st Contact Info) Description 01/19/2018 Telephone [facility] Rep[facility] Medicine [facility] - [address] [address] Alana Mcnair RN Results Social History Tobacco Use Types [...] encounter Miscellaneous Notes * Telephone Encounter - Alana Mcnair RN - 01/19/2018 1122 EST Spoke with pt regarding normal HyCoSy results. Pt interested in karyotyping, precert form submittedto precert specialist. Pt reports +OPK today and is wondering why she would get a +OPK on CD13 if she normally has 40+ day cycles. Explained to pt that cycle length can vary and she will probably have a shorter cycle this month with menses probably occurring closer to day 30. If no menses by CD30, pt plans to call our office. documented in this encounter Plan of Treatment Not on file documented as of this encounter Visit Diagnoses Not on filedocumented in this encounter Care Teams Network Services Project Manager Relationship Specialty Start Date End Date Martell [place] [address] PCP - General 08/06/17 documented as of this encounter
--- OUTSIDE RECORDS SUMMARY | 2023-11-03 18:40 | XMS_ITS | Encounter Summary ---
Author Organization [facility] Address [address] [place] [id number] Care Team Providers Care Shank Piece Tacker Name Role Phone Martell Rosado MD Primary Care Provider [phone] Reason for Referral * GEOPHYSICAL PARTY CHIEF (Routine) - Specialty Report Received Specialty Diagnoses / Procedures Referred By Contac t Referred To Contact Diagnoses Early stage of Procedures US OB FIRST TRIMESTER (LESS THAN 14 WEEKS) TRANSVAGINAL Claudia Arvizu MD [address] [place] [phone] Referral ID Status Reason Start Date Expiration Date V isits Requested Visits Authorized [id number] Specialty Report Received 05/19/2019 1 1 Reason for Visit * GEOPHYSICAL PARTY CHIEF (Routine) - Specialty Report Received Specialty Diagnoses / Procedures Referred By Contac t Referred To Contact Diagnoses Early stage of Procedures US OB FIRST TRIMESTER (LESS THAN 14 WEEKS) TRANSVAGINClaudia Krishnamurthy MD [address] [place] [phone] Referral ID Status Reason Start Date Expiration Date V isits Requested Visits Authorized [id number] Specialty Report Received 05/19/2019 1 1 Encounter Details Date Type Department Care Team (Latest Contact Info) Description 06/03/2019 14:34 EDT - 06/04/2019 23:59 EDT Hospital Encounter [facility] - [address] [address] Early stage of Discharge Disposition: Home or Self Care Social History Tobacco Use Types Packs/Day Years Used Date Smoking Tobacco: Never Smokeless Tobacco: Never Alcohol Use Standard Drinks/Week Comments No 0 (1 standard drink = 0.6 oz pur e alcohol) Sex and Gender Information Value Date Recorded Sex Assigned at Not on file Gender Identity Not on file Sexual Orientation Not on file COVID-19 Exposure Response Date Recorded In the last month, have you been in contact with someone who was confirmed or suspected to have Coronavirus / COVID-19? No / Unsure 06/03/2019 14:33 EDT documented as of this encounter Functional Status [...] Yes 12/29/2017 documented as of this encounter Medications at Time of Discharge Medication Sig Dispensed Refills Start Date End Date acetaminophen (TYLENOL 8 HOUR ORAL) Take by mouth as needed. ascorbic acid, vitamin C, (VITAMIN C) 100 mg tablet Take 100 mg by mouth daily. Cholecalciferol, Vitamin D3, (VITAMIN D3) 2,000 unit capsule Take by mouth daily. docosahexanoic acid (DHA ORAL) Take 2 Tabs by mouth daily. no122/iron/folic acid ( MULTI ORAL) Take 1 Tab by mouth daily. progesterone (PROMETRIUM) [address] 1 cap in vagina twice a day. 90 Cap 05/14/2019 documented as of this encounter Discharge Disposition Disposition Code Departure Means Destination Home or Self Care documented in this encounter Plan of Treatment Not on file documented as of this encounter Procedures Procedure Name Priority Date/Time Associated Diagnosis Comments US OB FIRST TRIMESTER (LESS THAN 14 WEEKS) TRANSVAGINAL Routine 06/03/2019 15:24 EDT Early stage of documented in this encounter Results * US OB FIRST TRIMESTER (LESS THAN 14 WEEKS) TRANSVAGINAL (06/03/2019 15:24 EDT) Anatomical Region Laterality Modality Pelvis Ultrasound 06/03/2019 15:1 1 EDT Narrative 06/03/2019 15:43 EDT Indication Early Assessment. History ======= Previous Outcomes ?4 Para ?? 0 Carrillo children born (T) ?0 Carrillo children born (P) ?0 Abortions (A) ??3 Carrillo living children (L) ??0 Number of gestational sacs: 1. Dating ======= Method of dating: ??based on the conception date Conception on: 05/05/2019 Ovulation: induced by ovulation drugs GA by conception ?? 6 w + 1 d CATALINA by conception: 01/26/2020 Ultrasound examination on: 06/03/2019 GA by U/S based upon: ??CRL GA by U/S ??6 w + 1 d CATALINA by U/S: ?01/26/2020 Assigned: ??Dating performed on 06/03/2019, based on the conception date Assigned GA ?6 w + 1 d Assigned CATALINA: ??01/26/2020 Assessment Gestational sac: ?? Visualized Location: ??Intrauterine Yolk sac: ??Visualized Amniotic sac: ??Visualized Embryo: ?Visualized CRL ?4.2 mm ??5% 6w 1d Hadlock Cardiac activity: ??Present FHR ?146 bpm Maternal Structures Uterus / Cervix Uterus: ?Anteverted Uterus details: ?No abnormalities detected. Appears normal Cervix: ?Appears normal Ovaries / Tubes / Adnexa Rt ovary: ??Visualized, normal appearance Rt ovary D1 ?3.2 cm Rt ovary D2 ?1.5 cm Rt ovary D3 ?1.2 cm Rt ovary mean ??2.0 cm Rt ovary vol ?? 2.9 cm cubed Lt ovary: ??Normal with Corpus luteum Lt ovarian corpus luteum: ??anechoic Lt ovary D1 ?2.8 cm Lt ovary D2 ?1.8 cm Lt ovary D3 ?2.5 cm Lt ovary mean ??2.4 cm Lt ovary vol ?? 6.6 cm cubed Lt ovarian cyst(s): ?Cysts identified Findings: ??Paratubal cyst D1 17.7 mm D2 16.1 mm D3 16.1 mm Mean ?? 16.6 mm Vol ?2.402 cm cubed Pouch of Ace / Other Structures Cul de Sac: ?Appears normal Free fluid: ?No free fluid visualized Method ======== Transvaginal ultrasound examination. View: Good view. Impression 1st Trimester OB scan ,transvaginal +[id number] Single viable intrauterine (IUP) , size equals conception dates. Follow-up with OB provider. Comment ========= Z34.8 encounter for supervision of other normal . Ultrasound findings discussed w/patient. Patient to continue Progesterone as prescribed until 10 weeks GA. DATE OF SERVICE: 06/03/2019 Procedure Note Errol Prado MD - 06/03/2019 Indication Early Assessment. History ======= Previous Outcomes 4 Para 0 Carrillo children born (T) 0 Carrillo children born (P) 0 Abortions (A) 3 Carrillo living children (L) 0 Number of gestational sacs: 1. Dating ======= Method of dating: based on the conception date Conception on: 05/05/2019 Ovulation: induced by ovulation drugs GA by conception 6 w + 1 d CATALINA by conception: 01/26/2020 Ultrasound examination on: 06/03/2019 GA by U/S based upon: CRL GA by U/S 6 w + 1 d CATALINA by U/S: 01/26/2020 Assigned: Dating performed on 06/03/2019, based on the conception date Assigned GA 6 w + 1 d Assigned CATALINA: 01/26/2020 Assessment Gestational sac: Visualized Location: Intrauterine Yolk sac: Visualized Amniotic sac: Visualized Embryo: Visualized CRL 4.2 mm 5% 6w 1d Hadlock Cardiac activity: Present FHR 146 bpm Maternal Structures Uterus / Cervix Uterus: Anteverted Uterus details: No abnormalities detected. Appears normal Cervix: Appears normal Ovaries / Tubes / Adnexa Rt ovary: Visualized, normal appearance Rt ovary D1 3.2 cm Rt ovary D2 1.5 cm Rt ovary D3 1.2 cm Rt ovary mean 2.0 cm Rt ovary vol 2.9 cm cubed Lt ovary: Normal with Corpus luteum Lt ovarian corpus luteum: anechoic Lt ovary D1 2.8 cm Lt ovary D2 1.8 cm Lt ovary D3 2.5 cm Lt ovary mean 2.4 cm Lt ovary vol 6.6 cm cubed Lt ovarian cyst(s): Cysts identified Findings: Paratubal cyst D1 17.7 mm D2 16.1 mm D3 16.1 mm Mean 16.6 mm Vol 2.402 cm cubed Pouch of Ace / Other Structures Cul de Sac: Appears normal Free fluid: No free fluid visualized Method ======== Transvaginal ultrasound examination. View: Good view. Impression 1st Trimester OB scan ,transvaginal +[id number] Single viable intrauterine (IUP) , size equals conceptiondates. Follow-up with OB provider. Comment ========= Z34.8 encounter for supervision of other normal . Ultrasoundfindings discussed w/patient. Patient to continue Progesterone asprescribed until 10 weeks GA. DATE OF SERVICE: 06/03/2019 Claudia Arvizu MD [facility] OB ORDERAB LES documented in this encounter Visit Diagnoses Diagnosis Early stage of state, incidental documented in this encounter Care Teams Shank Piece Tacker Relationship Specialty Start Date End Date Martell [place] [address] [place] [address] PCP - General 08/06/17 documented as of this encounter
--- OUTSIDE RECORDS SUMMARY | 2023-11-03 18:40 | XMS_ITS | Encounter Summary ---
Author Organization [facility] Address [address] [place] [address] Care Team Providers Care Detention Officer Name Role Phone Martell Rosado MD Primary Care Provider [phone] Reason for Visit * Reason Onset Date Comments Medications Refill 05/07/2019 Encounter Details Date Type Department Care Team (Late st Contact Info) Description 05/07/2019 Telephone [facility] Reproductive Medicine & Infertility Center - [facility] [address] [place] [address] Renata Bhatia RN Medications Refill Social History Tobacco Use Types Packs/Day Years [...] Telephone Encounter - Renata Bhatia RN - 05/07/2019 0852 EST Call from Sirisha to refill Prometrium. Called back to advise refills available at [facility] in [place]. No further questions at this time. documented in this encounter Plan of Treatment Not on file documented as of this encounter Visit Diagnoses Not on filedocumented in this encounter Care Teams Detention Officer Relationship Specialty Start Date End Date Martell Rosado MD [address] [place] [address] PCP - General 08/06/17 documented as of this encounter
--- OUTSIDE RECORDS SUMMARY | 2023-11-03 18:40 | XMS_ITS | Encounter Summary ---
Author Organization [facility] Address [address] [place] [address] Care Team Providers Care Bobbin Drier Name Role Phone Martell Rosado MD Primary Care Provider [phone] Reason for Visit * Reason Onset Date Comments Coordination Of Care 02/09/2019 Encounter Details Date Type Department Care Team (Late st Contact Info) Description 02/09/2019 Telephone [facility] Reproductive Medicine & Infertility Center - [facility] [address] [place] [address] Enma Cardenas, TAYLOR Coordination Of Care Social History Tobacco Use [...] encounter Miscellaneous Notes * Telephone Encounter - Enma Cardenas, TAYLOR - 02/09/2019 1056 EST PC from Sirisha to report that she is currently 14 days past ovulation. She reports faintly positiveUPT's on day 11, 12, and 13, but today is negative. Wondering if she should stop her luteal progesterone or wait a few more days. Additionally, states that she would like to hold off on TTC at this time for at least a few months.She is asking if the Nuvaring is recommended as a therapy for her irregular periods and hirsutism/acne, or if it was just offered as a form of contraception. She is open to using it for a few months if recommended. Otherwise she would plan to continue using her natural family planning device, with the understanding that this method is less effective than hormonal contraception which she states she understands. She asks that I review with Dr [place]. In the meantime, she is interested in beta HCG to confirm that it's okay to stop progesterone. Order routed to [facility] lab. documented in this encounter Plan of Treatment Not on file documented as of this encounter Visit Diagnoses Diagnosis Encounter for test, result unknown- Primary documented in this encounter Care Teams Bobbin Drier Relationship Specialty Start Date End Date Martell Rosado [place] [address] PCP - General 08/06/17 documented as of this encounter
--- OUTSIDE RECORDS SUMMARY | 2023-11-03 18:40 | XMS_ITS | Encounter Summary ---
Author Organization [facility] Address [address] [place] [address] Care Team Providers Care Printed Circuit Board Panels Trimmer Name Role Phone Martell Rosado MD Primary Care Provider [phone] Reason for Visit * Reason Onset Date Comments Results 01/02/2018 Encounter Details Date Type Department Care Team (Late st Contact Info) Description 01/02/2018 Telephone [facility] Reproductive Medicine & Infertility Center - [facility] [address] [place] [address] Alana Mcnair RN Results Social History Tobacco [...] Telephone Encounter - Alana Mcnair RN - 01/02/2018 0949 EDT Reviewed normal lab results with pt, who verbalized understanding. She will call with CD#1 to schedule cavity eval. * Telephone Encounter - Alana Mcnair RN - 01/02/2018 0949 EDT ----- Message from Claudia Arvizu MD sent at 01/01/2018 15:02 EDT ----- Let her know the rest of her RPL labs are normal, and hCG negative. She can schedule [facility] for cavity eval as next step. Claudia Arvizu MD documented in this encounter Plan of Treatment Not on file documented as of this encounter Visit Diagnoses Not on filedocumented in this encounter Care Teams Printed Circuit Board Panels Trimmer Relationship Specialty Start Date End Date Martell Rosado MD [address] [place] [address] PCP - General 08/06/17 documented as of this encounter
--- OUTSIDE RECORDS SUMMARY | 2023-11-03 18:40 | XMS_ITS | Encounter Summary ---
Author Organization [facility] Address [address] [place] [address] Care Team Providers Care Paving Machine Operator Name Role Phone Martell Rosado MD Primary Care Provider [phone] Encounter Details Date Type Department Care Team (Late Contact Info) Description 08/07/2017 Abstract [facility] Obstetrics & Midwifery - [facility] [address] [place], [place] [address] Florentino Rodríguez MD [address] [place] [address], [address] [place] [address] Social History Tobacco Use Types Packs/Day Years Used Date Smoking Tobacco: Never Assessed Sex and Gender Information Value Date Recorded Sex Assigned at Not on file Gender Identity Not on file Sexual Orientation Not on file documented as of this encounter Plan of Treatment Not on file documented as of this encounter Visit Diagnoses Not on filedocumented in this encounter Care Teams Paving Machine Operator Relationship Specialty Start Date End Date Martell Rosado MD [address] [place] [address] [place] [address] PCP - General 08/06/17 documented as of this encounter
--- OUTSIDE RECORDS SUMMARY | 2023-11-03 18:40 | XMS_ITS | Encounter Summary ---
Author Organization [facility] Address [address] [place] [address] Care Team Providers Care Sound Effects Manager Name Role Phone Unknown, Provider Primary Care Provider [phone] Encounter Details Date Type Department Care Team (Latest Contact Info) Description 08/01/2017 15:30 EDT - 08/01/2017 23:59 EDT Hospital Encounter [address] [address] Unknown, Provider, Discharge Disposition: Home or Self Care Social History Tobacco Use Types Packs/Day Years Used Date Smoking Tobacco: Never Assessed Sex and Gender Information Value Date Recorded Sex Assigned at Not on file Gender Identity Not on file Sexual Orientation Not on file documented as of this encounter Discharge Disposition Disposition Code Departure Means Destination Home or Self Long-Term documented in this encounter Plan of Treatment Not on file documented as of this encounter Visit Diagnoses Not on filedocumented in this encounter Care Teams Sound Effects Manager Relationship Specialty Start Date End Date Unknown, Provider, PCP - General 01/12/15 08/05/17 documented as of this encounter
--- OUTSIDE RECORDS SUMMARY | 2023-11-03 18:40 | XMS_ITS | Encounter Summary ---
Author Organization [facility] Address [address] [place] [address] Care Team Providers Care Impact Retail Service Merchandiser Name Role Phone Martell Rosado MD Primary Care Provider [phone] Reason for Visit * Reason Onset Date Comments Results 05/17/2019 Encounter Details Date Type Department Care Team (Late st Contact Info) Description 05/17/2019 Telephone [facility] Reproductive Medicine & Infertility Center - [address] [address] Renata Bhatia, TAYLOR Results Social History Tobacco Use Types Packs/Day [...] Telephone Encounter - Renata Bhatia RN - 05/17/2019 1050 EDT Call to Sirisha with hCG results from this morning. hCG is positive and indicative of early . Advised pt to repeat hCG on 05/18. If rise appropriate, can schedule US between 6-7 weeks of . HCG= 112 Currently taking synthroid? No documented in this encounter Plan of Treatment Not on file documented as of this encounter Visit Diagnoses Diagnosis Early stage of - Primary state, incidental documented in this encounter Care Teams Impact Retail Service Merchandiser Relationship Specialty Start Date End Date Martell Rosado MD [address] [place] [address] PCP - General 08/06/17 documented as of this encounter
--- OUTSIDE RECORDS SUMMARY | 2023-11-03 18:40 | XMS_ITS | Encounter Summary ---
Author Organization [facility] Address [address] [place] [address] Care Team Providers Care Dock Clerk Name Role Phone Martell Rosado MD Primary Care Provider [phone] Reason for Visit * Reason Onset Date Comments Results 03/13/2018 Encounter Details Date Type Department Care Team (Late st Contact Info) Description 03/13/2018 Telephone [facility] Reproductive Medicine [facility] Infertility Center [address] [address] Claudia Arvizu MD [address] [place] [address], [facility] [address] [place] [address] Results Social History Tobacco Use Types Packs/Day [...] encounter Miscellaneous Notes * Telephone Encounter - Claudia Arvizu MD - 03/13/2018 1445 EST Component Latest Ref Rng & Units 03/12/2018 25OH Vitamin D Tot 30 - 100 ng/ml 20.9 (L) Vitamin D Blood Levels: 20-25 ng/mL: 4,000 IU daily and recheck in 10-12 weeks With , all patients should reduce their vitamin D supplementation to 2,000 IU/day and continue a to take a daily multivitamin with 400 ugm of folic acid. She agrees to this plan. Claudia Arvizu MD documented in this encounter Plan of Treatment Not on file documented as of this encounter Visit Diagnoses Not on filedocumented in this encounter Care Teams Dock Clerk Relationship Specialty Start Date End Date Martell Rosado [place] [address] [place] [address] PCP - General 08/06/17 documented as of this encounter
--- OUTSIDE RECORDS SUMMARY | 2023-11-03 18:40 | XMS_ITS | Encounter Summary ---
Author Organization [facility] Address [address] [place] [address] Care Team Providers Care Deliverer Merchandise Name Role Phone Martell Rosado MD Primary Care Provider [phone] Encounter Details Date Type Department Care Team (Latest Contact Info) Description 06/03/2019 Travel Social History Tobacco Use Types Packs/Day [...] on filedocumented in this encounter Care Teams Deliverer Merchandise Relationship Specialty Start Date End Date Martell Rosado MD [address] [place], [place] [address] [place] [address] PCP - General 08/06/17 documented as of this encounter
--- OUTSIDE RECORDS SUMMARY | 2023-11-03 18:40 | XMS_ITS | Encounter Summary ---
Author Organization [facility] Address [address] [place] [address] Care Team Providers Care Gas Utility Worker Name Role Phone Martell Rosado MD Primary Care Provider [phone] Reason for Visit * Reason Onset Date Comments 05/14/2019 Encounter Details Date Type Department Care Team (Late st Contact Info) Description 05/14/2019 Telephone [facility] Reproductive Medicine & Infertility Center - [address] [address] Renata Bhatia RN Social History Tobacco Use Types [...] twice a day. 90 Cap 05/14/2019 documented in this encounter Miscellaneous Notes * Telephone Encounter - Renata hBatia RN - 05/14/2019 1326 EST Call from Sirisha to report +UPT 9 day s/p ovulation. She has appt with Dr. Arvizu on 05/16. Advised her that we can cancel this appt and she can have blood drawn at [facility] on 05/16. If positive, would repeat in 48 hours and schedule US at 6 weeks of . Sirisha verbalized agreement to this plan. Refilled Prometrium RX to last through 10 weeks of . No further questions at this time. documented in this encounter Plan of Treatment Not on file documented as of this encounter Visit Diagnoses Diagnosis examination or test, unconfirmed- Primary documented in this encounter Discontinued Medications Medication Sig Discontinue Reason Start Date End Da te progesterone (PROMETRIUM) [address] 1 cap in vagina twice a day. Reorder 04/05/2019 05/14/2019 documented as of this encounter Care Teams Gas Utility Worker Relationship Specialty Start Date End Date Martell Rosado [place] [address] [place] [address] PCP - General 08/06/17 documented as of this encounter
--- OUTSIDE RECORDS SUMMARY | 2023-11-03 18:40 | XMS_ITS | Encounter Summary ---
Author Organization [facility] Address [address] [place] [address] Care Team Providers Care Wood Products Manufacturer Name Role Phone Martell Rosado MD Primary Care Provider [phone] Encounter Details Date Type Department Care Team (Late st Contact Info) Description 08/08/2017 15:00 EDT Initial consult [facility] Women's Services - [address] [id number] Florentino Rodríguez MD [address] [place] [address], [address] [place] [address] Family history of congenital heart disease (Primary Dx); Encounter for procreative genetic counseling Social History Tobacco Use Types Packs/Day Years Used Date Smoking Tobacco: Never Assessed Sex and Gender Information Value Date Recorded Sex Assigned at Not on file Gender Identity Not on file Sexual Orientation Not on file documented as of this encounter Progress Notes * Florentino Rodríguez MD - 08/08/2017 1500 EDT This office note has been dictated. documented in this encounter Consult Notes * Florentino Rodríguez MD - 08/08/2017 0000 EDT [facility] - 08/08/2017 This patient is referred from [facility], Charisma Tubbs CNM. The indication for today's consultation is the patient's family history of congenital heart abnormality as well as her recent history of miscarriage. Ms De La Cruz is a 26-year-old 2, para 0, who comes to today's consultation accompanied by her . The patient reports that she was initially scheduled for consultation with me because of ongoing . However, as of last week her was identified by ultrasound as being nonviable and she underwent a dilation and curettage. She reports that at the time of the ultrasound, she should have been 11 weeks gestation, but the embryo was approximately 8-week size and did not have any heartmotion. Of note, is the fact that she had had a 6-week scan for dating that showed a viable embryo and then a followup at 8 weeks that continued to show a heartbeat. Her prior was identified only through positive hCG testing. She never had an ultrasound during that . After obtaining this history, we went on to discuss her 's history of congenital heart anomaly. He reports that he was born with d-transposition of the great vessels and some degree of pulmonary artery stenosis that required balloon angioplasty. Since his childhood he has basically been wellwith respect to his heart problems and he reports that Dr Pacheco who followed him here at [facility] has told him that he should get occasional follow up with a salvage repairer as an adult, but that he does not anticipate any ongoing problems. The patient's also reports that his general health has been good and that he does not have any other chronic medical problems. I went on to explain that in general first-degree relatives of those affected with a congenital heart anomaly are at significant increased risk. The overall background incidence of congenital heart anomalies in the population approaches 1% and first-degree relatives of those with a congenital heartanomaly have a chance to be affected of closer to 5%. However, if one looks at the details of what type of heart anomaly, it turns out that transposition of the great vessels is associated with a substantially lower recurrence risk than other types of heart anomalies. Recent studies have suggested that the chances for this gentleman to have a child affected with transposition of the great vesselsor any other major heart anomaly is probably more on the order of 2% rather than 5. That said, there is no specific testing for congenital heart anomaly at least no genetic testing. The way we would manage a in this couple in the future would be to perform a routine OB ultrasound at 20 weeks and if this was completely normal, perhaps that would be all the information that was needed. If there would be any question or abnormality, then a echocardiogram could be pursued. If the OBultrasound and/or echocardiogram are normal, the anticipation would be that the outcome wouldbe normal. I did bring up the idea that congenital heart anomalies can be sometimes associated withmicrochromosome abnormalities and in this situation the recurrence risk is no doubt higher than thegeneral population recurrence risk. That said, in this case, there is no reason to suspect a microchromosome abnormality given the completely isolated nature of the patient's 's congenital heart abnormality. Once this part of the discussion was out of the way, we went on to talk about miscarriage. I explained to the patient that the miscarriage literature is unclear about the significance or the importance of so-called chemical pregnancies. Most authors believe that chemical pregnancies of the type that she describes probably do not count as miscarriages in the classic sense of the word. Clearly the second loss that she had with her second is a classic miscarriage and as I explained to her it slightly increases the risk of miscarriage in a subsequent . The other thing that we discussed is that doing any specific evaluation at this point is probably unlikely to be helpful. Theonly lab test that I would particularly consider in this situation would be a TSH level to make sure her thyroid function is adequate. The patient reports that she did have a TSH recently as part of her OB evaluation and that it was normal. I do not have results of such a test, but she feels quite certain. 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 I briefly evaluated her. She does not appear to haveany of the classic features of Eufemia- Danlos syndrome such as finger joint hypermobility or skin hypermobility, nor does she have any classic scarring of her skin such as is often seen in Eufemia-Danlos. Therefore, I think it is quite unlikely that this patient has any of the many different varieties of Eufemia-Danlos syndrome. 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 This couple understands that the recurrence risk for this condition is around 2% and that pregnancies should be evaluated by ultrasound and/or echocardiogram depending on OB ultrasound findings. This consultation was entirely devoted to discussion and planning and lasted 30 minutes. ADDENDUM: The patient's reports that he has 4 siblings, none of whom have any congenital malformation of the heart or other problems. He also reports that he does not know of anybody in his more extended family with any congenital malformation of the heart or other potentially inherited problems. Specifically, nobody is affected with cystic fibrosis, muscular dystrophy or other issues. He did bring a family tree that shows that multiple members have been affected with diabetes as well as Parkinson's disease late in life. There was no pattern of early onset disease that would suggest afamilial predisposition to Parkinson's. The patient herself also reports an essentially negative family history. She has 4 younger brothers, several of whom have medical problems, but not ones that are expected to have an inherited basis. She does not report any family members with congenital heartdisease, cystic fibrosis, muscular dystrophy or other issues. Florentino Rodríguez MD 04 01 PM - Florentino Rodríguez MD ln Dictation ID: [id number] cc: Charisma Tubbs [facility], [address] [place] [id number] documented in this encounter Plan of Treatment Not on file documented as of this encounter Visit Diagnoses Diagnosis Family history of congenital heart disease- Primary Family history of congenital anomalies Encounter for procreative genetic counseling documented in this encounter Care Teams Wood Products Manufacturer Relationship Specialty Start Date End Date Martell Rosado [place] [address] [place] [address] PCP - General 08/06/17 documented as of this encounter
--- OUTSIDE RECORDS SUMMARY | 2023-11-03 18:40 | XMS_ITS | Encounter Summary ---
Author Organization [facility] Address [address] [place] [address] Care Team Providers Care Certified Orthotist Practice Manager Name Role Phone Martell Rosado MD Primary Care Provider [phone] Reason for Visit * Reason Comments Follow-up cycle irregulars. cy ailin day 53 today, not ovulating this cycle, facial hair worsening Encounter Details Date Type Department Care Team (Late st Contact Info) Description 01/13/2019 14:00 EST Office Visit [facility] Reproductive [facility] Inf[facility] - [address] [address] Renata Melgoza MD [address] [facility], [address] [place] [address] [place] [phone] [address] Irregular menses (Primary Dx); Recurrent loss; Abnormal uterine bleeding (AUB); Hirsutism Social History Tobacco Use Types Packs/Day [...] Body Mass Index 30.01 01/13/2019 1343 EST documented in this encounter Functional Status [...] new ring, as directed. 3 Each 5 01/13/2019 01/18/2019 documented in this encounter Progress Notes * Patricio Hurst MD, MD - 01/13/2019 1400 EST 01/13/2019 FOLLOW-UP PATIENT: Sirisha De La Cruz CHIEF COMPLAINT Follow-up (cycle irregulars. cycle day 53 today, not ovulating this cycle, facial hair worsening) HISTORY OF PRESENT ILLNESS Sirisha De La Cruz is a 28 y.o. who presents with increasingly irregular menses and increased hirsutism HPI - Patient last seen in March [address] Arvizu following a RPL work-up (which was negative, including normal parental karyotypes). At that visit, Dr Arvizu had discussed luteal phase progesterone support with subsequent cycles. 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 Past Surgical History: Procedure Laterality Date ??? DILATION AND CURETTAGE OF UTERUS N/A 08/01/2017 Family History Problem Relation Age of Onset ??? Heart Defect Mother SVT ??? Thyroid Disease Mother Hypothyroidism ??? Hypertension Father ??? High Cholesterol Father ??? No Known Brother ??? Cancer Maternal Grandmother Bone cancer ??? Colon Cancer Maternal Grandfather ??? *Other(comment) Paternal Grandfather Benign brain tumor ??? No Known Brother ??? No Known Brother ??? No Known Brother Social History Tobacco Use ??? Smoking status: Never Smoker ??? Smokeless tobacco: Never Used Substance Use Topics ??? Alcohol use: No ??? Drug use: No MEDICATIONS Current Outpatient Medications Medication Sig Dispense Refill ??? acetaminophen (TYLENOL 8 HOUR ORAL) Take by mouth as needed. ??? ascorbic acid, vitamin C, (VITAMIN C) 100 mg tablet Take 100 mg by mouth daily. ??? Cholecalciferol, Vitamin D3, (VITAMIN D3) 2,000 unit capsule Take by mouth daily. ??? docosahexanoic acid (DHA ORAL) Take 2 Tabs by mouth daily. ??? ethinyl estradiol-etonogestrel (NUVARING) 0.12-0.015 mg/24 hr vaginal ring Wear continuously for 3 weeks; remove for 1 week; repeat with new ring, as directed. 3 Each 5 ??? no122/iron/folic acid ( MULTI ORAL) Take 1 Tab by mouth daily. No current facility-administered medications for this visit. ALLERGIES Allergies Allergen Reactions ??? Citalopram Other (See Comments) Worsening of mental health ??? Sulfa (Sulfonamide Antibiotics) Rash Pt reports reaction happened in infancy REVIEW OF SYSTEMS Constitutional: Negative for chills, fatigue and fever. HENT: Increased facial hair, acne Respiratory: Negative for cough, shortness of breath and wheezing. Cardiovascular: Negative for chest pain, palpitations and leg swelling. Gastrointestinal: Negative for abdominal pain, constipation, diarrhea, nausea and vomiting. Genitourinary: Positive for menstrual problem. Negative for pelvic pain and vaginal discharge. Musculoskeletal: Negative for back pain, myalgias and neck pain. Skin: Negative for color change, pallor, rash and wound. Neurological: Negative for dizziness, light-headedness and headaches. Psychiatric/Behavioral: Negative for decreased concentration and dysphoric mood. The patient is notnervous/anxious. VITALS Vitals: 01/13/19 1343 BP: 108/72 Weight: 83.1 kg (183 lb 3.2 oz) Height: 166.4 cm (65.51) Body mass index is 30.01 kg/m??. PHYSICAL EXAM Vitals reviewed.Constitutional: She is oriented to person, place, and time. She appears well-developed and well-nourished. No distress. HENT: Head: Normocephalic and atraumatic. Some facial hair s/p shaving Pulmonary/Chest: Effort normal. No respiratory distress. Musculoskeletal: Normal range of motion. She exhibits no edema. Neurological: She is alert and oriented to person, place, and time. No cranial nerve deficit. Skin: Skin is warm and dry. No rash noted. She is not diaphoretic. No erythema. No pallor. Psychiatric: She has a normal mood and affect. Her behavior is normal. Judgment and thought contentnormal. ASSESSMENT 28yo with a history of RPL, now presenting with increasingly irregular menses and worseninghirsutism PLAN Sirisha was seen today for follow-up. Diagnoses and all orders for this visit: Irregular menses - THYROID CASCADE; Future - HEMOGLOBIN A1C; Future - PROLACTIN; Future - TESTOSTERONE, TOTAL AND FREE; Future - DHEA SULFATE; Future - VITAMIN D (25,OH); Future - ethinyl estradiol-etonogestrel (NUVARING) 0.12-0.015 mg/24 hr vaginal ring; Wear continuously for3 weeks; remove for 1 week; repeat with new ring, as directed. Recurrent loss Abnormal uterine bleeding (AUB) - THYROID CASCADE; Future - HEMOGLOBIN A1C; Future - VITAMIN D (25,OH); Future - ethinyl estradiol-etonogestrel (NUVARING) 0.12-0.015 mg/24 hr vaginal ring; Wear continuously for3 weeks; remove for 1 week; repeat with new ring, as directed. Hirsutism - TESTOSTERONE, TOTAL AND FREE; Future - DHEA SULFATE; Future Other orders - ascorbic acid, vitamin C, (VITAMIN C) 100 mg tablet; Take 100 mg by mouth daily. - Cholecalciferol, Vitamin D3, (VITAMIN D3) 2,000 unit capsule; Take by mouth daily. - acetaminophen (TYLENOL 8 HOUR ORAL); Take by mouth as needed. - We will draw an androgen panel today to assess reasons for her worsening hirsutism - Will also draw a thyroid cascade and prolactin to assess her irregular menses - HbA1c given suspected hyperandrogenism and recent weight gain - Vitamin D level to assess responsiveness to vitamin D supplementation (was vit D insufficient during her initial work-up) - Discussed the use of hormonal control to increase SHBG and reduce clinical evidence of hyperandrogenism. Patient does not want to go back on OCPs. Discussed Nuvaring as an alternative with less systemic hormone release, should help to decrease her circulating androgens and better regulate her menses. She is willing to try, will send to her pharmacy. - Also discussed the possibility of adding metformin if her HbA1c is high - Again discussed the possibility of luteal phase progesterone supplementation when she starts trying for , advised her to call with the start of a cycle, we would start vaginal [id number] BID the day after a positive OPK. Above findings, assessment and plan discussed with Dr Melgoza (ELVA Attending) at the time of consultation. Patricio Hurst MD, PGY5 Fellow Reproductive Endocrinology & Infertility [facility] 01/13/2019 / 14:22 * Renata Melgoza MD, MD - 01/13/2019 1400 EST Attestation statement: I discussed the patient with the resident/fellow at the time of the visit. Iagree with the findings and the plan of care documented in the resident's/fellow's note. documented in this encounter Plan of Treatment Not on file documented as of this encounter Procedures Procedure Name Priority Date/Time Associated Diagnosis Comments THYROID CASCADE Routine 01/13/2019 14:27 EST Abnormal uterine bleeding (AUB) Irregular menses VITAMIN D (25,OH) Routine 01/13/2019 14: 27 EST Irregular menses Abnormal uterine bleeding (AUB) PROLACTIN Routine 01/13/2019 14:27 EST Irregular menses DHEA SULFATE Routine 01/13/2019 14:27 EST Irregular menses Hirsutism TESTOSTERONE, TOTAL AND FREE Routine 01/13/2019 14:27 EST Hirsutism Irregular menses HEMOGLOBIN A1C Routine 01/13/2019 14:27 EST Abnormal uterine bleeding (AUB) Irregular menses documented in this encounter Results * VITAMIN D (25,OH) (01/13/2019 14:27 EST) 25OH Vitamin D Tot 43.7 30 - 100 ng/ml 01/14/2019 10:26 EST [facility] Comment: Reference Range: Deficient = <10 ng/ml Insufficient = 10-30 ng/ml Sufficient = 30-100 ng/ml Toxic = >100 ng/ml Blood specimen (specimen) BLOOD SPECIMEN / Unknown 01/13/2019 14:27 EST 01/13/2019 14:30 EST Renata Melgoza MD CHEMISTRY & BLOOD G ORDERABLES [facility] [address] [place] [address] * DHEA SULFATE (01/13/2019 14:27 EST) DHEA Sulfate 344 96 - 512 ug/dl 01/15/2019 9:59 EST [facility] Blood specimen (specimen) BLOOD SPECIMEN / Unknown 01/13/2019 14:27 EST 01/13/2019 14:30 EST Renata Melgoza MD CHEMISTRY & BLOOD G ORDERABLES Performing Organization Address [facility] de Phone Number [facility] [address] [place] [address] * TESTOSTERONE, TOTAL AND FREE (01/13/2019 14:27 EST) Testosterone 37 ng/dl 01/14/2019 10:26 [facility] Comment: Reference Range: Premenopausal (21-60 yrs): ??9-48 ng/dL Postmenopausal (45-89 yrs): ??<46 ng/dL The results of this assay can be falsely elevated due to the consumption of Biotin. Sex Hormone Bnd Glob 41.3 nmol/L 01/14/2019 10:16 [facility] Comment: Reference Range: Premenopausal (21-60 yrs): ??>10.8 nmol/L Postmenopausal (45-89 yrs): 23.2-159.1 nmol/L The results of this assay can be falsely lowered due to the consumption of Biotin. Free Testosterone 0.6 0.1 - 1.1 ng/dl 01/14/2019 10:26 [facility] Comment: Test not recommended in patients with plasma protein abnormalities. Blood specimen (specimen) BLOOD SPECIMEN / Unknown 01/13/2019 14:27 EST 01/13/2019 14:30 EST Renata Melgoza MD CHEMISTRY & BLOOD G ORDERABLES Performing Organization Address [facility] Co de Phone Number [facility] [address] [place] [address] * PROLACTIN (01/13/2019 14:27 EST) Prolactin 7.9 ng/ml 01/14/2019 9:54 [facility] Comment: Non-: 2.8-29.2 : 9.7-208.5 Post Menopausal: 1.8-20.3 Blood specimen (specimen) BLOOD SPECIMEN / Unknown 01/13/2019 14:27 EST 01/13/2019 14:30 EST Renata Melgoza MD CHEMISTRY & BLOOD G ORDERABLES Performing Organization Address [facility] de Phone Number [facility] [address] [place] [address] * HEMOGLOBIN A1C (01/13/2019 14:27 EST) Hemoglobin A1C 5.1 % 01/14/2019 9:43 EST [facility] Comment: Reference Range: <5.7% Normal 5.7-6.4% Prediabetes =>6.5% Diagnostic for diabetes (if confirmed) Goals for glycemic control in diabetes ADA 2017 For non adults with diabetes: ?? Target <7.0% For children and adolescents with type 1 diabetes: ?? Target <7.5% More or less stringent targets may be appropriate for individual patients. Est Avg Glucose 100 mg/dl 9 9:43 EST [facility] Comment: eAG represents the A1c result expressed as average glucose in mg/dl. Blood specimen (specimen) BLOOD SPECIMEN / Unknown 01/13/2019 14:27 EST 01/13/2019 14:30 EST Renata Melgoza MD CHEMISTRY & BLOOD G ORDERABLES Performing Organization Address [facility] de Phone Number [facility] [address] [place] [address] * THYROID CASCADE (01/13/2019 14:27 EST) TSH 1.80 0.47 - 4.68 uIU/ml 01/13/2019 16:18 EST [facility] Comment: TSH cascade is not recommended for patients in which pituitary or hypothalamic disorders are suspected. The results of this assay can be falsely lowered due to the consumption of Biotin. Blood specimen (specimen) BLOOD SPECIMEN / Unknown 01/13/2019 14:27 EST 01/13/2019 14:30 EST Renata Melgoza MD CHEMISTRY & BLOOD G ORDERABLES Performing Organization Address [facility] Co de Phone Number [facility] [address] [place] [phone] documented in this encounter Visit Diagnoses Diagnosis Irregular menses- Primary Irregular menstrual cycle Recurrent loss Abnormal uterine bleeding (AUB) Hirsutism documented in this encounter Historical Medications * This list may reflect changes made after this encounter. Medication Sig Dispensed Refills Start Date End Date acetaminophen (TYLENOL 8 HOUR ORAL) Take by mouth as needed. Cholecalciferol, Vitamin D3, (VITAMIN D3) 2,000 unit capsule Take by mouth daily. ascorbic acid, vitamin C, (VITAMIN C) 100 mg tablet Take 100 mg by mouth daily. added in this encounter Care Teams Certified Orthotist Practice Manager Relationship Specialty Start Date End Date Martell Rosado MD [facility] [place] [address] PCP - General 08/06/17 documented as of this encounter
--- OUTSIDE RECORDS SUMMARY | 2023-11-03 18:40 | XMS_ITS | Encounter Summary ---
Author Organization [facility] Address [address] [place] [address] Care Team Providers Care Shingles Roofer Helper Name Role Phone Martell Rosado MD Primary Care Provider [phone] Encounter Details Date Type Department Care Team (Late st Contact Info) Description 07/09/2019 Lab Requisition [facility] Pathology & Laboratory Medicine - [facility] [address] [place] [address] Outr Resulting Lab, Provider Social History Tobacco [...] RNA BY PCR Routine 07/08/2019 16:05 EDT HEPATITIS B SURFACE ANTIGEN Routine 07/08/2019 16:05 EDT documented in this encounter Results * HEPATITIS B SURFACE ANTIGEN (07/08/2019 16:05 EDT) Hep B Surface Ag Negative Negative 07/12/2019 9:54 EDT [facility] Blood VENOUS BLOOD / Unknown 07/08/2019 16:05 EDT 07/09/2019 15:56 EDT Provider Outr Resulting Lab CHEMISTRY & BLOOD GAS ORDERABLES [facility] [address] [place] [address] * HEPATITIS C AB W REFLEX TO HCV RNA BY PCR (07/08/2019 16:05 EDT) Hep C Antibody Negative Negative 07/12/2019 10:59 EDT [facility] Blood VENOUS BLOOD / Unknown 07/08/2019 16:05 EDT 07/09/2019 15:56 EDT Provider Outr Resulting Lab CHEMISTRY & BLOOD GAS ORDERABLES Performing Organization Address City/[facility]/ZIP Co de Phone Number [facility] [address] [place] [address] documented in this encounter Visit Diagnoses Not on filedocumented in this encounter Additional Health Concerns Infection Onset Date Last Indicated Resolved Time COVID-19 04/13/2022 04/13/2022 05/03/2022 22:1 5 EST documented as of this encounter Care Teams Shingles Roofer Helper Relationship Specialty Start Date End Date Martell [place] [address] [place] [address] PCP - General 08/06/17 documented as of this encounter
--- OUTSIDE RECORDS SUMMARY | 2023-11-03 18:40 | XMS_ITS | Encounter Summary ---
Author Organization [facility] Address [address] [place] [address] Care Team Providers Care Reefer Truck Driver Name Role Phone Martell Rosado MD Primary Care Provider [phone] Reason for Visit * Reason Onset Date Comments Appointment Related 01/05/2018 Encounter Details Date Type Department Care Team (Late st Contact Info) Description 01/05/2018 Telephone [facility] - [facility] [address] [place] [address] Alana Mcnair RN Appointment Related Social History Tobacco Use Types [...] Telephone Encounter - Alana Mcnair RN - 01/05/2018 0935 EDT Returned VM from pt, who is CD#4 today, to schedule SHG. Cycle length generally 30-50 days. Scheduled for 01/12 at 0820, CD11. Pt advised that she can take ibuprofen prior to exam for potential uterine cramping. documented in this encounter Plan of Treatment Not on file documented as of this encounter Visit Diagnoses Not on filedocumented in this encounter Care Teams Reefer Truck Driver Relationship Specialty Start Date End Date Martell [place] [address] [address] [place] [address] PCP - General 08/06/17 documented as of this encounter
--- OUTSIDE RECORDS SUMMARY | 2023-11-03 18:40 | XMS_ITS | Encounter Summary ---
Author Organization [facility] Address [address] [place] [address] Care Team Providers Care Ammonium Hydroxide Operator Name Role Phone Martell Rosado MD Primary Care Provider [phone] Encounter Details Date Type Department Care Team (Late st Contact Info) Description 05/17/2019 Lab Requisition [facility] Pathology & Laboratory Medicine - [facility] [address] [place] [address] Unknown, Provider, Social History Tobacco Use Types Packs/Day [...] Priority Date/Time Associated Diagnosis Comments PROGESTERONE Routine 05/17/2019 9:18 EDT documented in this encounter Results * PROGESTERONE (05/17/2019 9:18 EDT) Progesterone 18.9 See Table ng/mL 05/17/2019 17:29 EDT [facility] Comment: Female Reference [...] been established. Blood VENOUS BLOOD / Unknown 05/17/2019 9:18 EDT 05/17/2019 15:57 EDT Provider Unknown CHEMISTRY & BLOOD GA S ORDERABLES [facility] [address] [place] [address] documented in this encounter Visit Diagnoses Not on filedocumented in this encounter Additional Health Concerns Infection Onset Date Last Indicated Resolved Time COVID-19 04/13/2022 04/13/2022 05/03/2022 22:1 5 EST documented as of this encounter Care Teams Ammonium Hydroxide Operator Relationship Specialty Start Date End Date Martell Rosado MD [address] [place] [address] PCP - General 08/06/17 documented as of this encounter
--- OUTSIDE RECORDS SUMMARY | 2023-11-03 18:40 | XMS_ITS | Encounter Summary ---
Author Organization [facility] Address [address] [place] [address] Care Team Providers Care Mail Room Name Role Phone Emigdio Rosado MD Primary Care Provider [phone] Encounter Details Date Type Department Care Team (Late st Contact Info) Description 04/13/2018 Results Only [facility] [phone] Emigdio Rosado MD [address] [place] [address] [place] [address] Social History Tobacco Use Types Packs/Day Years [...] Diagnosis Comments PAP TEST- RESULT ONLY Routine 04/13/2018 0:00 EST documented in this encounter Results * PAP TEST- RESULT ONLY (04/13/2018 0:00 EST) Pathology Report: CYTOPATHOLOGY REPORT Reports generated via electronic interface contain original data; however they are lacking the format of the original report. Caution should be taken when reading/interpreti ng unformatted reports. Name: ? SIRISHA ROE ? Accession #: ? [id number] : ? 1990 (Age: 27) ??F ?Collect Date: ? 04/13/2018 Location: ? [facility] ? Receive Date: ? 04/15/2018 Provider: ?EMIGDIO ROSADO MD Copy to: ? Specimen/Source: ?Pap Test, Cervix, ThinPrep Imaging System with manual evaluation Last Menstrual Period: ? 03/24/18 ? SPECIMEN ADEQUACY ? Satisfactory for Evaluation - transformation zone component present GENERAL CATEGORIZATION ? Negative for Intraepithelial Lesion or Malignancy ? Document reviewed and electronically signed by: ? EMMANUEL Aparicio(ASCP) ? Report Date: ??04/21/2018 10:27 End of Report [facility] 04/13/2018 04/15/2018 Emigdio Rosado MD PATHOLOGY ORDERABLES [facility] [address] [place] [address] documented in this encounter Visit Diagnoses Not on filedocumented in this encounter Care Teams Mail Room Relationship Specialty Start Date End Date Emigdio Rosado MD [address] [place] [address] PCP - General 08/06/17 documented as of this encounter
--- OUTSIDE RECORDS SUMMARY | 2023-11-03 18:40 | XMS_ITS | Encounter Summary ---
Author Organization [facility] Address [address] [place] [address] Care Team Providers Care Demurrage Man Name Role Phone Martell Rosado MD Primary Care Provider [phone] Encounter Details Date Type Department Care Team (Late st Contact Info) Description 02/12/2018 Results Only [facility] Reproductive Medicine [facility] [address] [place] [address] Tiana Celis MD [address] [facility] [place] [address] Social History Tobacco Use Types [...] Procedure Name Priority Date/Time Associated Diagnosis Comments CYTOGENETICS Routine 02/11/2018 0:00 EST documented in this encounter Results * CYTOGENETICS (02/11/2018 0:00 EST) Pathology Report: CYTOGENETICS REPORT Reports generated via electronic interface contain original data; however they are lacking the format of the original report. Caution should be taken when reading/interpret ing unformatted reports. Name: ? JYOTHI, MIRNA Nesbitt ? Accession #: ? [id number] : ? 1990 (Age: 27) ??F ?Collect Date: ? 02/11/2018 Location: ? [facility] ? Receive Date: ? 02/13/2018 Provider: ? TIANA CELIS MD Copy to: ?PITER WINSTON MD ? INTERPRETATION: Normal female karyotype ? Document reviewed and electronically signed by: ? PITER WINSTON MD ? Report Date: ??03/11/2018 09:47 CLINICAL HISTORY: 27 yo female with recurrent loss SPECIMEN: Peripheral Blood TEST PERFORMED: G-banded Karyotype ?? REPORT: Cells Counted: ??30 Cells Analyzed: ??10 Cells Karyotyped: ??10 Band Resolution: ??550-650 ?? KARYOTYPE: 46,XX End of Report [facility] 02/11/2018 02/13/2018 9:2 2 EST Tiana Celis MD PATHOLOGY ORDERAB LES [facility] [address] [place] [address] documented in this encounter Visit Diagnoses Not on filedocumented in this encounter Care Teams Demurrage Man Relationship Specialty Start Date End Date Martell Rosado MD [address] [place] [address] PCP - General 08/06/17 documented as of this encounter
--- OUTSIDE RECORDS SUMMARY | 2023-11-03 18:40 | XMS_ITS | Encounter Summary ---
Author Organization [facility] Address [address] [place] [address] Care Team Providers Care Multi Share Program Coordinator Name Role Phone Martell Rosado MD Primary Care Provider [phone] Reason for Visit * Reason Onset Date Comments Medications Refill 03/01/2019 Encounter Details Date Type Department Care Team (Late Contact Info) Description 03/01/[address] [facility] Reproductive Medicine [facility] - [address] [address] Renata Bhatia RN Medications Refill Social History [...] vagina twice a day. 30 Cap 1 03/01/2019 04/05/2019 documented in this encounter Miscellaneous Notes * Telephone Encounter - Renata Bhatia, TAYLOR - 03/01/2019 1030 EST Call from Sirisha requesting refill of Prometrium for luteal support. Reorder sent to [facility]. Call to Sirisha to advise her refill was sent, continue for 2 weeks and then take UPT. No further questions at this time. documented [...] week; repeat with new ring, as directed. 01/18/2019 03/01/2019 progesterone (PROMETRIUM) [address] 1 cap in vagina twice a day. Reorder 01/28/2019 03/01/2019 documented as of this encounter Care Teams Multi Share Program Coordinator Relationship Specialty Start Date End Date Martell Rosado MD [address] [place] [address] PCP - General 08/06/17 documented as of this encounter
--- OUTSIDE RECORDS SUMMARY | 2023-11-03 18:40 | XMS_ITS | Encounter Summary ---
Author Organization [facility] Address [address] [place] [address] Care Team Providers Care Checkering Machine Operator Name Role Phone Martell Rosado MD Primary Care Provider [phone] Encounter Details Date Type Department Care Team (Late st Contact Info) Description 01/18/2021 Lab Requisition [facility] Pathology & Laboratory Medicine - [facility] [address] [place] [address] Outr Resulting Lab, Provider Social History Tobacco [...] Procedure Name Priority Date/Time Associated Diagnosis Comments PROLACTIN Routine 01/17/2021 15:30 EST documented in this encounter Results * PROLACTIN (01/17/2021 15:30 EST) Prolactin 6.5 See Table ng/mL 01/18/2021 19:46 EST [facility] Comment: NOTE: Female Reference Ranges: PHYSIOLOGICAL STATUS ?EXPECTED RANGE ? Postmenopausal ?1.8 - 20.3 ng/mL ?9.7 - 208.5 ng/mL Non- ?2.8 - 29.2 ng/mL Reference Ranges for Prolactin in female patients <18 years old have not been established. Blood VENOUS BLOOD / Unknown 01/17/2021 15:30 EST 01/18/2021 17:25 EST Provider Outr Resulting Lab CHEMISTRY & BLOOD GAS ORDERABLES [facility] [address] [place] [address] documented in this encounter Visit Diagnoses Not on filedocumented in this encounter Additional Health Concerns Infection Onset Date Last Indicated Resolved Time COVID-19 04/13/2022 04/13/2022 05/03/2022 22:1 5 EST documented as of this encounter Care Teams Checkering Machine Operator Relationship Specialty Start Date End Date Martell Rosado MD [facility] [place] [address] PCP - General 08/06/17 documented as of this encounter
== END 2023-11-03 18:34 | disposition home or self-care (01) ==
LOC: LBN 18:33
PROVIDERS: PCP Student in an Organized Health Care Education/Training Program; Visit Provider Nurse Practitioner Family
DX: J06.9 Acute upper respiratory infection, unspecified (principal)
CPT/HCPCS: 87635

== ENCOUNTER 2023-11-04 10:06 | Outpatient (CLI) | payer BC, SELFPAY ==
--- NOTE | 2023-11-04 10:30 | W.CARDEVENT ---
Date of service: 11/04/23 Time of Service: 10:30 Cardiac Event Recorder Referring Provider:: Sherwin Du Indications:: syncope Cardiac Event Note: This is a cardiac event monitor. Patient was monitored for 13 days and 23 hours Rhythm throughout was sinus with an average heart rate of 74. Minimum was 45, maximum 142 There were very rare isolated atrial and ventricular ectopic beat There was no atrial fibrillation, no high-grade AV block, no pauses greater than 3 seconds Symptoms were reported which had no correlation to any dysrhythmia
== END 2023-11-04 10:07 | disposition home or self-care (01) ==
LOC: CARDOPNVT 10:06
PROVIDERS: PCP Student in an Organized Health Care Education/Training Program; Visit Provider Internal Medicine Cardiovascular Disease
DX: R55 Syncope and collapse (principal)

== ENCOUNTER 2024-05-12 09:09 | Outpatient (REF) | payer OTHER, SELFPAY ==
[2024-05-12 16:42] LABS: Calculated LDL 140 mg/dL (<100); Cholesterol 219 mg/dL (<200); HDL Cholesterol 38 mg/dL (>or=50); Triglyceride 208 mg/dL (<150)
== END 2024-05-12 09:10 | disposition home or self-care (01) ==
LOC: NCHCN 09:09
PROVIDERS: PCP Student in an Organized Health Care Education/Training Program; Visit Provider Student in an Organized Health Care Education/Training Program
DX: R91.1 Solitary pulmonary nodule (principal); Z13.220 Encounter for screening for lipoid disorders
CPT/HCPCS: 80061

== ENCOUNTER 2024-07-12 02:48 | Outpatient (CLI) | payer OTHER, SELFPAY ==
[2024-07-12 13:42] LABS: Vitamin D 25 Total 23 ng/mL (30-100)
[2024-07-12 14:01] LABS: FREE T4 0.86 ng/dL (0.76-1.46)
== END 2024-07-12 02:49 | disposition home or self-care (01) ==
PROVIDERS: PCP Student in an Organized Health Care Education/Training Program; Visit Provider Student in an Organized Health Care Education/Training Program
DX: E06.3 Autoimmune thyroiditis (principal); Z13.1 Encounter for screening for diabetes mellitus; E55.9 Vitamin D deficiency, unspecified
CPT/HCPCS: 36415; 82306; 83036; 84439; 84443

== ENCOUNTER 2024-11-11 07:49 | Emergency (ER) | payer OTHER, SELFPAY ==
[2024-11-11 07:55] VITALS: BP 125/88; PULSE 83; RESP 16; TEMP 36.6; O2SAT 99
--- NOTE | 2024-11-11 08:15 | DI.RAD_ITS ---
Exam(s) XR LUMBAR SPINE COMPLETE EXAM: XR LUMBAR SPINE COMPLETE CLINICAL HISTORY: Lower back pain. TECHNIQUE: 2D digital imaging was performed. Five views. COMPARISON: No exams were available for comparison FINDINGS: BONES: No fracture or destructive lesion. Vertebral body heights are maintained. No facet hypertrophy identified . DISKS: [id number] narrowing of the L5-S1 disc space. The remaining intervertebral disc spaces are maintained. ALIGNMENT: Lumbar spinal alignment is within normal limits. SOFT TISSUE: Normal. IMPRESSION: [id number] narrowing of the L5-S1 disc space, otherwise unremarkable radiographs of the lumbar spine. DATA REPOSITORY: RADIATION DOSE DELIVERED:
--- NOTE | 2024-11-11 08:17 | ED.GENADUL_ITS ---
Discharge Plan Disposition Patient Disposition: Home Condition: Stable Discharge Details Clinical Impression: Bulging lumbar disc Primary Care Provider: Sherwin Du ED Provider: Cristina Pepper Home Meds and New Rx's Prescriptions: New prednisone 20 mg tablet 60 mg PO DAILY 9 Days Qty: 17 0RF Rx Instructions: Take 3 tabs daily x 3 days, Take 2 tabs daily x 3 days, Take one tab daily x 3 days. cyclobenzaprine 10 mg tablet 10 mg PO TID PRN (Reason: muscle spasm) Qty: 10 0RF No Action lactase 3,000 unit tablet,chewable 9,000 unit PO PRN PRN Rx Instructions: administer with meals and/or snacks (if eating dairy) acetaminophen 500 mg capsule 500 mg PO PRN PRN calcium carbonate [Tums] 200 mg calcium (500 mg) tablet,chewable 600 mg PO PRN PRN ibuprofen 200 mg tablet 200 mg PO Q6H PRN cholecalciferol (vitamin D3) 50 mcg (2,000 unit) capsule 50 mcg PO DAILY hydroxyzine HCl 25 mg Tablet 25 mg PO QHS PRN sodium fluoride-pot nitrate 1.1-5 % paste Patient Comments: use a pea sized amount and brush teeth thoroughly twice daily for 2 minutes, in place of your regular toothpaste. after use, spit, do not rinse after brushing Discharge Instructions Instructions: Herniated Disc Exercises, Degenerative Disc Disease ED Additional Instructions: CT shows a large bulging disc at L5-S1. This can explain your symptoms. A physical therapy referral was placed for you, also please call and follow-up with the pain clinic. You may call physical therapy to get in with them. You [place] also [place] [facility] [place] be [place] claims specialist. Please take Tylenol or Ibuprofen with food every 4-6 hours as needed for pain and swelling. Please take the prescribed medications as directed. Prednisone taper, and the muscle relaxer as needed. You may continue to use topical remedies as well also topical diclofenac or Voltaren gel may also be helpful. Alternate ice and heat. No significant bending or lifting over 50 pounds. Follow up with primary care provider in 3-5 days. Return to ED sooner if any worsening weakness in your legs, numbness tingling, loss of bowel or bladder control or concerns. Stand Alone Forms: Physical Therapy Referral, Work Release Referrals: [facility] [Outside] [facility] [place], [place]] Referral Note: Call For Appt Nitish Manriquez DO [OSTEOPATHIC DOCTOR, Pain Medicine] - 1 week Referral Note: ER follow up Bulging Disc L5-S1 Sherwin Du [Primary Care Provider, Medicine] Discharge Data Discharge Date/Time-TO BE ENTERED AT DEPARTURE: 11/11/24 10:55 HPI General Mode of arrival: ambulatory . Date/Time Provider Initiated Documentation: 11/11/24 08:08 . Limitations to Documentation: no limitations . Information obtained by: patient, RN notes reviewed and old records reviewed . HPI Narrative: 34-year-old female presents to the ER with a chief complaint of lower back pain with radiation down both of her legs. She reports that this has been ongoing for the last couple weeks after cleaning she has been seen for this before reports that she has never had imaging. She is wearing a 5% lidocaine patch at the time of examination. Denies any loss of bowel or bladder control, denies any saddle anesthesia. Denies any nausea vomiting diarrhea fever or any other associated symptoms. No history of surgeries to her lower lumbar spine. She does have a past medical history of autoimmune thyroiditis, carpal tunnel, first-degree AV block, syncope migraines, major depression chronic abdominal pain. Related Data Home Medications ?Medication ?Instructions ?Recorded ?Confirmed acetaminophen 500 mg capsule 500 mg PO PRN PRN 0 11/11/24 lactase 3,000 unit chewable tablet 9,000 unit PO PRN P RN 10/04/19 11/11/24 calcium carbonate (Tums) 600 mg PO PRN PRN 12/07/19 0 11/11/24 hydroxyzine HCl 25 mg tablet 25 mg PO QHS PRN 09/24/22 11/11/24 cholecalciferol (vitamin D3) 50 50 mcg PO DAILY 11/11/24 mcg (2,000 unit) capsule ibuprofen 200 mg tablet 200 mg PO Q6H PRN 10/11/22 0 11/11/24 cyclobenzaprine 10 mg tablet 10 mg PO TID PRN muscle s pasm #10 11/11/24 tabs prednisone 20 mg tablet 60 mg (3 x 20 mg) PO DAILY L umbago 11/11/24 9 days #17 tabs sodium fluoride 1.1 %-potassium 11/11/24 nitrate 5 % dental paste Previous Rx's ?Medication ?Instructions ?Recorded cyclobenzaprine 10 mg tablet 10 mg PO TID PRN muscle s pasm #10 11/11/24 tabs prednisone 20 mg tablet 60 mg (3 x 20 mg) PO DAILY L umbago 11/11/24 9 days #17 tabs Allergies Allergy/AdvReac Type Severity Reaction Status Date / Time Sulfa (Sulfonamide Allergy Severe Skin Rash Verified 11/11/24 08:09 Antibiotics) bupropion (From Wellbutrin) AdvReac Intermediate Other (See Verified 11/11/24 08:09 Comment) lorazepam (From Ativan) AdvReac Intermediate Agitation Unverified 11/11/24 08:09 sertraline AdvReac Intermediate Other (See Verified 11/11/24 08:09 Comment) General Stated Complaint: Nk/Back Pain ISMAEL: 4 Review of Systems All systems reviewed & are unremarkable except as noted in HPI and below Constitutional Constitutional: Denies fever(s), Denies frequent falls, Denies headache(s) and Reports weakness (Bilateral legs) ENT Ears, Nose, Mouth, and Throat: Denies headache(s) and Denies neck pain Genitourinary Genitourinary: Denies urinary incontinence, Denies urinary hesitancy and Denies urinary urgency Musculoskeletal Musculoskeletal: Reports as per HPI, Reports abnormal gait, Reports back pain, Denies neck pain, Denies numbness, Reports radiating pain into limb (Bilateral lower legs) and Denies tingling Neurologic Neurologic: Reports abnormal gait, Denies burning sensations, Denies frequent falls, Denies headache(s), Denies lack of coordination, Denies localized weakness, Denies numbness, Reports radicular pain, Denies restless legs, Denies tingling and Reports weakness (Bilateral legs) Exam Back/Spine/Pelvis Back: no CVA tenderness Cervical Spine: normal cervical lordosis Thoracic/Lumbar Spine: thoracic and lumbar spine normal to inspection, straight leg raise negative bilaterally, paraspinal tenderness, thoraco-lumbar ROM limited and lumbar spinal tenderness Pelvis: no pain with anterior-posterior compression and no pain with lateral compression Neuro General: patient alert, patient awake, patient oriented x3, moves all extremities, no meningeal signs, no focal motor deficits and CN's II-XI intact bilaterally Cognition: normal cognition Speech: speech normal Gait: wide-based Motor: muscle tone normal throughout, strength 5/5 throughout, no fasciculations and no tremors Plantar Reflexes: Downgoing: bilateral and Upgoing: bilateral Course Vital Signs Vital signs: Vital Signs Temperature 36.6 C 11/11/24 07:55 Pulse 83 11/11/24 07:55 Respiratory Rate 16 11/11/24 07:55 Blood Pressure 125/88 11/11/24 07:55 Pulse Oximetry 99 11/11/24 07:55 Temperature 36.6 C 11/11/24 07:55 Temperature Source Tympanic 11/11/24 07:55 Pulse 83 11/11/24 07:55 Respiratory Rate 16 11/11/24 07:55 Blood Pressure 125/88 11/11/24 07:55 Blood Pressure Position Sitting 11/11/24 07:55 Pulse Oximetry 99 11/11/24 07:55 Oxygen Delivery Method Room Air 11/11/24 07:55 Oxygen Flow Rate 0 11/11/24 07:55 Pain Level 8 11/11/24 07:55 Medical Decision Making 34-year-old female presents to the ER with a chief complaint of lower back pain with radiation down both of her legs. She reports that this has been ongoing for the last couple weeks after cleaning she has been seen for this before reports that she has never had imaging. She is wearing a 5% lidocaine patch at the time of examination. Denies any loss of bowel or bladder control, denies any saddle anesthesia. Denies any nausea vomiting diarrhea fever or any other associated symptoms. No history of surgeries to her lower lumbar spine. She does have a past medical history of autoimmune thyroiditis, carpal tunnel, first-degree AV block, syncope migraines, major depression chronic abdominal pain. Lumbar spine x-rays ordered, urinalysis and urine test. X-rays show mild to moderate narrowing of the L5-S1 disc space, on patient reevaluation she is tearful reports no improvement in her lower back pain. Discussed options including further imaging due to the leg weakness she agrees to CT imaging at this time. Prednisone [address] shows large bulging disc at L5-S1 putting pressure on the thecal sac. Will encourage follow-up with insurance claims specialist at [facility] will also give physical therapy referral and pain clinic referral. Discussed red flags with patient and family who verbalized understanding. Imaging Data Radiologic Study: Imaging: X-Ray Radiologist's impression: FINDINGS: BONES: No fracture or destructive lesion. Vertebral body heights are maintained. No facet hypertrophy identified . DISKS: [id number] narrowing of the L5-S1 disc space. The remaining intervertebral disc spaces are maintained. ALIGNMENT: Lumbar spinal alignment is within normal limits. SOFT TISSUE: Normal. IMPRESSION: [id number] narrowing of the L5-S1 disc space, otherwise unremarkable radiographs of the lumbar spine. Radiologic Study #2: Imaging: CT Scan Radiologist's impression: COMPARISON: CR XR LUMBAR SPINE COMPLETE from 11/11/2024 FINDINGS: Bones: The last intervertebral disc space is designated the L5/S1 level for the numbering purpose of this examination. The vertebral body heights are well maintained. Alignment is satisfactory. No fracture is seen. T12-L1: No disc herniations or bulges are present. L1-2: No disc herniations or bulges are present. L2-3: No disc herniations or bulges are present. L3-4: No disc herniations or bulges are present. L4-5: No disc herniations or bulges are present. L5-S1: Large central disc herniation measuring 2.5 cm transverse by 1.5 cm AP x 1.7 cm cephalo caudad. This causing significant impression on the thecal sac, deviating it posteriorly. The visualized SI joints and sacrum are well maintained. Soft Tissues: The paraspinal soft tissues are unremarkable. IMPRESSION: Large central disc herniation at L5-S1 with the impression on the thecal sac. Lab Data Lab results reviewed: Yes I reviewed the patient's lab results. Labs: Laboratory Tests Range/Units 11/11/24 08:42 Urine Color (Yellow) Yellow Urine Clarity (Clear) Clear Urine pH (5-8) 5.5 Ur Specific Tebbetts (1.005-1.025) 1.025 Urine Protein (Neg-Trace) mg/dL Trace Urine Ketones (Negative) mg/dL Trace H Urine Blood (Negative) Moderate H Urine Nitrite (Negative) Negative Urine Bilirubin (Negative) Negative Urine Urobilinogen (Up to 0.2) mg/dL 0.2 Ur Leukocyte Esterase (Negative) Negative Urine RBC (0-2) HPF 5-10 H Urine WBC (0-5) HPF Negative Ur Epithelial Cells (Negative) HPF Rare Urine Crystals (Negative) HPF Negative Urine Bacteria (Negative) HPF Negative Urine Casts (Negative) LPF 0-2 Hyaline Urine Mucus (Negative) Trace Ur Culture Indicated? No Urine Glucose (Negative) mg/dL Negative PFSH All Active Problems (Updated 11/11/24 @ 10:35 by Cristina Pepper NP) Bulging lumbar disc (Acute) Encounter for pre-employment health screening examination (Acute) Drug allergy (Acute) Food allergy (Acute) Angioedema (Acute) Urticaria (Acute) Thyroid nodule (Acute) History of dilation and curettage (Acute) Amenorrhea, secondary (Acute) Irregular heart beat (Acute) noted at post visit, thyroid labs drawn Enlarged thyroid gland (Acute) Low back pain (Acute) Knee dislocation (Acute) bilateral intermittent TMJ (dislocation of temporomandibular joint) (Acute) History of recurrent UTIs (Acute) Anxiety disorder (Acute) Migraine (Acute 09/17/12) Medical History Sleep disorder Major depression, recurrent History of recurrent miscarriages Chronic abdominal pain Leukocytosis Oligomenorrhea Autoimmune thyroiditis Back pain Unspecified disturbances of skin sensation Fatigue Carpal tunnel syndrome of right wrist AV block, 1st degree Strep pharyngitis Family history of malignant melanoma Sore throat Colitis, acute Pruritic rash Mouth swelling Postoperative vaginal bleeding History of recurrent , antepartum with uncertain viability Early stage of test positive History of miscarriage 12/2016. Chemical . 07/2017 SAB @ 8w. s/p D&C. 02/2018 Chemical . Syncope, near unknown cause, chronic Migraines Surgical History H/O dilation and curettage 07/2017 SAB @ 8w. wisdom teeth Family History Mother Arthritis Heart disease Hyperthyroidism Hypothyroid Father Essential hypertension Hyperlipidemia Grandfather Alzheimer's dementia Atrial fibrillation Hypothyroid Neoplasm colon Grandfather Benign neoplasm of brain Myocardial infarction Neoplasm brain tumor Grandmother Diabetes Neoplasm bone cancer- breast cancer Kidney failure Parkinsons disease Grandmother Diabetes Dementia Hyperlipidemia S/P triple vessel bypass Social History Smoking/Tobacco Use Status: Never Smoking risk assessment performed?: Yes Alcohol Intake: never Details: w/o etoh since knowledge of Drug use: Never Substance use type: does not use Household members: spouse, children and other Details: H-Per. S-Vidal Number of Children: 1 Seatbelt use: always Do you feel safe at home: Yes Do you feel safe in your relationship?: Yes Female Reproductive History Menstrual control method: none History History 5 Para 1 Hx # Term Pregnancies 1 Multiple births 0 Hx # Pregnancies 0 Ectopic pregnancies 0 AB induced 0 Hx Number of Living Children 1 AB spontaneous 4 Past Pregnancies Del. Date GA/Weeks # Preg Succ Route Wgt Sex Labor Lgth Anesth esia Location Prov Complic 01/14/20 38 No vaginal 3274.37 g Male 16 hrs 27 min ANNA Brito 05/04/21 10 No Delivery Date: 01/14/20 Last Updated by: Ashley Leon LPN Nitrous oxide in labor; Vidalroseanna Mcknight Delivery Date: 05/04/21 Last Updated by: Ashley Leon LPN Embryonic demise; D&C 05/04/21, Medardo Cooper MD
[2024-11-11] MEDS: Cyclobenzaprine 10 MG TAB PO (08:31)
[2024-11-11 08:57] LABS: Glucose Negative (Negative)
[2024-11-11 09:05] LABS: C & S Indicated? No; WBC Negative HPF (0-5)
--- NOTE | 2024-11-11 09:45 | DI.CT_ITS ---
Exam(s) CT LUMBAR SPINE WO EXAM: CT LUMBAR SPINE WO CLINICAL HISTORY: Leg weakness, trouble walking, back pain. TECHNIQUE: Imaging Protocol: Axial computed tomography images with coronal and sagittal reformatted images were created and reviewed COMPARISON: CR XR LUMBAR SPINE COMPLETE from 11/11/2024 FINDINGS: Bones: The last intervertebral disc space is designated the L5/S1 level for the numbering purpose of this examination. The vertebral body heights are well maintained. Alignment is satisfactory. No fracture is seen. T12-L1: No disc herniations or bulges are present. L1-2: No disc herniations or bulges are present. L2-3: No disc herniations or bulges are present. L3-4: No disc herniations or bulges are present. L4-5: No disc herniations or bulges are present. L5-S1: Large central disc herniation measuring 2.5 cm transverse by 1.5 cm AP x 1.7 cm cephalo caudad. This causing significant impression on the thecal sac, deviating it posteriorly. The visualized SI joints and sacrum are well maintained. Soft Tissues: The paraspinal soft tissues are unremarkable. IMPRESSION: Large central disc herniation at L5-S1 with the impression on the thecal sac. RADIATION DOSE DELIVERED: 800.34mGy.cm Total DLP DATA REPOSITORY: All CT scans at this facility are submitted to the National Radiology Data Registry (NRDR) Dose Index Registry (DIR) with the [employer] (A[employer]). RADIATION OPTIMIZATION: All CT scans at this facility use at least one of these dose optimization techniques: automated exposure control; mA and/or kV adjustment per patient size (includes targeted exams where dose is matched to clinical indication); or iterative reconstruction.
[2024-11-11] MEDS: predniSONE 20 MG TAB 60 MG PO (10:34)
[2024-11-11 10:53] VITALS: BP 141/84; PULSE 71; RESP 16; O2SAT 100
== END 2024-11-11 10:55 | disposition home or self-care (01) ==
PROVIDERS: Emergency Provider Registered Nurse Emergency; PCP Student in an Organized Health Care Education/Training Program
DX: M54.50 Low back pain, unspecified (principal); M51.26 Other intervertebral disc displacement, lumbar region
CPT/HCPCS: 99284; 99283; 81025; 72110; 72131; 81003; 81015; J7512

== ENCOUNTER 2024-11-15 07:14 | Emergency (ER) | payer OTHER, SELFPAY ==
[2024-11-15 07:17] VITALS: BP 142/78; PULSE 88; RESP 18; TEMP 36.4; O2SAT 100
--- NOTE | 2024-11-15 07:41 | ED.GENADUL_ITS ---
Discharge Plan Disposition Patient Disposition: Home Discharge Details Clinical Impression: Bulging lumbar disc, Low back pain Primary Care Provider: Sherwin Du ED Provider: Martell Resendiz Home Meds and New Rx's Prescriptions: Continued lactase 3,000 unit tablet,chewable 9,000 unit PO PRN PRN Rx Instructions: administer with meals and/or snacks (if eating dairy) acetaminophen 500 mg capsule 500 mg PO PRN PRN calcium carbonate [Tums] 200 mg calcium (500 mg) tablet,chewable 600 mg PO PRN PRN ibuprofen 200 mg tablet 200 mg PO Q6H PRN cholecalciferol (vitamin D3) 50 mcg (2,000 unit) capsule 50 mcg PO DAILY hydroxyzine HCl 25 mg Tablet 25 mg PO QHS PRN sodium fluoride-pot nitrate 1.1-5 % paste 1 applic dental DAILY Patient Comments: use a pea sized amount and brush teeth thoroughly twice daily for 2 minutes, in place of your regular toothpaste. after use, spit, do not rinse after brushing prednisone 20 mg tablet 60 mg PO DAILY 9 Days Qty: 17 0RF Rx Instructions: Take 3 tabs daily x 3 days, Take 2 tabs daily x 3 days, Take one tab daily x 3 days. cyclobenzaprine 10 mg tablet 10 mg PO TID PRN (Reason: muscle spasm) Qty: 10 0RF Discharge Instructions Additional Instructions: You are seen in the emergency department for your low back pain and the numbness in your right leg. This is likely from your known bulging disc. As we discussed if you develop any weakness in your legs if you take any falls if you lose control of your bowels or bladder or if you have any numbness or tingling between your legs please return to the emergency department. Otherwise please follow-up with a primary care provider. Please continue taking your previously prescribed medications. For your pain please take medications as follows: 1. Take acetaminophen (Tylenol), 1,000 mg (two 500 mg tabs) every 6 hours Discharge Data Discharge Date/Time-TO BE ENTERED AT DEPARTURE: 11/15/24 07:48 HPI General Date/Time Provider Initiated Documentation: 11/15/24 07:14 . HPI Narrative: MDM This is an overall very well-appearing afebrile and not tachycardic 34-year-old female with known history of bulging lumbar disc with no red flags for back pain for which patient will be discharged with empiric trial of expectant outpatient management. No pain out of proportion to suggest necrotizing soft tissue infection. No rash to back to suggest zoster. No saddle anesthesia to suggest cauda equina syndrome. Similarly no loss of bowel or bladder control. No recent spinal instrumentation so my suspicion for spinal epidural hematoma is low. No IV drug use nor fevers to suggest spinal epidural abscess. No history of malignancy to suggest increased risk for spinal epidural abscess. No abdominal pain nor history of AAA to suggest dissection. No abdominal pain to suggest appendicitis. No chest pain to suggest referred pain from PE and patient is PERC negative so I did not send a D-dimer. No dysuria nor frequency to suggest UTI. No falls to suggest hip fracture. Patient and I discussed that she may or may benefit from outpatient MRI given her known lumbar pathology. We discussed that she does not need an emergent MRI at this point in time. I did discuss with patient however that she should return for loss control of her bowels or bladder or if she develops any weakness in her legs. At this point she had no clonus and she had 2+ patellar reflexes. She had some minor sensory changes on the lateral portion of her proximal right leg. Patient is warm well- perfused extremities is not concern for critical limb ischemia so I did not feel that the patient required a CT angiogram of her chest abdomen pelvis with runoffs. I considered sepsis however patient had vitals reassuring against sepsis. Patient understood her return indications and was discharged with an empiric trial of expectant outpatient management. HPI This is a patient with a history of a herniated disc presenting with back pain. The patient was diagnosed with a herniated disc on 11/11/2024, measuring approximately 2.5 cm. She was advised to seek medical attention if she experienced any numbness or tingling sensations. Initially, she experienced spasms in her right leg, both lower and upper parts, which have since subsided. However, she now reports a sensation inge to her leg being asleep in the back of her thigh. She is concerned about the unilateral nature of her symptoms. She reports no loss of bowel or bladder control. The numbness and tingling extend up to her buttocks area and the back of her thigh. She does not experience these sensations when wiping after using the bathroom. She has not had any falls but notes a decrease in her mobility. She has not undergone any recent spinal surgeries and does not use intravenous drugs. She is not currently on any blood thinners. She reports no fevers, anterior pain, nausea, vomiting, or shortness of breath. She has been taking prednisone for pain management, which has been effective. These new symptoms emerged as her pain began to improve. She is currently on a tapering dose of prednisone, with one more day at 40 mg and three days at 20 mg remaining. She has had similar flare-ups in the past, but the cause was never identified, and the symptoms eventually resolved. This is the first time she has experienced unilateral symptoms. She reports no weakness in her feet but mentions that the spasms extended to her feet, causing them to feel as though they were asleep. Exam General: Well-appearing in no acute distress speaking in complete sentences. Head: Normocephalic, atraumatic. Eye: Extraocular eye movements intact. No conjunctival injection. No scleral icterus. Ear, nose, mouth, throat: Grossly normal inspection. Normal voice, handling secretions normally. Neck: Trachea midline. No midline cervical spinal tenderness. Cardiovascular: Well-perfused distal extremities. Respiratory: Nonlabored respiration. Clear lungs bilaterally. Gastrointestinal: Nondistended abdomen. Back: No thoracic midline spinal tenderness. Mild midline and right paraspinal muscle tenderness. No step-offs. No deformities. Musculoskeletal: No edema. Moving all 4 extremities spontaneously. 5 out of 5 bilateral lower extremity strength in dorsi and plantarflexion. No ankle clonus. 2+ patellar reflexes. Bilateral feet warm well-perfused with intact PT and DP pulses. Skin: Normal for age and race, grossly normal temperature and turgor. No acute rash. Neurologic: Alert and appropriate, no apparent acute deficits. Mild right proximal lateral thigh decreased sensation compared to left. Similar mild sensory deficits L5 distribution lower extremity on the right. No muscle wasting. Sensation bilateral lower extremities otherwise intact. Psychiatric: Mood and manner are appropriate. Grooming and personal hygiene are appropriate. Related Data Home Medications ?Medication ?Instructions ?Recorded ?Confirmed acetaminophen 500 mg capsule 500 mg PO PRN PRN 0 11/15/24 lactase 3,000 unit chewable tablet 9,000 unit PO PRN P RN 10/04/19 11/15/24 calcium carbonate (Tums) 600 mg PO PRN PRN 12/07/19 0 11/15/24 hydroxyzine HCl 25 mg tablet 25 mg PO QHS PRN 09/24/22 11/15/24 cholecalciferol (vitamin D3) 50 50 mcg PO DAILY 11/15/24 mcg (2,000 unit) capsule ibuprofen 200 mg tablet 200 mg PO Q6H PRN 10/11/22 0 11/15/24 cyclobenzaprine 10 mg tablet 10 mg PO TID PRN muscle s pasm #10 11/11/24 11/15/24 tabs prednisone 20 mg tablet 60 mg (3 x 20 mg) PO DAILY L [facility] 11/11/24 11/15/24 9 days #17 tabs sodium fluoride 1.1 %-potassium 1 applic dental DAILY 11/11/24 11/15/24 nitrate 5 % dental paste Previous Rx's ?Medication ?Instructions ?Recorded cyclobenzaprine 10 mg tablet 10 mg PO TID PRN muscle s pasm #10 11/11/24 tabs prednisone 20 mg tablet 60 mg (3 x 20 mg) PO DAILY L [facility] 11/11/24 9 days #17 tabs Allergies Allergy/AdvReac Type Severity Reaction Status Date / Time Sulfa (Sulfonamide Allergy Severe Skin Rash Verified 11/15/24 07:20 Antibiotics) bupropion (From Wellbutrin) AdvReac Intermediate Other (See Verified 11/15/24 07:20 Comment) lorazepam (From Ativan) AdvReac Intermediate Agitation Unverified 11/15/24 07:20 sertraline AdvReac Intermediate Other (See Verified 11/15/24 07:20 Comment) General Stated Complaint: Nk/Back Pain ISMAEL: 3 Course Vital Signs Vital signs: Vital Signs Temperature 36.4 C L 11/15/24 07:17 Pulse 88 11/15/24 07:17 Respiratory Rate 18 11/15/24 07:17 Blood Pressure 142/78 H 11/15/24 07:17 Pulse Oximetry 100 11/15/24 07:17 Temperature 36.4 C L 11/15/24 07:17 Temperature Source Temporal Artery Scan 11/15/24 07:17 Pulse 88 11/15/24 07:17 Respiratory Rate 18 11/15/24 07:17 Blood Pressure 142/78 H 11/15/24 07:17 Pulse Oximetry 100 11/15/24 07:17 PFSH All Active Problems (Updated 11/15/24 @ 07:41 by Martell Resendiz MD) Bulging lumbar disc (Acute) Encounter for pre-employment health screening examination (Acute) Drug allergy (Acute) Food allergy (Acute) Angioedema (Acute) Urticaria (Acute) Thyroid nodule (Acute) History of dilation and curettage (Acute) Amenorrhea, secondary (Acute) Irregular heart beat (Acute) noted at post visit, thyroid labs drawn Enlarged thyroid gland (Acute) Low back pain (Acute) Knee dislocation (Acute) bilateral intermittent TMJ (dislocation of temporomandibular joint) (Acute) History of recurrent UTIs (Acute) Anxiety disorder (Acute) Migraine (Acute 09/17/12) Medical History Sleep disorder Major depression, recurrent History of recurrent miscarriages Chronic abdominal pain Leukocytosis Oligomenorrhea Autoimmune thyroiditis Back pain Unspecified disturbances of skin sensation Fatigue Carpal tunnel syndrome of right wrist AV block, 1st degree Strep pharyngitis Family history of malignant melanoma Sore throat Colitis, acute Pruritic rash Mouth swelling Postoperative vaginal bleeding History of recurrent , antepartum with uncertain viability Early stage of test positive History of miscarriage 12/2016. Chemical . 07/2017 SAB @ 8w. s/p D&C. 02/2018 Chemical . Syncope, near unknown cause, chronic Migraines Surgical History H/O dilation and curettage 07/2017 SAB @ 8w. wisdom teeth Family History Mother Arthritis Heart disease Hyperthyroidism Hypothyroid Father Essential hypertension Hyperlipidemia Grandfather Alzheimer's dementia Atrial fibrillation Hypothyroid Neoplasm colon Grandfather Benign neoplasm of brain Myocardial infarction Neoplasm brain tumor Grandmother Diabetes Neoplasm bone cancer- breast cancer Kidney failure Parkinsons disease Grandmother Diabetes Dementia Hyperlipidemia S/P triple vessel bypass Social History Smoking/Tobacco Use Status: Never Smoking risk assessment performed?: Yes Alcohol Intake: never Details: w/o etoh since knowledge of Drug use: Never Substance use type: does not use Household members: spouse, children and other Details: Kaitlyn. S-Vidal Number of Children: 1 Seatbelt use: always Do you feel safe at home: Yes Do you feel safe in your relationship?: Yes Female Reproductive History Menstrual control method: none History History 5 Para 1 Hx # Term Pregnancies 1 Multiple births 0 Hx # Pregnancies 0 Ectopic pregnancies 0 AB induced 0 Hx Number of Living Children 1 AB spontaneous 4 Past Pregnancies Del. Date GA/Weeks # Preg Succ Route Wgt Sex Labor Lgth Anesth esia Location Prov Complic 01/14/20 38 No vaginal 3274.37 g Male 16 hrs 27 min ANNA Brito 05/04/21 10 No Delivery Date: 01/14/20 Last Updated by: Ashley Leon LPN Nitrous oxide in labor; Vidalroseanna Mcknight Delivery Date: 05/04/21 Last Updated by: Ashley Leon LPN Embryonic demise; D&C 05/04/21, Medardo Cooper MD
[2024-11-15 07:47] VITALS: BP 118/82; PULSE 89; RESP 18; O2SAT 99
== END 2024-11-15 07:48 | disposition home or self-care (01) ==
PROVIDERS: Emergency Provider Emergency Medicine; PCP Student in an Organized Health Care Education/Training Program
DX: M51.26 Other intervertebral disc displacement, lumbar region (principal); M54.50 Low back pain, unspecified
CPT/HCPCS: 99281; 99282

== ENCOUNTER 2024-12-16 08:55 | Outpatient (CLI) | payer OTHER, SELFPAY ==
--- NOTE | 2024-12-16 | DI.MRI_ITS ---
Exam(s) MR LUMBAR SPINE WO EXAM: MR LUMBAR SPINE WO CLINICAL HISTORY: RT LEG WEAKNESS, R29.898, RT LEG PAIN, M79.604. TECHNIQUE: Multiplanar multisequence MRI of the Lumbar spine was performed. COMPARISON: CR XR LUMBAR SPINE COMPLETE from 11/11/[address] LUMBAR SPINE WO from 11/11/2024 FINDINGS: Bones: The last intervertebral disc space is designated the L5/S1 level for the numbering purpose of this examination. The vertebral body heights are well maintained. Alignment is satisfactory. Endplate degenerative signal changes are seen at L5-S1. There is disc desiccation at L5-S1. Cord: It is of normal size and signal intensity. T12-L1: No disc herniations or bulges are present. No central spinal canal or neural foraminal stenosis. L1-2: No disc herniations or bulges are present. No central spinal canal or neural foraminal stenosis. L2-3: No disc herniations or bulges are present. No central spinal canal or neural foraminal stenosis. L3-4: No disc herniations or bulges are present. No central spinal canal or neural foraminal stenosis. L4-5: No disc herniations or bulges are present. No central spinal canal or neural foraminal stenosis. L5-S1: There is a large disc herniation at L5-S1. It measures 1.8 AP by 1.8 transverse by 2.2 craniocaudad there is compression of the S2 and S3 right nerve roots and mild compression on the right S1 nerve root. There is resultant compression of the thecal sac. There is also mild prominence of the disc into the left neural foramen causing mild left neural foraminal stenosis. There are degenerative changes of the facets. There is no significant right neural foraminal stenosis. Soft tissues: The visualized SI joints and sacrum are well maintained. The paraspinal soft tissues are unremarkable. IMPRESSION: 1. There is a large 1.8 x 1.8 x 2.2 cm disc herniation at L5-S1 slightly to the right compressing the right S2 and S3 nerve roots in causing central spinal canal compression. There is also mild compression on the right S1 nerve root. 2. There are degenerative changes at L5-S1 including facet arthropathy. There is mild prominence of the disc with extension into the left neural foramen causing mild left neural foraminal stenosis. DATA REPOSITORY:
== END 2024-12-16 09:15 ==
PROVIDERS: PCP Student in an Organized Health Care Education/Training Program; Visit Provider Nurse Practitioner
DX: R29.898 Other symptoms and signs involving the musculoskeletal system (principal); M79.604 Pain in right leg
CPT/HCPCS: 72148